=== PATIENT | male | born 1950 | race Caucasian/White ===

== ENCOUNTER 2017-11-15 02:51 | Inpatient (IN) | payer MEDICARE, OTHER, SELFPAY ==
[2017-11-15] VITALS (22 sets, daily range): BP systolic 107–145; BP diastolic 69–91; PULSE 65–103; RESP 12–20; TEMP 36.1–37.9; O2SAT 94–99; BMI 25.7; BMI 25.2
--- NOTE | 2017-11-15 03:20 | CT_ITS ---
CT abdomen pelvis wo con CLINICAL INDICATION: Right-sided abdominal pain, right lower quadrant pain ITS.REASON: pain, right flank pain ORDERING PHYSICIAN: Kevin Rahman MD PATIENT AGE: 67 years COMPARISON: None TECHNIQUE: Axial images obtained with sagittal and coronal reformats. PROCEDURE: Oral Contrast: None IV Contrast: None . FINDINGS: Lung bases show hyperinflation and attenuation of the peripheral vessels consistent COPD. Coronary artery calcification. Liver, spleen, left adrenal gland is unremarkable. No obvious pancreatic mass. A faint calcific density is present in the pancreatic head nonspecific. There is a right adrenal nodule measuring 2.7 cm measuring less than 0 Hounsfield units consistent with an adenoma. No renal calculi or hydronephrosis. No ureteral calculi. The appendix is enlarged measuring up to 2 cm in diameter with thickening of the wall and stranding of the periappendiceal fat. Gas is present in the lumen of the appendix. The appendix is retrocecal. There is an appendicolith at the base of the appendix. These findings are consistent with appendicitis. There is internal gas within the appendix is worrisome for gangrenous appendicitis. No free air is evident. No obvious abscess. The prostate is enlarged at 5.5 cm. Urinary bladder wall is thickened and may reflect hypertrophic change from bladder outlet obstruction. No acute bony anomalies. IMPRESSION: 1. Appendicitis with possible gangrenous appendix. 2. The appendix is retrocecal. 3. Right adrenal adenoma
[2017-11-15 03:50] LABS: Basophils % 0.1 % (0.1-2.0); Eosinophils # 0.1 K/mm3 (0.0-0.4); Eosinophils % 0.3 % (0.1-12.0); Hematocrit 47.3 % (42.0-52.0); Hemoglobin 16.2 g/dL (14.1-18.0); Lymphocytes # 1.1 K/mm3 (0.7-4.5); Lymphocytes % 6.2 K/mm3 (10-50); Mean Corpuscular HGB Conc 34.3 g/dL (31.8-35.4); Mean Corpuscular Hemoglobin 32.2 pg (27.0-31.2); Mean Corpuscular Volume 93.9 fl (80-94); Mean Platelet Volume 9.1 fl (7.4-10.4); Monocytes # 1.3 K/mm3 (0.1-1.0); Monocytes % 7.5 % (1.7-9.3); Neutrophils # 14.7 K/mm3 (1.8-7.8); Neutrophils % 85.9 % (37.0-80.0); Platelet Count 140 K/mm3 (142-424); Red Blood Count 5.03 M/mm3 (4.60-6.20); Red Cell Distribution Width 12.3 % (11.5-17.5); White Blood Count 17.1 K/mm3 (4.8-10.8)
[2017-11-15 03:58] LABS: MANUAL DIFFERENTIAL MANUAL DIFFERENTIAL (MANUAL DIFF)
[2017-11-15 04:05] LABS: Alanine Aminotransferase 30 U/L (12-78); Albumin Level 3.8 gm/dL (3.4-5.0); Albumin/Globulin Ratio 1.1 (1.1-1.8); Alkaline Phosphatase 87 U/L (46-116); Anion Gap 12.9 mEq/L (5-15); Aspartate Amino Transferase 16 U/L (15-37); Blood Urea Nitrogen 14 mg/dL (7-18); Calcium 9.5 mg/dL (8.5-10.1); Carbon Dioxide 27 mmol/L (21.0-32.0); Chloride 102 mmol/L (98-107); Creatinine Clearance Estimated 89 mL/min (0-300); Creatinine,Serum 1.02 mg/dL (0.70-1.30); Estimated Glomerular Filt Rate 73 ml/min (>60); GFR (African American) 88 ML/MIN (>60); Globulin 3.5 gm/dl (1.3-3.2); Glucose 111 mg/dL (74-106); Potassium 3.9 mmoL/L (3.5-5.1); Sodium 138 mmol/L (136-145); Total Protein,Serum 7.3 gm/dL (6.4-8.2)
[2017-11-15 04:25] LABS: Anisocytosis 1+; Lymphocytes % 8 % (10-50); Monocytes % 4 % (2-9); Neutrophils % 87 % (42-76); Platelet Estimate Normal; Total Cells Counted 100
--- NOTE | 2017-11-15 04:40 | HMH.EDNVD ---
ED Disposition Clinical Impression: Acute appendicitis Qualifiers: Acute appendicitis type: unspecified acute appendicitis type Qualified Code(s): K35.80 - Unspecified acute appendicitis Disposition: Admitted As Inpatient Condition on Discharge: Good Instructions: DI for Acute Abdomen - Critical Care Critical Care Time: No Attestation: On 11/15/17, the high probability of a clinically significant, sudden or life threatening deterioration of the following system(s) required my full and direct attention, intervention and personal management. The time I documented below is in addition to time spent performing reported procedures but includes the following listed in this critical care notation. Medical Decision Making - Medical Records Medical records reviewed: Yes: I reviewed the patient's medical records. Vital Signs: 11/15/17 03:07 Temperature 99.3 F Temperature Source Oral Pulse Rate [Left Radial] 65 Respiratory Rate 14 Blood Pressure [Right Arm] 142/81 Blood Pressure Mean [Right Arm] 101 Blood Pressure Source [Right Arm] Automatic Cuff Blood Pressure Position [Right Arm] Supine 02 Sat by Pulse Oximetry 99 Oxygen Delivery Method Room Air - Lab Data Lab results reviewed: Yes: I reviewed the patient's lab results. Lab Results 11/15/17 03:30: WBC 17.1 H, RBC 5.03, Hgb 16.2, Hct 47.3, MCV 93.9, MCH 32.2 H, MCHC 34.3, RDW 12.3, Plt Count 140 L, MPV 9.1, Neut % (Auto) 85.9 H, Lymph % (Auto) 6.2 L, [place] % (Auto) 7.5, Eos % (Auto) 0.3, Baso % (Auto) 0.1, Neut # (Auto) 14.7 H, Lymph # (Auto) 1.1, [place] # (Auto) 1.3 H, Eos # (Auto) 0.1, Baso # (Auto) 0.0, Total Counted 100, Neutrophils % (Manual) 87 H, Band Neutrophils % 1.0, Lymphocytes % (Manual) 8 L, Monocytes % (Manual) 4, Platelet Estimate Normal, Anisocytosis 1+ 11/15/17 03:30: Sodium 138, Potassium 3.9, Chloride 102, Carbon Dioxide 27, Anion Gap 12.9, BUN 14, Creatinine 1.02, Estimated Creat Clear 89, Estimated GFR 73, Est GFR ( Amer) 88, Glucose 111 H, Calcium 9.5, Total Bilirubin 1.0, AST 16, ALT 30, Alkaline Phosphatase 87, Total Protein 7.3, Albumin 3.8, Globulin 3.5 H, Albumin/Globulin Ratio 1.1 Result diagrams: 11/15/17 03:30 11/15/17 03:30 Orders (Tests/Meds): ORDERS Category Date Time Status CT abdomen pelvis wo con Stat Cat Scan 11/15/17 03:20 Taken - CT Data CT Scan: Abdomen, Pelvis Time Received: 04:[address] Reviewed: Yes: I have viewed the radiologist's interpretation Preliminary Findings: Abnormal (acute appendicitis) - Physician Consults Physician Consulted: shree Reason -: Admission - Guy Inquiry Pt receiving controlled substance: No Nausea/Vomiting/Diarrhea HPI - General Chief complaint: Abdominal Pain Stated complaint: pain in right side,vomited Time Seen by Provider: 11/15/17 04:42 Mode of Arrival: Ambulatory Source of Information: Patient, Spouse, Medical Record Limitations: No Limitations Description of Symptoms (Recalled from ER Triage Doc. by RN): right sided abdominal pain - History of Present Illness HPI Narrative: progressive rt sided abd pain over the last 24 hrs with nausea - MD complaint: nausea, abdominal pain Onset (ago): day(s) Associated Abdominal Pain: Yes Location of pain: RLQ, flank Severity: moderate Quality: aching Consistency: constant Relieving factors: none Exacerbating factors: none Associated symptoms: loss of appetite, nausea/vomiting - Related Data Allergies Allergy/AdvReac Type Severity Reaction Status Date / Time No Known Allergies Allergy Verified 11/15/17 03:18 [facility] History Medical History: Denies:: Cancer, Diabetes Mellitus Type 1, Diabetes Mellitus Type 2, MRSA Amputation: No Fractures: No - *Social History Educational Level: Completed College Smoking Status: Former smoker Alcohol Intake: current Alcohol Intake Frequency:: 0-2 drinks per day - Psychiatric History Expresses thoughts of harming self/others: None Suicide Plan Descript
--- NOTE | 2017-11-15 04:44 | ED_ITS ---
ED Disposition Clinical Impression: Acute appendicitis Qualifiers: Acute appendicitis type: unspecified acute appendicitis type Qualified Code(s) : K35.80 - Unspecified acute appendicitis Disposition: Admitted As Inpatient Condition on Discharge: Good Instructions: DI for Acute Abdomen - Critical Care Critical Care Time: No Attestation: On 11/15/17, the high probability of a clinically significant, sudden or life threatening deterioration of the following system(s) required my full and direct attention, intervention and personal management. The time I documented below is in addition to time spent performing reported procedures but includes the following listed in this critical care notation. Medical Decision Making - Medical Records Medical records reviewed: Yes: I reviewed the patient's medical records. Vital Signs: 11/15/17 03:07 Temperature 99.3 F Temperature Source Oral Pulse Rate [Left Radial] 65 Respiratory Rate 14 Blood Pressure [Right Arm] 142/81 Blood Pressure Mean [Right Arm] 101 Blood Pressure Source [Right Arm] Automatic Cuff Blood Pressure Position [Right Arm] Supine 02 Sat by Pulse Oximetry 99 Oxygen Delivery Method Room Air - Lab Data Lab results reviewed: Yes: I reviewed the patient's lab results. Lab Results 11/15/17 03:30: WBC 17.1 H, RBC 5.03, Hgb 16.2, Hct 47.3, MCV 93.9, MCH 32.2 H, MCHC 34.3, RDW 12.3, Plt Count 140 L, MPV 9.1, Neut % (Auto) 85.9 H, Lymph % ( Auto) 6.2 L, [place] % (Auto) 7.5, Eos % (Auto) 0.3, Baso % (Auto) 0.1, Neut # ( Auto) 14.7 H, Lymph # (Auto) 1.1, [place] # (Auto) 1.3 H, Eos # (Auto) 0.1, Baso # (Auto) 0.0, Total Counted 100, Neutrophils % (Manual) 87 H, Band Neutrophils % 1.0, Lymphocytes % (Manual) 8 L, Monocytes % (Manual) 4, Platelet Estimate Normal, Anisocytosis 1+ 11/15/17 03:30: Sodium 138, Potassium 3.9, Chloride 102, Carbon Dioxide 27, Anion Gap 12.9, BUN 14, Creatinine 1.02, Estimated Creat Clear 89, Estimated GFR 73, Est GFR ( Amer) 88, Glucose 111 H, Calcium 9.5, Total Bilirubin 1.0, AST 16, ALT 30, Alkaline Phosphatase 87, Total Protein 7.3, Albumin 3.8, Globulin 3.5 H, Albumin/Globulin Ratio 1.1 Result diagrams: 11/15/17 03:30 11/15/17 03:30 Orders (Tests/Meds): ORDERS Category Date Time Status CT abdomen pelvis wo con Stat Cat Scan 11/15/17 03:20 Taken - CT Data CT Scan: Abdomen, Pelvis Time Received: 04:[address] Reviewed: Yes: I have viewed the radiologist's interpretation Preliminary Findings: Abnormal (acute appendicitis) - Physician Consults Physician Consulted: shree Reason -: Admission - Guy Inquiry Pt receiving controlled substance: No Nausea/Vomiting/Diarrhea HPI - General Chief complaint: Abdominal Pain Stated complaint: pain in right side,vomited Time Seen by Provider: 11/15/17 04:42 Mode of Arrival: Ambulatory Source of Information: Patient, Spouse, Medical Record Limitations: No Limitations Description of Symptoms (Recalled from ER Triage Doc. by RN): right sided abdominal pain - History of Present Illness HPI Narrative: progressive rt sided abd pain over the last 24 hrs with nausea - MD complaint: nausea, abdominal pain Onset (ago): day(s) Associated Abdominal Pain: Yes Location of pain: RLQ, flank Severity: moderate Quality: aching Consistency: constant Relieving factors: none Exacerbating factors: none Associated symptoms: los
--- NOTE | 2017-11-15 04:49 | PC.NURSE ---
pt did not know his home meds and none had carried forward from pharmacy, has gone home to retrieve with admission
--- NOTE | 2017-11-15 05:15 | XR_ITS ---
XR chest 2V HISTORY: Pain ITS.REASON: abd pain ORDERING PHYSICIAN: Kevin Rahman MD PATIENT AGE: 67 years COMPARISON: 10/16/2013 FINDINGS: The cardiomediastinal silhouette and pulmonary vascularity are within normal limits. There is chronic coarsening of the bronchovascular markings with hyperinflation consistent with obstructive bronchitis. No lobar consolidation or collapse. Vestigial right first rib as before. IMPRESSION: COPD, no change with no acute finding
--- NOTE | 2017-11-15 06:52 | HMH.GSHP ---
HPI HPI: Patient is a very pleasant 67-year-old white male from [facility]. He states that early yesterday morning he had felt somewhat ill. He felt like he may have the flu. He tried to rest but then developed right flank pain. This continued to progress and he ultimately presented to the emergency department early this morning. He is found to have a leukocytosis. He underwent CT scan which revealed findings of retrocecal appendicitis. Surgery was contacted and arrangements were made for admission and planned appendectomy. [facility] History Medical History: Reports:: Hyperlipidemia Denies:: Cancer, Diabetes Mellitus Type 1, Diabetes Mellitus Type 2, MRSA Amputation: No Fractures: No - *Social History Educational Level: Completed College Smoking Status: Former smoker Tobacco Type: cigarettes # Packs/Day (cigarettes): 2 #Yrs smoked (if former smoker): 30 Smoking End Date: 2012 Alcohol Intake: current Alcohol Intake Frequency:: a few times a week Occupational Status: retired Housing: house - Psychiatric History Expresses thoughts of harming self/others: None Suicide Plan Description: No Plan *Family Hx:: Cancer, Coronary Artery Disease, Diabetes, Heart Attack, Hyperlipidemia, Hypertension, Kidney Disease, Stroke Review of Systems - Constitutional Reports anorexia, Reports fatigue - Eyes Denies change in vision - ENT Denies dizziness - *Cardiovascular Denies chest pain - *Respiratory Denies shortness of breath - *Gastrointestinal Reports abdominal pain - *Genitourinary Denies blood in urine - *Neurologic Denies seizure-like activity Meds Home Medications Medication Instructions Recorded Confirmed Type Aspirin [Aspirin 81mg EC Tab] 81 mg PO DAILY 11/15/17 11/15/17 History Atorvastatin Calcium [Atorvastatin 80 mg PO DAILY 11/15/17 11/15/17 History 80mg Tab] Lisinopril [Lisinopril 10mg Tab] 10 mg PO DAILY 11/15/17 11/15/17 History Metoprolol Tartrate [Lopressor 12.5 mg PO BID 11/15/17 11/15/17 History 25mg tablet] Mirabegron [Myrbetriq] 25 mg PO DAILY 11/15/17 11/15/17 History Multivitamin [One Daily] 1 each PO DAILY 11/15/17 11/15/17 History Omeprazole [Omeprazole 20mg 20 mg PO DAILY 11/15/17 11/15/17 History Capsule] Allergies Allergy/AdvReac Type Severity Reaction Status Date / Time No Known Allergies Allergy Verified 11/15/17 03:18 Exam Vital signs and Labs for Last 24 Hours: Temp Pulse Resp BP Pulse Ox 98.9 F 66 18 128/74 97 11/15/17 05:50 11/15/17 05:50 11/15/17 05:50 11/15/17 05:50 11/15/17 05:50 - *Routine HEENT Exam Head: Present: normocephalic, atraumatic - *Routine Respiratory Exam Present: CTA bilaterally - *Routine Cardiovascular Exam Present: RRR, Normal S1, Normal S2 - *Routine Abdominal Exam Present: soft, tenderness Comments: He has no evidence of any diffuse tenderness or peritonitis. He does have some tenderness in the right lateral abdomen and flank area. Assessment and Plan - Assessment and plan all Dx Assessment and Plan for all problems:: Plan for laparoscopic with possibly open appendectomy. This is to be arranged for this morning.
--- NOTE | 2017-11-15 07:12 | P.CONPHA_ITS ---
[facility] Pharmacy VTE Monitoring - Patient Demographics Admission date: 11/15/17 Report Date: 11/15/17 Time: 07:12 Allergies/Adverse Reactions: Patient Allergies No Known Allergies Allergy (Verified 11/15/17 03:18) Height: 1.85 m Weight: 86.835 kg Patient Problems: Current Active Problems Acute appendicitis (Acute) - VTE Risk Labs: VTE Related Lab Results Hgb 16.2 g/dL (14.1-18.0) 11/15/17 03:30 Hct 47.3 % (42.0-52.0) 11/15/17 03:30 Plt Count 140 K/mm3 (142-424) L 11/15/17 03:30 BUN 14 mg/dL (7-18) 11/15/17 03:30 Creatinine 1.02 mg/dL (0.70-1.30) 11/15/17 03:30 Estimated Creat Clear 89 mL/min (0-300) 11/15/17 03:30 Was VTE Risk Assessment Performed: Yes VTE Risk Level: Very Low Risk - Prophylaxis VTE Prophylaxis Ordered?: Yes Types of VTE Prophylaxis: TEDS Knee High Location of Applied Device: Bilateral Lower Extremeties - VTE Diagnosis Confirmed Treatment or plan recommended: Continue Current Treatment
--- NOTE | 2017-11-15 07:39 | P.PN_ITS ---
[facility] Anesthesia Checklist - Patient Identification Patient Identification: Arm Band - Structural Data Admitted From: Home Planned Operative Procedure/s: lap appy Consent for Planned Operative Procedure(s) Verified: Yes Verified Documents: Surgical Consent, History and Physical - NPO Status Verified Time NPO: 00:00 - Additional verifications Anesthesia Reactions: No - Airway Assessment C-Spine Mobility Assessed: Yes (MP2) TMJ Mobility Assessed: Yes Dentition: Good Dentition - Neurological Assessment Level of Consciousness: Awake, Alert - Anesthesia Plan Anesthesia Risk discussed: Yes Anesthesia Plan: Verified ASA Class: II Anesthesia Type: General [facility] Anesthesia HX I have reviewed the patient's past medical history: Yes Medical History: Reports:: Gastroesophageal Reflux Disease(GERD), Hiatal Hernia , Hyperlipidemia, Hypertension Denies:: Cancer, Diabetes Mellitus Type 1, Diabetes Mellitus Type 2, MRSA Amputation: No Fractures: No Comment: vasectomy, heart cath *Family Hx:: Cancer, Coronary Artery Disease, Diabetes, Heart Attack, Hyperlipidemia, Hypertension, Kidney Disease, Stroke
--- NOTE | 2017-11-15 08:09 | HMH.ANESCL ---
[facility] Anesthesia Checklist - Patient Identification Patient Identification: Arm Band - Structural Data Planned Operative Procedure/s: lap appy Consent for Planned Operative Procedure(s) Verified: Yes Verified Documents: Surgical Consent - Airway Assessment C-Spine Mobility Assessed: Yes TMJ Mobility Assessed: Yes Dentition: Poor Dentition - Anesthesia Plan Anesthesia Risk discussed: Yes Anesthesia Plan: Verified ASA Class: II Anesthesia Type: General [facility] Anesthesia HX I have reviewed the patient's past medical history: Yes Medical History: Reports:: Coronary Artery Disease, Gastroesophageal Reflux Disease(GERD), Hiatal Hernia, Hyperlipidemia, Hypertension, Palpitations Denies:: Cancer, Diabetes Mellitus Type 1, Diabetes Mellitus Type 2, MRSA Amputation: No Fractures: No Comment: vasectomy many years ago. S/p [place] 3 years ago, no cp since *Family Hx:: Cancer, Coronary Artery Disease, Diabetes, Heart Attack, Hyperlipidemia, Hypertension, Kidney Disease, Stroke
--- NOTE | 2017-11-15 08:12 | P.PN_ITS ---
[facility] Anesthesia Checklist - Patient Identification Patient Identification: Arm Band - Structural Data Planned Operative Procedure/s: lap appy Consent for Planned Operative Procedure(s) Verified: Yes Verified Documents: Surgical Consent - Airway Assessment C-Spine Mobility Assessed: Yes TMJ Mobility Assessed: Yes Dentition: Poor Dentition - Anesthesia Plan Anesthesia Risk discussed: Yes Anesthesia Plan: Verified ASA Class: II Anesthesia Type: General [facility] Anesthesia HX I have reviewed the patient's past medical history: Yes Medical History: Reports:: Coronary Artery Disease, Gastroesophageal Reflux Disease(GERD), Hiatal Hernia, Hyperlipidemia, Hypertension, Palpitations Denies:: Cancer, Diabetes Mellitus Type 1, Diabetes Mellitus Type 2, MRSA Amputation: No Fractures: No Comment: vasectomy many years ago. S/p [place] 3 years ago, no cp since *Family Hx:: Cancer, Coronary Artery Disease, Diabetes, Heart Attack, Hyperlipidemia, Hypertension, Kidney Disease, Stroke
--- NOTE | 2017-11-15 11:17 | CARE MANAGER ---
[facility] about Mr[facility] Kerns admission, patient will likely have surgery today. They will follow-up in the am with Case Mangement.
--- NOTE | 2017-11-15 13:31 | HMH.ANESI ---
[facility] Anesthesia Record Part I Intake, IV Amount: 2,800 Estimated blood loss (mL): 100 Urine output (mL): 250 Blood Pressure: 107/71 SaO2: 95 Pulse Rate: 103 Respiratory Rate: 12 Temperature: 97.8 F Patient is:: Awake, Stable Stable to PACU at:: 13:30
--- NOTE | 2017-11-15 13:32 | HMH.ANESII ---
[facility] Anesthesia Record Part II Discharge Time: 14:00 Destination: floor PACU nurse assessment reviewed?: Yes Patient Condition:: Good Anesthesia Complications:: None
--- NOTE | 2017-11-15 13:44 | HMH.OPNOTE ---
Date of procedure: 11/15/17 Pre-op Diagnosis:: Acute appendicitis Post-op diagnosis:: same Procedure performed:: 1. Diagnostic laparoscopy 2. Open appendectomy for acute necrotizing abscessed appendicitis Surgeon:: Kevin Rahman MD Anesthesia: MERCEDES Estimated blood loss (mL): 50 Clinical Note:: Patient is a 67-year-old white male. He states that early yesterday morning he had felt somewhat ill. He thought he may have the flu . He had some right flank pain. 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 He was found to have a leukocytosis. He had a CT scan performed which revealed findings of acute appendicitis. Patient was admitted and plan was for appendectomy. Operative findings:: Patient had a severely inflamed retrocecal necrotizing appendicitis with probable contained periappendiceal and intra-appendiceal abscess Operative note:: Consent was obtained and patient was taken to the operating room. He was given preoperative intravenous antibiotics. In the operating room he was placed in a supine position. Thompson catheter was placed for bladder decompression. Abdomen was prepped and draped in the standard surgical fashion. Infraumbilical skin incision was made and while performing abdominal wall left Veress needle was inserted. CO2 pneumoperitoneum was achieved. 11 mm optical trocar was inserted at the umbilicus. Intraperitoneal contents were visualized. 5 mm trocar was inserted in the suprapubic location. Additional 5 mm trocar was inserted in the right upper abdomen. Initially it was difficult to identify the appendix. The lateral peritoneal attachments of the right colon were divided with Mega ultrasonic harmonic clotilde mobilizing the cecum. There was a large inflammatory response almost resembling a phlegmon in the posterior lateral right paracolic gutter. There were some omental adhesions to the anterior peritoneum of the abdominal wall which were taken down using Mega ultrasonic harmonic clotilde. Very prolonged dissection was carried out and it appeared as though the appendix was identified and there was some necrosis near its proximal portion. The appendix traversed in a retrocecal location densely adherent to the right colon up to the hepatic flexure. Several hours of dissection was performed without successful mobilization of the appendix and it was difficult to discern between the appendix and right colon. Decision was made to convert to an open procedure. A transverse right lower quadrant incision was made. Dissection was carried down through subcutaneous tissues and Caleb's fascia to the muscle fascia. External oblique muscle, internal oblique, and transversalis muscle was opened along the length of their fibers and a muscle-splitting type technique. Peritoneum was entered. The cecum was able to be delivered through the wound. With some difficulty the appendix was ultimately freed from its remaining retroperitoneal attachments with the tip adherent into the right upper quadrant near the hepatic flexure. The appendix was markedly indurated and thickened and somewhat suppurative. It seemed to be packed full of appendicoliths. The appendiceal mesentery was clamped divided and ligated with Vicryl ties. Dissection was carried down to the base of the appendix. Clamp was placed at the appendiceal base which was then reapproximated immediately distal to this. The appendiceal stump was doubly ligated with 0 Vicryl ties. The appendix was then sharply amputated and sent off as a specimen. Appendiceal stump was cauterized with electrocautery. The appendiceal stump was inverted with a 3-0 Nurolon seromuscular Z stitch. Cecum was then returned to the peritoneal cavity. Peritoneal cavity was thoroughly irrigated. A 10 MARIVEL drain was placed in the right paracolic gutter through a separate incision in the right lower quadrant. The peritoneal cavit
--- NOTE | 2017-11-15 13:56 | P.OP_ITS ---
Date of procedure: 11/15/17 Pre-op Diagnosis:: Acute appendicitis Post-op diagnosis:: same Procedure performed:: 1. Diagnostic laparoscopy 2. Open appendectomy for acute necrotizing abscessed appendicitis Surgeon:: Kevin Rahman MD Anesthesia: MERCEDES Estimated blood loss (mL): 50 Clinical Note:: Patient is a 67-year-old white male. He states that early yesterday morning he had felt somewhat ill. He thought he may have the flu . He had some right flank pain. 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 He was found to have a leukocytosis. He had a CT scan performed which revealed findings of acute appendicitis. Patient was admitted and plan was for appendectomy. Operative findings:: Patient had a severely inflamed retrocecal necrotizing appendicitis with probable contained periappendiceal and intra-appendiceal abscess Operative note:: Consent was obtained and patient was taken to the operating room. He was given preoperative intravenous antibiotics. In the operating room he was placed in a supine position. Thompson catheter was placed for bladder decompression. Abdomen was prepped and draped in the standard surgical fashion. Infraumbilical skin incision was made and while performing abdominal wall left Veress needle was inserted. CO2 pneumoperitoneum was achieved. 11 mm optical trocar was inserted at the umbilicus. Intraperitoneal contents were visualized. 5 mm trocar was inserted in the suprapubic location. Additional 5 mm trocar was inserted in the right upper abdomen. Initially it was difficult to identify the appendix. The lateral peritoneal attachments of the right colon were divided with Mega ultrasonic harmonic clotilde mobilizing the cecum. There was a large inflammatory response almost resembling a phlegmon in the posterior lateral right paracolic gutter. There were some omental adhesions to the anterior peritoneum of the abdominal wall which were taken down using Mega ultrasonic harmonic clotilde. Very prolonged dissection was carried out and it appeared as though the appendix was identified and there was some necrosis near its proximal portion. The appendix traversed in a retrocecal location densely adherent to the right colon up to the hepatic flexure. Several hours of dissection was performed without successful mobilization of the appendix and it was difficult to discern between the appendix and right colon. Decision was made to convert to an open procedure. A transverse right lower quadrant incision was made. Dissection was carried down through subcutaneous tissues and Caleb's fascia to the muscle fascia. External oblique muscle, internal oblique, and transversalis muscle was opened along the length of their fibers and a muscle-splitting type technique. Peritoneum was entered. The cecum was able to be delivered through the wound. With some difficulty the appendix was ultimately freed from its remaining retroperitoneal attachments with the tip adherent into the right upper quadrant near the hepatic flexure. The appendix was markedly indurated and thickened and somewhat suppurative. It seemed to be packed full of appendicoliths. The appendiceal mesentery was clamped divided and ligated with Vicryl ties. Dissection was carried down to the base of the appendix. Clamp was placed at the appendiceal base which was then reapproximated immediately distal to this. The appendiceal stump was doubly ligated with 0 Vicryl ties. The appendix was then sharply amputated and sent off as a specimen. Appendiceal stump was cauterized with electrocautery. The appendiceal stump was inverted with a 3-0 Nurolon seromuscular Z stit
--- NOTE | 2017-11-15 14:13 | PC.NURSE ---
Pt returning from laparoscopic turned open appendectomy via bed. Pt is lethargic but answers questions appropriately. Dressing to rlq of abd is saturated w/sanguineous fluid as are the 2 laparoscopic sites. No hematoma's present. MARIVEL drain in place draining sanguineous fluid, dressing is cdi. Thompson to bedside draining clear spenser urine. Pt states his pain is a zero. VS are as follows: bp 139/78, P-71, R-14, T-98.3, O2-99%. Will reinforce saturated dressings as needed w/4x4's and tegaderm. Will continue to monitor.
[2017-11-15 15:58] LABS: Microscopic,Cath URINE MICROSCOPIC (MICROSCOPIC)
--- NOTE | 2017-11-15 16:19 | SUR.OPER ---
Procedure scheduled as laparoscopic appendectomy. Started at 0942, at 1130 MD made decision to convert to open appendectomy. At this time Solange Harden RN notified pt's that procedure had converted.
[2017-11-15 16:28] LABS: Appearance,Urine/Cath CLEAR (Clear); Bilirubin,Cath Negative (Negative); Blood, Urine/Cath 2+ (Negative); Color,Urine/Cath YELLOW (Yellow); Glucose,Urine/Cath (UA) Negative (Negative); Ketones,Urine/Cath Negative (Negative); Leukocyte Esterase,Cath Negative (Negative); Nitrate,Cath Negative (Negative); Protein,Urine/Cath TRACE (Negative); Specific Gravity, Urine/Cath 1.025 (1.005-1.030); Urobilinogen,Cath 0.2 EU/dl (0.2)
[2017-11-15 18:34] LABS: Bacteria,Urine/Cath 1+ /lpf; Mucus,Urine/Cath 2+ /lpf; Squamous Epithelial Ur./Cath Occasional #/hpf (0-5)
--- NOTE | 2017-11-15 18:53 | PC.NURSE ---
report to be given to Lisa Ramirez RN
[2017-11-16] VITALS (7 sets, daily range): BP systolic 128–164; BP diastolic 75–106; PULSE 61–76; RESP 16–20; TEMP 36.3–36.9; O2SAT 94–98
--- NOTE | 2017-11-16 04:59 | PC.NURSE ---
pt asked to remove scud pump because he was sweaty
--- NOTE | 2017-11-16 05:43 | PC.NURSE ---
PT HAS C/O PAIN IN ABDOMINAL INCISIONS AREAS T/O THE NIGHT, MEDICATED PER MAR. INCISIONS TO RT. LEFT AND MIDLINE ABDOMEN NOTED, DSG SOAKED WITH BLOODY DRAINAGE, NO LEAKING AROUND TEGADERM NOTED, RU DSG REINFORCED WITH TEGADERM AND TELFA, NO LEAKING AROUND REINFORCEMENT. TENDERNESS NOTED TO ABDOMINAL INCISIONS. MARIVEL DRAIN EMPTIED THIS SHIFT, 25 ML OF SEROSANGUINEOUS NOTED. PT REQUESTED SCUDS TO BE REMOVED FOR A COUPLE HOURS BECAUSE HE WAS SWEATY, STATED HE WOULD PUT THEM BACK ON AFTER BREAKFAST. PT EDUCATED TO TURN, COUGH, AND DEEP BREATHE, ADDITIONAL PILLOW GIVEN TO SPLINT INCISIONS. 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 BS HYPOACTIVE, PT DENIES PASSING FLATUS. F/C PATENT AND DRAINING CLEAR YELLOW URINE AT BEDSIDE. AXOX3. VSS. NO ACUTE DISTRESS NOTED. WILL CONTINUE TO MONITOR.
--- NOTE | 2017-11-16 06:02 | PC.NURSE ---
scuds are still off
--- NOTE | 2017-11-16 07:26 | PC.NURSE ---
REPORT GIVEN TO Mundo DUBOIS RN
--- NOTE | 2017-11-16 07:39 | PC.NURSE ---
REPORT GIVEN TO Mundo MITCHELL W/C
--- NOTE | 2017-11-16 08:25 | HMH.GSPN ---
Subjective Patient reports: no new complaints, feels better Narrative: Main complaint is discomfort from drain when it is stripped. Exam Vital signs and Labs for Last 24 Hours: Temp Pulse Resp BP Pulse Ox 98.1 F 67 18 132/75 94 L 11/16/17 04:00 11/16/17 08:00 11/16/17 08:00 11/16/17 04:00 11/16/17 08:00 Laboratory Results - last 24 hr 11/15/17 09:30: Urine Color Yellow, Urine Appearance Clear, Urine pH 6.0, Ur Specific [place] 1.025, Urine Protein Trace, Urine Glucose (UA) Negative, Urine Ketones Negative, Urine Blood 2+, Urine Nitrate Negative, Urine Bilirubin Negative, Urine Urobilinogen 0.2, Ur Leukocyte Esterase Negative, Urine RBC 5-10, Urine WBC None, Ur Squamous Epith Cells Occasional, Urine Bacteria 1+ I & O for Last 24 hours: Intake & Output 11/13/17 11/14/17 11/15/17 11/16/17 11:59 11:59 11:59 11:59 Intake Total 4883 / 4883 Output Total 2875 / 2875 Balance 2007 Weight 191 lb 7 oz - *Routine Respiratory Exam Present: CTA bilaterally - *Routine Abdominal Exam Present: soft, wound, drain Progress Note: A&P (1) Acute appendicitis Status: Acute Assessment and plan: D/C adame. Restart some home medications. Monitor MARIVEL. Continue to limit to Clears for now. Current Visit: Yes
--- NOTE | 2017-11-16 08:28 | P.PN_ITS ---
Subjective Patient reports: no new complaints, feels better Narrative: Main complaint is discomfort from drain when it is stripped. Exam Vital signs and Labs for Last 24 Hours: Temp Pulse Resp BP Pulse Ox 98.1 F 67 18 132/75 94 L 11/16/17 04:00 11/16/17 08:00 11/16/17 08:00 11/16/17 04:00 11/16/17 08:00 Laboratory Results - last 24 hr 11/15/17 09:30: Urine Color Yellow, Urine Appearance Clear, Urine pH 6.0, Ur Specific [place] 1.025, Urine Protein Trace, Urine Glucose (UA) Negative, Urine Ketones Negative, Urine Blood 2+, Urine Nitrate Negative, Urine Bilirubin Negative, Urine Urobilinogen 0.2, Ur Leukocyte Esterase Negative, Urine RBC 5-10 , Urine WBC None, Ur Squamous Epith Cells Occasional, Urine Bacteria 1+ I & O for Last 24 hours: Intake & Output 11/13/17 11/14/17 11/15/17 11/16/17 11:59 11:59 11:59 11:59 Intake Total 4883 / 4883 Output Total 2875 / 2875 Balance 2007 Weight 191 lb 7 oz - *Routine Respiratory Exam Present: CTA bilaterally - *Routine Abdominal Exam Present: soft, wound, drain Progress Note: A&P (1) Acute appendicitis Status: Acute Assessment and plan: D/C adame. Restart some home medications. Monitor MARIVEL. Continue to limit to Clears for now. Current Visit: Yes
[2017-11-16 08:33] LABS: Eosinophils # 0.1 K/mm3 (0.0-0.4); Eosinophils % 0.4 % (0.1-12.0); Hematocrit 44.1 % (42.0-52.0); Hemoglobin 14.7 g/dL (14.1-18.0); Lymphocytes # 0.7 K/mm3 (0.7-4.5); Lymphocytes % 5.3 K/mm3 (10-50); Mean Corpuscular HGB Conc 33.4 g/dL (31.8-35.4); Mean Corpuscular Volume 95.7 fl (80-94); Mean Platelet Volume 9.9 fl (7.4-10.4); Monocytes # 0.6 K/mm3 (0.1-1.0); Monocytes % 4.5 % (1.7-9.3); Neutrophils # 11.7 K/mm3 (1.8-7.8); Neutrophils % 89.7 % (37.0-80.0); Platelet Count 116 K/mm3 (142-424); Red Blood Count 4.61 M/mm3 (4.60-6.20); Red Cell Distribution Width 12.4 % (11.5-17.5)
[2017-11-16 08:39] LABS: MANUAL DIFFERENTIAL MANUAL DIFFERENTIAL (MANUAL DIFF)
[2017-11-16 10:39] LABS: Lymphocytes % 2 % (10-50); Monocytes % 5 % (2-9); Neutrophils % 90 % (42-76); Total Cells Counted 100
[2017-11-16 10:40] LABS: Platelet Estimate Slight Decrease
--- NOTE | 2017-11-16 16:09 | PC.NURSE ---
Thompson catheter removed per md order in the am. Pt tolerated well. He has since urinated several times. Abdomen is tender to incision areas. No new drainage noted to dressings. MARIVEL drain patent and draining small amount of sanguineous fluid, approx 10 ml's this shift. Treated per dec with prn pain meds. Pt reports satisfactory relief w/administration. Will continue to monitor.
--- NOTE | 2017-11-16 19:09 | PC.NURSE ---
report given to siri gibbons rn
[2017-11-17 04:00] VITALS: BP 133/79; PULSE 60; RESP 16; TEMP 36.8; O2SAT 96
--- NOTE | 2017-11-17 04:24 | PC.NURSE ---
Pt has c/o pain in abdomen r/t incisions, medicated per MAR with PRN pain medication. Pt states that his pain is getting better and he states that when palpating incisions sites only the one in his RLQ hurts. Pt states when nursing staff strip the MARIVEL drain it does not hurt as bad as before. 30 mL of serosanguineous fluid emptied from MARIVEL this shift. 4 incisions site noted to abdomen. DSG around MARIVEL tubing reinforced with telfa and tegaderm, no new drainage noted to incisions dressings. Pt states he is passing flatus but has not had a BM 11/14/17, states he has this trouble at home as well, BS active in all 4 qauds, no distention noted. No c/o or s/s of difficulty with urination since removal of F/C, pt ambulating to BR alone well. Lung sounds clear. A&Ox3. VSS. No acute distress noted. Will continue to monitor.
--- NOTE | 2017-11-17 07:08 | PC.NURSE ---
Pt refuses scuds, states they are to hot, pt ambulates regularly in room. Low VTE risk.
--- NOTE | 2017-11-17 07:26 | PC.NURSE ---
REPORT GIVEN TO Abdon BURGOS W/C
--- NOTE | 2017-11-17 07:44 | PC.NURSE ---
report given to ALLY arrington rn
--- NOTE | 2017-11-17 07:58 | P.PN_ITS ---
Subjective Patient reports: feels better, pain is less (Feels less pain. Tolerating clears and passing gas.), tolerating liquids well, flatus Exam Vital signs and Labs for Last 24 Hours: Temp Pulse Resp BP Pulse Ox 98.2 F 60 16 133/79 96 11/17/17 04:00 11/17/17 04:00 11/17/17 04:00 11/17/17 04:00 11/17/17 04:00 Laboratory Results - last 24 hr 11/16/17 07:56: WBC 13.0 H, RBC 4.61, Hgb 14.7, Hct 44.1, MCV 95.7 H, MCH 32.0 H , MCHC 33.4, RDW 12.4, Plt Count 116 L, MPV 9.9, Neut % (Auto) 89.7 H, Lymph % ( Auto) 5.3 L, [place] % (Auto) 4.5, Eos % (Auto) 0.4, Baso % (Auto) 0.0 L, Neut # ( Auto) 11.7 H, Lymph # (Auto) 0.7, [place] # (Auto) 0.6, Eos # (Auto) 0.1, Baso # ( Auto) 0.0, Total Counted 100, Neutrophils % (Manual) 90 H, Band Neutrophils % 3.0, Lymphocytes % (Manual) 2 L, Monocytes % (Manual) 5, Platelet Estimate Slight decrease I & O for Last 24 hours: Intake & Output 11/14/17 11/15/17 11/16/17 11/17/17 11:59 11:59 11:59 11:59 Intake Total 5503 / 5503 1706 / 1706 Output Total 3275 / 3275 2490 / 2490 Balance 2228 / 2228 -784 / -784 Weight 191 lb 7 oz - *Routine Respiratory Exam Present: CTA bilaterally - *Routine Cardiovascular Exam Present: RRR - *Routine Abdominal Exam Present: soft, surgical scars, drain Comments: MARIVEL drain serous. Progress Note: A&P (1) Acute appendicitis Status: Acute Assessment and plan: Improving. Continue IV antibiotics for now. Advance to full liquids. Possible removal of MARIVEL this afternoon. Monitor WBC. Current Visit: Yes
[2017-11-17 08:00] VITALS: BP 121/58; BP 130/80; PULSE 63; RESP 18; TEMP 36.6; O2SAT 96
[2017-11-17 08:46] LABS: Eosinophils % 0.1 % (0.1-12.0); Hematocrit 41.5 % (42.0-52.0); Hemoglobin 13.7 g/dL (14.1-18.0); Lymphocytes # 0.9 K/mm3 (0.7-4.5); Lymphocytes % 7.6 K/mm3 (10-50); Mean Corpuscular Hemoglobin 31.9 pg (27.0-31.2); Mean Corpuscular Volume 96.8 fl (80-94); Mean Platelet Volume 9.9 fl (7.4-10.4); Monocytes # 0.4 K/mm3 (0.1-1.0); Monocytes % 3.4 % (1.7-9.3); Neutrophils % 88.9 % (37.0-80.0); Platelet Count 107 K/mm3 (142-424); Red Blood Count 4.29 M/mm3 (4.60-6.20); Red Cell Distribution Width 12.2 % (11.5-17.5); White Blood Count 11.3 K/mm3 (4.8-10.8)
[2017-11-17 09:13] LABS: Anion Gap 11.7 mEq/L (5-15); Blood Urea Nitrogen 16 mg/dL (7-18); Carbon Dioxide 29 mmol/L (21.0-32.0); Chloride 104 mmol/L (98-107); Creatinine Clearance Estimated 89 mL/min (0-300); Creatinine,Serum 0.99 mg/dL (0.70-1.30); Estimated Glomerular Filt Rate 76 ml/min (>60); GFR (African American) 92 ML/MIN (>60); Glucose 123 mg/dL (74-106); Potassium 3.7 mmoL/L (3.5-5.1); Sodium 141 mmol/L (136-145)
[2017-11-17 09:15] LABS: MANUAL DIFFERENTIAL MANUAL DIFFERENTIAL (MANUAL DIFF)
[2017-11-17 12:47] LABS: Lymphocytes % 5 % (10-50); Monocytes % 5 % (2-9); Neutrophils % 90 % (42-76); Platelet Estimate Marked Decrease; RBC Morphology Normal; Total Cells Counted 100
--- NOTE | 2017-11-17 13:40 | PC.NURSE ---
PT IS RESTING IN BED, RECEIVING PAIN MEDICATION NEEDED, DRESSINGS NOTED TO THE ABDOMEN. TUBING HAS BEEN STRIPPED ONE TIME THIS SHIFT WHICH PT STATES IS VERY UNCOMFORTABLE, LUNG SOUNDS CLEAR, BOWEL SOUNDS NORMAL, PT HAS AMBULATED IN THE [place] THIS SHIFT. WILL CONTINUE TO MONITOR
[2017-11-17 14:59] VITALS: BMI 25.3
[2017-11-17 16:00] VITALS: BP 154/84; PULSE 71; RESP 18; TEMP 36.7; O2SAT 98
--- NOTE | 2017-11-17 16:10 | HMH.GSPN ---
Subjective Patient reports: no new complaints, feels better (Tolerating full liquids without difficulty.) Exam Vital signs and Labs for Last 24 Hours: Temp Pulse Resp BP Pulse Ox 97.9 F 63 18 130/80 96 11/17/17 08:00 11/17/17 08:00 11/17/17 08:00 11/17/17 08:00 11/17/17 08:00 Laboratory Results - last 24 hr 11/17/17 08:09: WBC 11.3 H, RBC 4.29 L, Hgb 13.7 L, Hct 41.5 L, MCV 96.8 H, MCH 31.9 H, MCHC 33.0, RDW 12.2, Plt Count 107 L, MPV 9.9, Neut % (Auto) 88.9 H, Lymph % (Auto) 7.6 L, [place] % (Auto) 3.4, Eos % (Auto) 0.1, Baso % (Auto) 0.0 L, Neut # (Auto) 10.0 H, Lymph # (Auto) 0.9, [place] # (Auto) 0.4, Eos # (Auto) 0.0, Baso # (Auto) 0.0, Total Counted 100, Neutrophils % (Manual) 90 H, Lymphocytes % (Manual) 5 L, Monocytes % (Manual) 5, Platelet Estimate Marked decrease, RBC Morphology Normal 11/17/17 08:09: Sodium 141, Potassium 3.7, Chloride 104, Carbon Dioxide 29, Anion Gap 11.7, BUN 16, Creatinine 0.99, Estimated Creat Clear 89, Estimated GFR 76, Est GFR ( Amer) 92, Glucose 123 H I & O for Last 24 hours: Intake & Output 11/15/17 11/16/17 11/17/17 11/18/17 11:59 11:59 11:59 11:59 Intake Total 5503 / 5503 1706 / 1706 Output Total 3275 / 3275 2490 / 2490 Balance 2228 / 2228 -784 / -784 Weight 191 lb 7 oz 191 lb 7.014 oz - *Routine Abdominal Exam Present: soft Progress Note: A&P (1) Acute appendicitis Status: Acute Assessment and plan: Removed MARIVEL drain. Current Visit: Yes
[2017-11-17 19:50] VITALS: BP 121/74; PULSE 66; RESP 18; TEMP 36.7; O2SAT 96
[2017-11-17 20:00] VITALS: O2SAT 96
[2017-11-18 04:00] VITALS: BP 132/80; PULSE 60; RESP 18; TEMP 36.9; O2SAT 96
--- NOTE | 2017-11-18 04:08 | PC.NURSE ---
PATIENT HAS C/O ABDOMINAL PAIN THIS SHIFT, STATING HE THINKS HIS ABDOMEN IS FULL OF GAS. PATIENT WAS UP WALKING IN HALLS LAST EVENING AND STATED IT DID HELP THE GAS PAIN. DRESSINGS REMAIN CLEAN DRY AND INTACT WITH NO DRAINAGE NOTED. FÉLIX STILL INTACT WITH NO REDNESS OR DRAINAGE NOTED. PATIENT INSISTS ON HAVING PAIN MED TIME WRITTEN ON BOARD. PATIENT HAD TO WAIT 10 MIN ON PAIN MED DUE TO THIS NURSE BEING WITH ANOTHER PATIENT AND PATIENT STATED HIS DISSATISFACTION STATING HIS PAIN MED WORE OFF AND THAT HIS PAIN WAS A 10+ BECAUSE THIS NURSE WAS LATE. WHEN ENTERING ROOM FOR REASSESSMENT PATIENT IS RESTING WITH EYES CLOSED. VSS. NO ACUTE CHANGES NOTED. CALL LIGHT IN REACH. WILL CONTINUE TO MONITOR.
[2017-11-18 07:40] VITALS: BP 137/86; PULSE 62; RESP 18; TEMP 36.9; O2SAT 98
--- NOTE | 2017-11-18 08:39 | HMH.GSPN ---
Subjective Patient reports: other (He states that he began to have severe muscle spasms when his drain was removed yesterday.) Exam Vital signs and Labs for Last 24 Hours: Temp Pulse Resp BP Pulse Ox 98.4 F 62 18 137/86 98 11/18/17 07:40 11/18/17 07:40 11/18/17 07:40 11/18/17 07:40 11/18/17 07:40 Laboratory Results - last 24 hr 11/17/17 08:09: WBC 11.3 H, RBC 4.29 L, Hgb 13.7 L, Hct 41.5 L, MCV 96.8 H, MCH 31.9 H, MCHC 33.0, RDW 12.2, Plt Count 107 L, MPV 9.9, Neut % (Auto) 88.9 H, Lymph % (Auto) 7.6 L, [place] % (Auto) 3.4, Eos % (Auto) 0.1, Baso % (Auto) 0.0 L, Neut # (Auto) 10.0 H, Lymph # (Auto) 0.9, [place] # (Auto) 0.4, Eos # (Auto) 0.0, Baso # (Auto) 0.0, Total Counted 100, Neutrophils % (Manual) 90 H, Lymphocytes % (Manual) 5 L, Monocytes % (Manual) 5, Platelet Estimate Marked decrease, RBC Morphology Normal 11/17/17 08:09: Sodium 141, Potassium 3.7, Chloride 104, Carbon Dioxide 29, Anion Gap 11.7, BUN 16, Creatinine 0.99, Estimated Creat Clear 89, Estimated GFR 76, Est GFR ( Amer) 92, Glucose 123 H I & O for Last 24 hours: Intake & Output 11/15/17 11/16/17 11/17/17 11/18/17 11:59 11:59 11:59 11:59 Intake Total 5503 / 5503 1706 / 1706 2583 / 2583 Output Total 3275 / 3275 2490 / 2490 3080 / 3080 Balance 2228 / 2228 -784 / -784 -497 / -497 Weight 191 lb 7 oz 191 lb 7.014 oz - Constitutional no acute distress - *Routine Respiratory Exam Absent: respiratory distress - *Routine Cardiovascular Exam Present: RRR - *Routine Abdominal Exam Present: soft Comments: incisions c/d/i Progress Note: A&P (1) Acute appendicitis Status: Acute Assessment and plan: Complicated appendicitis with patchy necrosis. Well, doing well status post appendectomy. Patient does have complaint of spasm + drain which was removed yesterday. Increase ambulation Toradol and Flexeril as needed Ice packs as needed Continue antibiotics Repeat CBC in a.m. Current Visit: Yes
--- NOTE | 2017-11-18 14:02 | P.PN_ITS ---
Internal Medicine - PN: Subj *Date: 11/18/17 *Time: 14:01 Exam Vital signs and Labs for Last 24 Hours: Temp Pulse Resp BP Pulse Ox 98.4 F 62 18 137/86 98 11/18/17 07:40 11/18/17 07:40 11/18/17 07:40 11/18/17 07:40 11/18/17 07:40 I & O for Last 24 hours: Intake & Output 11/15/17 11/16/17 11/17/17 11/18/17 23:59 23:59 23:59 23:59 Intake Total 3886 / 3886 2623 / 2623 3283 / 3283 Output Total 2350 / 2350 1885 / 1885 2860 / 2860 1750 / 1750 Balance 1536 / 1536 738 / 738 423 / 423 -1750 / -1750 Weight 86.835 kg 86.835 kg Assessment and Plan (1) Acute appendicitis Current visit: Yes Status: Acute Qualifiers: Acute appendicitis type: unspecified acute appendicitis type Qualified Code (s): K35.80 - Unspecified acute appendicitis Category: Medical Code(s): K35.80 - Unspecified acute appendicitis The patient's infection will respond to the chosen ABx?: Yes Is the patient receiving the right drug, dose, and route?: Yes Could a more targeted ABx be ordered?: No
--- NOTE | 2017-11-18 15:10 | PC.NURSE ---
PT IS RESTING IN BED, HAS AMBULATED IN THE [place] SEVERAL TIMES THIS SHIFT AND HAS BEEN UP TO THE CHAIR. RECEIVING PAIN MEDICATION FOR DISCOMFORT. LUNG SOUND CLEAR, BOWEL SOUNDS HYPOACTIVE, DRESSINGS TO THE ABDOMEN HAVE BEEN CHANGED. WILL CONTINUE TO MONITOR.
[2017-11-18 15:41] VITALS: BP 148/82; PULSE 69; RESP 20; TEMP 36.9; O2SAT 97
[2017-11-18 19:44] VITALS: BP 152/77; PULSE 71; RESP 18; TEMP 36.9; O2SAT 97
[2017-11-18 20:00] VITALS: O2SAT 97
[2017-11-19 04:03] VITALS: BP 158/76; PULSE 65; RESP 18; TEMP 36.9; O2SAT 95
[2017-11-19 06:23] LABS: Basophils % 0.1 % (0.1-2.0); Eosinophils # 0.2 K/mm3 (0.0-0.4); Eosinophils % 2.3 % (0.1-12.0); Hematocrit 39.6 % (42.0-52.0); Hemoglobin 13.3 g/dL (14.1-18.0); Lymphocytes # 1.1 K/mm3 (0.7-4.5); Lymphocytes % 15.3 K/mm3 (10-50); Mean Corpuscular HGB Conc 33.5 g/dL (31.8-35.4); Mean Corpuscular Hemoglobin 31.9 pg (27.0-31.2); Mean Corpuscular Volume 95.3 fl (80-94); Mean Platelet Volume 9.2 fl (7.4-10.4); Monocytes # 0.6 K/mm3 (0.1-1.0); Monocytes % 8.2 % (1.7-9.3); Neutrophils # 5.1 K/mm3 (1.8-7.8); Platelet Count 110 K/mm3 (142-424); Red Blood Count 4.16 M/mm3 (4.60-6.20); White Blood Count 6.9 K/mm3 (4.8-10.8)
[2017-11-19 08:00] VITALS: BP 128/74; PULSE 60; RESP 18; TEMP 36.6; O2SAT 97
--- NOTE | 2017-11-19 09:11 | HMH.GSPN ---
Subjective Patient reports: feels better, pain is less Exam Vital signs and Labs for Last 24 Hours: Temp Pulse Resp BP Pulse Ox 97.9 F 60 18 128/74 97 11/19/17 08:00 11/19/17 08:00 11/19/17 08:00 11/19/17 08:00 11/19/17 08:00 Laboratory Results - last 24 hr 11/19/17 06:15: WBC 6.9 D, RBC 4.16 L, Hgb 13.3 L, Hct 39.6 L, MCV 95.3 H, MCH 31.9 H, MCHC 33.5, RDW 12.0, Plt Count 110 L, MPV 9.2, Neut % (Auto) 74.0, Lymph % (Auto) 15.3, [place] % (Auto) 8.2, Eos % (Auto) 2.3, Baso % (Auto) 0.1, Neut # (Auto) 5.1, Lymph # (Auto) 1.1, [place] # (Auto) 0.6, Eos # (Auto) 0.2, Baso # (Auto) 0.0 I & O for Last 24 hours: Intake & Output 11/16/17 11/17/17 11/18/17 11/19/17 11:59 11:59 11:59 11:59 Intake Total 5503 / 5503 1706 / 1706 2583 / 2583 760 / 760 Output Total 3275 / 3275 2490 / 2490 3080 / 3080 Balance 2228 / 2228 -784 / -784 -497 / -497 760 / 760 Weight 191 lb 7.014 oz - Constitutional no acute distress - *Routine Respiratory Exam Absent: respiratory distress - *Routine Cardiovascular Exam Present: RRR - *Routine Abdominal Exam Present: soft (incisions c/d/i and without erythema) Progress Note: A&P (1) Acute appendicitis Status: Acute Assessment and plan: Improving Discharge home Continue antibiotics at home to complete course secondary to necrosis and suppuration Continue Flexeril secondary to muscle spasms Ibuprofen as needed Current Visit: Yes
--- NOTE | 2017-11-19 09:14 | HMH.DCSUM ---
General - General Admission date: 11/15/17 Discharge date: 11/19/17 HPI HPI: Patient is a very pleasant 67-year-old white male from [facility]. He states that early yesterday morning he had felt somewhat ill. He felt like he may have the flu. He tried to rest but then developed right flank pain. This continued to progress and he ultimately presented to the emergency department early this morning. He is found to have a leukocytosis. He underwent CT scan which revealed findings of retrocecal appendicitis. Surgery was contacted and arrangements were made for admission and planned appendectomy. Objective Vital signs: Temp Pulse Resp BP Pulse Ox 97.9 F 60 18 128/74 97 11/19/17 08:00 11/19/17 08:00 11/19/17 08:00 11/19/17 08:00 11/19/17 08:00 no acute distress - *Routine Respiratory Exam Absent: respiratory distress - *Routine Cardiovascular Exam Present: RRR - *Routine Abdominal Exam Present: soft - Routine Psychiatric Exam Present: normal affect Hospital Course Hospital Course: The patient was admitted to the surgical service after presenting with appendicitis. He underwent [id number]-open appendectomy (Dr. Rahman) with intraoperative findings of necrosis and suppuration. Please see operative report for detail. He convalesced well and remained afebrile with stable normal vital signs. He was maintained on Unasyn secondary to intraoperative findings. His white blood cell count continued to normalize and he was deemed appropriate for discharge on postoperative day 4. Results Labs on day of discharge: Labs from last 24 hours 11/19/17 06:15 WBC 6.9 D RBC 4.16 L Hgb 13.3 L Hct 39.6 L MCV 95.3 H MCH 31.9 H MCHC 33.5 RDW 12.0 Plt Count 110 L MPV 9.2 Neut % (Auto) 74.0 Lymph % (Auto) 15.3 [place] % (Auto) 8.2 Eos % (Auto) 2.3 Baso % (Auto) 0.1 Neut # (Auto) 5.1 Lymph # (Auto) 1.1 [place] # (Auto) 0.6 Eos # (Auto) 0.2 Baso # (Auto) 0.0 DS: Diagnosis - Discharge Diagnosis (1) Acute appendicitis Status: Acute Problem details: With necrosis and suppuration Meds Home Medications Medication Instructions Recorded Confirmed Type Aspirin [Aspirin 81mg EC Tab] 81 mg PO DAILY 11/15/17 11/15/17 History Atorvastatin Calcium [Atorvastatin 80 mg PO HS 11/15/17 11/15/17 History 80mg Tab] Lisinopril [Lisinopril 20mg Tab] 10 mg PO DAILY 11/15/17 11/15/17 History Metoprolol Tartrate [Lopressor 12.5 mg PO BID 11/15/17 11/15/17 History 25mg tablet] Mirabegron [Myrbetriq] 25 mg PO DAILY 11/15/17 11/15/17 History Multivitamin [One Daily] 1 each PO DAILY 11/15/17 11/15/17 History Omeprazole [Omeprazole 20mg 20 mg PO DAILY 11/15/17 11/15/17 History Capsule] Allergies Allergy/AdvReac Type Severity Reaction Status Date / Time No Known Allergies Allergy Verified 11/15/17 03:18 Discharge Plan - Patient Discharge Instructions ACTIVITY: No heavy lifting DIET: advance to your usual diet - Follow up Plan Follow up with: Kevin Rahman MD [Staff Physician] - 11/24/17 Disposition: Home, Self-Assisted Medications: Home Medications Medication Instructions Recorded Confirmed Type Aspirin [Aspirin 81mg EC Tab] 81 mg PO DAILY 11/15/17 11/15/17 History Atorvastatin Calcium [Atorvastatin 80 mg PO HS 11/15/17 11/15/17 History 80mg Tab] Lisinopril [Lisinopril 20mg Tab] 10 mg PO DAILY 11/15/17 11/15/17 History Metoprolol Tartrate [Lopressor 12.5 mg PO BID 11/15/17 11/15/17 History 25mg tablet] Mirabegron [Myrbetriq] 25 mg PO DAILY 11/15/17 11/15/17 History Multivitamin [One Daily] 1 each PO DAILY 11/15/17 11/15/17 History Omeprazole [Omeprazole 20mg 20 mg PO DAILY 11/15/17 11/15/17 History Capsule] Prescriptions/Medication Reconciliation: New Cyclobenzaprine HCl [Flexeril 10mg tablet] 5 mg PO QIDP PRN #20 tablet PRN Reason: spasm Amoxicillin/Potassium Clav [A
--- NOTE | 2017-11-19 09:17 | P.DS_ITS ---
General - General Admission date: 11/15/17 Discharge date: 11/19/17 HPI HPI: Patient is a very pleasant 67-year-old white male from [facility]. He states that early yesterday morning he had felt somewhat ill. He felt like he may have the flu. He tried to rest but then developed right flank pain. This continued to progress and he ultimately presented to the emergency department early this morning. He is found to have a leukocytosis. He underwent CT scan which revealed findings of retrocecal appendicitis. Surgery was contacted and arrangements were made for admission and planned appendectomy. Objective Vital signs: Temp Pulse Resp BP Pulse Ox 97.9 F 60 18 128/74 97 11/19/17 08:00 11/19/17 08:00 11/19/17 08:00 11/19/17 08:00 11/19/17 08:00 no acute distress - *Routine Respiratory Exam Absent: respiratory distress - *Routine Cardiovascular Exam Present: RRR - *Routine Abdominal Exam Present: soft - Routine Psychiatric Exam Present: normal affect Hospital Course Hospital Course: The patient was admitted to the surgical service after presenting with appendicitis. He underwent exkmmhelilak-ypdfopogq-oq-open appendectomy (Dr. Rahman) with intraoperative findings of necrosis and suppuration. Please see operative report for detail. He convalesced well and remained afebrile with stable normal vital signs. He was maintained on Unasyn secondary to intraoperative findings. His white blood cell count continued to normalize and he was deemed appropriate for discharge on postoperative day 4. Results Labs on day of discharge: Labs from last 24 hours 11/19/17 06:15 WBC 6.9 D RBC 4.16 L Hgb 13.3 L Hct 39.6 L MCV 95.3 H MCH 31.9 H MCHC 33.5 RDW 12.0 Plt Count 110 L MPV 9.2 Neut % (Auto) 74.0 Lymph % (Auto) 15.3 [place] % (Auto) 8.2 Eos % (Auto) 2.3 Baso % (Auto) 0.1 Neut # (Auto) 5.1 Lymph # (Auto) 1.1 [place] # (Auto) 0.6 Eos # (Auto) 0.2 Baso # (Auto) 0.0 DS: Diagnosis - Discharge Diagnosis (1) Acute appendicitis Status: Acute Problem details: With necrosis and suppuration Meds Home Medications Medication Instructions Recorded Confirmed Type Aspirin [Aspirin 81mg EC Tab] 81 mg PO DAILY 11/15/17 11/15/17 History Atorvastatin Calcium [Atorvastatin 80 mg PO HS 11/15/17 11/15/17 History 80mg Tab] Lisinopril [Lisinopril 20mg Tab] 10 mg PO DAILY 11/15/17 11/15/17 History Metoprolol Tartrate [Lopressor 12.5 mg PO BID 11/15/17 11/15/17 History 25mg tablet] Mirabegron [Myrbetriq] 25 mg PO DAILY 11/15/17 11/15/17 History Multivitamin [One Daily] 1 each PO DAILY 11/15/17 11/15/17 History Omeprazole [Omeprazole 20mg 20 mg PO DAILY 11/15/17 11/15/17 History Capsule] Allergies Allergy/AdvReac Type Severity Reaction Status Date / Time No Known Allergies Allergy Verified 11/15/17 03:18 Discharge Plan - Patient Discharge Instructions ACTIVITY: No heavy lifting DIET: advance to your usual diet - Follow up Plan Follow up with: Kevin Rahman MD [Staff Physician] - 11/24/17 Disposition: Home, Self-Group Home Medications: Home Medicati
--- NOTE | 2017-11-19 11:09 | PC.NURSE ---
PT WAS DISCHARGED HOME AND WAS INTRUCTED TO CALL DR. SEXTON OFFICE MONDAY FOR A APPOINTMENT ON MONDAY. [facility] ALL FÉLIX ON THE LAP SITES WERE REMOVED AND STERI STRIPPED. EVERY OTHER STAPLE IN THE OPEN SITE WAS REMOVED AND STERI STIPPED ALSO. PT WAS EDUCATED ON SIGNS AND SYMPTOMS OF INFECTION. PT AMBULATED OUT OF THE BUILDING WITH [facility] STAFF.
== END 2017-11-19 10:15 | disposition home or self-care (01) | DRG 340 ==
LOC: ER 04:45 → 2ND 05:55
PROVIDERS: Surgery; Admitting Provider Surgery; Emergency Provider Emergency Medicine; Visit Provider Surgery
PROC: 0DTJ0ZZ Resection of Appendix, Open Approach (ICD-10-PCS; CPT 44950; principal; 2017-11-15 09:00)
DX: K35.3 Acute appendicitis with localized peritonitis
CPT/HCPCS: 44960; 36415; 71046; 74176; 80048; 80053; 81001; 85007; 85025; 88304; 93005; 96365; 96374; 96375; 99284; J0131; J2270; J2405

== ENCOUNTER → 2019-06-11 09:03 | Outpatient (POV) | payer MEDICARE, OTHER, SELFPAY | PROVIDERS: Visit Provider Dermatology | DX: Z00.00 Encounter for general adult medical examination without abnormal findings (principal) ==

== ENCOUNTER 2020-10-24 09:14 | Emergency (ER) | payer MEDICARE, OTHER, SELFPAY ==
[2020-10-24 10:00] VITALS: BP 127/82; PULSE 66; RESP 14; TEMP 36.3; O2SAT 100; BMI 27.0
--- NOTE | 2020-10-24 10:16 | HMH.EDUTC ---
[facility] [place] Clinical Impression: Exposure to COVID-19 virus Disposition: Home, Self-Care Condition on Discharge: Good Instructions: Preventing the Spread of Coronavirus Discharge Instructions Additional Instructions: Drink plenty of fluids. Take tylenol for pain or fever. Return if you begin to have difficulty breathing. Follow up with your regular doctor. GO TO THE ER FOR ANY WORSENING SYMPTOMS Referrals: Zachary Vasquez MD [Primary Care Provider] - Time of Disposition: 10:25 Medical Decision Making - Medical Records Medical records reviewed: No: I reviewed the patient's medical records. - Guy Inquiry Pt receiving controlled substance: No Vital Signs: 10/24/20 10:00 10/24/20 10:29 Temperature 97.3 F L 97.3 F L Temperature Source Oral Pulse Rate 66 Pulse Rate [Left Brachial] 66 Respiratory Rate 14 14 Blood Pressure 127/82 Blood Pressure [Left Arm] 127/82 Blood Pressure Mean [Left Arm] 97 Blood Pressure Source [Left Arm] Automatic Cuff Blood Pressure Position [Left Arm] Sitting 02 Sat by Pulse Oximetry 100 Oxygen Delivery Method Room Air Orders (Tests/Meds): ORDERS Category Date Time Status Covid-19 Nasal PCR ([facility]) Routine Lab 10/24/20 09:40 [place] [facility] [place] - General Stated complaint: covid exposure Time Seen by Provider: 10/24/20 10:17 - History of Present Illness Provider Complaint: He states that he was exposed to covid approx 7 days ago. He denies any symptoms so far. - Related Data Home Medications Medication Instructions Recorded Confirmed Aspirin [Aspirin 81mg EC Tab] 81 mg PO DAILY 11/15/17 09/02/20 Atorvastatin Calcium [Lipitor 80mg 80 mg PO HS 11/15/17 09/02/20 Tab] Metoprolol Tartrate [Lopressor 12.5 mg PO BID 11/15/17 09/02/20 25mg tablet] Multivitamin [One Daily] 1 each PO DAILY 11/15/17 09/02/20 finasteride 5 mg tablet 5 mg PO DAILY 07/16/19 09/02/20 lisinopril 10 mg tablet 10 mg PO DAILY #90 tab 07/16/19 09/02/20 omeprazole 40 mg capsule,delayed 40 mg PO DAILY 07/16/19 09/02/20 release mirabegron 25 mg tablet,extended 50 mg PO DAILY tab 09/02/20 09/02/20 release 24 hr Previous Rx's Medication Instructions Recorded ciclopirox 8 % topical solution 1 applic TOPICAL DAILY 90 Days 10/01/19 #6.6 ml Allergies Allergy/AdvReac Type Severity Reaction Status Date / Time No Known Allergies Allergy Verified 09/02/20 10:56 [facility] History - Hepatitis A Screen Attestation statement:: This patient has been screened for Hepatitis A risk factors. I have reviewed the patient's past medical history: Yes Medical History: Reports:: Coronary Artery Disease, Gastroesophageal Reflux Disease(GERD), Hiatal Hernia, Hyperlipidemia, Hypertension, Myocardial Infarction, Palpitations Denies:: Cancer, Diabetes Mellitus Type 1, Diabetes Mellitus Type 2, MRSA Other Surgeries: Yes: Appendectomy, Cardiac Catheterization, Colonoscopy, EGD, Hernia Repair, Other Amputation: No Fractures: No Comment: vasectomy many years ago. S/p NM 3 years ago, no cp since. Hemorrhoidectomy - Social History Smoking Status: Light tobacco smoker Tobacco Type: cigars # Packs/Day (cigarettes): 2 #Yrs smoked (if former smoker): 30 Alcohol Intake: current Alcohol Intake Frequency:: a few times a week Substance Use Type: denies use Occupational Status: retired Housing: house Family Hx:: Cancer, Coronary Artery Disease, Diabetes, Heart Attack, Hyperlipidemia, Hypertension, Kidney Disease, Stroke ROS Obtained: Yes All systems reviewed & no additional complaints - Constitutional Constitutional: Reports system reviewed and no additional complaints, except as docu - Eyes Eyes: Reports system reviewed and no additional complaints, except as docu - ENT Ears, Nose, Mouth, and Throat: Reports system reviewed and no additional complaints, except as docu - Cardiovascular Cardiovascular: Reports system reviewed and no additional compl
[2020-10-24 10:29] VITALS: BP 127/82; PULSE 66; RESP 14; TEMP 36.3; O2SAT 100
== END 2020-10-24 10:30 | disposition home or self-care (01) ==
PROVIDERS: Emergency Provider Nurse Practitioner Family; PCP Family Medicine
DX: Z20.822 Contact with and (suspected) exposure to COVID-19 (principal); F17.290 Nicotine dependence, other tobacco product, uncomplicated; I25.2 Old myocardial infarction; K21.9 Gastro-esophageal reflux disease without esophagitis; I25.10 Atherosclerotic heart disease of native coronary artery without angina pectoris; I10 Essential (primary) hypertension; E78.5 Hyperlipidemia, unspecified; Z79.899 Other long term (current) drug therapy
CPT/HCPCS: G0463; 99202; U0003

== ENCOUNTER 2022-11-10 15:26 | Emergency (ER) | payer MEDICARE, OTHER, SELFPAY ==
[2022-11-10] VITALS (8 sets, daily range): BP systolic 138–199; BP diastolic 85–102; PULSE 60–74; RESP 14–18; TEMP 36.6–36.7; O2SAT 95–100; BMI 26.4
--- NOTE | 2022-11-10 15:38 | ECG_ITS ---
APPROVED REPORT Exam: Resting ECG HR:66 bpm ECG Measurements Heart Rate 66 AXES NH 144 P 66 QRSd 89 QRS 57 QT 397 T 69 QTc 411 Conclusion SINUS RHYTHM MODERATE ST DEPRESSION [0.05+ mV ST DEPRESSION] ABNORMAL ECG UNCONFIRMED REPORT Electronically signed by : Derek Sethi MD 11/10/2022 19:10:53
--- NOTE | 2022-11-10 15:45 | HMH.EDGENADL ---
Discharge Plan Disposition Patient Disposition: Home, Self-Care Condition: Good Prescriptions Prescriptions: New hydrocodone-acetaminophen 5-325 mg tablet 1 tab PO Q6H PRN (Reason: pain) Qty: 10 0RF No Action omeprazole 40 mg capsule,delayed release(DR/EC) 40 mg PO DAILY finasteride 5 mg tablet 5 mg PO DAILY ciclopirox 8 % solution 1 applic TOPICAL DAILY 90 Days Qty: 6.6 3RF Rx Instructions: apply over previous coat; remove with alcohol every 7 days and file down nail lisinopril 20 mg tablet 20 mg PO DAILY multivitamin 1 EACH tablet 1 each PO DAILY atorvastatin 80 MG tablet 80 mg PO HS aspirin 81 MG tablet,delayed release (DR/EC) 81 mg PO DAILY metoprolol tartrate 25 MG tablet 12.5 mg PO BID Referrals Follow up/Referrals: Zachary Vasquez MD [Primary Care Provider] - See instructions Activity Restrictions/Add. Instructions Additional Instructions/Restrictions: [place] as needed for pain. Return emergency department if worsening pain or if new symptoms such as chest pain, shortness of breath, vomiting. Follow-up with your primary care providers at the [facility] soon as possible. Call tomorrow morning to make an appointment. Additional instructions for CONTROLLED SUBSTANCES: You have been prescribed a medication that is a controlled substance. Controlled substances include pain medications known as opiates and sedative nerve medications known as benzodiazepines. Tramadol, fioricet, and gabapentin are also controlled substances. Some common opiates include: Codeine (such as Tylenol #3) Hydrocodone (Vicodin, Lortab, Lorcet, [place]) Oxycodone (Percocet, Percodan, Oxycodone, Oxy IR) Some common benzodiazepines include: Diazepam (Valium) Lorazepam (Ativan) Alprazolam (Xanax) Clonazepam (Klonopin) Oxazepam (Serax) All of these controlled substances are highly addictive and frequently abused. Misuse can and frequently does lead to addiction as well as overdose and . Medication should be stored in a locked cabinet or other secure storage unit. Do not store the medication in a motor vehicle. Short term supplies, 3 days or less, are prescribed because of the highly addictive nature of the medication. Any of the controlled substance medication NOT taken should be disposed of properly and NOT SAVED. The recommended method of disposing of unused medications is: Place the medicines in a sealable plastic bag. If the medicine is a solid, crush it or add water to dissolve it. Add something undesirable (cat litter, coffee grounds, etc.) Dispose of sealed bag in household trash Do not flush or pour unused medicines down a sink or drain. Controlled substances should not be shared, given away or sold. Because of the addictive nature and frequent abuse, these medications are sometimes stolen. These medications should be kept in a safe place where they cannot be stolen. Do not keep them in your car or purse. Lost or stolen prescriptions for controlled substances WILL NOT BE REFILLED in this emergency department, regardless of whether a police report was filed. Clinical Impressions Clinical Impression: Acute thoracic back pain Instructions Patient Instructions: DI for Thoracic Back Pain Discharge ED Provider: Robert Joyner General Adult HPI General Chief complaint: PAIN Stated complaint: back pain, NA and arm pain Time Seen by Provider: 11/10/22 16:00 History of Present Illness HPI narrative: Patient states that he woke up this morning at about 530 or 6 AM, his usual time to arise, with pain between his shoulder blades going down his right arm, up his neck, and headache. He has had nausea. He says that he has daily pain between his shoulder blades in the same location for 20 years, usually goes away within about an hour. This has not gone away all day. It also does not usually radiate down his right arm. He also says that th
--- NOTE | 2022-11-10 15:47 | XR_ITS ---
PROCEDURE INFORMATION: Exam: XR Chest Exam date and time: 11/10/2022 5:24 PM Age: 72 years old Clinical indication: Other: Thoracic back pain TECHNIQUE: Imaging protocol: Radiologic exam of the chest. Views: 1 view. COMPARISON: CT ANGIO CHEST 11/10/2022 4:57 PM FINDINGS: Lungs: No evidence of pneumonia or interstitial edema. Pleural spaces: Unremarkable. No pleural effusion. No pneumothorax. Heart/Mediastinum: Unremarkable. No cardiomegaly. Bones/joints: Unremarkable. IMPRESSION: No evidence of pneumonia or interstitial edema.
--- NOTE | 2022-11-10 16:02 | PC.NURSE ---
DR BRITTON AT BEDSIDE
[2022-11-10 16:04] LABS: Basophils # 0.1 K/mm3 (0-0.2); Basophils % 0.8 % (0.1-2.0); Eosinophils # 0.2 K/mm3 (0.0-0.4); Eosinophils % 1.7 % (0.1-12.0); Hematocrit 49.1 % (42.0-52.0); Hemoglobin 16.8 g/dL (14.1-18.0); Lymphocytes # 1.5 K/mm3 (0.7-4.5); Lymphocytes % 14.3 % (10-50); Mean Corpuscular HGB Conc 34.2 g/dL (31.8-35.4); Mean Corpuscular Hemoglobin 33.3 pg (27.0-31.2); Mean Corpuscular Volume 97.6 fl (80-94); Mean Platelet Volume 9.4 fl (7.4-10.4); Monocytes # 0.7 K/mm3 (0.1-1.0); Monocytes % 6.3 % (1.7-9.3); Neutrophils % 76.9 % (37.0-80.0); Platelet Count 136 K/mm3 (142-424); Red Blood Count 5.03 M/mm3 (4.60-6.20); Red Cell Distribution Width 12.9 % (11.5-17.5); White Blood Count 10.4 K/mm3 (4.8-10.8)
[2022-11-10 16:07] LABS: Chloride 107 mmol/L (98-107)
[2022-11-10 16:08] LABS: Potassium 4.2 mmoL/L (3.5-5.1); Sodium 142 mmol/L (136-145)
[2022-11-10 16:10] LABS: Alanine Aminotransferase 30 U/L (12-78); Aspartate Amino Transferase 37 U/L (17-59); Blood Urea Nitrogen 16 mg/dl (9-20); Creatinine Clearance Estimated 87 mL/min (50-200); Estimated Glomerular Filt Rate 95 ml/min (>60); GFR (African American) 115 ML/MIN (>60)
[2022-11-10 16:11] LABS: Albumin Level 4.4 g/dl (3.5-5.0); Albumin/Globulin Ratio 1.5 (1.1-1.8); Alkaline Phosphatase 56 U/L (38-126); Anion Gap 8.2 mEq/L (5-15); Bilirubin,Total 0.7 mg/dl (0.2-1.3); Calcium 8.9 mg/dl (8.4-10.2); Carbon Dioxide 31 mmol/L (22.0-30.0); Globulin 2.9 g/dL (1.3-3.2); Glucose 110 mg/dl (74-100); Total Protein,Serum 7.3 g/dl (6.3-8.2)
--- NOTE | 2022-11-10 16:11 | CT_ITS ---
PROCEDURE INFORMATION: Exam: CT Cervical Spine Without Contrast Exam date and time: 11/10/2022 4:40 PM Age: 72 years old Clinical indication: Neck pain; Additional info: Neck pain, pain down R arm TECHNIQUE: Imaging protocol: Computed tomography of the cervical spine without contrast. Total images: 302 Radiation optimization: All CT scans at this facility use at least one of these dose optimization techniques: automated exposure control; mA and/or kV adjustment per patient size (includes targeted exams where dose is matched to clinical indication); or iterative reconstruction. COMPARISON: CT HEAD/BRAIN WO CON 11/10/2022 4:37 PM FINDINGS: Bones/joints: The cervical spine demonstrates mild degenerative changes at multiple levels. The facet joints demonstrate mild degenerative hypertrophy and sclerosis. Disc space narrowing and bilateral neural foraminal narrowing noted at C3-C4, C6-C7 and C7-T1. Prevertebral and retropharyngeal spaces: Prevertebral soft tissues are within normal limits. Lungs: Lung apices are normal. Vasculature: Mild atherosclerotic disease is evident. Soft tissues: Unremarkable. IMPRESSION: 1. The cervical spine demonstrates mild degenerative changes at multiple levels. 2. Prevertebral soft tissues are within normal limits.
--- NOTE | 2022-11-10 16:11 | CT_ITS ---
PROCEDURE INFORMATION: Exam: CT Head Without Contrast Exam date and time: 11/10/2022 4:37 PM Age: 72 years old Clinical indication: Pain; Headache TECHNIQUE: Imaging protocol: Computed tomography of the head without contrast. Total images: 289 Radiation optimization: All CT scans at this facility use at least one of these dose optimization techniques: automated exposure control; mA and/or kV adjustment per patient size (includes targeted exams where dose is matched to clinical indication); or iterative reconstruction. COMPARISON: No relevant prior studies available. FINDINGS: Brain: Age-related atrophy and chronic white matter ischemic changes, with no evidence of an acute intracranial abnormality. No hemorrhage, mass effect or midline shift. Cerebral ventricles: No ventriculomegaly. Paranasal sinuses: Visualized sinuses are unremarkable. No fluid levels. Mastoid air cells: Visualized mastoid air cells are well aerated. Bones/joints: No acute fracture. Soft tissues: No acute changes Vasculature: Mild atherosclerotic disease is evident. IMPRESSION: 1. Age-related atrophy and chronic white matter ischemic changes, with no evidence of an acute intracranial abnormality. 2. No hemorrhage, mass effect or midline shift.
--- NOTE | 2022-11-10 16:11 | CT_ITS ---
PROCEDURE INFORMATION: Exam: CT Thoracic Spine Without Contrast Exam date and time: 11/10/2022 4:42 PM Age: 72 years old Clinical indication: Pain in thoracic spine; Additional info: Thoracic back pain TECHNIQUE: Imaging protocol: Computed tomography of the thoracic spine without contrast. Radiation optimization: All CT scans at this facility use at least one of these dose optimization techniques: automated exposure control; mA and/or kV adjustment per patient size (includes targeted exams where dose is matched to clinical indication); or iterative reconstruction. COMPARISON: CT CERVICAL SPINE WO CON 11/10/2022 4:40 PM FINDINGS: Bones/joints: There is preservation of vertebral alignment and vertebral body heights. Facet joints are aligned. No acute fracture. There is no significant osseous encroachment of the spinal canal or neural foraminal narrowing at any level. Soft tissues: Unremarkable. Lungs: Paraseptal emphysema noted with upper lobe gradient. IMPRESSION: No acute fracture. No traumatic subluxation.
--- NOTE | 2022-11-10 16:11 | CT_ITS ---
PROCEDURE INFORMATION: Exam: CTA Chest With Contrast Exam date and time: 11/10/2022 4:57 PM Age: 72 years old Clinical indication: Other: Thoracic back pain; Additional info: Thoracic back pain, R/O dissection TECHNIQUE: Imaging protocol: Computed tomographic angiography of the chest with contrast. 3D rendering (Not supervised by radiologist): MIP and/or 3D reconstructed images were created by the technologist. Radiation optimization: All CT scans at this facility use at least one of these dose optimization techniques: automated exposure control; mA and/or kV adjustment per patient size (includes targeted exams where dose is matched to clinical indication); or iterative reconstruction. Contrast material: ISOVUE 370; Contrast volume: 100 ml; Contrast route: INTRAVENOUS (IV); COMPARISON: CR CXR2V XR chest 2V 11/15/2017 5:11 AM FINDINGS: Pulmonary arteries: No evidence of filling defects to suggest pulmonary emboli. The RV: LV ratio is less than 1. Aorta: Aorta is nonaneurysmal. Lungs: Paraseptal emphysema with upper lobe gradient.No evidence of airspace opacity or interlobular septal thickening. Pleural spaces: No pneumothorax. No pleural effusion. Heart: Unremarkable. No cardiomegaly. No pericardial effusion. Coronary arteries: There is mild atherosclerotic calcification of the coronary arteries. Lymph nodes: Unremarkable. No enlarged lymph nodes. Adrenal glands: There is a 2 cm right adrenal nodule. Bones/joints: Healed 5 left rib fracture. No acute osseous abnormality. Soft tissues: Unremarkable. IMPRESSION: 1. No pulmonary embolus 2. Upper lobe predominant paraseptal emphysema. No evidence of pneumonia. 3. Indeterminate 2 cm right adrenal nodule, statistically an adenoma. COMMENTS: In the absence of a history or active diagnosis of lung cancer, it is recommended that this patient with emphysema be evaluated for enrollment in a low dose CT lung cancer screening program.
[2022-11-10 16:24] LABS: Troponin I < 0.01 ng/ml (0.00-0.034)
--- NOTE | 2022-11-10 16:38 | PC.NURSE ---
[address]
--- NOTE | 2022-11-10 16:53 | PC.NURSE ---
PT RETURNED FROM CT
--- NOTE | 2022-11-10 17:11 | PC.NURSE ---
ROUNDED ON PT AT THIS TIME, PT RESTING WITH EYES CLOSED. NO NEEDS AT THIS TIME
--- NOTE | 2022-11-10 17:54 | PC.NURSE ---
PT MEDICATED PER EMAR, NO NEEDS AT THIS TIME. CALL LIGHT WITHIN REACH
--- NOTE | 2022-11-10 18:18 | PC.NURSE ---
PT ASSISTED TO BR. REPORTS PAIN RELIEF.
[2022-11-10 19:36] LABS: Troponin I 0.02 ng/ml (0.00-0.034)
== END 2022-11-10 20:35 | disposition home or self-care (01) ==
PROVIDERS: Emergency Provider Emergency Medicine; PCP Family Medicine
DX: M54.6 Pain in thoracic spine (principal); I10 Essential (primary) hypertension; E78.5 Hyperlipidemia, unspecified; F17.290 Nicotine dependence, other tobacco product, uncomplicated
CPT/HCPCS: 36415; 70450; 71045; 71275; 72125; 72128; 80053; 84484; 85025; 93005; 96374; 96375; 99285; J2405; Q9967

== ENCOUNTER 2022-11-26 22:09 | Emergency (ER) | payer MEDICARE, OTHER, SELFPAY ==
--- NOTE | 2022-11-26 22:14 | ECG_ITS ---
APPROVED REPORT Exam: Resting ECG HR:71 bpm ECG Measurements Heart Rate 71 AXES IA 146 P 49 QRSd 93 QRS 48 QT 388 T 59 QTc 410 Conclusion SINUS RHYTHM NORMAL ECG UNCONFIRMED REPORT Electronically signed by : Derek Sethi MD 11/28/2022 21:13:43
[2022-11-26 22:19] VITALS: BP 0/0; PULSE 0; RESP 0; TEMP -17.7; TEMP 0
== END 2022-11-26 22:21 | disposition left against medical advice (07) ==
LOC: ER 22:20
PROVIDERS: Emergency Provider Emergency Medicine; PCP Family Medicine
DX: I10 Essential (primary) hypertension (principal)
CPT/HCPCS: 93005; 99211

== ENCOUNTER → 2023-05-09 16:37 | Outpatient (CLI) | payer MEDICARE, OTHER, SELFPAY | PROVIDERS: Visit Provider Nurse Practitioner Family | DX: B35.1 Tinea unguium (principal); S91.102A Unspecified open wound of left great toe without damage to nail, initial encounter | CPT/HCPCS: 87102; 87206; 87220 ==

== ENCOUNTER 2025-05-21 13:28 | Outpatient (CLI) | payer MEDICARE, OTHER, SELFPAY ==
--- OUTSIDE RECORDS SUMMARY | 2024-05-29 06:20 | XMS_ITS | Encounter Summary ---
Author Name [facility] [place] [facility] [place] Address [address] [place] [address] Care Team Providers Care Java Developer Analyst Name Role Phone GILBERTO PERALES Primary Care [...] Policy Lion MEDICARE (WNR) MEDICARE (M) PART A Jun 23, 2016 PART A [id number] [phone] ERWIN HALL PATIENT MEDICARE (WNR) MEDICARE (M) PART B Jun 23, 2016 PART B [id number] [phone] ER[place] H[place] PATIENT MEDICARE (WNR) MEDICARE (M) PART A Jun 23, 2016 PART A [id number] [phone] ERWIN HALL PATIENT MEDICARE (WNR) MEDICARE (M) PART B Jun 23, 2016 PART B [id number] ERWIN HALL PATIENT MEDICARE PART D (WNR) MEDICARE (M) PART D Jun 23, 2016 PART D [id number] [id number] [id number] ERWIN HALL PATIENT MEDICARE PART D (WNR) MEDICARE (M) PART D Jun 23, 2016 PART D [id number] ERWIN HALL PATIENT [employer] [place] [employer] PLAN G PLAN G Jun 23, 2016 PLAN G [id number] ERWIN HALL PATIENT [employer] [place] [employer] PLAN G PLANG Jun 23, 2016 PLANG [id number] ERWIN HALL PATIENT Selected Encounter This section includes the information on record at [place] for the Encounter. Date/Time Encounter Type Encounter Description Reason Provider Source May 29, 2024 10:20 AM OFFICE O/P EST MOD 30 MIN OPTOMETRY ICD-10-CM H25.813 Combined forms of age-related cataract, bilateral YU,BREY NE L IHE Encounter Template Text not used by [place] Assessments - Encounter Diagnoses This section includes the primary and secondary diagnoses documented for the Encounter. Date/Time Primary/Secondary Diagnosis Diagnosis Name Provider Source May 29, 2024 03:23 PM PRIMARY Combined forms of age-related cataract, bilateral YU,ADRIANY NE L [facility] May 29, 2024 03:23 PM SECONDARY Dry eye syndrome of bilateral lacrimal glands LAMAR,ROBB NE L [facility] May 29, 2024 03:23 PM SECONDARY Presbyopia ROBB YU NE L [facility] May 29, 2024 03:23 PM SECONDARY Vitreous degeneration, bilateral LAMAR,ADRIANY NE L [facility] Plan of Treatment: Future Appointments (+ 6 months) and Future Tests (+/- 45 days) The Plan of Treatment section includes future care activities for the patient from all [place] treatmentfacilities. This section includes future appointments and future orders which are active, pending or scheduled. Future Appointments This section includes appointments that were scheduled to occur 6 months from the date of the Encounter, up to a maximum of 20 appointments. The data comes from all [place] treatment facilities. Appointment Date/Time Appointment Type Appointme nt Facility Name Sep 03, 2024 11:00 AM [facility]ONE [facility] Sep 06, 2024 09:00 AM [facility]ONE [facility] Nov 23, 2024 10:00 AM [facility] [facility] Social History: Smoking Status (Most current) and Tobacco Use (All prior to encounter date) This section includes the most current, and the historical, smoking and tobacco- related health factors from the [place] facility where the Encounter took place. Current Smoking Status This section includes the most current smoking, or tobacco-related health factor, from the [place] facility where the Encounter took place. Date/Time Current Smoking Status Comment Francesco ity May 18, 2022 08:30 AM VA-TOBACCO USER EVERY DAY [facility] Tobacco Use History This section includes a history of the smoking, or tobacco-related health factors, that were collected on or before the date of the Encounter. The data comes from the [place] facility where the Encounter took place. Date/Time Smoking Status/Tobacco Use Comment F acility May 18, 2022 08:30 AM VA-TOBACCO USE 30 YEARS OR MORE [facility] May 18, 2022 08:30 AM VA-TOBACCO USE ADVICE [facility] May 18, 2022 08:30 AM VA-TOBACCO USE WRINKLE CHASER NO [facility] May 18, 2022 08:30 AM VA-TOBACCO USE MED NO [facility] May 18, 2022 08:30 AM VA-TOBACCO USER EVERY DAY [facility] Jul 02, 2020 10:00 AM VA-TOBACCO DOESNT USE WI 30 MIN WAKEUP [facility] Jul 02, 2020 10:00 AM VA-TOBACCO USE 30 YEARS OR MORE [facility] Jul 02, 2020 10:00 AM VA-TOBACCO USE ADVICE [facility] Jul 02, 2020 10:00 AM VA-TOBACCO USE WRINKLE CHASER NO [facility] Jul 02, 2020 10:00 AM VA-TOBACCO USE MED NO [facility] Jul 02, 2020 10:00 AM VA-TOBACCO USER SOME DAYS [facility] Nov 23, 2018 11:13 AM VA-TOBACCO DOESNT USE WI 30 MIN WAKEUP [facility] Nov 23, 2018 11:13 AM VA-TOBACCO USE 30 YEARS OR MORE [facility] Nov 23, 2018 11:13 AM VA-TOBACCO USE ADVICE [facility] Nov 23, 2018 11:13 AM VA-TOBACCO USE WRINKLE CHASER NO [facility] Nov 23, 2018 11:13 AM VA-TOBACCO USE MED NO [facility] Nov 23, 2018 11:13 AM VA-TOBACCO USER SOME DAYS [facility] Aug 29, 2017 09:43 AM V9 LIFETIME NON-USER OF TOBACCO [facility] Oct 20, 2016 09:13 AM V9 LIFETIME NON-USER OF TOBACCO [facility] Oct 28, 2015 09:04 AM V9 LIFETIME NON-USER OF TOBACCO [facility] Sep 24, 2014 10:16 AM V9 QUIT TOBACCO >1 2 MO & <7 YRS AGO [facility] Sep 24, 2014 10:16 AM V9 TOBACCO OFFERED [facility] Sep 13, 2013 10:18 AM TOBACCO OFFERRED P T MEDS (PROVIDER) [facility] Sep 13, 2013 10:18 AM V9 CURRENT TOBACCO USER [facility] Sep 13, 2013 10:18 AM V9 TOBACCO OFFERED [facility] Jul 12, 2012 05:32 PM V9 CURRENT TOBACCO USER [facility] Jul 12, 2012 05:32 PM V9 QUIT TOBACCO >1 2 MO & <7 YRS AGO [facility] Jul 12, 2012 05:32 PM V9 TOBACCO OFFERED [facility] Jul 04, 2011 09:53 AM TOBACCO OFFERRED P T MEDS (PROVIDER) [facility] Jul 04, 2011 09:53 AM V9 CURRENT TOBACCO USER [facility] Jul 04, 2011 09:53 AM V9 TOBACCO OFFERED [facility] May 24, 2010 08:09 AM TOBACCO OFFERRED P T MEDS (PROVIDER) [facility] May 24, 2010 08:09 AM V9 CURRENT TOBACCO USER [facility] May 24, 2010 08:09 AM V9 TOBACCO OFFERED [facility] May 22, 2009 01:20 PM TOBACCO OFFERRED P T MEDS (PROVIDER) [facility] May 22, 2009 01:20 PM V9 CURRENT TOBACCO USER [facility] May 22, 2009 01:20 PM V9 TOBACCO OFFERED [facility] Encounter Notes: All associated encounter [...] Signed: 05/29/2024 15:50 /anitha/ ELKE YU Staff Alteration Workroom Supervisor, Primary Care Service Cosigned: 05/29/2024 15:57 GEORGE PAK [facility] May 29, 2024 10:40 AM [...] to help with smoking cessation at the [place] Additional Risk Factors for Macular Degeneration: (+) Patient is over age 60 (-) Obesity (Centers for Disease Control and Prevention definition: BMI of 30 or more) (+) Pt has heritage (-) Female sex Additional Glaucoma Risk Hx: (-) over age 40 (+) Pt is over age 60 (-) Pt has [place] heritage Medical history: Active problems - Computerized [...] in phoropter) 20/30-2 20/50 Habitual Rx: OD: +0.25-0.87b196 OS: -1.25 DS Add:+2.50 EOMs: Full and [...] DFE. 4. Released updated spec rx. The [place]/caregiver voiced understanding of topics covered/discussed in today's visit. Next visit: 12 months with Attending 4 for CEKevin /anitha/ ELKE YU Staff Alteration Workroom Supervisor, Primary Care Service Signed: 05/29/2024 15:23 05/20/2025 ADDENDUM STATUS: COMPLETED Called pt to sched OPT appt, no answer. Left VM for pt to contact scheduling to sched appt. Mailed letter /anitha/ LEISA KAYE Chair Installer Signed: 05/20/2025 11:22 [facility]
--- OUTSIDE RECORDS SUMMARY | 2024-08-30 08:03 | XMS_ITS ---
Author Name [facility] [facility] Address [address] [place] [address] Care Team Providers Care Supplier Quality Specialist Name Role Phone GILBERTO PERALES Primary Care [...] PART A Jun 23, 2016 PART A [id number] ERWIN HALL PATIENT MEDICARE (WNR) MEDICARE (M) PART B Jun 23, 2016 PART B [id number] ERWIN HALL PATIENT MEDICARE (WNR) MEDICARE (M) PART A Jun 23, 2016 PART A [id number] [phone] ERWIN HALL PATIENT MEDICARE (WNR) MEDICARE (M) PART B Jun 23, 2016 PART B [id number] [phone] ERWIN HALL PATIENT MEDICARE PART D (WNR) MEDICARE (M) PART D Jun 23, 2016 PART D [id number] ERWIN HALL PATIENT MEDICARE PART D (WNR) MEDICARE (M) PART D Jun 23, 2016 PART D [id number] ERWIN HALL PATIENT [employer] [place] [employer] PLAN G PLAN G Jun 23, 2016 PLAN G [id number] ERWIN HALL PATIENT [employer] PL[employer] G PLANG Jun 23, 2016 PLANG [id number] ERWIN HALL PATIENT Selected Encounter This section includes the information on record at [place] for the Encounter. Date/Time Encounter Type Encounter Description Reason Pro vider Source Aug 30, 2024 12:03 PM Outpatient Encounter ADMIN PAT ACTIVTIES (MASNONCT) I[facility] Encounter Template Text not used by [place] Plan of Treatment: Future Appointments (+ 6 months) and Future Tests (+/- 45 days) The Plan of Treatment section includes future care activities for the patient from all [place] treatmentfacilities. This section includes future appointments and future orders which are active, pending or scheduled. Future Appointments This section includes appointments that were scheduled to occur 6 months from the date of the Encounter, up to a maximum of 20 appointments. The data comes from all [place] treatment facilities. Appointment Date/Time Appointment Type Appointme nt Facility Name Sep 03, 2024 11:00 AM AMBULATORY - NONE [facility] Sep 06, 2024 09:00 AM AMBULATORY - NONE [facility] Nov 23, 2024 10:00 AM AMBULATORY - NONE [facility] Dec 16, 2024 11:20 AM AMBULATORY - [facility] Lab Results: +/- 30 days of the encounter This section includes the Chemistry and Hematology Lab Results on record with [place] for the patient. Radiology Reports and Pathology Reports are provided separately, in subsequent sections. Lab Results This section contains the Chemistry/Hematology Results that were resulted 30 days before or 30 daysafter the date of the Encounter. Date/Time Source Result Type Result - Unit Interpretation Reference Range Specimen Type Comment Sep 10, 2024 12:45 PM [facility] B12 VITAMIN PLASMA Specimen Type: PLASMA Comment: Vitamin B12 test may not yield results when protein level of sample is too elevated. Ordering Provider: GILBERTO PERALES Report Released Date/Time: Sep 07, 2024 08:05 PM Reporting Lab: [address] [address] Performing Lab: [address] [address] B12 VITAMIN 415 pg/mL 213-816 Sep 10, 2024 12:45 PM PSYCHIATRIC FOLATE PLASMA Specimen Type: PLASMA Comment: Vitamin B12 test may not yield results when protein level of sample is too elevated. Ordering Provider: GILBERTO PERALES Report Released Date/Time: Sep 07, 2024 08:05 PM Reporting Lab: [address] [address] Performing Lab: [address] [address] FOLATE 18.7 ng/mL 7.0-31.4 Sep 03, 2024 01:05 PM PSYCHIATRIC URINALYSIS URINE Specimen Type: URINE Comment: Microscopic not indicated Ordering Provider: GILBETRO PERALES Report Released Date/Time: Sep 03, 2024 12:10 PM Reporting Lab: [address] [address] Performing Lab: [address] [address] URINE COLOR Yellow Colorless-Yellow APPEARANCE Clear Clear UROBILINOGEN Normal mg/dL Normal URINE BLOOD Negative Negative URINE BILIRUBIN Negative Negative URINE KETONES Negative mg/dL Negative URINE PROTEIN Negative mg/dL Negative-Tr david URINE PH 6.5 4.5-8.0 URINE NITRITE Negative Negative URINE LEUKOCYTE EST Negative Negative SPECIFIC GRAVITY 1.018 1.005-1.030 URINE GLUCOSE Negative mg/dL Negative Sep 03, 2024 12:45 PM PSYCHIATRIC TSH PLASMA Specimen Type: PLASM A Comment: [...] Sep 03, 2024 12:10 PM Reporting Lab: [address] [address] Performing Lab: [address] [address] TSH 0.9531 m[IU]/mL 0.3500-4.9400 Sep 03, 2024 12:45 PM PSYCHIATRIC GLYCOHEMOGLOBIN BLOOD Specimen Type: BLOOD Comment: [place] guidelines for A1c interpretation: Glycemic control targets are based on Shared Decision Making between clinicians and patients. Criteria used to establish an A1c target recommendation can be found at https://www.[place].gov/qualityandpatientsafety/ and include the use of result accuracy [...] 8.73 and 9.27. Ref: https://ngsp.org/CAPdata.asp. The in-house [employer] D-100 analyzer has a historical CV <= 2%. Contact the laboratory for further performance characteristics of this assay. Ordering Provider: GILBERTO PERALES Report Released Date/Time: Sep 03, 2024 12:10 PM Reporting Lab: [place] [phone] Performing Lab: [place] [phone] GLYCOHEMOGLOBIN 6.5 H 4.4-6.4 Sep 03, 2024 12:45 PM PSYCHIATRIC 25-OH VITAMIN D SERUM Specime n Type: [...] Sep 03, 2024 12:10 PM Reporting Lab: [address] [address] Performing Lab: [place] [phone] 25-OH VITAMIN D 38.1 ng/mL 20.0-50.0 Sep 03, 2024 12:45 PM PSYCHIATRIC CBC/PLT BLOOD Specimen Type: BLOOD No comment entered. Ordering Provider: GILBERTO PERALES Report Released Date/Time: Sep 03, 2024 12:10 PM Reporting Lab: [address] [address] Performing Lab: [place] [phone] WBC 7.0 10*3/uL 5.0-10.0 RBC 5.00 10*6/uL 4.6-6.2 HGB 16.7 g/dL 14.0-18.0 HCT 50.3 42.0-52.0 MCV 100.6 fL H 80.0-94.0 MCH 33.4 pg H 27.0-31.0 MCHC 33.2 g/dL 32.0-36.0 PLT 115 10*3/uL L 150-450 MPV 12.9 fL 9.0-13.1 RDW 12.1 11.0-16.0 NRBC 0.0 0.0-0.0 Sep 03, 2024 12:45 PM PSYCHIATRIC LIPID PROFILE PLASMA Specimen Type: PLASM A [...] Sep 03, 2024 12:10 PM Reporting Lab: [address] [address] Performing Lab: [address] [address] CHOLESTEROL 131 mg/dL 0-199 TRIGLYCERIDE 91 mg/dL 0-149 HDL CHOLESTEROL 46 mg/dL 40-69 DIRECT LDL CHOL. 75 mg/dL 0-100 Sep 03, 2024 12:45 PM [facility] PANEL 5 PLASMA Specimen Type: PLASM [...] Sep 03, 2024 12:10 PM Reporting Lab: [address] [address] Performing Lab: [address] [address] CREATININE 1.02 mg/dL 0.72-1.25 UREA NITROGEN 14 [...] and tobacco- related health factors from the [place] facility where the Encounter took place. Current Smoking Status This section includes the most current smoking, or tobacco-related health factor, from the [place] facility where the Encounter took place. Date/Time Current Smoking Status Comment Francesco ity February 22, 2021 01:15 PM [place]-TOBACCO QUIT 5 TO < 15 YRS [facility] Tobacco Use History This section includes a history of the smoking, or tobacco-related health factors, that were collected on or before the date of the Encounter. The data comes from the [place] facility where the Encounter took place. Date/Time Smoking Status/Tobacco Use Comment F luda February 22, 2021 01:15 PM [place]-TOBACCO QUIT 5 TO < 15 YRS [facility] Radiology Reports: +/- 30 days of the [...] the Encounter. The data comes from all [place] treatment facilities. Date/Time Radiology Report Provider Source Sep 06, 2024 08:35 AM U/S SCROTUM: ERWIN HALL [id number] -[id number] M Exm Date: SEP 06, 2024@08:35 Req Phys: ANGELLAGILBERTO Pat Loc: JIN PACT ALPHA 1-3 (Req'g Loc) Img Loc: ULTRASOUND Service: [place] [address] (Case [id number] COMPLETE)U/S SCROTUM (US Detailed) CPT:82064 Reason for Study: SEE CLINICAL HISTORY Clinical History: REASON FOR EXAM:Suspected Hydrocele PERTINENT PATIENT HISTORY: pt is concerned about left testicle being larger than the right that might be a cancer . PROVIDER ExtPager# Report Status: Verified Date Reported: SEP 06, 2024 Date Verified: SEP 06, 2024 Svp Monetization E-Sig: Report: U/S SCROTUM HISTORY: Suspected hydrocele [...] Staff: NIRALI OCONNOR, Staff Physician Verified by animator for NIRALI OCONNOR /NIRALI JORGENSEN [facility] Encounter Notes: All associated encounter notes This section contains the clinical notes associated to the Encounter. Date/Time Encounter Note(s) Provider Source Aug 30, 2024 12:03 PM TELEPHONE ENCOUNTE R NOTE: LOCAL TITLE: Pc Pact Pre-clinic Telephone Reminder STANDARD TITLE: TELEPHONE ENCOUNTER NOTE DATE OF NOTE: AUG 30, 2024@12:03 ENTRY DATE: AUG 30, 2024@12:03:28 AUTHOR: ROSALIA LILLY EXP COSIGNER: URGENCY: STATUS: COMPLETED Called [place] as a reminder of upcoming appointment: JIN PACT ALPHA 1-3 Sep 03, 2024@11:00 [facility] Also to confirm [address] on the 3rd floor to better assist of location for appointment. Couldn't reach to confirm above appt. Left Hip[employer] friendly message. /anitha/ Rosalia CHAVEZ Signed: 08/30/2024 12:06 ROSALIA LILLYNarayan [facility]
--- OUTSIDE RECORDS SUMMARY | 2024-09-03 07:00 | XMS_ITS | Encounter Summary ---
Author Name [facility] [place] [facility] [place] Address [address] [place] [address] Care Team Providers Care Quality Engineer Medical Device Name Role Phone GILBERTO PERALES Primary Care [...] PART A Jun 23, 2016 PART A [id number] ERWIN HALL PATIENT MEDICARE (WNR) MEDICARE (M) PART B Jun 23, 2016 PART B [id number] ERWIN HALL PATIENT MEDICARE (WNR) MEDICARE (M) PART A Jun 23, 2016 PART A [id number] [phone] ERWIN HALL PATIENT MEDICARE (WNR) MEDICARE (M) PART B Jun 23, 2016 PART B [id number] ERWIN HALL PATIENT MEDICARE PART D (WNR) MEDICARE (M) PART D Jun 23, 2016 PART D [id number] ERWIN HALL PATIENT MEDICARE PART D (WNR) MEDICARE (M) PART D Jun 23, 2016 PART D [id number] ERWIN HALL PATIENT [employer]IG[employer] PLAN G PLAN G Jun 23, 2016 PLAN G [id number] [phone] ERWIN HALL PATIENT M[employer] OF [employer] PLAN G PLANG Jun 23, 2016 PLANG [id number] ERWIN HALL PATIENT Selected Encounter This section includes the information on record at [place] for the Encounter. Date/Time Encounter Type Encounter Description Reason Provider Source Sep 03, 2024 11:00 AM OFFICE O/P EST HI 40 MIN PRIMARY CARE/MEDICINE ICD-10-CM N40.0 Benign prostatic hyperplasia without lower urinry tract symp GIACOMOFRANCYYANCYRADHA Kevin Encounter Template Text not used by [place] Assessments - Encounter Diagnoses This section includes the primary and secondary diagnoses documented for the Encounter. Date/Time Primary/Secondary Diagnosis Diagnosis Name Provider Source Sep 03, 2024 12:38 PM PRIMARY Benign prostatic hyperplasia without lower urinry tract symp [facility] Sep 03, 2024 12:38 PM SECONDARY Athscl heart disease of [place] coronary artery w/o ang pctrs [facility] Sep 03, 2024 12:38 PM SECONDARY Cervicalgia [facility] Sep 03, 2024 12:38 PM SECONDARY Disorder of the skin and subcutaneous tissue, unspecified [facility] Sep 03, 2024 12:38 PM SECONDARY Encounter for immunization ROBERTO,BRAYAN Brown [facility] Sep 03, 2024 12:38 PM SECONDARY Essential (primary) hypertension [facility] Sep 03, 2024 12:38 PM SECONDARY Gastro-esophageal reflux disease without esophagitis [facility] Sep 03, 2024 12:38 PM SECONDARY Hyperlipidemia, unspecified [facility] Sep 03, 2024 12:38 PM SECONDARY Radiculopathy, cervical region [facility] Plan of Treatment: Future Appointments (+ 6 months) and Future Tests (+/- 45 days) The Plan of Treatment section includes future care activities for the patient from all [place] treatmentfacilities. This section includes future appointments and future orders which are active, pending or scheduled. Future Appointments This section includes appointments that were scheduled to occur 6 months from the date of the Encounter, up to a maximum of 20 appointments. The data comes from all [place] treatment facilities. Appointment Date/Time Appointment Type Appointme nt Facility Name Sep 06, 2024 09:00 AM AMB[facility]ATORY - NONE [place] [facility] Nov 23, 2024 10:00 AM AM[facility]ATORY - NONE [place] [facility] Dec 16, 2024 11:20 AM AMBULATORY - SURGERY [place] [facility] Lab Results: +/- 30 days of the encounter This section includes the Chemistry and Hematology Lab Results on record with [place] for the patient. Radiology Reports and Pathology Reports are provided separately, in subsequent sections. Lab Results This section contains the Chemistry/Hematology Results that were resulted 30 days before or 30 daysafter the date of the Encounter. Date/Time Source Result Type Result - Unit Interpretation Reference Range Specimen Type Comment Sep 10, 2024 12:45 PM [facility] [place] B12 VITAMIN PLASMA Specimen Type: PLASMA Comment: Vitamin B12 test may not yield results when protein level of sample is too elevated. Ordering Provider: GILBERTO PERALES Report Released Date/Time: Sep 07, 2024 08:05 PM Reporting Lab: [address] [address] Performing Lab: [address] [address] B12 VITAMIN 415 pg/mL 213-816 Sep 10, 2024 12:45 PM [facility] FOLATE PLASMA Specimen Type: PLASMA Comment: Vitamin B12 test may not yield results when protein level of sample is too elevated. Ordering Provider: GILBERTO PERALES Report Released Date/Time: Sep 07, 2024 08:05 PM Reporting Lab: [address] [address] Performing Lab: [address] [address] FOLATE 18.7 ng/mL 7.0-31.4 Sep 03, 2024 01:05 PM [facility] URINALYSIS URINE Specimen Type: URINE Comment: Microscopic not indicated Ordering Provider: GILBERTO PERALES Report Released Date/Time: Sep 03, 2024 12:10 PM Reporting Lab: [facility] [address] [facility] [facility] [address] Performing Lab: [place] [id number] [facility] [address] URINE COLOR Yellow Colorless-Yellow APPEARANCE Clear Clear UROBILINOGEN Normal mg/dL Normal URINE BLOOD Negative Negative URINE BILIRUBIN Negative Negative URINE KETONES Negative mg/dL Negative URINE PROTEIN Negative mg/dL Negative-Tr david URINE PH 6.5 4.5-8.0 URINE NITRITE Negative Negative URINE LEUKOCYTE EST Negative Negative SPECIFIC GRAVITY 1.018 1.005-1.030 URINE GLUCOSE Negative mg/dL Negative Sep 03, 2024 12:45 PM [facility] TSH PLASMA Specimen Type: PLASM A Comment: [...] Sep 03, 2024 12:10 PM Reporting Lab: [address] [address] Performing Lab: [address] [address] TSH 0.9531 m[IU]/mL 0.3500-4.9400 Sep 03, 2024 12:45 PM [facility] GLYCOHEMOGLOBIN BLOOD Specimen Type: BLOOD Comment: [place] guidelines for A1c interpretation: Glycemic control targets are based on Shared Decision Making between clinicians and patients. Criteria used to establish an A1c target recommendation can be found at https://www.vt.gov/qualityandpatientsafety/ and include the use of result accuracy [...] 8.73 and 9.27. Ref: https://ngsp.org/CAPdata.asp. The in-house [employer] D-100 analyzer has a historical CV <= 2%. Contact the laboratory for further performance characteristics of this assay. Ordering Provider: GILBERTO PERALES Report Released Date/Time: Sep 03, 2024 12:10 PM Reporting Lab: [address] [address] Performing Lab: [address] [address] GLYCOHEMOGLOBIN 6.5 H 4.4-6.4 Sep 03, 2024 12:45 PM [facility] 25-OH VITAMIN D SERUM Specime n Type: [...] Sep 03, 2024 12:10 PM Reporting Lab: [place] [id number] Performing Lab: [place] [id number] 25-OH VITAMIN D 38.1 ng/mL 20.0-50.0 Sep 03, 2024 12:45 PM [facility] CBC/PLT BLOOD Specimen Type: BLOOD No comment entered. Ordering Provider: GILBERTO PERALES Report Released Date/Time: Sep 03, 2024 12:10 PM Reporting Lab: [address] [address] Performing Lab: [address] [address] WBC 7.0 10*3/uL 5.0-10.0 RBC 5.00 10*6/uL 4.6-6.2 HGB 16.7 g/dL 14.0-18.0 HCT 50.3 42.0-52.0 MCV 100.6 fL H 80.0-94.0 MCH 33.4 pg H 27.0-31.0 MCHC 33.2 g/dL 32.0-36.0 PLT 115 10*3/uL L 150-450 MPV 12.9 fL 9.0-13.1 RDW 12.1 11.0-16.0 NRBC 0.0 0.0-0.0 Sep 03, 2024 12:45 PM [facility] LIPID PROFILE PLASMA Specimen Type: PLASM A [...] Sep 03, 2024 12:10 PM Reporting Lab: [address] [address] Performing Lab: [address] [address] CHOLESTEROL 131 mg/dL 0-199 TRIGLYCERIDE 91 mg/dL 0-149 HDL CHOLESTEROL 46 mg/dL 40-69 DIRECT LDL CHOL. 75 mg/dL 0-100 Sep 03, 2024 12:45 PM [facility] PLASMA Specimen Type: PLASM A [...] Sep 03, 2024 12:10 PM Reporting Lab: [address] [address] Performing Lab: [address] [address] CREATININE 1.02 mg/dL 0.72-1.25 UREA NITROGEN 14 [...] PHOS 60 U/L 40-150 eGFR (CKD-EPI) 78 Vital Signs: All taken on the encounter date This section contains inpatient and outpatient Vital Signs collected on the date of the Encounter. Date/Time Temperature Pulse Blood Pressure Respiratory Rate SP02 Pain Height Weight Body Mass Index Source Sep 03, 2024 12:04 PM 130/70 [facility] Sep 03, 2024 10:31 AM 61 162/89 [facility] Sep 03, 2024 10:31 AM 55 175/93 [facility] Sep 03, 2024 10:18 AM 97.8 58 154/88 100 8 73 209.8 28 [facility] Immunizations: All administered on the encounter date This section contains immunizations associated to the Encounter. Immunization Series Date Issued Administered By Site Reaction Lot Number CVX Code Drug Jeeper Operator Comment(s) Source INFLUENZA, HIGH-DOSE, TRIVALENT, PF Sep 03, 2024 JOJO KAPLAN E LEFT [place]TO ID [id number] [employer] PASTEUR ADMINISTERE [place], [facility] COVID-19 (MODERNA), MRNA, LNP-S, PF, 50 MCG/0.5 ML (AGES 12+ YEARS) Sep 03, 2024 JOJO KAPLANA E LEFT [place] ID [id number] [employer]. [facility] Social History: Smoking Status (Most current) and Tobacco Use (All prior to encounter date) This section includes the most current, and the historical, smoking and tobacco- related health factors from the [place] facility where the Encounter took place. Current Smoking Status This section includes the most current smoking, or tobacco-related health factor, from the [place] facility where the Encounter took place. Date/Time Current Smoking Status Comment Francesco [place] Sep 03, 2024 11:00 AM VA-TOBACCO DOESNT USE [place] 30 MIN WAKEUP [facility] Tobacco Use History This section includes a history of the smoking, or tobacco-related health factors, that were collected on or before the date of the Encounter. The data comes from the [place] facility where the Encounter took place. Date/Time Smoking Status/Tobacco Use Comment F acility Sep 03, 2024 11:00 AM VA-TOBACCO USE 30 YEARS OR MORE [facility] Sep 03, 2024 11:00 AM VA-TOBACCO USE ADVICE [facility] Sep 03, 2024 11:00 AM VA-TOBACCO USE SUPERVISOR BLUEPRINTING AND PHOTOCOPY NO [facility] Sep 03, 2024 11:00 AM VA-TOBACCO USE MED NO [facility] Sep 03, 2024 11:00 AM VA-TOBACCO USER SOME DAYS [facility] May 18, 2022 08:30 AM VA-TOBACCO DOESNT USE [place] 30 MIN WAKEUP [facility] May 18, 2022 08:30 AM VA-TOBACCO USE 30 YEARS OR MORE [facility] May 18, 2022 08:30 AM VA-TOBACCO USE ADVICE [facility] May 18, 2022 08:30 AM VA-TOBACCO USE SUPERVISOR BLUEPRINTING AND PHOTOCOPY NO [facility] May 18, 2022 08:30 AM VA-TOBACCO USE MED NO [facility] May 18, 2022 08:30 AM VA-TOBACCO USER EVERY DAY [facility] Jul 02, 2020 10:00 AM VA-TOBACCO DOESNT USE [place] 30 MIN WAKEUP [facility] Jul 02, 2020 10:00 AM VA-TOBACCO USE 30 YEARS OR MORE [facility] Jul 02, 2020 10:00 AM VA-TOBACCO USE ADVICE [facility] Jul 02, 2020 10:00 AM VA-TOBACCO USE SUPERVISOR BLUEPRINTING AND PHOTOCOPY NO [facility] Jul 02, 2020 10:00 AM VA-TOBACCO USE MED NO [facility] Jul 02, 2020 10:00 AM VA-TOBACCO USER SOME DAYS [facility] Nov 23, 2018 11:13 AM VA-TOBACCO DOESNT USE [place] 30 MIN WAKEUP [facility] Nov 23, 2018 11:13 AM VA-TOBACCO USE 30 YEARS OR MORE [facility] Nov 23, 2018 11:13 AM VA-TOBACCO USE ADVICE [facility] Nov 23, 2018 11:13 AM VA-TOBACCO USE SUPERVISOR BLUEPRINTING AND PHOTOCOPY NO [facility] Nov 23, 2018 11:13 AM VA-TOBACCO USE MED NO [facility] Nov 23, 2018 11:13 AM VA-TOBACCO USER SOME DAYS [facility] Aug 29, 2017 09:43 AM V9 LIFETIME NON-USER OF TOBACCO [facility] Oct 20, 2016 09:13 AM V9 LIFETIME NON-USER OF TOBACCO [facility] Oct 28, 2015 09:04 AM V9 LIFETIME NON-USER OF TOBACCO [facility] Sep 24, 2014 10:16 AM V9 QUIT TOBACCO >1 2 MO & <7 YRS AGO [facility] Sep 24, 2014 10:16 AM V9 TOBACCO OFFERED [facility] Sep 13, 2013 10:18 AM TOBACCO OFFERRED P T MEDS (PROVIDER) [facility] Sep 13, 2013 10:18 AM V9 CURRENT TOBACCO USER [facility] Sep 13, 2013 10:18 AM V9 TOBACCO OFFERED [facility] Jul 12, 2012 05:32 PM V9 CURRENT TOBACCO USER [facility] Jul 12, 2012 05:32 PM V9 QUIT TOBACCO >1 2 MO & <7 YRS AGO [facility] Jul 12, 2012 05:32 PM V9 TOBACCO OFFERED [facility] Jul 04, 2011 09:53 AM TOBACCO OFFERRED P T MEDS (PROVIDER) [facility] Jul 04, 2011 09:53 AM V9 CURRENT TOBACCO USER [facility] Jul 04, 2011 09:53 AM V9 TOBACCO OFFERED [facility] May 24, 2010 08:09 AM TOBACCO OFFERRED P T MEDS (PROVIDER) [facility] May 24, 2010 08:09 AM V9 CURRENT TOBACCO USER [facility] May 24, 2010 08:09 AM V9 TOBACCO OFFERED [facility] May 22, 2009 01:20 PM TOBACCO OFFERRED P T MEDS (PROVIDER) [facility] May 22, 2009 01:20 PM V9 CURRENT TOBACCO USER [facility] May 22, 2009 01:20 PM V9 TOBACCO OFFERED [facility] Radiology Reports: +/- 30 days of the [...] the Encounter. The data comes from all [place] treatment facilities. Date/Time Radiology Report Provider Source Sep 06, 2024 08:35 AM U/S SCROTUM: ERWIN HALL MURTAZA [id number] -[id number] M Exm Date: SEP 06, 2024@08:35 Req Phys: GILBERTO PERALES Pat Loc: JIN PACT ALPHA 1-3 (Req'g Loc) Img Loc: ULTRASOUND Service: [place] [address] (Case [id number] COMPLETE)U/S SCROTUM (US Detailed) CPT:03914 Reason for Study: SEE CLINICAL HISTORY Clinical History: REASON FOR EXAM:Suspected Hydrocele PERTINENT PATIENT HISTORY: pt is concerned about left testicle being larger than the right that might be a cancer . PROVIDER ExtPager# Report Status: Verified Date Reported: SEP 06, 2024 Date Verified: SEP 06, 2024 Superintendent Mechanical E-Sig: Report: U/S SCROTUM HISTORY: Suspected hydrocele [...] Staff: NIRALI OCONNOR, Staff Physician Verified by design drafter chief for NIRALI OCONNOR /NIRALI JORGENSEN-[facility] Encounter Notes: All associated encounter notes This section contains the clinical notes associated to the Encounter. Date/Time Encounter Note(s) Provider Source Nov 30, 2024 05:38 AM ADDENDUM: LOCAL TITLE: Addendum STANDARD TITLE: ADDENDUM DATE OF NOTE: NOV 30, 2024@05:38:14 ENTRY DATE: NOV 30, 2024@05:38:15 AUTHOR: GILBERTO PERALES EXP COSIGNER: URGENCY: STATUS: COMPLETED Please let patient know that his C-spine MRI WO 11/23/2024 showed: Mild disc bulge C3-C4, C6-C7, C7-T1, with bilateral foraminal stenosis worse at C3-C4. moderate spinal stenosis at C3-C4. q Re- consult to neurosurgery is placed - as discussed on 09/03/2024 PCP visit. Thank you. 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 HPI/PROBLEM LIST: Patient is a 74 year old MALE here today to establish treatment of active/chronic medical problems, and F/U test results. Patient denies any recent Hospitalizations, ER visits or surgeries in last 90 days. NON-VA Provider- PCP- Dr Vasquez? DIMAS Rich NON-[place] Pharmacy- [facility] [place] - Hypertension- Home BP stays high sometimes. [facility] 130/70 manually. Is taking : Non-VA LISINOPRIL TAB 20MG 20MG MOUTH DAILY Non-VA METOPROLOL TARTRATE 100MG TAB 50MG MOUTH TWICE A DAY - Hyperlpidemia- Is taking:Non-VA ATORVASTATIN CALCIUM 80MG TAB 80MG MOUTH DAILY. Denies side effects. - Neck pain- Had abnormal C-spine MRI WO 01/06/2023 - when had [facility] PT 01/2023 and D/C to continue using traction equipment that helped initially but none lately , as having moderate to sever neck pain going to his bilateral shoulders and down his T-spine between his shoulder blades , worse on walking , betted with siting or lyingflat. - Skin lesion- upper midsternal area skin lesion- getting worse, with rougher surface and larger size since last year- started as a dime ,now it is a quater over last year, no itching , burning or color change. Stated he has been having it to smooth it off. consider Telederm consult - BPH- nocturea every one hour taking the : FINASTERIDE 5MG TAB TAKE ONE TABLET BY MOUTH DAILY FOR PROSTATE. Denies side effects.Denies UTI symptoms. Agreed to a trial of Tamsulosin 0.4 mg at bedtime. - ED- about the same- taking the : TADALAFIL 20MG TAB TAKE ONE TABLET BY MOUTH DIRECTED FOR ERECTILE DYSFUNCTION -DO NOT TAKE WITH ANY MEDICATION CONTAINING NITRATES It some times works , other times it does not work. - ? hydrocele- left testicle feels larger than the right an dthe patient is concerned about possible cancer- Denies any other symptoms. - Gastroesophageal reflux disease- Denies dysphagia, weight loss or melena. Controlled taking: Non-VA OMEPRAZOLE 20MG EC CAP 40MG MOUTH ONCE A DAY. Denies side effects. - Coronary atherosclerosis- Denies chest pain, palpitation, syncope, or leg edema. Is taking : Non-VA ASPIRIN 81MG EC TAB 81MG MOUTH DAILY Non-VA ATORVASTATIN CALCIUM 80MG TAB 80MG MOUTH DAILY Still smokes 2 cigars/week. and has [place] every night. - RSV vaccine- asking to have RSV vaccine today- deferred giving that he received Flue and COVID-19 vaccines today. HEALTH CARE MAINTENANCE: .SCREENING- - LDCT Screening for Lung Cancer: neg;02/27/2024, repeat in 12 months. - AAA Screening : neg;09/26/2014 - Screening for colon cancer: 05/2022 - repeat 3 years (04/2025) - PSA:0.469 04/17/23 ng/mL - Screening for HIV: NONREACTIVE 07/16/12 - Screening for HCV: NEGATIVE 05/29/18 . IM - Immunizations ADMINISTERED OVID-19 (MODERNA), MRNA, LNP-S,* 3 06/23/2021 [facility] COVID-19 (MODERNA), MRNA, LNP-S,* 2 12/01/2020 [facility] COVID-19 (MODERNA), MRNA, LNP-S,* 1 10/30/2020 [facility] COVID-19 (MODERNA), MRNA, LNP-S,* 09/03/2024 [facility] COVID-19 (PFIZER), MRNA, LNP-S, * 1 11/21/2022 [facility]* COVID-19 (PFIZER), MRNA, LNP-S, * 4 05/18/2022 [facility]* HEP A, ADULT 05/23/2019 [facility]* HEP A, ADULT 11/23/2018 [facility]* HEP B, ADULT 1 07/20/2021 [facility]* INFLUENZA, HIGH-DOSE, TRIVALENT,* 09/03/2024 [facility]* [id number] (HISTORICAL) 11/08/2016 [facility]* PNEUMOCOCCAL CONJUGATE PCV20, PO* 05/18/2022 [facility]* PNEUMOCOCCAL POLYSACCHARIDE PPV23 05/28/2018 [facility]* TETANUS TOXOID, UNSPECIFIED FORM* 05/22/2009 [facility]* ZOSTER LIVE 08/29/2017 [facility]* ZOSTER RECOMBINANT 2 10/09/2020 [facility]* ZOSTER RECOMBINANT 1 07/02/2020 [facility]* REFUSED ======= HEP B, UNSPECIFIED FORMULATION 09/03/2024 [facility]* TDAP 09/03/2024 [facility]* ST - Skin Tests No data available: Collection DT Specimen Test Name Result Units Ref Range 08/29/2017 11:31 SERUM SHEPPARD/TOT (TO [id number] NEG SIM - HEP B IMM HISTORY ADMINISTERED HEP B, ADULT 1 07/20/2021 [facility]* REFUSED ======= HEP B, UNSPECIFIED FORMULATION 09/03/2024 [facility]* Active problems - Computerized Problem List is the source for the followin. History of colonoscopy 05/2022 - repeat 3 years (04/2025) 2. Adrenal adenoma 3. Overactive bladder 4. Peripheral vascular disease 5. Hyperlipidemia 6. Benign prostatic hyperplasia 7. Benign essential hypertension 8. Gastroesophageal reflux disease 9. Coronary atherosclerosis List of active problems are reviewed with patient and updated. SURGICAL HISTORY: 08/22/2019 LAPAROSCOPIC VENTRAL INCISIONAL (COMPLETED) HERNIA REPAIR WITH [facility] FAMILY HISTORY Father: , CAD, 78 Mother: , lymphoma at age 92 uncle: atrial flutter Siblings: 3 brothers and 1 sister - living; brother, CVD. nallely: 2 healthy son and a daughter. SOCIAL HISTORY: [address] [employer] # Entered Discharge 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 MARITAL STATUS - Living situation: Lives alone in [place]. in 2019 - lost of 48 years. Social: Son in [facility], daughter in [place]. 3 grandaughters, 1 step grandson, 2 step great grandsons. Golfs, gardens, mows. Active in [place]. Tobacco: Quit 2013 - 75 pk/yr. smoked ppd since age 16 wuit in 2013 still Smokes 2 cigars/week. st ETOH: 1 bourbon/night ROS: A 10 point ROS was completed with patient and is negative with exception of what was noted above in History of Present Illness and Past Medical History sections. DS - Disabilities Eligibility: NSC VERIFIED MEDICATIONS: Active and Recently Outpatient Medications (including Supplies): Active Outpatient Medications Status 1) TADALAFIL 20MG TAB TAKE ONE TABLET BY MOUTH ACTIVE DIRECTED FOR ERECTILE DYSFUNCTION -DO NOT TAKE WITH ANY MEDICATION CONTAINING NITRATES (LIMIT: 6 DOSES/30 DAYS OR 18 DOSES/90 DAYS, NON-REPLACEABLE MEDICATION) TAKE ONE HOUR BEFORE SEX ON EMPTY STOMACH Inactive Outpatient Medications Status 1) FINASTERIDE 5MG TAB TAKE ONE TABLET BY MOUTH DAILY FOR PROSTATE Active Non-VA Medications Status 1) Non-VA ASPIRIN [...] MINUTES BEFORE A MEAL 10 Total Medications ALLERGIES: Patient has answered NKA PHYSICAL EXAM: VITAL SIGNS Measurement DT TEMP PULSE RESP BP HT WT F(C) IN(CM) LB(KG)[BMI] ---- ----- ---- -- ------ 09/03/2024 10:31 61 162/89 Measurement DT CVP POx CG CMH20(MMHG) (L/MIN)(%) IN(CM) ------ 09/03/2024 10:18 100 Measurement DT Pain ---- 09/03/2024 10:18 8 MOBILITY: ambulating steadily WITHOUT assistive device. General: Well-developed , well-nourished MALE in no acute distress. HEENT: Atraumatic, Normocephalic, no icterus. Nose is patent. Moist mucous membranes. No oral lesions. Neck- Supple, could not appreciate JVD, carotid bruit,thyromegaly, or lymphadenopathy. Heart: RRR, Normal S1 and S2, no S4, no M/G/R. Lungs: Clear to auscultation, no rales, no wheezes, no rhonchi Abdomen: Nontender, nondistended, normal bowel sounds Extremities: No edema. normal pulses Musculoskeletal: Tender cervical vertebral tapping. Limited all range of motion of the C-spine in all directions due neck pain with associated cervical radiculopathy. No joint swelling, erythema or warmth. Neurologic: Alert and oriented times 3, no new focal neurological deficits. Skin: mid sternal chest wall skin lesion mildly raised with grayish discoloration and lobulated in shape with rough irregualr surface about 1 inch in greatest dimension. PSYCH: Appropriate mood and behavior. Interacting appropriately. IMAGES: No recent studies. LABS: PHOSPHORUS:3.2 mg/dL (11/21/2022 11:21) 04/17/2023 14:01 BLOOD !! GLYCOHEMOGLOBIN 5.6 % 4.4 - 6.4 05/18/2022 09:43 BLOOD !! GLYCOHEMOGLOBIN 5.7 % 4.4 - 6.4 07/20/2021 14:06 BLOOD !! GLYCOHEMOGLOBIN 5.6 % 4.4 - 6.4 07/02/2020 10:38 BLOOD !! GLYCOHEMOGLOBIN 5.8 % 4.4 - 6.4 Vitamin D: Collection DT Spec VITAMIN 04/17/2023 14:01 SERUM 41.3 11/21/2022 11:21 SERUM 33.5 TSH: 1.0605 mIU/mL (04/17/2023 14:01) Magnesium:1.9 mg/dL (11/21/2022 11:21) PSA:0.469 ng/mL (04/17/2023 14:01) 04/17/2023 14:01 BLOOD WBC 5.9 K/cmm 5.0 - 10.0 04/17/2023 14:01 BLOOD RBC 4.98 M/cmm 4.6 - 6.2 04/17/2023 14:01 BLOOD HGB 16.2 g/dL 14.0 - 18.0 04/17/2023 14:01 BLOOD HCT 48.1 % 42.0 - 52.0 04/17/2023 14:01 BLOOD MCV 96.6 H fL 80.0 - 94.0 04/17/2023 14:01 BLOOD MCH 32.5 H pg 27.0 - 31.0 04/17/2023 14:01 BLOOD MCHC 33.7 g/dL 32.0 - 36.0 04/17/2023 14:01 BLOOD PLT 111 L K/cmm 150 - 450 04/17/2023 14:01 BLOOD MPV 12.1 fL 9.0 - 13.1 04/17/2023 14:01 BLOOD RDW 12.0 % 11.0 - 16.0 04/17/2023 14:01 BLOOD NRBC 0.0 % 0.0 - 0.0 04/17/2023 14:16 URINE CREATININE 286.9 mg/dL 04/17/2023 14:01 PLASMA!! UREA NITROGEN 15 mg/dL - 04/17/2023 14:01 PLASMA!! GLUCOSE 115 H mg/dL 74 - 100 04/17/2023 14:01 PLASMA!! SODIUM 140 mmol/L 136 - 145 04/17/2023 14:01 PLASMA!! POTASSIUM 3.7 mmol/L 3.5 - 5.1 04/17/2023 14:01 PLASMA!! CHLORIDE 107 mmol/L 98 - 107 04/17/2023 14:01 PLASMA!! CO2 23 mmol/L - 04/17/2023 14:01 PLASMA!! CALCIUM 9.7 mg/dL 8.4 - 10.2 04/17/2023 14:01 PLASMA!! ANION GAP 10.0 mEq/L 3 - 19 07/20/2021 14:06 PLASMA eGFR (TO 01-21-22) >60 SEE EVAL ASSESSMENT AND PLAN: - Hypertension- controlled. Continue : Non-VA LISINOPRIL TAB 20MG 20MG MOUTH DAILY Non-VA METOPROLOL TARTRATE 100MG TAB 50MG MOUTH TWICE A DAY Low salt diet and weight loss encouraged. Home bp log daily to bring it in next visit. - Hyperlpidemia- Continue: Is taking:Non-VA ATORVASTATIN CALCIUM 80MG TAB 80MG MOUTH DAILY.low fat and low cholesterol diet encouraged. Order FLP and LFTs. - Neck pain- Had abnormal C-spine MRI WO 01/06/2023 - Failed [facility] PT 01/2023 with biateral cervical radiculopathy , worse with walking- Repeat MRI WO C- spince and consider neurosurgery consult. - Skin lesion- upper midsternal area skin lesion- Telederm consult completed. - BPH- LUTS - nocturea every one hour - Continue: FINASTERIDE 5MG TAB TAKE ONE TABLET BY MOUTH DAILY . Add Tamsulosin 0.4 mg at bedtime. Order UA. - ED- about the same- may continue: TADALAFIL 20MG TAB TAKE ONE TABLET BY MOUTH DIRECTED FOR ERECTILE DYSFUNCTION -DO NOT TAKE WITH ANY MEDICATION CONTAINING NITRATES - ? hydrocele- left testicle feels larger than the right an dthe patient is concerned about possible cancer-Scrotal U/S is ordered. - Gastroesophageal reflux disease- controlled. Continue: Non-VA OMEPRAZOLE 20MG EC CAP 40MG MOUTH ONCE A DAY. - Coronary atherosclerosis- satble. No complaints today. Continue: Non-VA ASPIRIN 81MG EC TAB 81MG MOUTH DAILY Non-VA ATORVASTATIN CALCIUM 80MG TAB 80MG MOUTH DAILY Encouraged to set a plan to stop smoking and take [place] to occasional. Medication Reconciliation: Reviewed and reconciled medication list with patient and/or caregiver: ___ No discrepancies were found, _x__ Discrepancies were corrected or sent to the ordering provider to correct The updated medication list was given to the patient/caregiver by: ___Patient declines med list, _x__Handing physical copy at the end of visit, ___Mail, ___[facility]HealtheVet ___Patient does not take any meds ___ New pt presented with his/her list of meds. Pt instructed to watch for adverse reaction to therapy and if allergy suspected then discontinue and present immediately to ER. Potential side effects/adverse events associated with prescription medication including potential drug interactions were discussed and all questions answered. Patient expressed understanding of information presented in this note. -LABWORK: Today's labs: (x )FASTING ( )NON-FASTING: See orders ( ) NO LABS WITH THIS VISIT ( ) RETURN FOR LABS: -CONSULTS ENTERED FROM TODAYS VISIT: None -CLERICAL ORDERS: RNA APPOINTMENT:NA SCHEDULE THE FOLLOWING: RECALL:08/13/2025 ( ) Fasting labs on RTC ( ) Non-fasting labs on RTC: To be determined ( x) No labs on RTC Follow up:11 months and PRN The /caregiver voiced understanding of topics covered/discussed in today's visit. All questions were answered, and the patient/caregiver voiced understanding and agreement. I spent 50 min today reviewing last visit notes, recent lab results, recent XRs reports, VISTA imaging for any recent hospitilizations or ER visits, [facility] consults, Consults reports , evaluating and managing the patient's acute and chronic conditions, and documenting clinical information in health record. _x_ Preparing to see patient (tests, reviewing last progress note) _x_ Perform medically necessary Exam _x_ Order tests, procedures, medications _x_ Documenting clinical info in health record _x_ Independently interpreting results and communicating results to patient/caregiver _X__ Refer and/or communicate with other providers regarding patient _X__ Obtain/review separately obtained history __ Placed consult SYSTEM GENERATED CLINICAL REMINDERS: Assess Statin Use - Lipids (CVD/DM): The patient is still taking the NON-VA statin medication as documented. /es/ GILBERTO PERALES MD Signed: 09/03/2024 12:40 09/07/2024 ADDENDUM STATUS: COMPLETED Please, let pt know that his A1c was slightly elevated at 6.5% (normal 4.4-6.4) rec one daily dose of metformin 500 mg if agreeable. His red cells are enlarged most likely du eto his daily [place]- needs to have his B12 and folate be checked- ordered. His scrotal U/S 09/06/2024 was benign, no masses. He does have Large chronic appearing left hydrocele. Thank you. /diane PERALES MD Signed: 09/07/2024 20:04 Receipt Acknowledged By: 09/09/2024 09:59 /ETJAL Mariee,RN PC STEAM GENERATING POWERPLANT MECHANIC 09/09/2024 ADDENDUM STATUS: COMPLETED SEE PC CARE MANAGEMENT NOTE 09/09/24 /TEJAL Mariee,RN PC STEAM GENERATING POWERPLANT MECHANIC Signed: 09/09/2024 10:00 09/13/2024 ADDENDUM STATUS: COMPLETED PLEASE LET PT KNOW THAT HIS fOLATE AND B12 SUBMITTED ON 09/10/2024 WERE IN THE NORMAL RANGE. REC MULTIVITAMINS DAILY. THANK YOU. /diane PERALES MD Signed: 09/13/2024 15:21 Receipt Acknowledged By: 09/13/2024 16:29 /TEJAL Mariee,RN PC STEAM GENERATING POWERPLANT MECHANIC 09/13/2024 ADDENDUM STATUS: COMPLETED SEE PC CARE MANAGEMENT NOTE 09/13/24 /TEJAL Mariee,RN PC STEAM GENERATING POWERPLANT MECHANIC Signed: 09/13/2024 16:29 GILBERTO PERALES [facility] Sep 13, 2024 03:18 PM ADDENDUM: LOCAL TITLE: Addendum STANDARD TITLE: ADDENDUM DATE OF NOTE: SEP 13, 2024@15:18:41 ENTRY DATE: SEP 13, 2024@15:18:42 AUTHOR: GILBERTO PERALES EXP COSIGNER: URGENCY: STATUS: COMPLETED PLEASE LET PT KNOW THAT HIS fOLATE AND B12 SUBMITTED ON 09/10/2024 WERE IN THE NORMAL RANGE. REC MULTIVITAMINS DAILY. THANK YOU. /diane PERALES MD Signed: 09/13/2024 15:21 Receipt Acknowledged By: 09/13/2024 16:29 /TEJAL Mariee,RN PC STEAM GENERATING POWERPLANT MECHANIC --- Original Document --- 09/03/24 PC PROGRESS NOTE: ID: 74 year old MALE Chief Complaint: Ongoing management of active/chronic medical problems PC-Nurse's note is reviewed. HPI/PROBLEM LIST: Patient is a 74 year old MALE here today to establish treatment of active/chronic medical problems, and F/U test results. Patient denies any recent Hospitalizations, ER visits or surgeries in last 90 days. NON-VA Provider- PCP- Dr Vasquez? [place], [place] NON-VA Pharmacy- [facility] in [place] - Hypertension- Home BP stays high sometimes. [facility]. Is taking : Non-VA LISINOPRIL TAB 20MG 20MG MOUTH DAILY Non-VA METOPROLOL TARTRATE 100MG TAB 50MG MOUTH TWICE A DAY - Hyperlpidemia- Is taking:Non-VA ATORVASTATIN CALCIUM 80MG TAB 80MG MOUTH DAILY. Denies side effects. - Neck pain- Had abnormal C-spine MRI WO 01/06/2023 - when had [facility] PT 01/2023 and D/C to continue using traction equipment that helped initially but none lately , as having moderate to sever neck pain going to his bilateral shoulders and down his T-spine between his shoulder blades , worse on walking , betted with siting or lyingflat. - Skin lesion- upper midsternal area skin lesion- getting worse, with rougher surface and larger size since last year- started as a dime ,now it is a quater over last year, no itching , burning or color change. Stated he has been having it to smooth it off. consider Telederm consult - BPH- nocturea every one hour taking the : FINASTERIDE 5MG TAB TAKE ONE TABLET BY MOUTH DAILY FOR PROSTATE. Denies side effects.Denies UTI symptoms. Agreed to a trial of Tamsulosin 0.4 mg at bedtime. - ED- about the same- taking the : TADALAFIL 20MG TAB TAKE ONE TABLET BY MOUTH DIRECTED FOR ERECTILE DYSFUNCTION -DO NOT TAKE WITH ANY MEDICATION CONTAINING NITRATES It some times works , other times it does not work. - ? hydrocele- left testicle feels larger than the right an dthe patient is concerned about possible cancer- Denies any other symptoms. - Gastroesophageal reflux disease- Denies dysphagia, weight loss or melena. Controlled taking: Non-VA OMEPRAZOLE 20MG EC CAP 40MG MOUTH ONCE A DAY. Denies side effects. - Coronary atherosclerosis- Denies chest pain, palpitation, syncope, or leg edema. Is taking : Non-VA ASPIRIN 81MG EC TAB 81MG MOUTH DAILY Non-VA ATORVASTATIN CALCIUM 80MG TAB 80MG MOUTH DAILY Still smokes 2 cigars/week. and has [place] every night. - RSV vaccine- asking to have RSV vaccine today- deferred giving that he received Flue and COVID-19 vaccines today. HEALTH CARE MAINTENANCE: .SCREENING- - LDCT Screening for Lung Cancer: neg;02/27/2024, repeat in 12 months. - AAA Screening : neg;09/26/2014 - Screening for colon cancer: 05/2022 - repeat 3 years (04/2025) - PSA:0.469 04/17/23 ng/mL - Screening for HIV: NONREACTIVE 07/16/12 - Screening for HCV: NEGATIVE 05/29/18 . IM - Immunizations ADMINISTERED OVID-19 ([facility]), MRNA, LNP-S,* 3 06/23/2021 [facility] COVID-19 (MODERNA), MRNA, LNP-S,* 2 12/01/2020 [facility] COVID-19 (MODERNA), MRNA, LNP-S,* 1 10/30/2020 [facility] COVID-19 (MODERNA), MRNA, LNP-S,* 09/03/2024 [facility]* COVID-19 (PFIZER), MRNA, LNP-S, * 1 11/21/2022 [facility]* COVID-19 (PFIZER), MRNA, LNP-S, * 4 05/18/2022 [facility]* HEP A, ADULT 05/23/2019 [facility]* HEP A, ADULT 11/23/2018 [facility]* HEP B, ADULT 1 07/20/2021 [facility]* INFLUENZA, HIGH-DOSE, TRIVALENT,* 09/03/2024 [facility]* [id number] (HISTORICAL) 11/08/2016 [facility]* PNEUMOCOCCAL CONJUGATE PCV20, PO* 05/18/2022 [facility]* PNEUMOCOCCAL POLYSACCHARIDE PPV23 05/28/2018 [facility]* TETANUS TOXOID, UNSPECIFIED FORM* 05/22/2009 [facility]* ZOSTER LIVE 08/29/2017 [facility]* ZOSTER RECOMBINANT 2 10/09/2020 [facility]* ZOSTER RECOMBINANT 1 07/02/2020 [facility]* REFUSED ======= HEP B, UNSPECIFIED FORMULATION 09/03/2024 [facility]* TDAP 09/03/2024 [facility]* ST - Skin Tests No data available: Collection DT Specimen Test Name Result Units Ref Range 08/29/2017 11:31 SERUM SHEPPARD/TOT (TO [id number] NEG SIM - HEP B IMM HISTORY ADMINISTERED HEP B, ADULT 1 07/20/2021 [facility]* REFUSED ======= HEP B, UNSPECIFIED FORMULATION 09/03/2024 [facility]* Active problems - Computerized Problem List is the source for the followin. History of colonoscopy 05/2022 - repeat 3 years (04/2025) 2. Adrenal adenoma 3. Overactive bladder 4. Peripheral vascular disease 5. Hyperlipidemia 6. Benign prostatic hyperplasia 7. Benign essential hypertension 8. Gastroesophageal reflux disease 9. Coronary atherosclerosis List of active problems are reviewed with patient and updated. SURGICAL HISTORY: 08/22/2019 LAPAROSCOPIC VENTRAL INCISIONAL (COMPLETED) HERNIA REPAIR WITH [facility] FAMILY HISTORY Father: , CAD, 78 Mother: , lymphoma at age 92 uncle: atrial flutter Siblings: 3 brothers and 1 sister - living; brother, CVD. nallely: 2 healthy son and a daughter. SOCIAL HISTORY: [address] [employer] # Entered Discharge 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 MARITAL STATUS - Living situation: Lives alone in [place]. in 2019 - lost of 48 years. Social: Son in [facility], daughter in [place]. 3 grandaughters, 1 step grandson, 2 step great grandsons. Golfs, [employer], mows. Active in [place]. Tobacco: Quit 2013 - 75 pk/yr. smoked ppd since age 16 wuit in 2013 still Smokes 2 cigars/week. st ETOH: 1 bourbon/night ROS: A 10 point ROS was completed with patient and is negative with exception of what was noted above in History of Present Illness and Past Medical History sections. DS - Disabilities Eligibility: NSC VERIFIED MEDICATIONS: Active and Recently Outpatient Medications (including Supplies): Active Outpatient Medications Status 1) TADALAFIL 20MG TAB TAKE ONE TABLET BY MOUTH ACTIVE DIRECTED FOR ERECTILE DYSFUNCTION -DO NOT TAKE WITH ANY MEDICATION CONTAINING NITRATES (LIMIT: 6 DOSES/30 DAYS OR 18 DOSES/90 DAYS, NON-REPLACEABLE MEDICATION) TAKE ONE HOUR BEFORE SEX ON EMPTY STOMACH Inactive Outpatient Medications Status 1) FINASTERIDE 5MG TAB TAKE ONE TABLET BY MOUTH DAILY FOR PROSTATE Active Non-VA Medications Status 1) Non-VA ASPIRIN [...] MINUTES BEFORE A MEAL 10 Total Medications ALLERGIES: Patient has answered NKA PHYSICAL EXAM: VITAL SIGNS Measurement DT TEMP PULSE RESP BP HT WT F(C) IN(CM) LB(KG)[BMI] ---- ----- ---- -- ------ 09/03/2024 10:31 61 162/89 Measurement DT CVP POx CG CMH20(MMHG) (L/MIN)(%) IN(CM) ------ 09/03/2024 10:18 100 Measurement DT Pain ---- 09/03/2024 10:18 8 MOBILITY: ambulating steadily WITHOUT assistive device. General: Well-developed , well-nourished MALE in no acute distress. HEENT: Atraumatic, Normocephalic, no icterus. Nose is patent. Moist mucous membranes. No oral lesions. Neck- Supple, could not appreciate JVD, carotid bruit,thyromegaly, or lymphadenopathy. Heart: RRR, Normal S1 and S2, no S4, no M/G/R. Lungs: Clear to auscultation, no rales, no wheezes, no rhonchi Abdomen: Nontender, nondistended, normal bowel sounds Extremities: No edema. normal pulses Musculoskeletal: Tender cervical vertebral tapping. Limited all range of motion of the C-spine in all directions due neck pain with associated cervical radiculopathy. No joint swelling, erythema or warmth. Neurologic: Alert and oriented times 3, no new focal neurological deficits. Skin: mid sternal chest wall skin lesion mildly raised with grayish discoloration and lobulated in shape with rough irregualr surface about 1 inch in greatest dimension. PSYCH: Appropriate mood and behavior. Interacting appropriately. IMAGES: No recent studies. LABS: PHOSPHORUS:3.2 mg/dL (11/21/2022 11:21) 04/17/2023 14:01 BLOOD !! GLYCOHEMOGLOBIN 5.6 % 4.4 - 6.4 05/18/2022 09:43 BLOOD !! GLYCOHEMOGLOBIN 5.7 % 4.4 - 6.4 07/20/2021 14:06 BLOOD !! GLYCOHEMOGLOBIN 5.6 % 4.4 - 6.4 07/02/2020 10:38 BLOOD !! GLYCOHEMOGLOBIN 5.8 % 4.4 - 6.4 Vitamin D: Collection DT Spec VITAMIN 04/17/2023 14:01 SERUM 41.3 11/21/2022 11:21 SERUM 33.5 TSH: 1.0605 mIU/mL (04/17/2023 14:01) Magnesium:1.9 mg/dL (11/21/2022 11:21) PSA:0.469 ng/mL (04/17/2023 14:01) 04/17/2023 14:01 BLOOD WBC 5.9 K/cmm 5.0 - 10.0 04/17/2023 14:01 BLOOD RBC 4.98 M/cmm 4.6 - 6.2 04/17/2023 14:01 BLOOD HGB 16.2 g/dL 14.0 - 18.0 04/17/2023 14:01 BLOOD HCT 48.1 % 42.0 - 52.0 04/17/2023 14:01 BLOOD MCV 96.6 H fL 80.0 - 94.0 04/17/2023 14:01 BLOOD MCH 32.5 H pg 27.0 - 31.0 04/17/2023 14:01 BLOOD MCHC 33.7 g/dL 32.0 - 36.0 04/17/2023 14:01 BLOOD PLT 111 L K/cmm 150 - 450 04/17/2023 14:01 BLOOD MPV 12.1 fL 9.0 - 13.1 04/17/2023 14:01 BLOOD RDW 12.0 % 11.0 - 16.0 04/17/2023 14:01 BLOOD NRBC 0.0 % 0.0 - 0.0 04/17/2023 14:16 URINE CREATININE 286.9 mg/dL 04/17/2023 14:01 PLASMA!! UREA NITROGEN 15 mg/dL - 04/17/2023 14:01 PLASMA!! GLUCOSE 115 H mg/dL 74 - 100 04/17/2023 14:01 PLASMA!! SODIUM 140 mmol/L 136 - 145 04/17/2023 14:01 PLASMA!! POTASSIUM 3.7 mmol/L 3.5 - 5.1 04/17/2023 14:01 PLASMA!! CHLORIDE 107 mmol/L 98 - 107 04/17/2023 14:01 PLASMA!! CO2 23 mmol/L - 04/17/2023 14:01 PLASMA!! CALCIUM 9.7 mg/dL 8.4 - 10.2 04/17/2023 14:01 PLASMA!! ANION GAP 10.0 mEq/L 3 - 19 07/20/2021 14:06 PLASMA eGFR (TO 4-1-22) >60 SEE EVAL ASSESSMENT AND PLAN: - Hypertension- controlled. Continue : Non-VA LISINOPRIL TAB 20MG 20MG MOUTH DAILY Non-VA METOPROLOL TARTRATE 100MG TAB 50MG MOUTH TWICE A DAY Low salt diet and weight loss encouraged. Home bp log daily to bring it in next visit. - Hyperlpidemia- Continue: Is taking:Non-VA ATORVASTATIN CALCIUM 80MG TAB 80MG MOUTH DAILY.low fat and low cholesterol diet encouraged. Order FLP and LFTs. - Neck pain- Had abnormal C-spine MRI WO 01/06/2023 - Failed [facility] PT 01/2023 with biateral cervical radiculopathy , worse with walking- Repeat MRI WO C- spince and consider neurosurgery consult. - Skin lesion- upper midsternal area skin lesion- Telederm consult completed. - BPH- LUTS - nocturea every one hour - Continue: FINASTERIDE 5MG TAB TAKE ONE TABLET BY MOUTH DAILY . Add Tamsulosin 0.4 mg at bedtime. Order UA. - ED- about the same- may continue: TADALAFIL 20MG TAB TAKE ONE TABLET BY MOUTH DIRECTED FOR ERECTILE DYSFUNCTION -DO NOT TAKE WITH ANY MEDICATION CONTAINING NITRATES - ? hydrocele- left testicle feels larger than the right an dthe patient is concerned about possible cancer-Scrotal U/S is ordered. - Gastroesophageal reflux disease- controlled. Continue: Non-VA OMEPRAZOLE 20MG EC CAP 40MG MOUTH ONCE A DAY. - Coronary atherosclerosis- satble. No complaints today. Continue: Non-VA ASPIRIN 81MG EC TAB 81MG MOUTH DAILY Non-VA ATORVASTATIN CALCIUM 80MG TAB 80MG MOUTH DAILY Encouraged to set a plan to stop smoking and take [place] to occasional. Medication Reconciliation: Reviewed and reconciled medication list with patient and/or caregiver: ___ No discrepancies were found, _x__ Discrepancies were corrected or sent to the ordering provider to correct The updated medication list was given to the patient/caregiver by: ___Patient declines med list, _x__Handing physical copy at the end of visit, ___Mail, ___MyHealtheVet ___Patient does not take any meds ___ New pt presented with his/her list of meds. Pt instructed to watch for adverse reaction to therapy and if allergy suspected then discontinue and present immediately to ER. Potential side effects/adverse events associated with prescription medication including potential drug interactions were discussed and all questions answered. Patient expressed understanding of information presented in this note. -LABWORK: Today's labs: (x )FASTING ( )NON-FASTING: See orders ( ) NO LABS WITH THIS VISIT ( ) RETURN FOR LABS: -CONSULTS ENTERED FROM TODAYS VISIT: None -CLERICAL ORDERS: RNA APPOINTMENT:NA SCHEDULE THE FOLLOWING: RECALL:08/13/2025 ( ) Fasting labs on RTC ( ) Non-fasting labs on RTC: To be determined ( x) No labs on RTC Follow up:11 months and PRN The /caregiver voiced understanding of topics covered/discussed in today's visit. All questions were answered, and the patient/caregiver voiced understanding and agreement. I spent 50 min today reviewing last visit notes, recent lab results, recent XRs reports, VISTA imaging for any recent hospitilizations or ER visits, [facility] consults, Consults reports , evaluating and managing the patient's acute and chronic conditions, and documenting clinical information in health record. _x_ Preparing to see patient (tests, reviewing last progress note) _x_ Perform medically necessary Exam _x_ Order tests, procedures, medications _x_ Documenting clinical info in health record _x_ Independently interpreting results and communicating results to patient/caregiver _X__ Refer and/or communicate with other providers regarding patient _X__ Obtain/review separately obtained history __ Placed consult SYSTEM GENERATED CLINICAL REMINDERS: Assess Statin Use - Lipids (CVD/DM): The patient is still taking the NON-VA statin medication as documented. /anitha/ GILBERTO PERALES MD Signed: 09/03/2024 12:40 09/07/2024 ADDENDUM STATUS: COMPLETED Please, let pt know that his A1c was slightly elevated at 6.5% (normal 4.4-6.4) rec one daily dose of metformin 500 mg if agreeable. His red cells are enlarged most likely du eto his daily [place]- needs to have his B12 and folate be checked- ordered. His scrotal U/S 09/06/2024 was benign, no masses. He does have Large chronic appearing left hydrocele. Thank you. /anitha/ GILBERTO PERALES MD Signed: 09/07/2024 20:04 Receipt Acknowledged By: 09/09/2024 09:59 /TEJAL Mariee,RN PC STEAM GENERATING POWERPLANT MECHANIC 09/09/2024 ADDENDUM STATUS: COMPLETED SEE PC CARE MANAGEMENT NOTE 09/09/24 /TEJAL Mariee,RN PC STEAM GENERATING POWERPLANT MECHANIC Signed: 09/09/2024 10:00 [facility] PERALES [facility] Sep 07, 2024 07:40 PM ADDENDUM: LOCAL TITLE: Addendum STANDARD TITLE: ADDENDUM DATE OF NOTE: SEP 07, 2024@19:40:27 ENTRY DATE: SEP 07, 2024@19:40:28 AUTHOR: GILBERTO PERALES EXP COSIGNER: URGENCY: STATUS: COMPLETED Please, let pt know that his A1c was slightly elevated at 6.5% (normal 4.4-6.4) rec one daily dose of metformin 500 mg if agreeable. His red cells are enlarged most likely du eto his daily [place]- needs to have his B12 and folate be checked- ordered. His scrotal U/S 09/06/2024 was benign, no masses. He does have Large chronic appearing left hydrocele. Thank you. /diane PERALES MD Signed: 09/07/2024 20:04 Receipt Acknowledged By: 09/09/2024 09:59 /TEJAL Mariee,RN PC STEAM GENERATING POWERPLANT MECHANIC --- Original Document --- 09/03/24 PC PROGRESS NOTE: ID: 74 year old MALE Chief Complaint: Ongoing management of active/chronic medical problems PC-Nurse's note is reviewed. HPI/PROBLEM LIST: Patient is a 74 year old MALE here today to establish treatment of active/chronic medical problems, and F/U test results. Patient denies any recent Hospitalizations, ER visits or surgeries in last 90 days. NON-VA Provider- PCP- Dr Vasquez? [place] [facility] NON-VA Pharmacy- [facility] in [place] - Hypertension- Home BP stays high sometimes. BP [facility] today is 130/70 manually. Is taking : Non-VA LISINOPRIL TAB 20MG 20MG MOUTH DAILY Non-VA METOPROLOL TARTRATE 100MG TAB 50MG MOUTH TWICE A DAY - Hyperlpidemia- Is taking:Non-VA ATORVASTATIN CALCIUM 80MG TAB 80MG MOUTH DAILY. Denies side effects. - Neck pain- Had abnormal C-spine MRI WO 01/06/2023 - when had [facility] PT 01/2023 and D/C to continue using traction equipment that helped initially but none lately , as having moderate to sever neck pain going to his bilateral shoulders and down his T-spine between his shoulder blades , worse on walking , betted with siting or lyingflat. - Skin lesion- upper midsternal area skin lesion- getting worse, with rougher surface and larger size since last year- started as a dime ,now it is a quater over last year, no itching , burning or color change. Stated he has been having it to smooth it off. consider Telederm consult - BPH- nocturea every one hour taking the : FINASTERIDE 5MG TAB TAKE ONE TABLET BY MOUTH DAILY FOR PROSTATE. Denies side effects.Denies UTI symptoms. Agreed to a trial of Tamsulosin 0.4 mg at bedtime. - ED- about the same- taking the : TADALAFIL 20MG TAB TAKE ONE TABLET BY MOUTH DIRECTED FOR ERECTILE DYSFUNCTION -DO NOT TAKE WITH ANY MEDICATION CONTAINING NITRATES It some times works , other times it does not work. - ? hydrocele- left testicle feels larger than the right an dthe patient is concerned about possible cancer- Denies any other symptoms. - Gastroesophageal reflux disease- Denies dysphagia, weight loss or melena. Controlled taking: Non-VA OMEPRAZOLE 20MG EC CAP 40MG MOUTH ONCE A DAY. Denies side effects. - Coronary atherosclerosis- Denies chest pain, palpitation, syncope, or leg edema. Is taking : Non-VA ASPIRIN 81MG EC TAB 81MG MOUTH DAILY Non-VA ATORVASTATIN CALCIUM 80MG TAB 80MG MOUTH DAILY Still smokes 2 cigars/week. and has [place] every night. - RSV vaccine- asking to have RSV vaccine today- deferred giving that he received Flue and COVID-19 vaccines today. HEALTH CARE MAINTENANCE: .SCREENING- - LDCT Screening for Lung Cancer: neg;02/27/2024, repeat in 12 months. - AAA Screening : neg;09/26/2014 - Screening for colon cancer: 05/2022 - repeat 3 years (04/2025) - PSA:0.469 04/17/23 ng/mL - Screening for HIV: NONREACTIVE 07/16/12 - Screening for HCV: NEGATIVE 05/29/18 . IM - Immunizations ADMINISTERED OVID-19 (MODERNA), MRNA, LNP-S,* 3 06/23/2021 [facility] COVID-19 (MODERNA), MRNA, LNP-S,* 2 12/01/2020 [facility] COVID-19 (MODERNA), MRNA, LNP-S,* 1 10/30/2020 [facility] COVID-19 (MODERNA), MRNA, LNP-S,* 09/03/2024 [facility] COVID-19 (PFIZER), MRNA, LNP-S, * 1 11/21/2022 [facility]* COVID-19 (PFIZER), MRNA, LNP-S, * 4 05/18/2022 [facility]* HEP A, ADULT 05/23/2019 [facility]* HEP A, ADULT 11/23/2018 [facility]* HEP B, ADULT 1 07/20/2021 [facility]* INFLUENZA, HIGH-DOSE, TRIVALENT,* 09/03/2024 [facility]* [id number] (HISTORICAL) 11/08/2016 [facility]* PNEUMOCOCCAL CONJUGATE PCV20, PO* 05/18/2022 [facility]* PNEUMOCOCCAL POLYSACCHARIDE PPV23 05/28/2018 [facility]* TETANUS TOXOID, UNSPECIFIED FORM* 05/22/2009 [facility]* ZOSTER LIVE 08/29/2017 [facility]* ZOSTER RECOMBINANT 2 10/09/2020 [facility]* ZOSTER RECOMBINANT 1 07/02/2020 [facility]* REFUSED ======= HEP B, UNSPECIFIED FORMULATION 09/03/2024 [facility]* TDAP 09/03/2024 [facility]* ST - Skin Tests No data available: Collection DT Specimen Test Name Result Units Ref Range 08/29/2017 11:31 SERUM SHEPPARD/TOT (TO [id number] NEG SIM - HEP B IMM HISTORY ADMINISTERED HEP B, ADULT 1 07/20/2021 [facility]* REFUSED ======= HEP B, UNSPECIFIED FORMULATION 09/03/2024 [facility]* Active problems - Computerized Problem List is the source for the followin. History of colonoscopy 05/2022 - repeat 3 years (04/2025) 2. Adrenal adenoma 3. Overactive bladder 4. Peripheral vascular disease 5. Hyperlipidemia 6. Benign prostatic hyperplasia 7. Benign essential hypertension 8. Gastroesophageal reflux disease 9. Coronary atherosclerosis List of active problems are reviewed with patient and updated. SURGICAL HISTORY: 08/22/2019 LAPAROSCOPIC VENTRAL INCISIONAL (COMPLETED) HERNIA REPAIR WITH [facility] FAMILY HISTORY Father: , CAD, 78 Mother: , lymphoma at age 92 uncle: atrial flutter Siblings: 3 brothers and 1 sister - living; brother, CVD. nallely: 2 healthy son and a daughter. 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 MARITAL STATUS - Living situation: Lives alone in [place]. in 2019 - lost of 48 years. Social: Son in [facility], daughter in [place]. 3 grandaughters, 1 step grandson, 2 step great grandsons. [employer], [employer], [employer]. Active in [employer]. Tobacco: Quit 2012 - 75 pk/yr. smoked ppd since age 16 wuit in 2013 still Smokes 2 cigars/week. st ETOH: 1 bourbon/night ROS: A 10 point ROS was completed with patient and is negative with exception of what was noted above in History of Present Illness and Past Medical History sections. DS - Disabilities Eligibility: NSC VERIFIED MEDICATIONS: Active and Recently Outpatient Medications (including Supplies): Active Outpatient Medications Status 1) TADALAFIL 20MG TAB TAKE ONE TABLET BY MOUTH ACTIVE DIRECTED FOR ERECTILE DYSFUNCTION -DO NOT TAKE WITH ANY MEDICATION CONTAINING NITRATES (LIMIT: 6 DOSES/30 DAYS OR 18 DOSES/90 DAYS, NON-REPLACEABLE MEDICATION) TAKE ONE HOUR BEFORE SEX ON EMPTY STOMACH Inactive Outpatient Medications Status 1) FINASTERIDE 5MG TAB TAKE ONE TABLET BY MOUTH DAILY FOR PROSTATE Active Non-VA Medications Status 1) Non-VA ASPIRIN [...] MINUTES BEFORE A MEAL 10 Total Medications ALLERGIES: Patient has answered NKA PHYSICAL EXAM: VITAL SIGNS Measurement DT TEMP PULSE RESP BP HT WT F(C) IN(CM) LB(KG)[BMI] ---- ----- ---- -- ------ 09/03/2024 10:31 61 162/89 Measurement DT CVP POx CG CMH20(MMHG) (L/MIN)(%) IN(CM) ------ 09/03/2024 10:18 100 Measurement DT Pain ---- 09/03/2024 10:18 8 MOBILITY: ambulating steadily WITHOUT assistive device. General: Well-developed , well-nourished MALE in no acute distress. HEENT: Atraumatic, Normocephalic, no icterus. Nose is patent. Moist mucous membranes. No oral lesions. Neck- Supple, could not appreciate JVD, carotid bruit,thyromegaly, or lymphadenopathy. Heart: RRR, Normal S1 and S2, no S4, no M/G/R. Lungs: Clear to auscultation, no rales, no wheezes, no rhonchi Abdomen: Nontender, nondistended, normal bowel sounds Extremities: No edema. normal pulses Musculoskeletal: Tender cervical vertebral tapping. Limited all range of motion of the C-spine in all directions due neck pain with associated cervical radiculopathy. No joint swelling, erythema or warmth. Neurologic: Alert and oriented times 3, no new focal neurological deficits. Skin: mid sternal chest wall skin lesion mildly raised with grayish discoloration and lobulated in shape with rough irregualr surface about 1 inch in greatest dimension. PSYCH: Appropriate mood and behavior. Interacting appropriately. IMAGES: No recent studies. LABS: PHOSPHORUS:3.2 mg/dL (11/21/2022 11:21) 04/17/2023 14:01 BLOOD !! GLYCOHEMOGLOBIN 5.6 % 4.4 - 6.4 05/18/2022 09:43 BLOOD !! GLYCOHEMOGLOBIN 5.7 % 4.4 - 6.4 07/20/2021 14:06 BLOOD !! GLYCOHEMOGLOBIN 5.6 % 4.4 - 6.4 07/02/2020 10:38 BLOOD !! GLYCOHEMOGLOBIN 5.8 % 4.4 - 6.4 Vitamin D: Collection DT Spec VITAMIN 04/17/2023 14:01 SERUM 41.3 11/21/2022 11:21 SERUM 33.5 TSH: 1.0605 mIU/mL (04/17/2023 14:01) Magnesium:1.9 mg/dL (11/21/2022 11:21) PSA:0.469 ng/mL (04/17/2023 14:01) 04/17/2023 14:01 BLOOD WBC 5.9 K/cmm 5.0 - 10.0 04/17/2023 14:01 BLOOD RBC 4.98 M/cmm 4.6 - 6.2 04/17/2023 14:01 BLOOD HGB 16.2 g/dL 14.0 - 18.0 04/17/2023 14:01 BLOOD HCT 48.1 % 42.0 - 52.0 04/17/2023 14:01 BLOOD MCV 96.6 H fL 80.0 - 94.0 04/17/2023 14:01 BLOOD MCH 32.5 H pg 27.0 - 31.0 04/17/2023 14:01 BLOOD MCHC 33.7 g/dL 32.0 - 36.0 04/17/2023 14:01 BLOOD PLT 111 L K/cmm 150 - 450 04/17/2023 14:01 BLOOD MPV 12.1 fL 9.0 - 13.1 04/17/2023 14:01 BLOOD RDW 12.0 % 11.0 - 16.0 04/17/2023 14:01 BLOOD NRBC 0.0 % 0.0 - 0.0 04/17/2023 14:16 URINE CREATININE 286.9 mg/dL 04/17/2023 14:01 PLASMA!! UREA NITROGEN 15 mg/dL 9 - 25 04/17/2023 14:01 PLASMA!! GLUCOSE 115 H mg/dL 74 - 100 04/17/2023 14:01 PLASMA!! SODIUM 140 mmol/L 136 - 145 04/17/2023 14:01 PLASMA!! POTASSIUM 3.7 mmol/L 3.5 - 5.1 04/17/2023 14:01 PLASMA!! CHLORIDE 107 mmol/L 98 - 107 04/17/2023 14:01 PLASMA!! CO2 23 mmol/L 22 - 29 04/17/2023 14:01 PLASMA!! CALCIUM 9.7 mg/dL 8.4 - 10.2 04/17/2023 14:01 PLASMA!! ANION GAP 10.0 mEq/L 3 - 19 07/20/2021 14:06 PLASMA eGFR (TO 22) >60 SEE EVAL ASSESSMENT AND PLAN: - Hypertension- controlled. Continue : Non-VA LISINOPRIL TAB 20MG 20MG MOUTH DAILY Non-VA METOPROLOL TARTRATE 100MG TAB 50MG MOUTH TWICE A DAY Low salt diet and weight loss encouraged. Home bp log daily to bring it in next visit. - Hyperlpidemia- Continue: Is taking:Non-VA ATORVASTATIN CALCIUM 80MG TAB 80MG MOUTH DAILY.low fat and low cholesterol diet encouraged. Order FLP and LFTs. - Neck pain- Had abnormal C-spine MRI WO 01/06/2023 - Failed CITC PT 01/2023 with biateral cervical radiculopathy , worse with walking- Repeat MRI WO C- spince and consider neurosurgery consult. - Skin lesion- upper midsternal area skin lesion- Telederm consult completed. - BPH- LUTS - nocturea every one hour - Continue: FINASTERIDE 5MG TAB TAKE ONE TABLET BY MOUTH DAILY . Add Tamsulosin 0.4 mg at bedtime. Order UA. - ED- about the same- may continue: TADALAFIL 20MG TAB TAKE ONE TABLET BY MOUTH DIRECTED FOR ERECTILE DYSFUNCTION -DO NOT TAKE WITH ANY MEDICATION CONTAINING NITRATES - ? hydrocele- left testicle feels larger than the right an dthe patient is concerned about possible cancer-Scrotal U/S is ordered. - Gastroesophageal reflux disease- controlled. Continue: Non-VA OMEPRAZOLE 20MG EC CAP 40MG MOUTH ONCE A DAY. - Coronary atherosclerosis- satble. No complaints today. Continue: Non-VA ASPIRIN 81MG EC TAB 81MG MOUTH DAILY Non-VA ATORVASTATIN CALCIUM 80MG TAB 80MG MOUTH DAILY Encouraged to set a plan to stop smoking and take [place] to occasional. Medication Reconciliation: Reviewed and reconciled medication list with patient and/or caregiver: ___ No discrepancies were found, _x__ Discrepancies were corrected or sent to the ordering provider to correct The updated medication list was given to the patient/caregiver by: ___Patient declines med list, _x__Handing physical copy at the end of visit, ___Mail, ___[employer] ___Patient does not take any meds ___ New pt presented with his/her list of meds. Pt instructed to watch for adverse reaction to therapy and if allergy suspected then discontinue and present immediately to ER. Potential side effects/adverse events associated with prescription medication including potential drug interactions were discussed and all questions answered. Patient expressed understanding of information presented in this note. -LABWORK: Today's labs: (x )FASTING ( )NON-FASTING: See orders ( ) NO LABS WITH THIS VISIT ( ) RETURN FOR LABS: -CONSULTS ENTERED FROM TODAYS VISIT: None -CLERICAL ORDERS: RNA APPOINTMENT:NA SCHEDULE THE FOLLOWING: RECALL:08/13/2025 ( ) Fasting labs on RTC ( ) Non-fasting labs on RTC: To be determined ( x) No labs on RTC Follow up:11 months and PRN The /caregiver voiced understanding of topics covered/discussed in today's visit. All questions were answered, and the patient/caregiver voiced understanding and agreement. I spent 50 min today reviewing last visit notes, recent lab results, recent XRs reports, VISTA imaging for any recent hospitilizations or ER visits, CITC consults, Consults reports , evaluating and managing the patient's acute and chronic conditions, and documenting clinical information in health record. _x_ Preparing to see patient (tests, reviewing last progress note) _x_ Perform medically necessary Exam _x_ Order tests, procedures, medications _x_ Documenting clinical info in health record _x_ Independently interpreting results and communicating results to patient/caregiver _X__ Refer and/or communicate with other providers regarding patient _X__ Obtain/review separately obtained history __ Placed consult SYSTEM GENERATED CLINICAL REMINDERS: Assess Statin Use - Lipids (CVD/DM): The patient is still taking the NON-VA statin medication as documented. /anitha/ GILBERTO PERALES MD Signed: 09/03/2024 12:40 09/09/2024 ADDENDUM STATUS: COMPLETED SEE PC CARE MANAGEMENT NOTE 09/09/24 /anitha/ TEJAL CANELA,RN PC STEAM GENERATING POWERPLANT MECHANIC Signed: 09/09/2024 10:00 GILBERTO PERALES [facility] Sep 03, 2024 11:26 AM PRIMARY CARE NOTE: LOCAL TITLE: PC PROGRESS NOTE STANDARD TITLE: PRIMARY CARE NOTE DATE OF NOTE: SEP 03, 2024@11:26 ENTRY DATE: SEP 03, 2024@11:27:07 AUTHOR: GILBERTO PERALES EXP COSIGNER: URGENCY: STATUS: COMPLETED PC PROGRESS NOTE Has ADDENDA ID: 74 year old MALE Chief Complaint: Ongoing management of active/chronic medical problems PC-Nurse's note is reviewed. HPI/PROBLEM LIST: Patient is a 74 year old MALE here today to establish treatment of active/chronic medical problems, and F/U test results. Patient denies any recent Hospitalizations, ER visits or surgeries in last 90 days. NON-VA Provider- PCP- Dr Vasquez? [facility] in [place] - Hypertension- Home BP stays high sometimes. [facility]70 manually. Is taking : Non-VA LISINOPRIL TAB 20MG 20MG MOUTH DAILY Non-VA METOPROLOL TARTRATE 100MG TAB 50MG MOUTH TWICE A DAY - Hyperlpidemia- Is taking:Non-VA ATORVASTATIN CALCIUM 80MG TAB 80MG MOUTH DAILY. Denies side effects. - Neck pain- Had abnormal C-spine MRI WO 01/06/2023 - when had CITC PT 01/2023 and D/C to continue using traction equipment that helped initially but none lately , as having moderate to sever neck pain going to his bilateral shoulders and down his T-spine between his shoulder blades , worse on walking , betted with siting or lyingflat. - Skin lesion- upper midsternal area skin lesion- getting worse, with rougher surface and larger size since last year- started as a dime ,now it is a quater over last year, no itching , burning or color change. Stated he has been having it to smooth it off. consider Telederm consult - BPH- nocturea every one hour taking the : FINASTERIDE 5MG TAB TAKE ONE TABLET BY MOUTH DAILY FOR PROSTATE. Denies side effects.Denies UTI symptoms. Agreed to a trial of Tamsulosin 0.4 mg at bedtime. - ED- about the same- taking the : TADALAFIL 20MG TAB TAKE ONE TABLET BY MOUTH DIRECTED FOR ERECTILE DYSFUNCTION -DO NOT TAKE WITH ANY MEDICATION CONTAINING NITRATES It some times works , other times it does not work. - ? hydrocele- left testicle feels larger than the right an dthe patient is concerned about possible cancer- Denies any other symptoms. - Gastroesophageal reflux disease- Denies dysphagia, weight loss or melena. Controlled taking: Non-VA OMEPRAZOLE 20MG EC CAP 40MG MOUTH ONCE A DAY. Denies side effects. - Coronary atherosclerosis- Denies chest pain, palpitation, syncope, or leg edema. Is taking : Non-VA ASPIRIN 81MG EC TAB 81MG MOUTH DAILY Non-VA ATORVASTATIN CALCIUM 80MG TAB 80MG MOUTH DAILY Still smokes 2 cigars/week. and has [place] every night. - RSV vaccine- asking to have RSV vaccine today- deferred giving that he received Flue and COVID-19 vaccines today. HEALTH CARE MAINTENANCE: .SCREENING- - LDCT Screening for Lung Cancer: neg;02/27/2024, repeat in 12 months. - AAA Screening : neg;09/26/2014 - Screening for colon cancer: 05/2022 - repeat 3 years (04/2025) - PSA:0.469 04/17/23 ng/mL - Screening for HIV: NONREACTIVE 07/16/12 - Screening for HCV: NEGATIVE 05/29/18 . IM - Immunizations ADMINISTERED OVID-19 (MODERNA), MRNA, LNP-S,* 3 06/23/2021 [facility] COVID-19 (MODERNA), MRNA, LNP-S,* 2 12/01/2020 [facility] COVID-19 (MODERNA), MRNA, LNP-S,* 1 10/30/2020 [facility] COVID-19 (MODERNA), MRNA, LNP-S,* 09/03/2024 [facility] COVID-19 (Transit App), MRNA, LNP-S, * 1 11/21/2022 [facility] COVID-19 (Transit App), MRNA, LNP-S, * 4 05/18/2022 [facility]* HEP A, ADULT 05/23/2019 [facility]* HEP A, ADULT 11/23/2018 [place]* HEP B, ADULT 1 07/20/2021 [facility]* INFLUENZA, HIGH-DOSE, TRIVALENT,* 09/03/2024 [facility]* [id number] (HISTORICAL) 11/08/2016 [facility]* PNEUMOCOCCAL CONJUGATE PCV20, PO* 05/18/2022 [facility]* PNEUMOCOCCAL POLYSACCHARIDE PPV23 05/28/2018 [place]* TETANUS TOXOID, UNSPECIFIED FORM* 05/22/2009 [facility]* ZOSTER LIVE 08/29/2017 [facility]* ZOSTER RECOMBINANT 2 10/09/2020 [facility]* ZOSTER RECOMBINANT 1 07/02/2020 [facility]* REFUSED ======= HEP B, UNSPECIFIED FORMULATION 09/03/2024 [facility]* TDAP 09/03/2024 [facility]* ST - Skin Tests No data available: Collection DT Specimen Test Name Result Units Ref Range 08/29/2017 11:31 SERUM SHEPPARD/TOT (TO [id number] NEG SIM - HEP B IMM HISTORY ADMINISTERED HEP B, ADULT 1 07/20/2021 [facility]* REFUSED ======= HEP B, UNSPECIFIED FORMULATION 09/03/2024 [facility]* Active problems - Computerized Problem List is the source for the followin. History of colonoscopy 05/2022 - repeat 3 years (04/2025) 2. Adrenal adenoma 3. Overactive bladder 4. Peripheral vascular disease 5. Hyperlipidemia 6. Benign prostatic hyperplasia 7. Benign essential hypertension 8. Gastroesophageal reflux disease 9. Coronary atherosclerosis List of active problems are reviewed with patient and updated. SURGICAL HISTORY: 08/22/2019 LAPAROSCOPIC VENTRAL INCISIONAL (COMPLETED) HERNIA REPAIR WITH [facility] FAMILY HISTORY Father: , CAD, 78 Mother: , lymphoma at age 92 uncle: atrial flutter Siblings: 3 brothers and 1 sister - living; brother, CVD. nallely: 2 healthy son and a daughter. 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 MARITAL STATUS - Living situation: Lives alone in [place]. in 2019 - lost of 48 years. Social: Son in [facility], daughter in [place]. 3 grandaughters, 1 step grandson, 2 step great grandsons. [employer], [employer], [employer]. Active in [employer]. Tobacco: Quit 2013 - 75 pk/yr. smoked ppd since age 16 wuit in 2013 still Smokes 2 cigars/week. st ETOH: 1 bourbon/night ROS: A 10 point ROS was completed with patient and is negative with exception of what was noted above in History of Present Illness and Past Medical History sections. DS - Disabilities Eligibility: NSC VERIFIED MEDICATIONS: Active and Recently Outpatient Medications (including Supplies): Active Outpatient Medications Status 1) TADALAFIL 20MG TAB TAKE ONE TABLET BY MOUTH ACTIVE DIRECTED FOR ERECTILE DYSFUNCTION -DO NOT TAKE WITH ANY MEDICATION CONTAINING NITRATES (LIMIT: 6 DOSES/30 DAYS OR 18 DOSES/90 DAYS, NON-REPLACEABLE MEDICATION) TAKE ONE HOUR BEFORE SEX ON EMPTY STOMACH Inactive Outpatient Medications Status 1) FINASTERIDE 5MG TAB TAKE ONE TABLET BY MOUTH DAILY FOR PROSTATE Active Non-VA Medications Status 1) Non-VA ASPIRIN [...] MINUTES BEFORE A MEAL 10 Total Medications ALLERGIES: Patient has answered NKA PHYSICAL EXAM: VITAL SIGNS Measurement DT TEMP PULSE RESP BP HT WT F(C) IN(CM) LB(KG)[BMI] ---- ----- ---- -- ------ 09/03/2024 10:31 61 162/89 Measurement DT CVP POx CG CMH20(MMHG) (L/MIN)(%) IN(CM) ------ 09/03/2024 10:18 100 Measurement DT Pain ---- 09/03/2024 10:18 8 MOBILITY: ambulating steadily WITHOUT assistive device. General: Well-developed , well-nourished MALE in no acute distress. HEENT: Atraumatic, Normocephalic, no icterus. Nose is patent. Moist mucous membranes. No oral lesions. Neck- Supple, could not appreciate JVD, carotid bruit,thyromegaly, or lymphadenopathy. Heart: RRR, Normal S1 and S2, no S4, no M/G/R. Lungs: Clear to auscultation, no rales, no wheezes, no rhonchi Abdomen: Nontender, nondistended, normal bowel sounds Extremities: No edema. normal pulses Musculoskeletal: Tender cervical vertebral tapping. Limited all range of motion of the C-spine in all directions due neck pain with associated cervical radiculopathy. No joint swelling, erythema or warmth. Neurologic: Alert and oriented times 3, no new focal neurological deficits. Skin: mid sternal chest wall skin lesion mildly raised with grayish discoloration and lobulated in shape with rough irregualr surface about 1 inch in greatest dimension. PSYCH: Appropriate mood and behavior. Interacting appropriately. IMAGES: No recent studies. LABS: PHOSPHORUS:3.2 mg/dL (11/21/2022 11:21) 04/17/2023 14:01 BLOOD !! GLYCOHEMOGLOBIN 5.6 % 4.4 - 6.4 05/18/2022 09:43 BLOOD !! GLYCOHEMOGLOBIN 5.7 % 4.4 - 6.4 07/20/2021 14:06 BLOOD !! GLYCOHEMOGLOBIN 5.6 % 4.4 - 6.4 07/02/2020 10:38 BLOOD !! GLYCOHEMOGLOBIN 5.8 % 4.4 - 6.4 Vitamin D: Collection DT Spec VITAMIN 04/17/2023 14:01 SERUM 41.3 11/21/2022 11:21 SERUM 33.5 TSH: 1.0605 mIU/mL (04/17/2023 14:01) Magnesium:1.9 mg/dL (11/21/2022 11:21) PSA:0.469 ng/mL (04/17/2023 14:01) 04/17/2023 14:01 BLOOD WBC 5.9 K/cmm 5.0 - 10.0 04/17/2023 14:01 BLOOD RBC 4.98 M/cmm 4.6 - 6.2 04/17/2023 14:01 BLOOD HGB 16.2 g/dL 14.0 - 18.0 04/17/2023 14:01 BLOOD HCT 48.1 % 42.0 - 52.0 04/17/2023 14:01 BLOOD MCV 96.6 H fL 80.0 - 94.0 04/17/2023 14:01 BLOOD MCH 32.5 H pg 27.0 - 31.0 04/17/2023 14:01 BLOOD MCHC 33.7 g/dL 32.0 - 36.0 04/17/2023 14:01 BLOOD PLT 111 L K/cmm 150 - 450 04/17/2023 14:01 BLOOD MPV 12.1 fL 9.0 - 13.1 04/17/2023 14:01 BLOOD RDW 12.0 % 11.0 - 16.0 04/17/2023 14:01 BLOOD NRBC 0.0 % 0.0 - 0.0 04/17/2023 14:16 URINE CREATININE 286.9 mg/dL 04/17/2023 14:01 PLASMA!! UREA NITROGEN 15 mg/dL 9 - 04/17/2023 14:01 PLASMA!! GLUCOSE 115 H mg/dL 74 - 100 04/17/2023 14:01 PLASMA!! SODIUM 140 mmol/L 136 - 145 04/17/2023 14:01 PLASMA!! POTASSIUM 3.7 mmol/L 3.5 - 5.1 04/17/2023 14:01 PLASMA!! CHLORIDE 107 mmol/L 98 - 107 04/17/2023 14:01 PLASMA!! CO2 23 mmol/L 22 - 04/17/2023 14:01 PLASMA!! CALCIUM 9.7 mg/dL 8.4 - 10.2 04/17/2023 14:01 PLASMA!! ANION GAP 10.0 mEq/L 3 - 19 07/20/2021 14:06 PLASMA eGFR (TO 01-21-22) >60 SEE EVAL ASSESSMENT AND PLAN: - Hypertension- controlled. Continue : Non-VA LISINOPRIL TAB 20MG 20MG MOUTH DAILY Non-VA METOPROLOL TARTRATE 100MG TAB 50MG MOUTH TWICE A DAY Low salt diet and weight loss encouraged. Home bp log daily to bring it in next visit. - Hyperlpidemia- Continue: Is taking:Non-VA ATORVASTATIN CALCIUM 80MG TAB 80MG MOUTH DAILY.low fat and low cholesterol diet encouraged. Order FLP and LFTs. - Neck pain- Had abnormal C-spine MRI WO 01/06/2023 - Failed CITC PT 01/2023 with biateral cervical radiculopathy , worse with walking- Repeat MRI WO C- spince and consider neurosurgery consult. - Skin lesion- upper midsternal area skin lesion- Telederm consult completed. - BPH- LUTS - nocturea every one hour - Continue: FINASTERIDE 5MG TAB TAKE ONE TABLET BY MOUTH DAILY . Add Tamsulosin 0.4 mg at bedtime. Order UA. - ED- about the same- may continue: TADALAFIL 20MG TAB TAKE ONE TABLET BY MOUTH DIRECTED FOR ERECTILE DYSFUNCTION -DO NOT TAKE WITH ANY MEDICATION CONTAINING NITRATES - ? hydrocele- left testicle feels larger than the right an dthe patient is concerned about possible cancer-Scrotal U/S is ordered. - Gastroesophageal reflux disease- controlled. Continue: Non-VA OMEPRAZOLE 20MG EC CAP 40MG MOUTH ONCE A DAY. - Coronary atherosclerosis- satble. No complaints today. Continue: Non-VA ASPIRIN 81MG EC TAB 81MG MOUTH DAILY Non-VA ATORVASTATIN CALCIUM 80MG TAB 80MG MOUTH DAILY Encouraged to set a plan to stop smoking and take [place] to occasional. Medication Reconciliation: Reviewed and reconciled medication list with patient and/or caregiver: ___ No discrepancies were found, _x__ Discrepancies were corrected or sent to the ordering provider to correct The updated medication list was given to the patient/caregiver by: ___Patient declines med list, _x__Handing physical copy at the end of visit, ___Mail, ___[employer] ___Patient does not take any meds ___ New pt presented with his/her list of meds. Pt instructed to watch for adverse reaction to therapy and if allergy suspected then discontinue and present immediately to ER. Potential side effects/adverse events associated with prescription medication including potential drug interactions were discussed and all questions answered. Patient expressed understanding of information presented in this note. -LABWORK: Today's labs: (x )FASTING ( )NON-FASTING: See orders ( ) NO LABS WITH THIS VISIT ( ) RETURN FOR LABS: -CONSULTS ENTERED FROM TODAYS VISIT: None -CLERICAL ORDERS: RNA APPOINTMENT:NA SCHEDULE THE FOLLOWING: RECALL:08/13/2025 ( ) Fasting labs on RTC ( ) Non-fasting labs on RTC: To be determined ( x) No labs on RTC Follow up:11 months and PRN The /caregiver voiced understanding of topics covered/discussed in today's visit. All questions were answered, and the patient/caregiver voiced understanding and agreement. I spent 50 min today reviewing last visit notes, recent lab results, recent XRs reports, VISTA imaging for any recent hospitilizations or ER visits, CITC consults, Consults reports , evaluating and managing the patient's acute and chronic conditions, and documenting clinical information in health record. _x_ Preparing to see patient (tests, reviewing last progress note) _x_ Perform medically necessary Exam _x_ Order tests, procedures, medications _x_ Documenting clinical info in health record _x_ Independently interpreting results and communicating results to patient/caregiver _X__ Refer and/or communicate with other providers regarding patient _X__ Obtain/review separately obtained history __ Placed consult SYSTEM GENERATED CLINICAL REMINDERS: Assess Statin Use - Lipids (CVD/DM): The patient is still taking the NON-VA statin medication as documented. /anitha/ GILBERTO PERALES MD Signed: 09/03/2024 12:40 09/07/2024 ADDENDUM STATUS: COMPLETED Please, let pt know that his A1c was slightly elevated at 6.5% (normal 4.4-6.4) rec one daily dose of metformin 500 mg if agreeable. His red cells are enlarged most likely du eto his daily [place]- needs to have his B12 and folate be checked- ordered. His scrotal U/S 09/06/2024 was benign, no masses. He does have Large chronic appearing left hydrocele. Thank you. /diane PERALES MD Signed: 09/07/2024 20:04 Receipt Acknowledged By: 09/09/2024 09:59 /TEJAL Mariee,RN PC STEAM GENERATING POWERPLANT MECHANIC 09/09/2024 ADDENDUM STATUS: COMPLETED SEE PC CARE MANAGEMENT NOTE 09/09/24 /TEJAL Mariee,RN PC STEAM GENERATING POWERPLANT MECHANIC Signed: 09/09/2024 10:00 09/13/2024 ADDENDUM STATUS: COMPLETED PLEASE LET PT KNOW THAT HIS fOLATE AND B12 SUBMITTED ON 09/10/2024 WERE IN THE NORMAL RANGE. REC MULTIVITAMINS DAILY. THANK YOU. /diane PERALES MD Signed: 09/13/2024 15:21 Receipt Acknowledged By: 09/13/2024 16:29 /TEJAL Mariee,RN PC STEAM GENERATING POWERPLANT MECHANIC 09/13/2024 ADDENDUM STATUS: COMPLETED SEE PC CARE MANAGEMENT NOTE 09/13/24 /TEJAL Mariee,RN PC STEAM GENERATING POWERPLANT MECHANIC Signed: 09/13/2024 16:29 11/30/2024 ADDENDUM STATUS: COMPLETED Please let patient know that his C-spine MRI WO 11/23/2024 showed: Mild disc bulge C3-C4, C6-C7, C7-T1, with bilateral foraminal stenosis worse at C3-C4. moderate spinal stenosis at C3-C4. q Re- consult to neurosurgery is placed - as discussed on 09/03/2024 PCP visit. Thank you. /diane PERALES MD Signed: 11/30/2024 06:01 Receipt Acknowledged By: 12/02/2024 12:00 /TEJAL Mariee,RN PC STEAM GENERATING POWERPLANT MECHANIC 12/02/2024 ADDENDUM STATUS: COMPLETED SEE PC CARE MANAGEMENT NOTE 12/02/24 /TEJAL Mariee,RN PC STEAM GENERATING POWERPLANT MECHANIC Signed: 12/02/2024 12:02 GILBERTO PERALES [facility] Sep 03, 2024 10:20 AM PRIMARY CARE NURSING NOTE: LOCAL TITLE: Pc Health Tech/jukebox routeman Note STANDARD TITLE: PRIMARY CARE NURSING NOTE DATE OF NOTE: SEP 03, 2024@10:20 ENTRY DATE: SEP 03, 2024@10:20:07 AUTHOR: VALERIA KAPLAN: URGENCY: STATUS: COMPLETED The patient was given a list of his current medications, instructed to review and discuss any changes or problems with their provider. Patient advised to carry a list of current medications and any allergies with them in the event of emergency situations. Yes - /Caregiver verbalized understanding of topics discussed and education provided Provider notified of elevated B/P >/= 140/90. Not Applicable Alcohol Use Screen (AUDIT-C): Alcohol Screen: SCREEN FOR ALCOHOL (AUDIT-C) An alcohol screening test (AUDIT-C) was negative (score=4). 1. How often did you have a drink containing alcohol in the past year? Consider a drink to be a 12 ounce can or bottle of regular beer, 8 ounces of malt liquor, a 5 ounce glass of table wine, or a 1.5 ounce shot of liquor (like scotch, gin, or vodka). Four or more times a week 2. How many drinks containing alcohol did you have on a typical day when you were drinking in the past year? One or two drinks 3. How often did you have six or more drinks on one occasion in the past year? Never Tobacco Use Screening: The patient uses tobacco but not every day. The patient does not use tobacco within 30 minutes of waking up. The patient has been smoking or using tobacco for thirty years or more. Patient was advised to quit smoking and/or using tobacco. Discussion with patient included: - Quitting smoking or tobacco use is one of the most important things you can do to protect and improve your health and [place] has the resources to support you. - Set a quit date when you are ready to quit. - Get support from your family and friends. - Review any past quit attempts- What helped? What didn't? - On the day you plan to quit, get rid of all cigarettes and tobacco products from your home, car or work. - Using a combination of behavioral counseling or other support strategies and FDA-approved cessation medications is the most effective way to ensure success in quitting. Patient was offered Behavioral Counseling and other support strategies to assist with quitting. Discussion with patient included: - Behavioral counseling or other support strategies greatly increases your chances of successfully quitting smoking or tobacco use by helping you develop a quit plan and providing support and other strategies to make behavioral changes to help you quit. - [place] has a number of behavioral counseling options to help you with quitting, including: * Provide information about the facility smoking or tobacco use treatment options or clinics * [place]'s national quitline, 0-729-JOCD-VET, with counseling available Monday-Monday The patient was not interested in receiving additional information about how to use the treatment options discussed. Patient was offered FDA-approved cessation medications. Discussion with patient included: - Medications for Nicotine replacement therapy such as the patch, gum or lozenge, and other medications such as varenicline or bupropion, can play an important role in the initial weeks and months after you quit smoking or tobacco use. - Medications help with cravings and withdrawal symptoms and they greatly increase your chances of successfully quitting. The patient was not interested in a prescription for tobacco cessation medications. Depression Screening: Perform PHQ-2 A PHQ-2 screen was performed. The score was 0 which is a negative screen for depression. Over the past two weeks, how often have you been bothered by the following problems? 1. Little interest or pleasure in doing things Not at all 2. Feeling down, depressed, or hopeless Not at all Suicide Screen: C-SSRS Screening [place] Suicide Severity Rating Scale (C-SSRS) screener 1. Over the past month, have you wished you were or wished you could go to sleep and not wake up? No 2. Over the past month, have you had any actual thoughts of killing yourself? No 3. Over the past month, have you been thinking about how you might do this? Response not required due to responses to other questions. 4. Over the past month, have you had these thoughts and had some intention of acting on them? Response not required due to responses to other questions. 5. Over the past month, have you started to work out or worked out the details of how to kill yourself? Response not required due to responses to other questions. 6. If yes, at any time in the past month did you intend to carry out this plan? Response not required due to responses to other questions. 7. In your lifetime, have you ever done anything, started to do anything, or prepared to do anything to end your life (for example, collected pills, obtained a gun, gave away valuables, went to the roof but didn't jump)? No 8. If YES, was this within the past 3 months? Response not required due to responses to other questions. Learning Readiness Assessment: Preferred language for discussing health care [place] NEW ASSESSMENT LEARNING BARRIERS Hearing Barrier Comment: Hearing aids Visual Barrier Comment: Glasses READING LIMITATIONS No reading limitations PREFERRED METHODS FOR LEARNING Written/Printed Material Verbal Demonstration (Audio/Visual) INTERESTED IN LEARNING (MOTIVATED) PERSON BEING EDUCATED TODAY Education was provided on the following topics RESPONSE Hepatitis B Immunization: The patient declines to receive the recommended dose of Hepatitis B vaccine. Immunization: HEP B, UNSPECIFIED FORMULATION Refusal Reason: PATIENT DECISION Patient refuses all immunization(s) in the HepB group Date Documented: 09/03/24 10:23 Tdap Immunization: The patient declines to receive the recommended dose of Tdap vaccine. Immunization: TDAP Refusal Reason: PATIENT DECISION Patient refuses all immunization(s) in the TDAP group Date Documented: 09/03/24 10:24 COVID-19 Immunization: Moderna Monovalent (Spikevax) Administered: COVID-19 (MODERNA), MRNA, LNP-S, PF, 50 MCG/0.5 ML (AGES 12+ YEARS) Date Administered: Sep 03, 2024 10:26 Jeeper Operator: MODERNAudienceView. Lot: [id number] Exp Date: March 14, 2025 NDC: 399601262258 Admin Route/Site: INTRAMUSCULAR/LEFT DELTOID Dosage: 0.5mL Vaccine Information Statement(s): COVID-19 MRNA VACCINE (12+ YRS) VACCINE VIS Aug 08, 2024 ([employer] [place]) Order By: Policy Administered By: Valeria Kaplan Vaccine administered without complications. Influenza Immunization: Influenza, High-Dose, Trivalent, Preservative Free (Fluzone-Syringe) Administered: INFLUENZA, HIGH-DOSE, TRIVALENT, PF Date Administered: Sep 03, 2024 10:28 Jeeper Operator: SANOFI PASTEUR Lot: [id number] Exp Date: Apr 21, 2025 NDC: [id number] Admin Route/Site: INTRAMUSCULAR/LEFT DELTOID Dosage: 0.5mL Vaccine Information Statement(s): INFLUENZA(FLU) VACC(INACTIVATED OR RECOMBINANT)VIS May 28, 2021 ([employer] [place]) Order By: Policy Administered By: Valeria Kaplan The Influenza Vaccine Information Statement (VIS) was reviewed with the patient/caregiver which lists the benefits and risks of the vaccine and the risks of not receiving the Influenza vaccine. The patient/caregiver denied any prior severe reaction to this vaccine or its components or a severe allergic reaction, such as anaphylaxis, to any vaccine or any injectable therapy. The patient/caregiver gave verbal consent to receive the vaccine. /anitha/ VALERIA KAPLAN LICENSED PRACTICAL NURSE Signed: 09/03/2024 10:28 VALERIA KAPLAN [facility]
--- OUTSIDE RECORDS SUMMARY | 2024-09-03 08:15 | XMS_ITS | Encounter Summary ---
Author Name [facility] Organization [facility] Address [address] [place] [address] Care Team Providers Care Bakery Manager Name Role Phone GILBERTO PERALES Primary Care [...] PART A Jun 23, 2016 PART A [id number] [phone] [place] PATIENT MEDICARE (WNR) MEDICARE (M) PART B Jun 23, 2016 PART B [id number] [phone] [place] PATIENT MEDICARE (WNR) MEDICARE (M) PART A Jun 23, 2016 PART A [id number] [phone] [place] PATIENT MEDICARE (WNR) MEDICARE (M) PART B Jun 23, 2016 PART B [id number] [phone] [place] PATIENT MEDICARE PART D (WNR) MEDICARE (M) PART D Jun 23, 2016 PART D [id number] [place] PATIENT MEDICARE PART D (WNR) MEDICARE (M) PART D Jun 23, 2016 PART D [id number] ER[place] H[place] PATIENT [employer] [place] [employer] PLAN G PLAN G Jun 23, 2016 PLAN G [id number] ERWIN HALL PATIENT [employer] [place] [employer] PLAN G PLANG Jun 23, 2016 PLANG [id number] ER[place] H[place] PATIENT Selected Encounter This section includes the information on record at ID for the Encounter. Date/Time Encounter Type Encounter Description Reason Provider Source Sep 03, 2024 12:15 PM [facility]LEHEALTH FACILITY FEE DERMATOLOGY ICD-10-CM Z13.89 Encounter for screening for other disorder ALEJO GANDARAJAGRUTI Jesus [facility] Encounter Template Text not used by ID Assessments - Encounter Diagnoses This section includes the primary and secondary diagnoses documented for the Encounter. Date/Time Primary/Secondary Diagnosis Diagnosis Name Provider Source Sep 03, 2024 12:23 PM PRIMARY Encounter for screening for other disorder MARIYA GANDARA [facility] Plan of Treatment: Future Appointments (+ 6 months) and Future Tests (+/- 45 days) The Plan of Treatment section includes future care activities for the patient from all ID treatmentfacilities. This section includes future appointments and future orders which are active, pending or scheduled. Future Appointments This section includes appointments that were scheduled to occur 6 months from the date of the Encounter, up to a maximum of 20 appointments. The data comes from all ID treatment facilities. Appointment Date/Time Appointment Type Appointme nt Facility Name Sep 06, 2024 09:00 AM AMBULATORY - NONE [place] [facility] Nov 23, 2024 10:00 AM AM[facility]ORY - NONE [place] [facility] Dec 16, 2024 11:20 AM AMBULATORY - SURGERY [place] [facility] Lab Results: +/- 30 days of the encounter This section includes the Chemistry and Hematology Lab Results on record with ID for the patient. Radiology Reports and Pathology Reports are provided separately, in subsequent sections. Lab Results This section contains the Chemistry/Hematology Results that were resulted 30 days before or 30 daysafter the date of the Encounter. Date/Time Source Result Type Result - Unit Interpretation Reference Range Specimen Type Comment Sep 10, 2024 12:45 PM [facility] WN B12 VITAMIN PLASMA Specimen Type: PLASMA Comment: Vitamin B12 test may not yield results when protein level of sample is too elevated. Ordering Provider: GILBERTO PERALES Report Released Date/Time: Sep 07, 2024 08:05 PM Reporting Lab: [address] [address] Performing Lab: [address] [address] B12 VITAMIN 415 pg/mL 213-816 Sep 10, 2024 12:45 PM [facility] FOLATE PLASMA Specimen Type: PLASMA Comment: Vitamin B12 test may not yield results when protein level of sample is too elevated. Ordering Provider: GILBERTO PERALES Report Released Date/Time: Sep 07, 2024 08:05 PM Reporting Lab: [address] [address] Performing Lab: [address] [address] FOLATE 18.7 ng/mL 7.0-31.4 Sep 03, 2024 01:05 PM [facility] URINALYSIS URINE Specimen Type: URINE Comment: Microscopic not indicated Ordering Provider: GILBERTO PERALES Report Released Date/Time: Sep 03, 2024 12:10 PM Reporting Lab: [address] [address] Performing Lab: [address] [address] URINE COLOR Yellow Colorless-Yellow APPEARANCE Clear Clear UROBILINOGEN Normal mg/dL Normal URINE BLOOD Negative Negative URINE BILIRUBIN Negative Negative URINE KETONES Negative mg/dL Negative URINE PROTEIN Negative mg/dL Negative-Tr david URINE PH 6.5 4.5-8.0 URINE NITRITE Negative Negative URINE LEUKOCYTE EST Negative Negative SPECIFIC GRAVITY 1.018 1.005-1.030 URINE GLUCOSE Negative mg/dL Negative Sep 03, 2024 12:45 PM [facility] TSH PLASMA Specimen Type: PLASM [...] Sep 03, 2024 12:10 PM Reporting Lab: [address] [address] Performing Lab: [address] [address] TSH 0.9531 m[IU]/mL 0.3500-4.9400 Sep 03, 2024 12:45 PM [facility] GLYCOHEMOGLOBIN BLOOD Specimen Type: BLOOD Comment: [facility] guidelines for A1c interpretation: Glycemic control targets are based on Shared Decision Making between clinicians and patients. Criteria used to establish an A1c target recommendation can be found at https://www.ar.gov/qualityandpatientsafety/ and include the use of result accuracy [...] 8.73 and 9.27. Ref: https://ngsp.org/CAPdata.asp. The in-house [employer]Session-Mission Air D-100 analyzer has a historical CV <= 2%. Contact the laboratory for further performance characteristics of this assay. Ordering Provider: GILBERTO PERALES Report Released Date/Time: Sep 03, 2024 12:10 PM Reporting Lab: [address] [address] Performing Lab: [address] [address] GLYCOHEMOGLOBIN 6.5 H 4.4-6.4 Sep 03, 2024 12:45 PM [facility] 25-OH VITAMIN D SERUM Specime [...] Sep 03, 2024 12:10 PM Reporting Lab: [address] [address] Performing Lab: [address] [address] 25-OH VITAMIN D 38.1 ng/mL 20.0-50.0 Sep 03, 2024 12:45 PM [facility] CBC/PLT BLOOD Specimen Type: BLOOD No comment entered. Ordering Provider: GILBERTO PERALES Report Released Date/Time: Sep 03, 2024 12:10 PM Reporting Lab: [address] [address] Performing Lab: [address] [address] WBC 7.0 10*3/uL 5.0-10.0 RBC 5.00 10*6/uL 4.6-6.2 HGB 16.7 g/dL 14.0-18.0 HCT 50.3 42.0-52.0 MCV 100.6 fL H 80.0-94.0 MCH 33.4 pg H 27.0-31.0 MCHC 33.2 g/dL 32.0-36.0 PLT 115 10*3/uL L 150-450 MPV 12.9 fL 9.0-13.1 RDW 12.1 11.0-16.0 NRBC 0.0 0.0-0.0 Sep 03, 2024 12:45 PM [facility] LIPID PROFILE PLASMA Specimen Type: [...] <15 G5 Kidney failure Ordering Provider: GILBERTO PERAELS Report Released Date/Time: Sep 03, 2024 12:10 PM Reporting Lab: [address] [address] Performing Lab: [address] [address] CHOLESTEROL 131 mg/dL 0-199 TRIGLYCERIDE 91 mg/dL 0-149 HDL CHOLESTEROL 46 mg/dL 40-69 DIRECT LDL CHOL. 75 mg/dL 0-100 Sep 03, 2024 12:45 PM [facility] PL[facility] Specimen Type: PLASM [...] Sep 03, 2024 12:10 PM Reporting Lab: [address] [address] Performing Lab: [address] [address] CREATININE 1.02 mg/dL 0.72-1.25 UREA NITROGEN 14 [...] 03, 2024 12:04 PM 130/70 [place] [facility] Sep 03, 2024 10:31 AM 61 162/89 [place] [facility] Sep 03, 2024 10:31 AM 55 175/93 [place] [facility] Sep 03, 2024 10:18 AM 97.8 58 154/88 100 8 73 209.8 28 [place] [facility] Social History: Smoking Status (Most current) and Tobacco Use (All prior to encounter date) This section includes the most current, and the historical, smoking and tobacco- related health factors from the ID facility where the Encounter took place. Current Smoking Status This section includes the most current smoking, or tobacco-related health factor, from the ID facility where the Encounter took place. Date/Time Current Smoking Status Comment Francesco ity Sep 03, 2024 11:00 AM VA-TOBACCO DOESNT USE [place] 30 MIN WAKEUP [facility] Tobacco Use History This section includes a history of the smoking, or tobacco-related health factors, that were collected on or before the date of the Encounter. The data comes from the ID facility where the Encounter took place. Date/Time Smoking Status/Tobacco Use Comment F acility Sep 03, 2024 11:00 AM VA-TOBACCO USE 30 YEARS OR MORE [facility] Sep 03, 2024 11:00 AM VA-TOBACCO USE ADVICE [facility] Sep 03, 2024 11:00 AM VA-TOBACCO USE STATISTICAL CLERK ADVERTISING NO [facility] Sep 03, 2024 11:00 AM VA-TOBACCO USE MED NO [facility] Sep 03, 2024 11:00 AM VA-TOBACCO USER SOME DAYS [facility] May 18, 2022 08:30 AM VA-TOBACCO DOESNT USE [place] 30 MIN WAKEUP [facility] May 18, 2022 08:30 AM VA-TOBACCO USE 30 YEARS OR MORE [facility] May 18, 2022 08:30 AM VA-TOBACCO USE ADVICE [facility] May 18, 2022 08:30 AM VA-TOBACCO USE STATISTICAL CLERK ADVERTISING NO [facility] May 18, 2022 08:30 AM VA-TOBACCO USE MED NO [facility] May 18, 2022 08:30 AM VA-TOBACCO USER EVERY DAY [facility] Jul 02, 2020 10:00 AM VA-TOBACCO DOESNT USE [place] 30 MIN WAKEUP [facility] Jul 02, 2020 10:00 AM VA-TOBACCO USE 30 YEARS OR MORE [facility] Jul 02, 2020 10:00 AM VA-TOBACCO USE ADVICE [facility] Jul 02, 2020 10:00 AM VA-TOBACCO USE STATISTICAL CLERK ADVERTISING NO [facility] Jul 02, 2020 10:00 AM VA-TOBACCO USE MED NO [facility] Jul 02, 2020 10:00 AM VA-TOBACCO USER SOME DAYS [facility] Nov 23, 2018 11:13 AM VA-TOBACCO DOESNT USE [place] 30 MIN WAKEUP [facility] Nov 23, 2018 11:13 AM VA-TOBACCO USE 30 YEARS OR MORE [facility] Nov 23, 2018 11:13 AM VA-TOBACCO USE ADVICE [facility] Nov 23, 2018 11:13 AM VA-TOBACCO USE STATISTICAL CLERK ADVERTISING NO [facility] Nov 23, 2018 11:13 AM VA-TOBACCO USE MED NO [facility] Nov 23, 2018 11:13 AM VA-TOBACCO USER SOME DAYS [facility] Aug 29, 2017 09:43 AM V9 LIFETIME NON-USER OF TOBACCO [facility] Oct 20, 2016 09:13 AM V9 LIFETIME NON-USER OF TOBACCO [facility] Oct 28, 2015 09:04 AM V9 LIFETIME NON-USER OF TOBACCO [facility] Sep 24, 2014 10:16 AM V9 QUIT TOBACCO >1 2 MO & <7 YRS AGO [facility] Sep 24, 2014 10:16 AM V9 TOBACCO OFFERED [facility] Sep 13, 2013 10:18 AM TOBACCO OFFERRED P T MEDS (PROVIDER) [facility] Sep 13, 2013 10:18 AM V9 CURRENT TOBACCO USER [facility] Sep 13, 2013 10:18 AM V9 TOBACCO OFFERED [facility] Jul 12, 2012 05:32 PM V9 CURRENT TOBACCO USER [facility] Jul 12, 2012 05:32 PM V9 QUIT TOBACCO >1 2 MO & <7 YRS AGO [facility] Jul 12, 2012 05:32 PM V9 TOBACCO OFFERED [facility] Jul 04, 2011 09:53 AM TOBACCO OFFERRED P T MEDS (PROVIDER) [facility] Jul 04, 2011 09:53 AM V9 CURRENT TOBACCO USER [facility] Jul 04, 2011 09:53 AM V9 TOBACCO OFFERED [facility] May 24, 2010 08:09 AM TOBACCO OFFERRED P T MEDS (PROVIDER) [facility] May 24, 2010 08:09 AM V9 CURRENT TOBACCO USER [facility] May 24, 2010 08:09 AM V9 TOBACCO OFFERED [facility] May 22, 2009 01:20 PM TOBACCO OFFERRED P T MEDS (PROVIDER) [facility] May 22, 2009 01:20 PM V9 CURRENT TOBACCO USER [facility] May 22, 2009 01:20 PM V9 TOBACCO OFFERED [facility] Radiology Reports: +/- 30 days [...] the Encounter. The data comes from all ID treatment facilities. Date/Time Radiology Report Provider Source Sep 06, 2024 08:35 AM U/S SCROTUM: RAFAELERWIN MURTAZA [id number] -[id number] M Exm Date: SEP 06, 2024@08:35 Req Phys: GILBERTO PERALES Pat Loc: JIN PACT ALPHA 1-3 (Req'g Loc) Img Loc: ULTRASOUND Service: [place] [address] (Case [id number] COMPLETE)U/S SCROTUM (US Detailed) CPT:36599 Reason for Study: SEE CLINICAL HISTORY Clinical History: REASON FOR EXAM:Suspected Hydrocele PERTINENT PATIENT HISTORY: pt is concerned about left testicle being larger than the right that might be a cancer . PROVIDER ExtPager# Report Status: Verified Date Reported: SEP 06, 2024 Date Verified: SEP 06, 2024 Vocational Services Specialist E-Sig: Report: U/S SCROTUM HISTORY: Suspected hydrocele [...] Staff: NIRALI OCONNOR, Staff Physician Verified by political science research assistant for NIRALI OCONNOR /NIRALI JORGENSEN-D [facility] Encounter Notes: All associated encounter notes This section contains the clinical notes associated to the Encounter. Date/Time Encounter Note(s) Provider Source Sep 03, 2024 12:15 PM TELEHEALTH NOTE: LOCAL TITLE: TELEDERMATOLOGY WOOD GRAINER NOTE STANDARD TITLE: TELEHEALTH NOTE DATE OF NOTE: SEP 03, 2024@12:15 ENTRY DATE: SEP 03, 2024@12:15:44 AUTHOR: MARIYA GANDARA COSIGNER: URGENCY: STATUS: COMPLETED Teledermatology Consult Request The patient was educated regarding the Teledermatology process at this encounter. Comment: n/a Patient DOES consent to have images taken, viewed, and interpreted using the Teledermatology process. This consult addresses: A new condition Images were acquired: In clinic HISTORY: Prior skin history: None reported Have you had a skin cancer before? None Reported Patient reports no family history of melanoma. Taking new med/supplements: None reported Immunosuppression history: None reported Other significant history: None reported Chief Complaint: skin lesion has increased in size from a dime to a quarter over the last year. PROBLEM A LOCATION(S): Other:upper chest DURATION: 2 years SYMPTOMS: No Symptoms CHANGES: Size TREATMENT: No BIOPSY: No Keyboarding Teacher's comments: the area is crusty and flat states no symptoms /es/ MARIYA GANDARA telehealth clinical techician Signed: 09/03/2024 12:19 MARIYA GANDARA [facility]
--- OUTSIDE RECORDS SUMMARY | 2024-09-05 07:57 | XMS_ITS | Encounter Summary ---
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 Role Phone GILBERTO PERALES Primary Care [...] Policy Lion's Name Patient's Relationship to Policy [place] MEDICARE (WNR) MEDICARE (M) PART A Jun 23, 2016 PART A [id number] ERWIN HALL PATIENT MEDICARE (WNR) MEDICARE (M) PART B Jun 23, 2016 PART B [id number] ERWIN HALL PATIENT MEDICARE (WNR) MEDICARE (M) PART A Jun 23, 2016 PART A [id number] ERWIN HALL PATIENT MEDICARE (WNR) MEDICARE (M) PART B Jun 23, 2016 PART B [id number] [phone] ERWIN HALL PATIENT MEDICARE PART D (WNR) MEDICARE (M) PART D Jun 23, 2016 PART D [id number] ERWIN AHLL PATIENT MEDICARE PART D (WNR) MEDICARE (M) PART D Jun 23, 2016 PART D [id number] ERWIN HALL PATIENT [employer] PLAN G PLAN G Jun 23, 2016 PLAN G [id number] ERWIN HALL PATIENT [employer] PLAN G PLANG Jun 23, 2016 PLANG [id number] [phone] ERWIN HALL PATIENT Selected Encounter This section includes the information on record at [place] for the Encounter. Date/Time Encounter Type Encounter Description Reason Pro vider Source Sep 05, 2024 11:57 AM Outpatient Encounter ADMIN PAT ACTIVTIES (MASNONCT) IHE Encounter Template Text not used by [place] Plan of Treatment: Future Appointments (+ 6 months) and Future Tests (+/- 45 days) The Plan of Treatment section includes future care activities for the patient from all [place] treatmentfacilities. This section includes future appointments and future orders which are active, pending or scheduled. Future Appointments This section includes appointments that were scheduled to occur 6 months from the date of the Encounter, up to a maximum of 20 appointments. The data comes from all [place] treatment facilities. Appointment Date/Time Appointment Type Appointme nt Facility Name Sep 06, 2024 09:00 AM AMBULATORY - NONE [facility] Nov 23, 2024 10:00 AM AMBULATORY - NONE [facility] Dec 16, 2024 11:20 AM AMBULATORY - SURGERY [facility] Lab Results: +/- 30 days of the encounter This section includes the Chemistry and Hematology Lab Results on record with [place] for the patient. Radiology Reports and Pathology [...] Sep 07, 2024 08:05 PM Reporting Lab: [address] [phone] Performing Lab: [address] [address] B12 VITAMIN 415 pg/mL 213-816 Sep 10, 2024 12:45 PM [facility] FOLATE PLASMA Specimen Type: PLASMA Comment: Vitamin B12 test may not yield results when protein level of sample is too elevated. Ordering Provider: GILBERTO PERALES Report Released Date/Time: Sep 07, 2024 08:05 PM Reporting Lab: [address] [address] Performing Lab: [address] [address] FOLATE 18.7 ng/mL 7.0-31.4 Sep 03, 2024 01:05 PM [facility] URINALYSIS URINE Specimen Type: URINE Comment: Microscopic not indicated Ordering Provider: GILBERTO PERALES Report Released Date/Time: Sep 03, 2024 12:10 PM Reporting Lab: [address] [address] Performing Lab: [address] [address] URINE COLOR Yellow Colorless-Yellow APPEARANCE Clear Clear UROBILINOGEN Normal mg/dL Normal URINE BLOOD Negative Negative URINE BILIRUBIN Negative Negative URINE KETONES Negative mg/dL Negative URINE PROTEIN Negative mg/dL Negative-Tr david URINE PH 6.5 4.5-8.0 URINE NITRITE Negative Negative URINE LEUKOCYTE EST Negative Negative SPECIFIC GRAVITY 1.018 1.005-1.030 URINE GLUCOSE Negative mg/dL Negative Sep 03, 2024 12:45 PM [facility] TSH PLASMA Specimen Type: PLASM A [...] Sep 03, 2024 12:10 PM Reporting Lab: [address] [address] Performing Lab: [address] [address] TSH 0.9531 m[IU]/mL 0.3500-4.9400 Sep 03, 2024 12:45 PM [facility] GLYCOHEMOGLOBIN BLOOD Specimen Type: BLOOD Comment: [facility] guidelines for A1c interpretation: Glycemic control targets are based on Shared Decision Making between clinicians and patients. Criteria used to establish an A1c target recommendation can be found at https://www.ct.gov/qualityandpatientsafety/ and include the use of result accuracy [...] 8.73 and 9.27. Ref: https://ngsp.org/CAPdata.asp. The in-house [employer] D-100 analyzer has a historical CV <= 2%. Contact the laboratory for further performance characteristics of this assay. Ordering Provider: GILBERTO PERALES Report Released Date/Time: Sep 03, 2024 12:10 PM Reporting Lab: [place] [phone] Performing Lab: [place] [phone] GLYCOHEMOGLOBIN 6.5 H 4.4-6.4 Sep 03, 2024 12:45 PM [facility] 25-OH VITAMIN D SERUM Specime n [...] Sep 03, 2024 12:10 PM Reporting Lab: [place] [phone] Performing Lab: [place] [id number] 25-OH VITAMIN D 38.1 ng/mL 20.0-50.0 Sep 03, 2024 12:45 PM [facility] CBC/PLT BLOOD Specimen Type: BLOOD No comment entered. Ordering Provider: GILBERTO PERALES Report Released Date/Time: Sep 03, 2024 12:10 PM Reporting Lab: [address] [address] Performing Lab: [place] [phone] WBC 7.0 10*3/uL 5.0-10.0 RBC 5.00 10*6/uL 4.6-6.2 HGB 16.7 g/dL 14.0-18.0 HCT 50.3 42.0-52.0 MCV 100.6 fL H 80.0-94.0 MCH 33.4 pg H 27.0-31.0 MCHC 33.2 g/dL 32.0-36.0 PLT 115 10*3/uL L 150-450 MPV 12.9 fL 9.0-13.1 RDW 12.1 11.0-16.0 NRBC 0.0 0.0-0.0 Sep 03, 2024 12:45 PM [facility] LIPID PROFILE PLASMA Specimen Type: PLASM [...] <15 G5 Kidney failure Ordering Provider: GILBERTO PREALES Report Released Date/Time: Sep 03, 2024 12:10 PM Reporting Lab: [facility] [address] [facility] [address] Performing Lab: [address] [address] CHOLESTEROL 131 mg/dL 0-199 TRIGLYCERIDE 91 mg/dL 0-149 HDL CHOLESTEROL 46 mg/dL 40-69 DIRECT LDL CHOL. 75 mg/dL 0-100 Sep 03, 2024 12:45 PM [facility] PANEL 5 PLASMA Specimen Type: PLASM [...] Sep 03, 2024 12:10 PM Reporting Lab: [address] [address] Performing Lab: [address] [address] CREATININE 1.02 mg/dL 0.72-1.25 UREA NITROGEN 14 [...] and tobacco- related health factors from the [place] facility where the Encounter took place. Current Smoking Status This section includes the most current smoking, or tobacco-related health factor, from the [place] facility where the Encounter took place. Date/Time Current Smoking Status Comment Facil ity February 22, 2021 01:15 PM VA-TOBACCO FORMER USER [facility] Tobacco Use History This section includes a history of the smoking, or tobacco-related health factors, that were collected on or before the date of the Encounter. The data comes from the [place] facility where the Encounter took place. Date/Time Smoking Status/Tobacco Use Comment F accris February 22, 2021 01:15 PM [place]-TOBACCO QUIT 5 TO < 15 YRS [facility] Radiology Reports: +/- 30 days of the [...] the Encounter. The data comes from all [place] treatment facilities. Date/Time Radiology Report Provider Source Sep 06, 2024 08:35 AM U/S SCROTUM: ERWIN HALL [id number] -1950 M Exm Date: SEP 06, 2024@08:35 Req Phys: GILBERTO PERALES Pat Loc: JIN PACT ALPHA 1-3 (Req'g Loc) Img Loc: ULTRASOUND Service: Unknown [place] [id number] (Case [id number] COMPLETE)U/S SCROTUM (US Detailed) CPT:34404 Reason for Study: SEE CLINICAL HISTORY Clinical History: REASON FOR EXAM:Suspected Hydrocele PERTINENT PATIENT HISTORY: pt is concerned about left testicle being larger than the right that might be a cancer . PROVIDER ExtPager# Report Status: Verified Date Reported: SEP 06, 2024 Date Verified: SEP 06, 2024 Route Sales Manager E-Sig: Report: U/S SCROTUM HISTORY: Suspected hydrocele [...] Staff: NIRALI OCONNOR, Staff Physician Verified by ski production supervisor for NIRALI OCONNOR [facility] Encounter Notes: All associated encounter notes This section contains the clinical notes associated to the Encounter. Date/Time Encounter Note(s) Provider Source Sep 13, 2024 10:36 AM ADDENDUM: LOCAL TITLE: Addendum STANDARD TITLE: ADDENDUM DATE OF NOTE: SEP 13, 2024@10:36:52 ENTRY DATE: SEP 13, 2024@10:36:53 AUTHOR: JESSICA DAMON EXP COSIGNER: URGENCY: STATUS: COMPLETED Please see above. /anitha/ INGRID Lyons LPN Signed: 09/13/2024 10:37 Receipt Acknowledged By: 09/21/2024 23:05 /anitha/ GILEBRTO PERALES MD --- Original Document --- 09/05/24 CLERICAL/ADMIN NOTE: Chart review completed. Results notification letter needed for Teledermatology Consult dated 09/05/2024. Respectfully, Gwendolyn Curiel /anitha/ GWENDOLYN CURIEL telehealth clinical techician Signed: 09/05/2024 11:57 JESSICA DAMON [facility] Sep 05, 2024 11:57 AM ADMINISTRATIVE NOT E: LOCAL TITLE: CLERICAL/ADMIN NOTE STANDARD TITLE: ADMINISTRATIVE NOTE DATE OF NOTE: SEP 05, 2024@11:57 ENTRY DATE: SEP 05, 2024@11:57:28 AUTHOR: GWENDOLYN CURIEL EXP COSIGNER: URGENCY: STATUS: COMPLETED CLERICAL/ADMIN NOTE Has ADDENDA Chart review completed. Results notification letter needed for Teledermatology Consult dated 09/05/2024. Respectfully, Gwendolyn Curiel /anitha/ GWENDOLYN CURIEL telehealth clinical techician Signed: 09/05/2024 11:57 09/13/2024 ADDENDUM STATUS: COMPLETED Please see above. /anitha/ INGRID Lyons LPN Signed: 09/13/2024 10:37 Receipt Acknowledged By: * AWAITING SIGNATURE * GILBERTO PERALES YOLANDA L [place]
--- OUTSIDE RECORDS SUMMARY | 2024-11-26 05:34 | XMS_ITS | Encounter Summary ---
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 Name Role Phone GILBERTO PERALES Primary Care [...] PART A Jun 23, 2016 PART A [id number] [place] PATIENT MEDICARE (WNR) MEDICARE (M) PART B Jun 23, 2016 PART B [id number] ER[place] H[place] PATIENT MEDICARE (WNR) MEDICARE (M) PART A Jun 23, 2016 PART A [id number] [phone] ERWIN HALL PATIENT MEDICARE (WNR) MEDICARE (M) PART B Jun 23, 2016 PART B [id number] ERWIN HALL PATIENT MEDICARE PART D (WNR) MEDICARE (M) PART D Jun 23, 2016 PART D [id number] ERWIN HALL PATIENT MEDICARE PART D (WNR) MEDICARE (M) PART D Jun 23, 2016 PART D [id number] ERWIN HALL PATIENT [employer] [place] [employer] PLAN G PLAN G Jun 23, 2016 PLAN G [id number] ERWIN HALL PATIENT [employer] [place] [employer] PLAN G PLANG Jun 23, 2016 PLANG [id number] [phone] ERWIN HALL PATIENT Selected Encounter This section includes the information on record at [place] for the Encounter. Date/Time Encounter Type Encounter Description Reason Pro vider Source Nov 26, 2024 09:34 AM Outpatient Encounter ADMIN PAT ACTIVTIES (MASNONCT) IHE Encounter Template Text not used by [place] Plan of Treatment: Future Appointments (+ 6 months) and Future Tests (+/- 45 days) The Plan of Treatment section includes future care activities for the patient from all [place] treatmentfacilities. This section includes future appointments and future orders which are active, pending or scheduled. Future Appointments This section includes appointments that were scheduled to occur 6 months from the date of the Encounter, up to a maximum of 20 appointments. The data comes from all [place] treatment facilities. Appointment Date/Time Appointment Type Appointme nt Facility Name Dec 16, 2024 11:20 AM AMBULATORY - SURGERY [facility] March 06, 2025 01:30 PM AMBULATORY - NONE [facility] May 21, 2025 11:30 AM AMBULATORY - NONE [facility] Lab Results: +/- 30 days of the encounter This section includes the Chemistry and Hematology Lab Results on record with [place] for the patient. Radiology Reports and Pathology Reports are provided separately, in subsequent sections. Lab Results This section contains the Chemistry/Hematology Results that were resulted 30 days before or 30 daysafter the date of the Encounter. Date/Time Source Result Type Result - Unit Interpretation Reference Range Specimen Type Comment Dec 23, 2024 12:20 PM [facility] WN DRUG SCREEN EXPANDED IN-HOUSE URINE Specimen Type: URINE Comment: Screening method results are unconfirmed and are for medical use only. Unconfirmed screening results must not be used for non-medical purposes. Opiates test most sensitive for morphine, codeine and heroin and less sensitive for hydrocodone and hydromorphone where higher concentrations are needed for cut-off detection. Drugs of abuse screening is a preliminary analytical test result. A more specific alternate chemical method (GC/MS) must be used to obtain a confirmed analytical result. This assay provides a preliminary unconfirmed analytical test result that may be suitable for clinical management of patients in certain situations. Drug-test results should be interpreted in the context of clinical information. Patient metabolic characteristics can affect test outcome. Ordering Provider: GILBERTO PERALES Report Released Date/Time: Dec 17, 2024 04:05 PM Reporting Lab: [address] [id number] Performing Lab: [address] [id number] TETRAHYDROCANNABINOL SCREEN POS Cuto ff < 50 AMPHETAMINE SCR NEG Cutoff < 1000 BARBITURATES SCR NEG Cutoff < 200 BENZODIAZEPINES SCR NEG Cutoff < 200 COCAINE METABOLITE SCR NEG Cutoff < 300 OPIATES SCR NEG Cutoff < 300 METHADONE SCR NEG Cutoff < 300 OXYCODONE SCR NEG Cutoff < 200 BUPRENORPHINE SCR IN-HOUSE NEG Cutof f < 5 FENTANYL SCREEN IN-HOUSE NEG Cutoff < 1 Dec 23, 2024 12:13 PM [facility] PANEL 1 PLASMA Specimen Type: PLASM A Comment: Estimated [...] Ordering Provider: GILBERTO PERALES Report Released Date/Time: Dec 17, 2024 04:05 PM Reporting Lab: [address] [id number] Performing Lab: [address] [address] CREATININE 0.81 mg/dL 0.72-1.25 UREA NITROGEN 13 mg/dL 9-25 GLUCOSE 88 mg/dL 74-100 SODIUM 142 mmol/L 136-145 POTASSIUM 4.4 mmol/L 3.5-5.1 CHLORIDE 106 mmol/L 98-107 CO2 25 mmol/L 22-29 CALCIUM 9.8 mg/dL 8.4-10.2 ANION GAP 11 meq/L 3-19 eGFR (CKD-EPI) >90 Social History: Smoking Status (Most current) and Tobacco Use (All prior to encounter date) This section includes the most current, and the historical, smoking and tobacco- related health factors from the [place] facility where the Encounter took place. Current Smoking Status This section includes the most current smoking, or tobacco-related health factor, from the [place] facility where the Encounter took place. Date/Time Current Smoking Status Comment Facil ity February 22, 2021 01:15 PM VA-TOBACCO FORMER USER [facility] Tobacco Use History This section includes a history of the smoking, or tobacco-related health factors, that were collected on or before the date of the Encounter. The data comes from the [place] facility where the Encounter took place. Date/Time Smoking Status/Tobacco Use Comment F acility February 22, 2021 01:15 PM VA-TOBACCO QUIT 5 TO < 15 YRS [facility] Radiology Reports: +/- 30 days [...] the Encounter. The data comes from all [place] treatment facilities. Date/Time Radiology Report Provider Source Nov 23, 2024 09:22 AM MRI C SPINE W/O CO NTRAST: ERWIN HALL [id number] -[id number] M Exm Date: NOV 23, 2024@09:22 Req Phys: GILBERTO PERALES Pat Loc: JIN PACT ALPHA 1-3 (Req'g Loc) Img Loc: [facility] Service: [place] [address] (Case [id number] COMPLETE)MRI C SPINE W/O CONTRAST (MRI Detailed) CPT:11828 Reason for Study: SEE CLINICAL HISTORY Clinical History: STATUS OF PLAIN FILMS:Done, exam date/impression above. MRI Screening (Required): IMPLANTED DEVICE DOCUMENTATION IMPLANTED DEVICE DOCUMENTATION NOT FOUND Does the [place] have any Cardiac Implants? None Does the [place] have any implanted stimulators? None Does the have cochlear implants? No Does the [place] have Cerebral aneurysm clip(s)? No Does the [place] have any shrapnel? No If yes, where in your body? Please list other implants not listed above: MRI table has a weight limit of 551 lbs. 's Weight: *209.8 lb [95.16 kg] (09/03/2024 10:18) Is this patient claustrophobic?: No REASON FOR EXAM: SPINAL STENOSIS PERTINENT PATIENT HISTORY: Persistant neck pain radiating to hi sT-spine and associated with bilateral cervical radiculopathy failed PT and traction therapy. Can not walk , the more he walks the worse his neck pain is . Risk factors for GADOLINIUM NEPHROGENIC SYSTEMIC SCLEROSIS: Report Status: Verified Date Reported: NOV 23, 2024 Date Verified: NOV 23, 2024 Parts Picker E-Sig: Report: MRI CERVICAL SPINE WITHOUT CONTRAST, 11/23/2024 9:41 AM EST INDICATION: SEE CLINICAL HISTORY COMPARISON: January 06, 2023 TECHNIQUE: Multiplanar, multi-sequence surface-coil MR imaging of the cervical spine was performed without contrast. LEVELS IMAGED: Foramen magnum to upper thoracic region Impression: Alignment: Normal. Vertebrae: No marrow signal abnormalities to suggest neoplasm. Spinal cord: Normal signal and contour. Cervicocranial junction: No significant focal abnormality. C1-C2: No significant focal abnormality. C2-C3: Facet degeneration and uncovertebral spur. Mild left foraminal stenosis. C3-C4: Mild disc bulge, facet degeneration, and ligamentum flavum thickening. Severe bilateral foraminal stenosis. Moderate spinal canal stenosis. C4-C5: No significant focal abnormality. C5-C6: No significant focal abnormality. C6-C7: Mild disc bulge, facet degeneration, and uncovertebral spur. Severe right and mild left foraminal stenosis. C7-T1: Mild disc bulge, facet degeneration, and uncovertebral spur. Moderate bilateral foraminal stenosis. Upper Thoracic Spine: No significant focal abnormality. Primary Diagnostic Code: NO ALERT REQUIRED Primary Interpreting Staff: ROCÍO BAHENA, Staff Physician Verified by flight test mechanic for ROCÍO BAHENA /ROCÍO DIOR [facility] Encounter Notes: All associated encounter notes This section contains the clinical notes associated to the Encounter. Date/Time Encounter Note(s) Provider Source Nov 26, 2024 09:34 AM ADMINISTRATIVE NOT E: LOCAL TITLE: HEALTH BENEFITS ADMINISTRATIVE NOTE STANDARD TITLE: ADMINISTRATIVE NOTE DATE OF NOTE: NOV 26, 2024@09:34 ENTRY DATE: NOV 26, 2024@09:34:28 AUTHOR: TINA MACIEL EXP COSIGNER: URGENCY: STATUS: COMPLETED Eligible for enrollment: Yes has been enrolled and assigned to priority group 8C HBA enrolled 07/12/2022 CREATED A [facility] ID FOR VERIFIED HIS MAILING ADDRESS AND UPLOADED HIS [employer] DRIVERS LICENSE TO [employer] AND [employer]. /anitha/ TINA MACIEL AMSA Signed: 11/26/2024 09:35 TINA MACIEL [facility]
--- OUTSIDE RECORDS SUMMARY | 2025-04-21 08:26 | XMS_ITS | Encounter Summary ---
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 Name Role Phone GILBERTO PERALES Primary [...] PART B Jun 23, 2016 PART B [id number] [phone] [place] PATIENT MEDICARE (WNR) MEDICARE (M) PART A Jun 23, 2016 PART A [id number] [place] PATIENT MEDICARE (WNR) MEDICARE (M) PART A Jun 23, 2016 PART A [id number] [phone] [place] PATIENT MEDICARE (WNR) MEDICARE (M) PART B Jun 23, 2016 PART B [id number] ER[place] H[place] PATIENT MEDICARE PART D (WNR) MEDICARE (M) PART D Jun 23, 2016 PART D [id number] [place] H[place] PATIENT MEDICARE PART D (WNR) MEDICARE (M) PART D Jun 23, 2016 PART D [id number] ERWIN HALL PATIENT [employer] [place] PLAN G PLAN G Jun 23, 2016 PLAN G [id number] ERWIN HALL PATIENT [employer] [place] [employer] PL[place] G PLANG Jun 23, 2016 PLANG [id number] ERWIN H[place] PATIENT Selected Encounter This section includes the information on record at [place] for the Encounter. Date/Time Encounter Type Encounter Description Reason Pro vider Source Apr 21, 2025 12:26 PM Outpatient Encounter ADMIN PAT ACTIVTIES (MASNONCT) IHE Encounter Template Text not used by [place] Plan of Treatment: Future Appointments (+ 6 months) and Future Tests (+/- 45 days) The Plan of Treatment section includes future care activities for the patient from all [place] treatmentfacilities. This section includes future appointments and future orders which are active, pending or scheduled. Future Appointments This section includes appointments that were scheduled to occur 6 months from the date of the Encounter, up to a maximum of 20 appointments. The data comes from all [place] treatment [facility]. Appointment Date/Time Appointment Type Appointme nt Facility Name May 21, 2025 11:30 AM AMBULATORY - NONE [facility] Active, Pending, and Scheduled Orders This section includes a listing of several types of active, pending, and scheduled orders, including clinic medications orders, diagnostic test orders, procedure orders and consult orders; where the start date of the order is 45 days before the date of the Encounter or 45 days after the date of theEncounter. The data comes from all [facility]. Test Date/Time Test Type Test Details Facility Name May 21, 2025 12:00 AM Laboratory - Chemistry Order DRUG SCREEN EXPANDED IN-HOUSE URINE SP ONCE [facility] May 21, 2025 12:00 AM Laboratory - Chemistry Order MICROALBUMIN/CREAT RATIO URINE SP [facility] May 21, 2025 11:41 AM Procedure Order CP COLON ASYMPTOMATIC CP COLON ASYMPTOMATIC Proc Transformer Maker's Choice [facility] May 21, 2025 11:44 AM Laboratory - Chemistry Order GLYCOHEMOGLOBIN [id number] BLOOD SP ONCE [facility] May 21, 2025 11:44 AM Laboratory - Chemistry Order LIPID PROFILE [id number] SP ONCE [facility] May 21, 2025 11:44 AM Laboratory - Chemistry Order CBC/PLT [id number] BLOOD SP ONCE [facility] May 21, 2025 11:44 AM Laboratory - Chemistry Order TSH [id number] SP ONCE [facility] May 21, 2025 11:44 AM Laboratory - Chemistry Order 25-OH VITAMIN D [id number] SP ONCE [facility] May 21, 2025 11:44 AM Laboratory - Chemistry Order FOLATE [id number] SP [facility] May 21, 2025 11:44 AM Laboratory - Chemistry Order B12 VITAMIN [id number] SP ONCE [facility] Social History: Smoking Status (Most current) and Tobacco Use (All prior to encounter date) This section includes the most current, and the historical, smoking and tobacco- related health factors from the [place] facility where the Encounter took place. Current Smoking Status This section includes the most current smoking, or tobacco-related health factor, from the [place] facility where the Encounter took place. Date/Time Current Smoking Status Comment Facil ity Sep 03, 2024 11:00 AM VA-TOBACCO USER SOME DAYS [facility] Tobacco Use History This section includes a history of the smoking, or tobacco-related health factors, that were collected on or before the date of the Encounter. The data comes from the [place] facility where the Encounter took place. Date/Time Smoking Status/Tobacco Use Comment F acility Sep 03, 2024 11:00 AM VA-TOBACCO USE 30 YEARS OR MORE [facility] Sep 03, 2024 11:00 AM VA-TOBACCO USE ADVICE [facility] Sep 03, 2024 11:00 AM VA-TOBACCO USE VP PURCHASING NO [facility] Sep 03, 2024 11:00 AM VA-TOBACCO USE MED NO [facility] Sep 03, 2024 11:00 AM VA-TOBACCO USER SOME DAYS [facility] May 18, 2022 08:30 AM VA-TOBACCO DOESNT USE WI 30 MIN WAKEUP [facility] May 18, 2022 08:30 AM VA-TOBACCO USE 30 YEARS OR MORE [facility] May 18, 2022 08:30 AM VA-TOBACCO USE ADVICE [facility] May 18, 2022 08:30 AM VA-TOBACCO USE VP PURCHASING NO [facility] May 18, 2022 08:30 AM VA-TOBACCO USE MED NO [facility] May 18, 2022 08:30 AM VA-TOBACCO USER EVERY DAY [facility] Jul 02, 2020 10:00 AM VA-TOBACCO DOESNT USE WI 30 MIN WAKEUP [facility] Jul 02, 2020 10:00 AM VA-TOBACCO USE 30 YEARS OR MORE [facility] Jul 02, 2020 10:00 AM VA-TOBACCO USE ADVICE [facility] Jul 02, 2020 10:00 AM VA-TOBACCO USE VP PURCHASING NO [facility] Jul 02, 2020 10:00 AM VA-TOBACCO USE MED NO [facility] Jul 02, 2020 10:00 AM VA-TOBACCO USER SOME DAYS [facility] Nov 23, 2018 11:13 AM VA-TOBACCO DOESNT USE WI 30 MIN WAKEUP [facility] Nov 23, 2018 11:13 AM VA-TOBACCO USE 30 YEARS OR MORE [facility] Nov 23, 2018 11:13 AM VA-TOBACCO USE ADVICE [facility] Nov 23, 2018 11:13 AM VA-TOBACCO USE VP PURCHASING NO [facility] Nov 23, 2018 11:13 AM VA-TOBACCO USE MED NO [facility] Nov 23, 2018 11:13 AM VA-TOBACCO USER SOME DAYS [facility] Aug 29, 2017 09:43 AM V9 LIFETIME NON-USER OF TOBACCO [facility] Oct 20, 2016 09:13 AM V9 LIFETIME NON-USER OF TOBACCO [facility] Oct 28, 2015 09:04 AM V9 LIFETIME NON-USER OF TOBACCO [facility] Sep 24, 2014 10:16 AM V9 QUIT TOBACCO >1 2 MO & <7 YRS AGO [facility] Sep 24, 2014 10:16 AM V9 TOBACCO OFFERED [facility] Sep 13, 2013 10:18 AM TOBACCO OFFERRED P T MEDS (PROVIDER) [facility] Sep 13, 2013 10:18 AM V9 CURRENT TOBACCO USER [facility] Sep 13, 2013 10:18 AM V9 TOBACCO OFFERED [facility] Jul 12, 2012 05:32 PM V9 CURRENT TOBACCO USER [facility] Jul 12, 2012 05:32 PM V9 QUIT TOBACCO >1 2 MO & <7 YRS AGO [facility] Jul 12, 2012 05:32 PM V9 TOBACCO OFFERED [facility] Jul 04, 2011 09:53 AM TOBACCO OFFERRED P T MEDS (PROVIDER) [facility] Jul 04, 2011 09:53 AM V9 CURRENT TOBACCO USER [facility] Jul 04, 2011 09:53 AM V9 TOBACCO OFFERED [facility] May 24, 2010 08:09 AM TOBACCO OFFERRED P T MEDS (PROVIDER) [facility] May 24, 2010 08:09 AM V9 CURRENT TOBACCO USER [facility] May 24, 2010 08:09 AM V9 TOBACCO OFFERED [facility] May 22, 2009 01:20 PM TOBACCO OFFERRED P T MEDS (PROVIDER) [facility] May 22, 2009 01:20 PM V9 CURRENT TOBACCO USER [facility] May 22, 2009 01:20 PM V9 TOBACCO OFFERED [facility] Encounter Notes: All associated encounter notes This section contains the clinical notes associated to the Encounter. Date/Time Encounter Note(s) Provider Source Apr 21, 2025 12:26 PM PHARMACY TELEPHONE ENCOUNTER NOTE: LOCAL TITLE: PHARMACY TELEPHONE CARE NOTE STANDARD TITLE: PHARMACY TELEPHONE ENCOUNTER NOTE DATE OF NOTE: APR 21, 2025@12:26 ENTRY DATE: APR 21, 2025@12:26:14 AUTHOR: SANJANA TORRES EXP COSIGNER: URGENCY: STATUS: COMPLETED PHARMACY TELEPHONE CARE NOTE Has ADDENDA 1. Name of caller: pt 2. Phone #: 3. Specialty Clinic/Primary Care Team: Progress Note Date Title Author (and Author's Title) SEP 03, 2024@11:26 PC PROGRESS NOTE GILBERTO PERALES (PRIMARY CARE PHYSI 4. Medication: METOPROLOL TARTRATE 100MG TAB ACTIVE OUT [facility] 01/11/2023 50MG MOUTH TWICE A DAY... [+] --pt states the provider knows this med is to be filled at the local [facility]-- 5. Last fill date: Provider: 6. The caller requests prescription: 7. View Alert to: /anitha/ SANJANA TORRES CPHT Pharmacy Optometric Assistant Signed: 04/21/2025 12:27 Receipt Acknowledged By: 04/21/2025 21:01 /anitha/ GILBERTO PERALES MD 04/21/2025 12:35 /anitha/ JULIENNE KAYE RN for MERRICK BAJWAERD 04/21/2025 ADDENDUM STATUS: COMPLETED PLEASE SEND TO [facility] @[phone] /anitha/ JULIENNE KAYE RN Signed: 04/21/2025 12:43 SANJANA TORRES-D [facility]
--- OUTSIDE RECORDS SUMMARY | 2025-04-22 06:45 | XMS_ITS | Encounter Summary ---
Author Name [facility] [place] Organization [facility] [place] Address [address] [place] [address] Care Team Providers Care Abstracter Name Role Phone GILBERTO PERALES Primary Care [...] PART A Jun 23, 2016 PART A [id number] [place] PATIENT MEDICARE (WNR) MEDICARE (M) PART B Jun 23, 2016 PART B [id number] [place] PATIENT MEDICARE (WNR) MEDICARE (M) PART A Jun 23, 2016 PART A [id number] [phone] [place] PATIENT MEDICARE (WNR) MEDICARE (M) PART B Jun 23, 2016 PART B [id number] [phone] ER[place] PATIENT MEDICARE PART D (WNR) MEDICARE (M) PART D Jun 23, 2016 PART D [id number] [place] PATIENT MEDICARE PART D (WNR) MEDICARE (M) PART D Jun 23, 2016 PART D [id number] ERWIN H[place] PATIENT [employer] [place] [employer] PLAN G PLAN G Jun 23, 2016 PLAN G [id number] [phone] ERWIN HALL PATIENT [employer] [place] [employer] PLAN G PLANG Jun 23, 2016 PLANG [id number] [phone] ERWIN H[place] PATIENT Selected Encounter This section includes the information on record at [place] for the Encounter. Date/Time Encounter Type Encounter Description Reason Pro vider Source Apr 22, 2025 10:45 AM Outpatient Encounter ADMIN PAT ACTIVTIES (MASNONCT) IHE Encounter Template Text not used by [place] Plan of Treatment: Future Appointments (+ 6 months) and Future Tests (+/- 45 days) The Plan of Treatment section includes future care activities for the patient from all [place] treatmentfacilities. This section includes future appointments and future orders which are active, pending or scheduled. Future Appointments This section includes appointments that were scheduled to occur 6 months from the date of the Encounter, up to a maximum of 20 appointments. The data comes from all [place] treatment [facility]. Appointment Date/Time Appointment Type Appointme nt Facility Name May 21, 2025 11:30 AM AMBULATORY - NONE [facility] Active, Pending, and Scheduled Orders This section includes a listing of several types of active, pending, and scheduled orders, including clinic medications orders, diagnostic test orders, procedure orders and consult orders; where the start date of the order is 45 days before the date of the Encounter or 45 days after the date of theEncounter. The data comes from all [facility]. Test Date/Time Test Type Test Details Facility Name May 21, 2025 12:00 AM Laboratory - Chemistry Order DRUG SCREEN EXPANDED IN-HOUSE URINE SP ONCE [facility] May 21, 2025 12:00 AM Laboratory - Chemistry Order MICROALBUMIN/CREAT RATIO URINE SP [facility] May 21, 2025 11:41 AM Procedure Order CP COLON ASYMPTOMATIC CP COLON ASYMPTOMATIC Proc Printed Circuit Board Panels Deburrer's Choice [facility] May 21, 2025 11:44 AM Laboratory - Chemistry Order GLYCOHEMOGLOBIN [id number] BLOOD SP ONCE [facility] May 21, 2025 11:44 AM Laboratory - Chemistry Order LIPID PROFILE [id number] SP ONCE [facility] May 21, 2025 11:44 AM Laboratory - Chemistry Order CBC/PLT [id number] BLOOD SP ONCE [facility] May 21, 2025 11:44 AM Laboratory - Chemistry Order TSH [id number] SP ONCE [facility] May 21, 2025 11:44 AM Laboratory - Chemistry Order 25-OH VITAMIN D [id number] SP ONCE [facility] May 21, 2025 11:44 AM Laboratory - Chemistry Order B12 VITAMIN [id number] SP ONCE [facility] May 21, 2025 11:44 AM Laboratory - Chemistry Order FOLATE [id number] SP [facility] Social History: Smoking Status (Most current) and Tobacco Use (All prior to encounter date) This section includes the most current, and the historical, smoking and tobacco- related health factors from the [place] facility where the Encounter took place. Current Smoking Status This section includes the most current smoking, or tobacco-related health factor, from the [place] facility where the Encounter took place. Date/Time Current Smoking Status Comment Facil ity February 22, 2021 01:15 PM VA-TOBACCO FORMER USER [facility] Tobacco Use History This section includes a history of the smoking, or tobacco-related health factors, that were collected on or before the date of the Encounter. The data comes from the [place] facility where the Encounter took place. Date/Time Smoking Status/Tobacco Use Comment F acility February 22, 2021 01:15 PM VA-TOBACCO QUIT 5 TO < 15 YRS [facility] Encounter Notes: All associated encounter notes This section contains the clinical notes associated to the Encounter. Date/Time Encounter Note(s) Provider Source Apr 22, 2025 12:43 PM ADDENDUM: LOCAL TITLE: Addendum STANDARD TITLE: ADDENDUM DATE OF NOTE: APR 22, 2025@12:43:11 ENTRY DATE: APR 22, 2025@12:43:12 AUTHOR: JULIENNE KAYE EXP COSIGNER: URGENCY: STATUS: COMPLETED Called [facility] back they are just waiting on a refill on this prescription Metoprolol Tartrate 50 mg twice a day. /anitha/ JULIENNE KAYE RN Signed: 04/22/2025 12:45 Receipt Acknowledged By: 04/22/2025 14:42 /es/ ALESSANDRA DODSON APRN for GILBERTO PERALES --- Original Document --- 04/22/25 CCC: SCHEDULING ADMINISTRATION: Caller Verification Call Back Number: [phone] Emergency Contact: SHANEL DOLORES Emergency Contact Caller/Recipient Relation to Patient: Other If Other Describe Relation to Patient: [facility] Caller Name: Ebony Administrative Administrative Note Reason: Other Administrative Note Comments: Ebony with [facility] needs to speak with someone regarding 's prescription. Please call back. IMPORTANT: This note was created by [facility] Clinical Contact Center staff. Please do not alert the staff member by adding them as a signer for future communications. Alerts are not monitored by this user. /es/ MAHSA CHILDS MSA Signed: 04/22/2025 10:45 Receipt Acknowledged By: 04/22/2025 12:43 /es/ JULIENNE MALLOY RN-CDD [facility] Apr 22, 2025 10:45 AM ADMINISTRATIVE NOT E: LOCAL TITLE: CCC: SCHEDULING ADMINISTRATION STANDARD TITLE: ADMINISTRATIVE NOTE DATE OF NOTE: APR 22, 2025@10:45:30 ENTRY DATE: APR 22, 2025@10:45:31 AUTHOR: MAHSA CHILDS EXP COSIGNER: URGENCY: STATUS: COMPLETED CCC: SCHEDULING ADMINISTRATION Has ADDENDA Caller Verification Call Back Number: [phone] Emergency Contact: SHANEL DOLORES Emergency Contact Caller/Recipient Relation to Patient: Other If Other Describe Relation to Patient: [facility] Caller Name: Ebony Administrative Administrative Note Reason: Other Administrative Note Comments: Ebony with [facility] needs to speak with someone regarding 's prescription. Please call back. IMPORTANT: This note was created by [facility] Clinical Contact Center staff. Please do not alert the staff member by adding them as a signer for future communications. Alerts are not monitored by this user. /anitha/ MAHSA CHILDS MSA Signed: 04/22/2025 10:45 Receipt Acknowledged By: 04/22/2025 12:43 /anitha/ JULIENNE KAYE RN 04/22/2025 ADDENDUM STATUS: COMPLETED Called [facility] back they are just waiting on a refill on this prescription Metoprolol Tartrate 50 mg twice a day. /anitha/ JULIENNE KAYE RN Signed: 04/22/2025 12:45 Receipt Acknowledged By: 04/22/2025 14:42 /anitha/ ALESSANDRA DODSON APRN for GILBETRO PERALES 04/22/2025 ADDENDUM STATUS: COMPLETED Metoprolol rx called to pharm. Year supply provided. /anitha/ ALESSANDRA DODSON APRN Signed: 04/22/2025 14:56 MAHSA CHILDS-NAEL [facility]
--- OUTSIDE RECORDS SUMMARY | 2025-04-25 09:51 | XMS_ITS | Encounter Summary ---
Author Name [facility] [place] Organization [facility] [place] Address [address] [place] [address] Care Team Providers Care Safe Deposit Box Rental Clerk Name Role Phone GILBERTO PERALES Primary [...] PART A Jun 23, 2016 PART A [id number] [phone] ERWIN HALL PATIENT MEDICARE (WNR) MEDICARE (M) PART B Jun 23, 2016 PART B [id number] ERWIN HALL PATIENT MEDICARE (WNR) MEDICARE (M) PART A Jun 23, 2016 PART A [id number] ERWIN HALL PATIENT MEDICARE (WNR) MEDICARE (M) PART B Jun 23, 2016 PART B [id number] [phone] ERWIN HALL PATIENT MEDICARE PART D (WNR) MEDICARE (M) PART D Jun 23, 2016 PART D [id number] ERWIN HALL PATIENT MEDICARE PART D (WNR) MEDICARE (M) PART D Jun 23, 2016 PART D [id number] ERWIN HALL PATIENT [employer] [place] [employer] PLAN G PLAN G Jun 23, 2016 PLAN G [id number] ERWIN HALL PATIENT [employer] [place] [employer] PLAN G PLANG Jun 23, 2016 PLANG [id number] ERWIN HALL PATIENT Selected Encounter This section includes the information on record at [place] for the Encounter. Date/Time Encounter Type Encounter Description Reason Pro vider Source Apr 25, 2025 01:51 PM Outpatient Encounter ADMIN PAT ACTIVTIES (MASNONCT) IHE Encounter Template Text not used by [place] Plan of Treatment: Future Appointments (+ 6 months) and Future Tests (+/- 45 days) The Plan of Treatment section includes future care activities for the patient from all [place] treatmentfacilities. This section includes future appointments and future orders which are active, pending or scheduled. Future Appointments This section includes appointments that were scheduled to occur 6 months from the date of the Encounter, up to a maximum of 20 appointments. The data comes from all [place] treatment [facility]. Appointment Date/Time Appointment Type Appointme nt Facility Name May 21, 2025 11:30 AM AMBULATORY - NONE [facility] Active, Pending, and Scheduled Orders This section includes a listing of several types of active, pending, and scheduled orders, including clinic medications orders, diagnostic test orders, procedure orders and consult orders; where the start date of the order is 45 days before the date of the Encounter or 45 days after the date of theEncounter. The data comes from all [facility]. Test Date/Time Test Type Test Details Facility Name May 21, 2025 12:00 AM Laboratory - Chemistry Order DRUG SCREEN EXPANDED IN-HOUSE URINE SP ONCE [facility] May 21, 2025 12:00 AM Laboratory - Chemistry Order MICROALBUMIN/CREAT RATIO URINE SP [facility] May 21, 2025 11:41 AM Procedure Order CP COLON ASYMPTOMATIC CP COLON ASYMPTOMATIC Proc County Program Technician's Choice [facility] May 21, 2025 11:44 AM Laboratory - Chemistry Order LIPID PROFILE [id number]-MARVGE SP ONCE [facility] May 21, 2025 11:44 AM Laboratory - Chemistry Order GLYCOHEMOGLOBIN [id number] BLOOD SP ONCE [facility] May 21, 2025 11:44 AM Laboratory - Chemistry Order CBC/PLT [id number] BLOOD SP ONCE [facility] May 21, 2025 11:44 AM Laboratory - Chemistry Order TSH [id number] SP ONCE [facility] May 21, 2025 11:44 AM Laboratory - Chemistry Order 25-OH VITAMIN D [id number] SP ONCE [facility] May 21, 2025 11:44 AM Laboratory - Chemistry Order FOLATE [id number]-OTOCEC SP [facility] May 21, 2025 11:44 AM Laboratory - Chemistry Order B12 VITAMIN [id number] SP ONCE [facility] Social History: Smoking Status (Most current) and Tobacco Use (All prior to encounter date) This section includes the most current, and the historical, smoking and tobacco- related health factors from the [place] facility where the Encounter took place. Current Smoking Status This section includes the most current smoking, or tobacco-related health factor, from the [place] facility where the Encounter took place. Date/Time Current Smoking Status Comment Facil ity Sep 03, 2024 11:00 AM VA-TOBACCO USER SOME DAYS [facility] Tobacco Use History This section includes a history of the smoking, or tobacco-related health factors, that were collected on or before the date of the Encounter. The data comes from the [place] facility where the Encounter took place. 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 [facility] Sep 03, 2024 11:00 AM VA-TOBACCO USE MED NO [facility] Sep 03, 2024 11:00 AM VA-TOBACCO USER SOME DAYS [facility] May 18, 2022 08:30 AM VA-TOBACCO DOESNT USE WI 30 MIN WAKEUP [facility] May 18, 2022 08:30 AM VA-TOBACCO USE 30 YEARS OR MORE [facility] May 18, 2022 08:30 AM VA-TOBACCO USE ADVICE [facility] May 18, 2022 08:30 AM 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 [facility] May 18, 2022 08:30 AM VA-TOBACCO USE MED NO [facility] May 18, 2022 08:30 AM VA-TOBACCO USER EVERY DAY [facility] Jul 02, 2020 10:00 AM VA-TOBACCO DOESNT USE WI 30 MIN WAKEUP [facility] Jul 02, 2020 10:00 AM VA-TOBACCO USE 30 YEARS OR MORE [facility] Jul 02, 2020 10:00 AM VA-TOBACCO USE ADVICE [facility] Jul 02, 2020 10:00 AM 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 [facility] Jul 02, 2020 10:00 AM VA-TOBACCO USE MED NO [facility] Jul 02, 2020 10:00 AM VA-TOBACCO USER SOME DAYS [facility] Nov 23, 2018 11:13 AM VA-TOBACCO DOESNT USE WI 30 MIN WAKEUP [facility] Nov 23, 2018 11:13 AM VA-TOBACCO USE 30 YEARS OR MORE [facility] Nov 23, 2018 11:13 AM VA-TOBACCO USE ADVICE [facility] Nov 23, 2018 11:13 AM 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 [facility] Nov 23, 2018 11:13 AM VA-TOBACCO USE MED NO [facility] Nov 23, 2018 11:13 AM VA-TOBACCO USER SOME DAYS [facility] Aug 29, 2017 09:43 AM V9 LIFETIME NON-USER OF TOBACCO [facility] Oct 20, 2016 09:13 AM V9 LIFETIME NON-USER OF TOBACCO [facility] Oct 28, 2015 09:04 AM V9 LIFETIME NON-USER OF TOBACCO [facility] Sep 24, 2014 10:16 AM V9 QUIT TOBACCO >1 2 MO & <7 YRS AGO [facility] Sep 24, 2014 10:16 AM V9 TOBACCO OFFERED [facility] Sep 13, 2013 10:18 AM TOBACCO OFFERRED P T MEDS (PROVIDER) [facility] Sep 13, 2013 10:18 AM V9 CURRENT TOBACCO USER [facility] Sep 13, 2013 10:18 AM V9 TOBACCO OFFERED [facility] Jul 12, 2012 05:32 PM V9 CURRENT TOBACCO USER [facility] Jul 12, 2012 05:32 PM V9 QUIT TOBACCO >1 2 MO & <7 YRS AGO [facility] Jul 12, 2012 05:32 PM V9 TOBACCO OFFERED [facility] Jul 04, 2011 09:53 AM TOBACCO OFFERRED P T MEDS (PROVIDER) [facility] Jul 04, 2011 09:53 AM V9 CURRENT TOBACCO USER [facility] Jul 04, 2011 09:53 AM V9 TOBACCO OFFERED [facility] May 24, 2010 08:09 AM TOBACCO OFFERRED P T MEDS (PROVIDER) [facility] May 24, 2010 08:09 AM V9 CURRENT TOBACCO USER [facility] May 24, 2010 08:09 AM V9 TOBACCO OFFERED [facility] May 22, 2009 01:20 PM TOBACCO OFFERRED P T MEDS (PROVIDER) [facility] May 22, 2009 01:20 PM V9 CURRENT TOBACCO USER [facility] May 22, 2009 01:20 PM V9 TOBACCO OFFERED [facility] Encounter Notes: All associated encounter notes This section contains the clinical notes associated to the Encounter. Date/Time Encounter Note(s) Provider Source Apr 25, 2025 01:51 PM PHARMACY TELEPHONE ENCOUNTER NOTE: LOCAL TITLE: PHARMACY TELEPHONE CARE NOTE STANDARD TITLE: PHARMACY TELEPHONE ENCOUNTER NOTE DATE OF NOTE: APR 25, 2025@13:51 ENTRY DATE: APR 25, 2025@13:51:36 AUTHOR: SHADE RODRIGUEZ COSIGNER: URGENCY: STATUS: COMPLETED 1. Name of caller: PT 2. Phone #: 3. Specialty Clinic/Primary Care Team: Progress Note Date Title Author (and Author's Title) SEP 03, 2024@11:26 PC PROGRESS NOTE GILBERTO PERALES (PRIMARY CARE PHYSI 4. Medication: LISINOPRIL TAB 20MG 20MG DAILY-PLEASE CALL INTO ANA LORENZ @[phone] 5. Last fill date: Provider: 6. The caller requests prescription: 7. View Alert to: /anitha/ SHADE ACEVEDO 9 [facility] Signed: 04/25/2025 13:52 Receipt Acknowledged By: 04/29/2025 20:40 /es/ GILBERTO RODRIGUEZ,SHADE [facility]
--- OUTSIDE RECORDS SUMMARY | 2025-04-28 07:13 | XMS_ITS | Encounter Summary ---
Author Name [facility] [place] [facility] [place] Organization [facility] [place] Address [address] [place] [address] Care Team Providers Care Bed Operator Name Role Phone GILBERTO PERALES Primary [...] PART A Jun 23, 2016 PART A [id number] ERWIN HALL PATIENT MEDICARE (WNR) MEDICARE (M) PART B Jun 23, 2016 PART B [id number] ERWIN HALL PATIENT MEDICARE (WNR) MEDICARE (M) PART A Jun 23, 2016 PART A [id number] ERWIN HALL PATIENT MEDICARE (WNR) MEDICARE (M) PART B Jun 23, 2016 PART B [id number] ERWIN HALL PATIENT MEDICARE PART D (WNR) MEDICARE (M) PART D Jun 23, 2016 PART D [id number] ERWIN HALL PATIENT MEDICARE PART D (WNR) MEDICARE (M) PART D Jun 23, 2016 PART D [id number] ERWIN HALL PATIENT [employer] OF [place] MEDIGAP PLAN G PLAN G Jun 23, 2016 PLAN G [id number] ERWIN HALL PATIENT [employer] [place] MED[employer] PLAN G PLANG Jun 23, 2016 PLANG [id number] ERWIN HALL PATIENT Selected Encounter This section includes the information on record at [place] for the Encounter. Date/Time Encounter Type Encounter Description Reason Pro vider Source Apr 28, 2025 11:13 AM Outpatient Encounter ADMIN PAT ACTIVTIES (MASNONCT) IHE Encounter Template Text not used by [place] Plan of Treatment: Future Appointments (+ 6 [...] The data comes from all [place] treatment [facility]. Appointment Date/Time Appointment Type Appointme nt Facility Name May 21, 2025 11:30 AM AMBULATORY - NONE [facility] Active, Pending, and Scheduled Orders This section includes a listing of several types of active, pending, and scheduled orders, including clinic medications orders, diagnostic test orders, procedure orders and consult orders; where the start date of the order is 45 days before the date of the Encounter or 45 days after the date of theEncounter. The data comes from all [facility]. Test Date/Time Test Type Test Details Facility Name May 21, 2025 12:00 AM Laboratory - Chemistry Order DRUG SCREEN EXPANDED IN-HOUSE URINE SP ONCE [facility] May 21, 2025 12:00 AM Laboratory - Chemistry Order MICROALBUMIN/CREAT RATIO URINE SP [facility] May 21, 2025 11:41 AM Procedure Order CP COLON ASYMPTOMATIC CP COLON ASYMPTOMATIC Proc Contact Lens Edge Buffer's Choice [facility] May 21, 2025 11:44 AM Laboratory - Chemistry Order GLYCOHEMOGLOBIN [id number] BLOOD SP ONCE [facility] May 21, 2025 11:44 AM Laboratory - Chemistry Order LIPID PROFILE [id number] SP ONCE [facility] May 21, 2025 11:44 AM Laboratory - Chemistry Order CBC/PLT [id number] BLOOD SP ONCE [facility] May 21, 2025 11:44 AM Laboratory - Chemistry Order TSH [id number] SP ONCE [facility] May 21, 2025 11:44 AM Laboratory - Chemistry Order 25-OH VITAMIN D [id number] SP ONCE [facility] May 21, 2025 11:44 AM Laboratory - Chemistry Order B12 VITAMIN [id number] SP ONCE [facility] May 21, 2025 11:44 AM Laboratory - Chemistry Order FOLATE [id number] SP [facility] Social History: Smoking Status (Most [...] 22, 2021 01:15 PM VA-TOBACCO FORMER USER [facility] Tobacco Use History This section includes a history of the smoking, or tobacco-related health factors, that were collected on or before the date of the Encounter. The data comes from the [place] facility where the Encounter took place. Date/Time Smoking Status/Tobacco Use Comment F acility February 22, 2021 01:15 PM VA-TOBACCO QUIT 5 TO < 15 YRS [facility] Encounter Notes: All associated encounter notes This section contains the clinical notes associated to the Encounter. Date/Time Encounter Note(s) Provider Source May 05, 2025 01:14 PM ADDENDUM: LOCAL TITLE: Addendum STANDARD TITLE: ADDENDUM DATE OF NOTE: MAY 05, 2025@13:14:17 ENTRY DATE: MAY 05, 2025@13:14:18 AUTHOR: JULIENNE KAYE EXP COSIGNER: URGENCY: STATUS: COMPLETED PACT MSA please call and schedule next available with PCP to evaluate weakness in lower extremities. /anitha/ JULIENNE KAYE RN Signed: 05/05/2025 13:15 Receipt Acknowledged By: 05/05/2025 14:19 /es/ Rosalia TriHaydee Joe AMSA --- Original Document --- 04/28/25 CCC: SCHEDULING ADMINISTRATION: Caller Verification Emergency Contact: SHANEL BERNAL Emergency Contact Caller/Recipient Relation to Patient: Self Caller Name: REWIN HALL Administrative Administrative Note Reason: Other Administrative Note Comments: Pt calling to speak with you regarding a couple questions he has IMPORTANT: This note was created by [facility] Clinical Contact Center staff. Please do not alert the staff member by adding them as a signer for future communications. Alerts are not monitored by this user. /es/ PEYTON LENNON Advanced medical care manager Signed: 04/28/2025 11:13 Receipt Acknowledged By: 04/28/2025 12:24 /anitha/ JULIENNE KAYE RN 04/28/2025 ADDENDUM STATUS: COMPLETED Spoke with . 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 Had no strength in [...] PERALES 05/05/2025 ADDENDUM STATUS: COMPLETED Please schedule [place] for evaluation by PCP. Strict ED precautions for any difficulty ambulating or continued falls. /anitha/ CHERYL ALARCON MD Primary Care Physician, Team Karely Signed: 05/05/2025 12:50 Receipt Acknowledged By: 05/05/2025 13:14 /es/ JULIENNE KAYE RN for MERRICK ARCEOD 05/05/2025 ADDENDUM STATUS: UNSIGNED You may not VIEW this UNSIGNED Addendum. JULIENNE KAYE-CDD [facility] May 05, 2025 12:49 PM ADDENDUM: LOCAL TITLE: Addendum STANDARD TITLE: ADDENDUM DATE OF NOTE: MAY 05, 2025@12:49:29 ENTRY DATE: MAY 05, 2025@12:49:29 AUTHOR: CHERYL ALARCON COSIGNER: URGENCY: STATUS: COMPLETED Please schedule for evaluation by PCP. Strict ED precautions for any difficulty ambulating or continued falls. /anitha/ CHERYL ALARCON MD Primary Care Physician, Team Karely Signed: 05/05/2025 12:50 Receipt Acknowledged By: 05/05/2025 13:14 /es/ JULIENNE KAYE RN for MERRICK GOODMAN --- Original Document --- 04/28/25 CCC: SCHEDULING ADMINISTRATION: Caller Verification Emergency Contact: SHANEL BERNAL Emergency Contact Caller/Recipient Relation to Patient: Self Caller Name: ERWIN HALL Administrative Administrative Note Reason: Other Administrative Note Comments: Pt calling to speak with you regarding a couple questions he has IMPORTANT: This note was created by [facility] Clinical Contact Center staff. Please do not alert the staff member by adding them as a signer for future communications. Alerts are not monitored by this user. /es/ PEYTON LENNON Advanced medical care manager Signed: 04/28/2025 11:13 Receipt Acknowledged By: 04/28/2025 12:24 /es/ JULIENNE KAYE RN 04/28/2025 ADDENDUM STATUS: COMPLETED Spoke with . 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 Had no strength in [...] Karely for GILBERTO PERALES 05/05/2025 ADDENDUM STATUS: UNSIGNED You may not VIEW this UNSIGNED Addendum. CHERYL ALARCON-CDD [facility] Apr 28, 2025 12:15 PM ADDENDUM: LOCAL TITLE: Addendum STANDARD TITLE: ADDENDUM DATE OF NOTE: APR 28, 2025@12:15:03 ENTRY DATE: APR 28, 2025@12:15:04 AUTHOR: JULIENNE KAYE EXP COSIGNER: URGENCY: STATUS: COMPLETED Spoke with . 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 Had no strength in [...] Care Physician, Team Karely for GILBERTO PERALES --- Original Document --- 04/28/25 CCC: SCHEDULING ADMINISTRATION: Caller Verification Emergency Contact: SHANEL RUSSELLN Emergency Contact Caller/Recipient Relation to Patient: Self Caller Name: ERWIN HALL Administrative Administrative Note Reason: Other Administrative Note Comments: Pt calling to speak with you regarding a couple questions he has IMPORTANT: This note was created by [facility] Clinical Contact Center staff. Please do not alert the staff member by adding them as a signer for future communications. Alerts are not monitored by this user. /es/ PEYTON LENNON Advanced medical care manager Signed: 04/28/2025 11:13 Receipt Acknowledged By: 04/28/2025 12:24 /anitha/ JULIENNE MALLOY RN-CDD [facility] Apr 28, 2025 11:13 AM ADMINISTRATIVE NOT E: LOCAL TITLE: CCC: SCHEDULING ADMINISTRATION STANDARD TITLE: ADMINISTRATIVE NOTE DATE OF NOTE: APR 28, 2025@11:13:49 ENTRY DATE: APR 28, 2025@11:13:49 AUTHOR: PEYTON PARADA EXP COSIGNER: URGENCY: STATUS: COMPLETED CCC: SCHEDULING ADMINISTRATION Has ADDENDA Caller Verification Emergency Contact: SHANEL BERNAL Emergency Contact Caller/Recipient Relation to Patient: Self Caller Name: ERWIN HALL Administrative Administrative Note Reason: Other Administrative Note Comments: Pt calling to speak with you regarding a couple questions he has IMPORTANT: This note was created by [facility] Clinical Contact Center staff. Please do not alert the staff member by adding them as a signer for future communications. Alerts are not monitored by this user. /es/ PEYTON LENNON Advanced medical care manager Signed: 04/28/2025 11:13 Receipt Acknowledged By: 04/28/2025 12:24 /es/ JULIENNE KAYE RN 04/28/2025 ADDENDUM STATUS: COMPLETED Spoke with . 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 Had no strength in [...] 13:14 /anitha/ JULIENNE KAYE RN for MERRICK GOODMAN 05/05/2025 [...] EDT FUTURE PPDD/T LETTER MAILED -PC Provider, also stated that he is not currently taking his tramadol again because he wants to see if it affects anything by not taking it. /anitha/ Rosalia CHAVEZ Signed: 05/05/2025 14:22 PEYTON PARADA-NAEL [facility]
--- OUTSIDE RECORDS SUMMARY | 2025-04-29 08:43 | XMS_ITS | Encounter Summary ---
Author Name [facility] [place] Organization [facility] [place] Address [address] [place] [address] Care Team Providers Care Medical Data Entry Clerk Name Role Phone GILBERTO PERALES Primary [...] PART B Jun 23, 2016 PART B [id number] [phone] ERWIN HALL PATIENT MEDICARE (WNR) MEDICARE (M) PART A Jun 23, 2016 PART A [id number] ERWIN HALL PATIENT MEDICARE (WNR) MEDICARE (M) PART A Jun 23, 2016 PART A [id number] [id number] [phone] ERWIN HALL PATIENT MEDICARE (WNR) MEDICARE (M) PART B Jun 23, 2016 PART B [id number] [phone] ERWIN HALL PATIENT MEDICARE PART D (WNR) MEDICARE (M) PART D Jun 23, 2016 PART D [id number] [phone] ERWIN HALL PATIENT MEDICARE PART D (WNR) MEDICARE (M) PART D Jun 23, 2016 PART D [id number] ERWIN HALL PATIENT [employer] [place] [employer] PLAN G PLAN G Jun 23, 2016 PLAN G [id number] [id number] ERWIN HALL PATIENT [employer] [place] [employer] PLAN G PLANG Jun 23, 2016 PLANG [id number] [phone] ERWIN HALL PATIENT Selected Encounter This section includes the information on record at [place] for the Encounter. Date/Time Encounter Type Encounter Description Reason Pro vider Source Apr 29, 2025 12:43 PM Outpatient Encounter ADMIN PAT ACTIVTIES (MASNONCT) IHE Encounter Template Text not used by [place] Plan of Treatment: Future Appointments (+ 6 months) and Future Tests (+/- 45 days) The Plan of Treatment section includes future care activities for the patient from all [place] treatmentfacilities. This section includes future appointments and future orders which are active, pending or scheduled. Future Appointments This section includes appointments that were scheduled to occur 6 months from the date of the Encounter, up to a maximum of 20 appointments. The data comes from all [place] treatment [facility]. Appointment Date/Time Appointment Type Appointme nt Facility Name May 21, 2025 11:30 AM AMBULATORY - NONE [facility] Active, Pending, and Scheduled Orders This section includes a listing of several types of active, pending, and scheduled orders, including clinic medications orders, diagnostic test orders, procedure orders and consult orders; where the start date of the order is 45 days before the date of the Encounter or 45 days after the date of theEncounter. The data comes from all [facility]. Test Date/Time Test Type Test Details Facility Name May 21, 2025 12:00 AM Laboratory - Chemistry Order DRUG SCREEN EXPANDED IN-HOUSE URINE SP ONCE [facility] May 21, 2025 12:00 AM Laboratory - Chemistry Order MICROALBUMIN/CREAT RATIO URINE SP [facility] May 21, 2025 11:41 AM Procedure Order CP COLON ASYMPTOMATIC CP COLON ASYMPTOMATIC Proc Deputy District Customs Director's Choice [facility] May 21, 2025 11:44 AM Laboratory - Chemistry Order GLYCOHEMOGLOBIN [id number] BLOOD SP ONCE [facility] May 21, 2025 11:44 AM Laboratory - Chemistry Order LIPID PROFILE [id number] SP ONCE [facility] May 21, 2025 11:44 AM Laboratory - Chemistry Order CBC/PLT [id number] BLOOD SP ONCE [facility] May 21, 2025 11:44 AM Laboratory - Chemistry Order TSH [id number]-ELKANS SP ONCE [facility] May 21, 2025 11:44 AM Laboratory - Chemistry Order 25-OH VITAMIN D [id number] SP ONCE [facility] May 21, 2025 11:44 AM Laboratory - Chemistry Order FOLATE [id number] SP [facility] May 21, 2025 11:44 AM Laboratory - Chemistry Order B12 VITAMIN [id number] SP ONCE [facility] Social History: Smoking Status (Most current) and Tobacco Use (All prior to encounter date) This section includes the most current, and the historical, smoking and tobacco- related health factors from the [place] facility where the Encounter took place. Current Smoking Status This section includes the most current smoking, or tobacco-related health factor, from the [place] facility where the Encounter took place. Date/Time Current Smoking Status Comment Facil ity Sep 03, 2024 11:00 AM VA-TOBACCO USER SOME DAYS [facility] Tobacco Use History This section includes a history of the smoking, or tobacco-related health factors, that were collected on or before the date of the Encounter. The data comes from the [place] facility where the Encounter took place. Date/Time Smoking Status/Tobacco Use Comment F acility Sep 03, 2024 11:00 AM VA-TOBACCO USE 30 YEARS OR MORE [facility] Sep 03, 2024 11:00 AM VA-TOBACCO USE ADVICE [facility] Sep 03, 2024 11:00 AM VA-TOBACCO USE SCANNING COORDINATOR NO [facility] Sep 03, 2024 11:00 AM VA-TOBACCO USE MED NO [facility] Sep 03, 2024 11:00 AM VA-TOBACCO USER SOME DAYS [facility] May 18, 2022 08:30 AM VA-TOBACCO DOESNT USE WI 30 MIN WAKEUP [facility] May 18, 2022 08:30 AM VA-TOBACCO USE 30 YEARS OR MORE [facility] May 18, 2022 08:30 AM VA-TOBACCO USE ADVICE [facility] May 18, 2022 08:30 AM VA-TOBACCO USE SCANNING COORDINATOR NO [facility] May 18, 2022 08:30 AM VA-TOBACCO USE MED NO [facility] May 18, 2022 08:30 AM VA-TOBACCO USER EVERY DAY [facility] Jul 02, 2020 10:00 AM VA-TOBACCO DOESNT USE WI 30 MIN WAKEUP [facility] Jul 02, 2020 10:00 AM VA-TOBACCO USE 30 YEARS OR MORE [facility] Jul 02, 2020 10:00 AM VA-TOBACCO USE ADVICE [facility] Jul 02, 2020 10:00 AM VA-TOBACCO USE SCANNING COORDINATOR NO [facility] Jul 02, 2020 10:00 AM VA-TOBACCO USE MED NO [facility] Jul 02, 2020 10:00 AM VA-TOBACCO USER SOME DAYS [facility] Nov 23, 2018 11:13 AM VA-TOBACCO DOESNT USE WI 30 MIN WAKEUP [facility] Nov 23, 2018 11:13 AM VA-TOBACCO USE 30 YEARS OR MORE [facility] Nov 23, 2018 11:13 AM VA-TOBACCO USE ADVICE [facility] Nov 23, 2018 11:13 AM VA-TOBACCO USE SCANNING COORDINATOR NO [facility] Nov 23, 2018 11:13 AM VA-TOBACCO USE MED NO [facility] Nov 23, 2018 11:13 AM VA-TOBACCO USER SOME DAYS [facility] Aug 29, 2017 09:43 AM V9 LIFETIME NON-USER OF TOBACCO [facility] Oct 20, 2016 09:13 AM V9 LIFETIME NON-USER OF TOBACCO [facility] Oct 28, 2015 09:04 AM V9 LIFETIME NON-USER OF TOBACCO [facility] Sep 24, 2014 10:16 AM V9 QUIT TOBACCO >1 2 MO & <7 YRS AGO [facility] Sep 24, 2014 10:16 AM V9 TOBACCO OFFERED [facility] Sep 13, 2013 10:18 AM TOBACCO OFFERRED P T MEDS (PROVIDER) [facility] Sep 13, 2013 10:18 AM V9 CURRENT TOBACCO USER [facility] Sep 13, 2013 10:18 AM V9 TOBACCO OFFERED [facility] Jul 12, 2012 05:32 PM V9 CURRENT TOBACCO USER [facility] Jul 12, 2012 05:32 PM V9 QUIT TOBACCO >1 2 MO & <7 YRS AGO [facility] Jul 12, 2012 05:32 PM V9 TOBACCO OFFERED [facility] Jul 04, 2011 09:53 AM TOBACCO OFFERRED P T MEDS (PROVIDER) [facility] Jul 04, 2011 09:53 AM V9 CURRENT TOBACCO USER [facility] Jul 04, 2011 09:53 AM V9 TOBACCO OFFERED [facility] May 24, 2010 08:09 AM TOBACCO OFFERRED P T MEDS (PROVIDER) [facility] May 24, 2010 08:09 AM V9 CURRENT TOBACCO USER [facility] May 24, 2010 08:09 AM V9 TOBACCO OFFERED [facility] May 22, 2009 01:20 PM TOBACCO OFFERRED P T MEDS (PROVIDER) [facility] May 22, 2009 01:20 PM V9 CURRENT TOBACCO USER [facility] May 22, 2009 01:20 PM V9 TOBACCO OFFERED [facility] Encounter Notes: All associated encounter notes This section contains the clinical notes associated to the Encounter. Date/Time Encounter Note(s) Provider Source Apr 29, 2025 05:22 PM ADDENDUM: LOCAL TITLE: Addendum STANDARD TITLE: ADDENDUM DATE OF NOTE: APR 29, 2025@17:22:28 ENTRY DATE: APR 29, 2025@17:22:29 AUTHOR: GILBERTO PERALES EXP COSIGNER: URGENCY: STATUS: COMPLETED Lisinopril 20 mg po daily x 90 days with 3 refills for HTN will be faxed to [facility] per pt's request Thank you. /anitha/ GILBERTO PERALES MD Signed: 04/29/2025 17:23 Receipt Acknowledged By: 04/30/2025 10:37 /anitha/ Layne CHAVEZ --- Original Document --- 04/29/25 PHARMACY TELEPHONE CARE NOTE: 1. Name of caller: KELECHI [facility] 2. Phone #: 3. Specialty Clinic/Primary Care Team: Progress Note Date Title Author (and Author's Title) SEP 03, 2024@11:26 PC PROGRESS NOTE GILBERTO PERALES (PRIMARY CARE PHYSI 4. Medication: LISINOPRIL TAB 20MG 20MG DAILY--PATIENT NEEDS SCRIPT CALLED INTO [facility] @ [phone] 5. Last fill date: ... Provider: 6. The caller requests prescription: Mailed 7. View Alert to: /anitha/ ALEXSANDER RENNER MGMT ANALYST Pharmacy Recreational Facilities Motel Manager Signed: 04/29/2025 12:45 Receipt Acknowledged By: 04/29/2025 17:20 /anitha/ GILBERTO PERALES MD 04/29/2025 ADDENDUM STATUS: COMPLETED vet states he is completely out of medication and needs these called into pharmacy today. /anitha/ TIERRA LARA [facility] Clinical Call Center Signed: 04/29/2025 13:00 Receipt Acknowledged By: 04/29/2025 17:22 /diane PERALES MD 04/30/2025 08:07 /anitha/ Layne CHAVEZ 04/30/2025 ADDENDUM STATUS: UNSIGNED You may not VIEW this UNSIGNED Addendum. GILBERTO PERALESCDNarayan [facility] Apr 29, 2025 12:59 PM ADDENDUM: LOCAL TITLE: Addendum STANDARD TITLE: ADDENDUM DATE OF NOTE: APR 29, 2025@12:59:18 ENTRY DATE: APR 29, 2025@12:59:18 AUTHOR: TIERRA LARA EXP COSIGNER: URGENCY: STATUS: COMPLETED vet states he is completely out of medication and needs these called into pharmacy today. /anitha/ TIERRA LARA [facility] Clinical Call Center Signed: 04/29/2025 13:00 Receipt Acknowledged By: 04/29/2025 17:22 /diane PERALES MD 04/30/2025 08:07 /anitha/ Layne Diaz AMSA --- Original Document --- 04/29/25 PHARMACY TELEPHONE CARE NOTE: 1. Name of caller: HAILEEALAN [facility] 2. Phone #: 3. Specialty Clinic/Primary Care Team: Progress Note Date Title Author (and Author's Title) SEP 03, 2024@11:26 PC PROGRESS NOTE GILBERTO PERALES (PRIMARY CARE PHYSI 4. Medication: LISINOPRIL TAB 20MG 20MG DAILY--PATIENT NEEDS SCRIPT CALLED INTO [facility] @ [phone] 5. Last fill date: ... Provider: 6. The caller requests prescription: Mailed 7. View Alert to: /anitha/ ALEXSANDER RENNER CPHT Pharmacy Recreational Facilities Motel Manager Signed: 04/29/2025 12:45 Receipt Acknowledged By: 04/29/2025 17:20 /diane PERALES MD 04/29/2025 ADDENDUM STATUS: COMPLETED Lisinopril 20 mg po daily x 90 days with 3 refills for HTN [facility] pt's request Thank you. /anitha/ GILBERTO PERALES MD Signed: 04/29/2025 17:23 Receipt Acknowledged By: * AWAITING SIGNATURE * LAYNE DIAZ SANTANA R [place]-Narayan [facility] Apr 29, 2025 12:43 PM PHARMACY TELEPHONE ENCOUNTER NOTE: LOCAL TITLE: PHARMACY TELEPHONE CARE NOTE STANDARD TITLE: PHARMACY TELEPHONE ENCOUNTER NOTE DATE OF NOTE: APR 29, 2025@12:43 ENTRY DATE: APR 29, 2025@12:43:47 AUTHOR: ZURDO,ALEXSANDER M EXP COSIGNER: URGENCY: STATUS: COMPLETED PHARMACY TELEPHONE CARE NOTE Has ADDENDA 1. [facility] 2. Phone #: 3. Specialty Clinic/Primary Care Team: Progress Note Date Title Author (and Author's Title) SEP 03, 2024@11:26 PC PROGRESS NOTE GILBERTO PERALES (PRIMARY CARE PHYSI 4. Medication: LISINOPRIL TAB 20MG 20MG DAILY--PATIENT NEEDS SCRIPT CALLED INTO [facility] IN [place] @ [phone] 5. Last fill date: ... Provider: 6. The caller requests prescription: Mailed 7. View Alert to: /anitha/ ALEXSANDER RENNER CPHT Pharmacy Recreational Facilities Motel Manager Signed: 04/29/2025 12:45 Receipt Acknowledged By: 04/29/2025 17:20 /diane PERALES MD 04/29/2025 ADDENDUM STATUS: COMPLETED vet states he is completely out of medication and needs these called into pharmacy today. /anitha/ TIERRA LARA [facility] Clinical Call Center Signed: 04/29/2025 13:00 Receipt Acknowledged By: 04/29/2025 17:22 /diane PERALES MD 04/30/2025 08:07 /anitha/ Layne CHAVEZ 04/29/2025 ADDENDUM STATUS: COMPLETED Lisinopril 20 mg po daily x 90 days with 3 refills for HTN [facility] Thank you. /diane PERALES MD Signed: 04/29/2025 17:23 Receipt Acknowledged By: 04/30/2025 10:37 /anitha/ Layne CHAVEZ 04/30/2025 ADDENDUM STATUS: COMPLETED Pact RN has faxed the above prescription to [facility] at: [phone]. This technical report writer called the pharmacy and verified that the fax was received and the medication is being prepared for the to strip picker. /anitha/ Layne CHAVEZ Signed: 04/30/2025 10:39 ALEXSANDER RENNER-Narayan [facility]
--- OUTSIDE RECORDS SUMMARY | 2025-05-20 07:22 | XMS_ITS | Encounter Summary ---
Author Name [facility] Organization [facility] Address [address] [place] [address] Care Team Providers Care Window Glazier Helper Name Role Phone GILBERTO PERALES Primary [...] PART A Jun 23, 2016 PART A [id number] ERWIN HALL PATIENT MEDICARE (WNR) MEDICARE (M) PART B Jun 23, 2016 PART B [id number] ERWIN HALL PATIENT MEDICARE (WNR) MEDICARE (M) PART A Jun 23, 2016 PART A [id number] ERWIN HALL PATIENT MEDICARE (WNR) MEDICARE (M) PART B Jun 23, 2016 PART B [id number] [phone] ERWIN HALL PATIENT MEDICARE PART D (WNR) MEDICARE (M) PART D Jun 23, 2016 PART D [id number] ERWIN HALL PATIENT MEDICARE PART D (WNR) MEDICARE (M) PART D Jun 23, 2016 PART D [id number] ERWIN HALL PATIENT [employer] PLAN G PLAN G Jun 23, 2016 PLAN G [id number] ERWIN HALL PATIENT [employer] PL[employer] G PLANG Jun 23, 2016 PLANG [id number] ERWIN HALL PATIENT Selected Encounter This section includes the information on record at [facility] for the Encounter. Date/Time Encounter Type Encounter Description Reason Pro vider Source May 20, 2025 11:22 AM Outpatient Encounter ADMIN PAT ACTIVTIES (MASNONCT) I[facility] Encounter Template Text not used by [place] Plan of Treatment: Future Appointments (+ 6 months) and Future Tests (+/- 45 days) The Plan of Treatment section includes future care activities for the patient from all [place] treatmentfacilities. This section includes future appointments and future orders which are active, pending or scheduled. Future Appointments This section includes appointments that were scheduled to occur 6 months from the date of the Encounter, up to a maximum of 20 appointments. The data comes from all [place] treatment [facility]. Appointment Date/Time Appointment Type Appointme nt Facility Name May 21, 2025 11:30 AM AMBULATORY - NONE [facility] Active, Pending, and Scheduled Orders This section includes a listing of several types of active, pending, and scheduled orders, including clinic medications orders, diagnostic test orders, procedure orders and consult orders; where the start date of the order is 45 days before the date of the Encounter or 45 days after the date of theEncounter. The data comes from all [facility]. Test Date/Time Test Type Test Details Facility Name May 21, 2025 12:00 AM Laboratory - Chemistry Order DRUG SCREEN EXPANDED IN-HOUSE URINE SP ONCE [facility] May 21, 2025 12:00 AM Laboratory - Chemistry Order MICROALBUMIN/CREAT RATIO URINE SP [facility] May 21, 2025 11:41 AM Procedure Order CP COLON ASYMPTOMATIC CP COLON ASYMPTOMATIC Proc Transmitter Tester's Choice [facility] May 21, 2025 11:44 AM Laboratory - Chemistry Order GLYCOHEMOGLOBIN [id number] BLOOD SP ONCE [facility] May 21, 2025 11:44 AM Laboratory - Chemistry Order CBC/PLT [id number] BLOOD SP ONCE [facility] May 21, 2025 11:44 AM Laboratory - Chemistry Order LIPID PROFILE [id number] SP ONCE [facility] May 21, 2025 11:44 AM Laboratory - Chemistry Order TSH [id number] SP ONCE [facility] May 21, 2025 11:44 AM Laboratory - Chemistry Order 25-OH VITAMIN D [id number] SP ONCE [facility] May 21, 2025 11:44 AM Laboratory - Chemistry Order FOLATE [id number] SP [facility] May 21, 2025 11:44 AM Laboratory - Chemistry Order B12 VITAMIN [id number] SP ONCE [facility] Social History: Smoking Status (Most current) and Tobacco Use (All prior to encounter date) This section includes the most current, and the historical, smoking and tobacco- related health factors from the [place] facility where the Encounter took place. Current Smoking Status This section includes the most current smoking, or tobacco-related health factor, from the [place] facility where the Encounter took place. Date/Time Current Smoking Status Comment Facil ity February 22, 2021 01:15 PM VA-TOBACCO FORMER USER [facility] Tobacco Use History This section includes a history of the smoking, or tobacco-related health factors, that were collected on or before the date of the Encounter. The data comes from the [place] facility where the Encounter took place. Date/Time Smoking Status/Tobacco Use Comment F acility February 22, 2021 01:15 PM VA-TOBACCO QUIT 5 TO < 15 YRS [facility] Encounter Notes: All associated encounter notes This section contains the clinical notes associated to the Encounter. Date/Time Encounter Note(s) Provider Source May 20, 2025 11:22 AM LETTERS: LOCAL TITLE: SPECIALTY CONTACT LETTER STANDARD TITLE: LETTERS DATE OF NOTE: MAY 20, 2025@11:22 ENTRY DATE: MAY 20, 2025@11:22:46 AUTHOR: LEISA KAYE EXP COSIGNER: URGENCY: STATUS: COMPLETED [facility] [address] [place] [address] Mr. ERWIN HALL [address] [facility] [place], [place] [address] MAY 20, 2025 Dear ERWIN HALL, We have been unable to contact you by telephone to schedule an appointment in our Optometry clinic. Your health and well-being are important to us. Please call us at or . Select Option #2 and then #3. We look forward to hearing from you soon. Sincerely yours, Optometry [facility] LEISA KAYE-[facility]
--- OUTSIDE RECORDS SUMMARY | 2025-05-20 20:00 | XMS_ITS | Encounter Summary ---
Author Name [facility] [facility] [place] [facility] [place] [facility] [place] Address [address] [place] [address] Care Team Providers Care Nocturnist Physician Name Role Phone GILBERTO PERALES Primary Care [...] PART A Jun 23, 2016 PART A [id number] ERWIN HALL PATIENT MEDICARE (WNR) MEDICARE (M) PART B Jun 23, 2016 PART B [id number] [phone] ERWIN HALL PATIENT MEDICARE (WNR) MEDICARE (M) PART A Jun 23, 2016 PART A [id number] [phone] ERWIN HALL PATIENT MEDICARE (WNR) MEDICARE (M) PART B Jun 23, 2016 PART B [id number] [phone] ERWIN HALL PATIENT MEDICARE PART D (WNR) MEDICARE (M) PART D Jun 23, 2016 PART D [id number] ERWIN HALL PATIENT MEDICARE PART D (WNR) MEDICARE (M) PART D Jun 23, 2016 PART D [id number] ERWIN HALL PATIENT [employer] [place] [employer] PLAN G PLAN G Jun 23, 2016 PLAN G [id number] ERWIN HALL PATIENT [employer] [place] [employer] PLAN G PLANG Jun 23, 2016 PLANG [id number] [phone] ERWIN HALL PATIENT Selected Encounter This section includes the information on record at [place] for the Encounter. Date/Time Encounter Type Encounter Description Reason Pro vider Source May 21, 2025 12:00 AM Outpatient Encounter EVENT (HISTORICAL) IHE Encounter Template Text not used by [place] Plan of Treatment: Future Appointments (+ 6 months) and Future Tests (+/- 45 days) The Plan of Treatment section includes future care activities for the patient from all [place] treatmentfacilities. This section includes future appointments and future orders which are active, pending or scheduled. Active, Pending, and Scheduled Orders This section includes a listing of several types of active, pending, and scheduled orders, including clinic medications orders, diagnostic test orders, procedure orders and consult orders; where the start date of the order is 45 days before the date of the Encounter or 45 days after the date of theEncounter. The data comes from all [place] treatment facilities. Test Date/Time Test Type Test Details Facility Name May 21, 2025 12:00 AM Laboratory - Chemistry Order DRUG SCREEN EXPANDED IN-HOUSE URINE SP ONCE [facility] May 21, 2025 12:00 AM Laboratory - Chemistry Order MICROALBUMIN/CREAT RATIO URINE SP [facility] May 21, 2025 11:41 AM Procedure Order CP COLON ASYMPTOMATIC CP COLON ASYMPTOMATIC Proc Wire Bound Box Machine Operator's Choice [facility] May 21, 2025 11:44 AM Laboratory - Chemistry Order GLYCOHEMOGLOBIN [id number] BLOOD SP ONCE [facility] May 21, 2025 11:44 AM Laboratory - Chemistry Order CBC/PLT [id number] BLOOD SP ONCE [facility] May 21, 2025 11:44 AM Laboratory - Chemistry Order LIPID PROFILE [id number] SP ONCE [facility] May 21, 2025 11:44 AM Laboratory - Chemistry Order TSH [id number] SP ONCE [facility] May 21, 2025 11:44 AM Laboratory - Chemistry Order 25-OH VITAMIN D [id number] SP ONCE [facility] May 21, 2025 11:44 AM Laboratory - Chemistry Order FOLATE [id number] SP [facility] May 21, 2025 11:44 AM Laboratory - Chemistry Order B12 VITAMIN [id number] SP ONCE [facility] Vital Signs: All taken on the encounter date This section contains inpatient and outpatient Vital Signs collected on the date of the Encounter. Date/Time Temperature Pulse Blood Pressure Respiratory Rate SP02 Pain Height Weight Body Mass Index Source May 21, 2025 11:37 AM 132/69 mm[Hg[facility] May 21, 2025 10:54 AM 97.6 F 66 /min 151/84 mm[Hg] 16 /min 99 % 7 72 in 199 lb 27 [facility] Social History: Smoking Status (Most current) and Tobacco Use (All prior to encounter date) This section includes the most current, and the historical, smoking and tobacco- related health factors from the [place] facility where the Encounter took place. Current Smoking Status This section includes the most current smoking, or tobacco-related health factor, from the [place] facility where the Encounter took place. Date/Time Current Smoking Status Comment Francesco itjune May 21, 2025 11:30 AM VA-TOBACCO NEVER U SED CIGARETTES [facility] Tobacco Use History This section includes a history of the smoking, or tobacco-related health factors, that were collected on or before the date of the Encounter. The data comes from the [place] facility where the Encounter took place. Date/Time Smoking Status/Tobacco Use Comment F acility May 21, 2025 11:30 AM VA-TOBACCO SCREEN FOLLOW-UP [facility] May 21, 2025 11:30 AM VA-TOBACCO USE ADVICE [facility] May 21, 2025 11:30 AM VA-TOBACCO USE LOG CHIPPER NO [facility] May 21, 2025 11:30 AM VA-TOBACCO USE MED NO [facility] May 21, 2025 11:30 AM VA-TOBACCO USE MIGDALIA E DAYS CIGARS/PIPES [facility] May 21, 2025 11:30 AM VA-TOBACCO USE MIGDALIA E DAYS OTHER TYPE [facility] Sep 03, 2024 11:00 AM VA-TOBACCO DOESNT USE WI 30 MIN WAKEUP [facility] Sep 03, 2024 11:00 AM VA-TOBACCO USE 30 YEARS OR MORE [facility] Sep 03, 2024 11:00 AM VA-TOBACCO USE ADVICE [facility] Sep 03, 2024 11:00 AM VA-TOBACCO USE LOG CHIPPER NO [facility] Sep 03, 2024 11:00 AM VA-TOBACCO USE MED NO [facility] Sep 03, 2024 11:00 AM VA-TOBACCO USER SOME DAYS [facility] May 18, 2022 08:30 AM VA-TOBACCO DOESNT USE WI 30 MIN WAKEUP [facility] May 18, 2022 08:30 AM VA-TOBACCO USE 30 YEARS OR MORE [facility] May 18, 2022 08:30 AM VA-TOBACCO USE ADVICE [facility] May 18, 2022 08:30 AM VA-TOBACCO USE LOG CHIPPER NO [facility] May 18, 2022 08:30 AM VA-TOBACCO USE MED NO [facility] May 18, 2022 08:30 AM VA-TOBACCO USER EVERY DAY [facility] Jul 02, 2020 10:00 AM VA-TOBACCO DOESNT USE WI 30 MIN WAKEUP [facility] Jul 02, 2020 10:00 AM VA-TOBACCO USE 30 YEARS OR MORE [facility] Jul 02, 2020 10:00 AM VA-TOBACCO USE ADVICE [facility] Jul 02, 2020 10:00 AM VA-TOBACCO USE LOG CHIPPER NO [facility] Jul 02, 2020 10:00 AM VA-TOBACCO USE MED NO [facility] Jul 02, 2020 10:00 AM VA-TOBACCO USER SOME DAYS [facility] Nov 23, 2018 11:13 AM VA-TOBACCO DOESNT USE WI 30 MIN WAKEUP [facility] Nov 23, 2018 11:13 AM VA-TOBACCO USE 30 YEARS OR MORE [facility] Nov 23, 2018 11:13 AM VA-TOBACCO USE ADVICE [facility] Nov 23, 2018 11:13 AM VA-TOBACCO USE LOG CHIPPER NO [facility] Nov 23, 2018 11:13 AM VA-TOBACCO USE MED NO [facility] Nov 23, 2018 11:13 AM VA-TOBACCO USER SOME DAYS [facility] Aug 29, 2017 09:43 AM V9 LIFETIME NON-USER OF TOBACCO [facility] Oct 20, 2016 09:13 AM V9 LIFETIME NON-USER OF TOBACCO [facility] Oct 28, 2015 09:04 AM V9 LIFETIME NON-USER OF TOBACCO [facility] Sep 24, 2014 10:16 AM V9 QUIT TOBACCO >1 2 MO & <7 YRS AGO [facility] Sep 24, 2014 10:16 AM V9 TOBACCO OFFERED [facility] Sep 13, 2013 10:18 AM TOBACCO OFFERRED P T MEDS (PROVIDER) [facility] Sep 13, 2013 10:18 AM V9 CURRENT TOBACCO USER [facility] Sep 13, 2013 10:18 AM V9 TOBACCO OFFERED [facility] Jul 12, 2012 05:32 PM V9 CURRENT TOBACCO USER [facility] Jul 12, 2012 05:32 PM V9 QUIT TOBACCO >1 2 MO & <7 YRS AGO [facility] Jul 12, 2012 05:32 PM V9 TOBACCO OFFERED [facility] Jul 04, 2011 09:53 AM TOBACCO OFFERRED P T MEDS (PROVIDER) [facility] Jul 04, 2011 09:53 AM V9 CURRENT TOBACCO USER [facility] Jul 04, 2011 09:53 AM V9 TOBACCO OFFERED [facility] May 24, 2010 08:09 AM TOBACCO OFFERRED P T MEDS (PROVIDER) [facility] May 24, 2010 08:09 AM V9 CURRENT TOBACCO USER [facility] May 24, 2010 08:09 AM V9 TOBACCO OFFERED [facility] May 22, 2009 01:20 PM TOBACCO OFFERRED P T MEDS (PROVIDER) [facility] May 22, 2009 01:20 PM V9 CURRENT TOBACCO USER [facility] May 22, 2009 01:20 PM V9 TOBACCO OFFERED [facility]
--- NOTE | 2025-05-21 | CA_ITS ---
APPROVED REPORT EXAM: Comprehensive 2D, Doppler, and color-flow Echocardiogram [employer]inner [employer]: ДМИТРИЙ Jean, RVS Ht: 6 ft 0 in Wt: 200lbs BSA: 2.13 BP: 180/80 mmHg Indications: Murmur, HTN, Fatigue, CAD-DE 20 years ago 2D Dimensions Left Atrium 3.28 cm M: 3.0 - 4.0 LA Volume 41.50 mL LA Volume Index 19.48 mL/m2 (M/F) 16-34 M-Mode Dimensions RVDd 1.49 cm (0.9-2.6) LA Diam 4.12 cm (1.9-4.0) LVDd 5.82 cm (3.5-5.7) LVDs 3.99 cm (3.5-5.7) IVSd 1.12 cm (0.6-1.1) PWd 0.92 cm (0.6-1.1) EF (Teich) 62.20% EPSs 0.57 cm FS 34.20% EDV (Teich) 184.10 mL TAPSE 2.26 (<1.7) ESV (Teich) 69.60 mL LV Diastology E Decel Time 227 (160-240 msec) E/A Ratio 0.85 MED A' 9.40 cm/s LAT A' 11.30 cm/s Aortic Valve SERVANDO Index 0.87 cm2/m2 AoV Peak Tres. 231.0 (50-130 cm/s) AI PHT 654.00 ms AO Peak GR. 22.30 mmHg AO Mean GR. 11.80 (<5 mmHg) AO VTI 48.0 (18-25 cm) SERVANDO (VTI) 1.89 (2.5-4.5 cm2) Mitral Valve MV A Velocity 84.0 (40-130 cm/s) E/A Ratio 0.85 Left Ventricle The left ventricle is normal size. Left ventricular systolic function is normal. The left ventricular ejection fraction is within the normal range. There is increased left ventricular wall thickness. There is normal LV segmental wall motion. Transmitral Doppler flow pattern suggests impaired LV relaxation. LVEF is 55% Right Ventricle The right ventricle is normal size. The right ventricular systolic function is normal. Atria The left atrium size is normal. The right atrium size is normal. There is no color Doppler evidence of interatrial shunt. Aortic Valve The aortic valve is mildly thickened. Mild aortic stenosis is present. SERVANDO by continuity equation is 1.9 cm2. Peak velocity 2.2 m/s. Mean AV gradient is 14 mmHg. Max AV gradient is 27 mmHg. Moderate aortic regurgitation. Mitral Valve The mitral valve is normal in structure. No evidence of mitral valve stenosis. Mild mitral regurgitation is present. Tricuspid Valve The tricuspid valve leaflets are thin and pliable. Trace tricuspid regurgitation. There is insufficient TR jet to estimate RVSP. Pulmonic Valve The pulmonary valve is grossly normal in structure. Trace pulmonic valve regurgitation is present. Great Vessels The aortic root is normal in size. IVC is normal in size and collapses >50% with inspiration. Pericardium Trivial, anterior pericardial effusion. No echo indications of tamponade. Other Information Study Quality: Fair Conclusion Normal biventricular systolic function. Mild (SERVANDO by continuity equation is 1.9 cm2. Peak velocity 2.2 m/s. Mean AV gradient is 14 mmHg. Max AV gradient is 27 mmHg). Moderate AI. Mild MR. Trivial, anterior pericardial effusion. No echo indications of tamponade. Electronically signed by : Yaneth Avery MD 05/22/2025 11:50:42
--- NOTE | 2025-05-21 | CA_ITS ---
FINAL REPORT TECHNIQUE: Cha scale, color and spectral doppler images of the bilateral carotid arteries were obtained. CLINICAL HISTORY: CAD, HTN FINDINGS: Peak systolic velocity in the right internal carotid artery is 156 cm/sec. The internal carotid to common carotid artery ratio is 87. There is no significant carotid artery stenosis and no significant plaque formation. The right vertebral artery is normal in direction. Peak systolic velocity in the left internal carotid artery is 127 cm/sec. The internal carotid to common carotid artery ratio is 78. There is no significant carotid artery stenosis and no significant plaque formation. The left vertebral artery is normal in direction. IMPRESSION: Less than 50% carotid artery stenosis bilaterally. Reviewed, Interpreted and Dictated by Arely Montiel MD Transcribed by Doreen Teague Authenticated and [facility]
--- OUTSIDE RECORDS SUMMARY | 2025-05-21 07:30 | XMS_ITS ---
Author Name [facility] Address [address] [place] [address] Care Team Providers Care Technical Instructor Name Role Phone GILBERTO PERALES Primary Care [...] PART A Jun 23, 2016 PART A [id number] [place] PATIENT MEDICARE (WNR) MEDICARE (M) PART B Jun 23, 2016 PART B [id number] [place] PATIENT MEDICARE (WNR) MEDICARE (M) PART A Jun 23, 2016 PART A [id number] [phone] [place] PATIENT MEDICARE (WNR) MEDICARE (M) PART B Jun 23, 2016 PART B [id number] [phone] [place] PATIENT MEDICARE PART D (WNR) MEDICARE (M) PART D Jun 23, 2016 PART D [id number] [place] PATIENT MEDICARE PART D (WNR) MEDICARE (M) PART D Jun 23, 2016 PART D [id number] [place] PATIENT [employer] PLAN G PLAN G Jun 23, 2016 PLAN G [id number] [place] PATIENT [employer] PL[employer] G PLANG Jun 23, 2016 PLANG [id number] [place] PATIENT Selected Encounter This section includes the information on record at OR for the Encounter. Date/Time Encounter Type Encounter Description Reason Pro vider Source May 21, 2025 11:30 AM Outpatient Encounter EVENT (HISTORICAL) IHE Encounter Template Text not used by OR Plan of Treatment: Future Appointments (+ 6 months) and Future Tests (+/- 45 days) The Plan of Treatment section includes future care activities for the patient from all OR treatmentfacilities. This section includes future appointments and [...] of theEncounter. The data comes from all OR treatment facilities. Test Date/Time Test Type Test Details Facility Name May 21, 2025 12:00 AM Laboratory - Chemistry Order DRUG SCREEN EXPANDED IN-HOUSE URINE SP ONCE [facility] May 21, 2025 12:00 AM Laboratory - Chemistry Order MICROALBUMIN/CREAT RATIO URINE SP [facility] May 21, 2025 11:41 AM Procedure Order CP COLON ASYMPTOMATIC CP COLON ASYMPTOMATIC Proc Substation Supervisor's Choice [facility] May 21, 2025 11:44 AM Laboratory - Chemistry Order GLYCOHEMOGLOBIN [id number] BLOOD SP ONCE [facility] May 21, 2025 11:44 AM Laboratory - Chemistry Order LIPID PROFILE [id number] SP ONCE [facility] May 21, 2025 11:44 AM Laboratory - Chemistry Order CBC/PLT [id number] BLOOD SP ONCE [facility] May 21, 2025 11:44 AM Laboratory - Chemistry Order TSH [id number] SP ONCE [facility] May 21, 2025 11:44 AM Laboratory - Chemistry Order 25-OH VITAMIN D [id number] SP ONCE [facility] May 21, 2025 11:44 AM Laboratory - Chemistry Order B12 VITAMIN [id number] SP ONCE [facility] May 21, 2025 11:44 AM Laboratory - Chemistry Order FOLATE [id number] SP [facility] Vital Signs: All taken on the encounter date This section contains inpatient and outpatient Vital Signs collected on the date of the Encounter. Date/Time Temperature Pulse Blood Pressure Respiratory Rate SP02 Pain Height Weight Body Mass Index Source May 21, 2025 11:37 AM 132/69 mm[Hg] [facility] May 21, 2025 10:54 AM 97.6 F 66 /min 151/84 mm[Hg] 16 /min 99 % 7 72 in 199 lb 27 [facility] Social History: Smoking Status (Most current) and Tobacco Use (All prior to encounter date) This section includes the most current, and the historical, smoking and tobacco- related health factors from the OR facility where the Encounter took place. Current Smoking Status This section includes the most current smoking, or tobacco-related health factor, from the OR facility where the Encounter took place. Date/Time Current Smoking Status Comment Francesco itjune May 21, 2025 11:30 AM VA-TOBACCO NEVER U SED CIGARETTES [facility] Tobacco Use History This section includes a history of the smoking, or tobacco-related health factors, that were collected on or before the date of the Encounter. The data comes from the OR facility where the Encounter took place. Date/Time Smoking Status/Tobacco Use Comment F acility May 21, 2025 11:30 AM VA-TOBACCO SCREEN FOLLOW-UP [facility] May 21, 2025 11:30 AM VA-TOBACCO USE ADVICE [facility] May 21, 2025 11:30 AM VA-TOBACCO USE FINANCE ADVISOR NO [facility] May 21, 2025 11:30 AM VA-TOBACCO USE MED NO [facility] May 21, 2025 11:30 AM VA-TOBACCO USE MIGDALIA E DAYS CIGARS/PIPES [facility] May 21, 2025 11:30 AM VA-TOBACCO USE MIGDALIA E DAYS OTHER TYPE [facility] Sep 03, 2024 11:00 AM VA-TOBACCO DOESNT USE WI 30 MIN WAKEUP [facility] Sep 03, 2024 11:00 AM VA-TOBACCO USE 30 YEARS OR MORE [facility] Sep 03, 2024 11:00 AM VA-TOBACCO USE ADVICE [facility] Sep 03, 2024 11:00 AM VA-TOBACCO USE FINANCE ADVISOR NO [facility] Sep 03, 2024 11:00 AM VA-TOBACCO USE MED NO [facility] Sep 03, 2024 11:00 AM VA-TOBACCO USER SOME DAYS [facility] May 18, 2022 08:30 AM VA-TOBACCO DOESNT USE WI 30 MIN WAKEUP [facility] May 18, 2022 08:30 AM VA-TOBACCO USE 30 YEARS OR MORE [facility] May 18, 2022 08:30 AM VA-TOBACCO USE ADVICE [facility] May 18, 2022 08:30 AM VA-TOBACCO USE FINANCE ADVISOR NO [facility] May 18, 2022 08:30 AM VA-TOBACCO USE MED NO [facility] May 18, 2022 08:30 AM VA-TOBACCO USER EVERY DAY [facility] Jul 02, 2020 10:00 AM VA-TOBACCO DOESNT USE WI 30 MIN WAKEUP [facility] Jul 02, 2020 10:00 AM VA-TOBACCO USE 30 YEARS OR MORE [facility] Jul 02, 2020 10:00 AM VA-TOBACCO USE ADVICE [facility] Jul 02, 2020 10:00 AM VA-TOBACCO USE FINANCE ADVISOR NO [facility] Jul 02, 2020 10:00 AM VA-TOBACCO USE MED NO [facility] Jul 02, 2020 10:00 AM VA-TOBACCO USER SOME DAYS [facility] Nov 23, 2018 11:13 AM VA-TOBACCO DOESNT USE WI 30 MIN WAKEUP [facility] Nov 23, 2018 11:13 AM VA-TOBACCO USE 30 YEARS OR MORE [facility] Nov 23, 2018 11:13 AM VA-TOBACCO USE ADVICE [facility] Nov 23, 2018 11:13 AM VA-TOBACCO USE FINANCE ADVISOR NO [facility] Nov 23, 2018 11:13 AM VA-TOBACCO USE MED NO [facility] Nov 23, 2018 11:13 AM VA-TOBACCO USER SOME DAYS [facility] Aug 29, 2017 09:43 AM V9 LIFETIME NON-USER OF TOBACCO [facility] Oct 20, 2016 09:13 AM V9 LIFETIME NON-USER OF TOBACCO [facility] Oct 28, 2015 09:04 AM V9 LIFETIME NON-USER OF TOBACCO [facility] Sep 24, 2014 10:16 AM V9 QUIT TOBACCO >1 2 MO & <7 YRS AGO [facility] Sep 24, 2014 10:16 AM V9 TOBACCO OFFERED [facility] Sep 13, 2013 10:18 AM TOBACCO OFFERRED P T MEDS (PROVIDER) [facility] Sep 13, 2013 10:18 AM V9 CURRENT TOBACCO USER [facility] Sep 13, 2013 10:18 AM V9 TOBACCO OFFERED [facility] Jul 12, 2012 05:32 PM V9 CURRENT TOBACCO USER [facility] Jul 12, 2012 05:32 PM V9 QUIT TOBACCO >1 2 MO & <7 YRS AGO [facility] Jul 12, 2012 05:32 PM V9 TOBACCO OFFERED [facility] Jul 04, 2011 09:53 AM TOBACCO OFFERRED P T MEDS (PROVIDER) [facility] Jul 04, 2011 09:53 AM V9 CURRENT TOBACCO USER [facility] Jul 04, 2011 09:53 AM V9 TOBACCO OFFERED [facility] May 24, 2010 08:09 AM TOBACCO OFFERRED P T MEDS (PROVIDER) [facility] May 24, 2010 08:09 AM V9 CURRENT TOBACCO USER [facility] May 24, 2010 08:09 AM V9 TOBACCO OFFERED [facility] May 22, 2009 01:20 PM TOBACCO OFFERRED P T MEDS (PROVIDER) [facility] May 22, 2009 01:20 PM V9 CURRENT TOBACCO USER [facility] May 22, 2009 01:20 PM V9 TOBACCO OFFERED [facility]
--- OUTSIDE RECORDS SUMMARY | 2025-05-21 07:30 | XMS_ITS | Encounter Summary ---
Author Name [facility] Organization [facility] Address [address] [place] [address] Care Team Providers Care Mattress Renovator Name Role Phone GILBERTO PERALES Primary Care [...] PART A Jun 23, 2016 PART A [id number] [place] PATIENT MEDICARE (WNR) MEDICARE (M) PART B Jun 23, 2016 PART B [id number] [place] PATIENT MEDICARE (WNR) MEDICARE (M) PART A Jun 23, 2016 PART A [id number] [phone] [place] PATIENT MEDICARE (WNR) MEDICARE (M) PART B Jun 23, 2016 PART B [id number] [phone] [place] PATIENT MEDICARE PART D (WNR) MEDICARE (M) PART D Jun 23, 2016 PART D [id number] [place] PATIENT MEDICARE PART D (WNR) MEDICARE (M) PART D Jun 23, 2016 PART D [id number] [place] PATIENT [employer] PLAN G PLAN G Jun 23, 2016 PLAN G [id number] [phone] [place] PATIENT [employer] PL[employer] G PLANG Jun 23, 2016 PLANG [id number] [place] PATIENT Selected Encounter This section includes the information on record at [place] for the Encounter. Date/Time Encounter Type Encounter Description Reason Provider Source May 21, 2025 11:30 AM OFFICE O/P EST MOD 30 MIN PRIMARY CARE/MEDICINE ICD-10-CM I10 Essential (primary) hypertension GILBERTO PERALES Kevin Encounter Template Text not used by [place] Assessments - Encounter Diagnoses This section includes the primary and secondary diagnoses documented for the Encounter. Date/Time Primary/Secondary Diagnosis Diagnosis Name Provider Source May 21, 2025 12:11 PM PRIMARY Essential (primary) hypertension [facility] May 21, 2025 12:11 PM SECONDARY Athscl heart disease of [place] coronary artery w/o ang pctrs [facility] May 21, 2025 12:11 PM SECONDARY Benign prostatic hyperplasia with lower urinary tract symp [facility] May 21, 2025 12:11 PM SECONDARY Cervicalgia [facility] May 21, 2025 12:11 PM SECONDARY Encounter for immunization ALEX TAM [facility] May 21, 2025 12:11 PM SECONDARY Gastro-esophageal reflux disease without esophagitis [facility] May 21, 2025 12:11 PM SECONDARY Hyperlipidemia, unspecified [facility] May 21, 2025 12:11 PM SECONDARY Other male erectile dysfunction [facility] May 21, 2025 12:11 PM SECONDARY Type 2 diabetes mellitus with unspecified complications [facility] Plan of Treatment: Future Appointments (+ 6 months) and Future Tests (+/- 45 days) The Plan of Treatment section includes future care activities for the patient from all [place] treatmentfacilities. This section includes future appointments and [...] of theEncounter. The data comes from all [place] treatment facilities. Test Date/Time Test Type Test Details Facility Name May 21, 2025 12:00 AM Laboratory - Chemistry Order DRUG SCREEN EXPANDED IN-HOUSE URINE SP ONCE [facility] May 21, 2025 12:00 AM Laboratory - Chemistry Order MICROALBUMIN/CREAT RATIO URINE SP [facility] May 21, 2025 11:41 AM Procedure Order CP COLON ASYMPTOMATIC CP COLON ASYMPTOMATIC Proc Area Director's Choice [facility] May 21, 2025 11:44 AM Laboratory - Chemistry Order GLYCOHEMOGLOBIN [id number] BLOOD SP ONCE [facility] May 21, 2025 11:44 AM Laboratory - Chemistry Order LIPID PROFILE [id number] SP ONCE [facility] May 21, 2025 11:44 AM Laboratory - Chemistry Order CBC/PLT [id number] BLOOD SP ONCE [facility] May 21, 2025 11:44 AM Laboratory - Chemistry Order TSH [id number] SP ONCE [facility] May 21, 2025 11:44 AM Laboratory - Chemistry Order 25-OH VITAMIN D [id number] SP ONCE [facility] May 21, 2025 11:44 AM Laboratory - Chemistry Order B12 VITAMIN [id number] SP ONCE [facility] May 21, 2025 11:44 AM Laboratory - Chemistry Order FOLATE [id number] SP [facility] Vital Signs: All taken on the encounter date This section contains inpatient and outpatient Vital Signs collected on the date of the Encounter. Date/Time Temperature Pulse Blood Pressure Respiratory Rate SP02 Pain Height Weight Body Mass Index Source May 21, 2025 11:37 AM 132/69 mm[Hg] [facility] May 21, 2025 10:54 AM 97.6 F 66 /min 151/84 mm[Hg] 16 /min 99 % 7 72 in 199 lb 27 [facility] Immunizations: All administered on the encounter date This section contains immunizations associated to the Encounter. Immunization Series Date Issued Administered By Site Reaction Lot Number CVX Code Drug Bark Skinner Comment(s) Source TDAP May 21, 2025 ALEX TAM LEFT DELTO ID [id number] SANOFI PASTEUR ADMINISTERE D AT [place], Discussed risks vs benefits with and informed him to stay in lobby for approximate ly 30 mins for obs. No ASE's noted, and expressed understandi ng. Provider notified. [facility] Social History: Smoking Status (Most current) and Tobacco Use (All prior to encounter date) This section includes the most current, and the historical, smoking and tobacco- related health factors from the [place] facility where the Encounter took place. Current Smoking Status This section includes the most current smoking, or tobacco-related health factor, from the [place] facility where the Encounter took place. Date/Time Current Smoking Status Comment Francesco itjune May 21, 2025 11:30 AM VA-TOBACCO NEVER U SED CIGARETTES [facility] Tobacco Use History This section includes a history of the smoking, or tobacco-related health factors, that were collected on or before the date of the Encounter. The data comes from the [place] facility where the Encounter took place. Date/Time Smoking Status/Tobacco Use Comment F acility May 21, 2025 11:30 AM VA-TOBACCO SCREEN FOLLOW-UP [facility] May 21, 2025 11:30 AM VA-TOBACCO USE ADVICE [facility] May 21, 2025 11:30 AM VA-TOBACCO USE BOND BROKER NO [facility] May 21, 2025 11:30 AM VA-TOBACCO USE MED NO [facility] May 21, 2025 11:30 AM VA-TOBACCO USE MIGDALIA E DAYS CIGARS/PIPES [facility] May 21, 2025 11:30 AM VA-TOBACCO USE MIGDALIA E DAYS OTHER TYPE [facility] Sep 03, 2024 11:00 AM VA-TOBACCO DOESNT USE WI 30 MIN WAKEUP [facility] Sep 03, 2024 11:00 AM VA-TOBACCO USE 30 YEARS OR MORE [facility] Sep 03, 2024 11:00 AM VA-TOBACCO USE ADVICE [facility] Sep 03, 2024 11:00 AM VA-TOBACCO USE BOND BROKER NO [facility] Sep 03, [...] May 18, 2022 08:30 AM VA-TOBACCO USE BOND BROKER NO [facility] May 18, [...] Jul 02, 2020 10:00 AM VA-TOBACCO USE BOND BROKER NO [facility] Jul 02, [...] Nov 23, 2018 11:13 AM VA-TOBACCO USE BOND BROKER NO [facility] Nov 23, [...] 22, 2009 01:20 PM V9 TOBACCO OFFERED [facility] Encounter Notes: All associated encounter notes This [...] review controlled substances prescribed outside of the [facility], and any additional information that may become available, as an important component of standard clinical care, and in accordance with [facility] policy. Patient information was shared with the PDMP [employer] [place]. No prescription(s) for controlled substances outside the [facility] were found in the last 90 days. /anitha/ GILBERTO PERALES MD Signed: 05/21/2025 11:54 GILBERTO PERALES [facility] May 21, 2025 11:12 AM PRIMARY CARE NOTE: LOCAL TITLE: PC PROGRESS NOTE STANDARD TITLE: PRIMARY CARE NOTE DATE OF NOTE: MAY 21, 2025@11:12 ENTRY DATE: MAY 21, 2025@11:12:52 AUTHOR: GILBERTO PERALES EXP COSIGNER: URGENCY: STATUS: COMPLETED ID: 74 year old MALE Chief Complaint: annual PCP visit for ongoing management of active/chronic medical problems PC-Nurse's note is reviewed. NON-VA Provider- PCP- DIMAS Herrera NON-VA Pharmacy- [facility] HPI/PROBLEM LIST: Patient [...] ADMINISTERED COVID-19 (MODERNA), MRNA, LNP-S,* 3 06/23/2021 [facility] COVID-19 (MODERNA), MRNA, LNP-S,* 2 12/01/2020 [facility] COVID-19 (MODERNA), MRNA, LNP-S,* 1 10/30/2020 [facility] COVID-19 (MODERNA), MRNA, LNP-S,* 09/03/2024 [facility]* COVID-19 (PFIZER), MRNA, LNP-S, * 1 11/21/2022 [place]* COVID-19 (PFIZER), MRNA, LNP-S, * 4 05/18/2022 [facility]* HEP A, ADULT 05/23/2019 [facility]* HEP A, ADULT 11/23/2018 [facility]* HEP B, ADULT 1 07/20/2021 [facility]* INFLUENZA, HIGH-DOSE, TRIVALENT,* 09/03/2024 [facility]* [id number] (HISTORICAL) 11/08/2016 [place]* PNEUMOCOCCAL CONJUGATE PCV20, PO* [...] Ref Range 08/29/2017 11:31 SERUM SHEPPARD/TOT (TO [id number] NEG SIM - HEP B IMM HISTORY [...] healthy son and a daughter. 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 MARITAL STATUS - Living situation: Lives alone in [place]. in 2019 - lost of 48 years. Social: Son in [facility], daughter in [place]. 3 grandaughters, 1 step grandson, 2 step great grandsons. Golfs, gardens, mows. Active in [employer]. Tobacco: Quit 2012 - 75 pk/yr. smoked ppd since age 16 wuit in 2012 still Smokes 2 cigars/week. st ETOH: 1 [...] PLASMA!! UREA NITROGEN 13 mg/dL 9 - 12/23/2024 12:13 PLASMA!! eGFR (CKD-EPI) >90 SEE [...] PLASMA!! ANION GAP 11.0 mEq/L 3 - 19 ASSESSMENT AND PLAN: - Hypertension- controlled. Continue: [...] bid Still smokes 2 cigars/week, and has [place] every night. - Gastroesophageal reflux disease- Controlled. [...] been ordered. See orders tab for details. /es/ GILBERTO PERALES MD Signed: 05/21/2025 12:13 GILBERTO PERALES [facility] May 21, 2025 10:54 AM PRIMARY CARE [place] NOTE: LOCAL TITLE: Health Tech/analytical laboratory technician Note STANDARD TITLE: PRIMARY CARE NURSING NOTE [...] the event of emergency situations. Yes - [place]/Caregiver verbalized understanding of topics discussed and education [...] TDAP Date Administered: May 21, 2025 11:10 Bark Skinner: SANOFI PASTEUR Lot: [id number] Exp Date: March 22, 2026 [facility]: [phone] Admin Route/Site: INTRAMUSCULAR/LEFT DELTOID Dosage: 0.5mL Vaccine Information Statement(s): TDAP (TETANUS, DIPHTHERIA, PERTUSSIS) VACCINE VIS Nov 22, 2024 ([place]ONESIAN) Order By: Gilberto Perales Administered By: Alex [...] Immunization: Respiratory Syncytial Virus (RSV) Vaccine: Refused [employer] (Abrysvo, RSVpreF vaccine). Immunization: RSV, BIVALENT, PROTEIN [...] Not at all Suicide Screen: C-SSRS Screening [place] Suicide Severity Rating Scale (C-SSRS) screener 1. [...] Practical Nurse Signed: 05/21/2025 11:12 ALEX TAM [facility]
--- OUTSIDE RECORDS SUMMARY | 2025-05-21 08:31 | XMS_ITS | Continuity of Care Document ---
Author Name [facility] Organization [facility] Care Team Providers Care Edger Runner Name Role Phone [facility] Unavailable Unavailable Problems Combined list of problems from Department of Defense and [facility] facilities. It does not include entries that were removed or entered in error. Problem Status Onset Date Problem Type Date of Resolution Comments Source Adrenal adenoma Active Condition [place] [facility] N Benign essential hypertension Active Condition [place] [facility] Benign prostatic hyperplasia Active Condition [place] Cervical radiculopathy Active Condition [place] [facility] Coronary atherosclerosis Active Condition [place] Erectile dysfunction Active Condition [place] Gastroesophageal reflux disease Active Condition [place] [facility] Gastroesophageal reflux disease Active Condition [place] [facility] History of colonoscopy Active Condition Jun 15, 2022 Entered By: VIGNESH BROWN Comment: 05/2022 - repeat 3 years (04/2025) [facility] N Hyperlipidemia Active Condition [place] [facility] Neck pain Active Condition [place] [facility] Over[facility] bladder Active Condition [facility] N Peripheral vascular disease Active Condition [place] [facility] Type 2 diabetes mellitus Active Condition [place] [facility] Muscle spasm of thoracic back Inactive Condition 07/07/2021 [place] [facility] Sensorineural Hearing Loss, Bilateral Inactive Condition 07/07/2021 [place] [facility] Diagnosis: ICD-10-CM I10 Essential (primary) hypertension Active Diagnosis [facility] N Diagnosis: ICD-10-CM M54.2 Cervicalgia Active Diagnosis [place] [facility] N Diagnosis: ICD-10-CM M54.12 Radiculopathy, cervical region Active Diagnosis [facility] N Diagnosis: ICD-10-CM Z71.89 Other specified counseling Active Diagnosis [facility] N Diagnosis: ICD-10-CM R79.9 Abnormal finding of blood chemistry, unspecified Active Diagnosis [facility] Diagnosis: ICD-10-CM L82.1 Other seborrheic keratosis Active Diagnosis [facility] Diagnosis: ICD-10-CM Z13.89 Encounter for screening for other disorder Active Diagnosis [facility] Diagnosis: ICD-10-CM N40.0 Benign prostatic hyperplasia without lower urinry tract symp Active Diagnosis [facility] Diagnosis: ICD-10-CM H25.813 Combined forms of age-related cataract, bilateral Active [facility] Diagnosis: ICD-10-CM Z71.9 Counseling, unspecified Active Diagnosis [facility] Medications Combined list of outpatient medications from Department of Defense and [facility] Affairs facilities.Medications provided include 1) outpatient medications from the last 15 months, and 2) patient-reported medications. Medication Details Route Status Patient Instructions Prescription Expires Prescription Number Last Dispense Date Ordering Provider Order Date Order Qty Source ASPIRIN 81MG TAB,EC TAKE ONE TABLET BY MOUTH DAILY ORAL ACTIVE PEDRO BROWN 2008 [place] [facility] ATORVASTATI N CA 80MG TAB TAKE ONE TABLET BY MOUTH DAILY ORAL ACTIVE Tri JOHNS 2018 [place] [facility] FINASTERIDE 5MG TAB TAKE ONE TABLET BY MOUTH DAILY FOR PROSTATE ORAL SUSPEND ED 09/14/2025 [id number] YANCY PERAELS TA 2023 90 [place] [facility] FINASTERIDE 5MG TAB TAKE ONE TABLET BY MOUTH DAILY FOR PROSTATE ORAL DISCONT INUED 08/31/2024 [id number] YANCY PERALES TA 2022 90 [place] [facility] LISINOPRIL 20MG TAB TAKE ONE TABLET BY MOUTH DAILY ORAL ACTIVE MURIEL BROWN ON 2021 [place] [facility] METFORMIN HCL 500MG 24HR TAB,SA TAKE ONE TABLET BY MOUTH AFTER MEALS FOR BLOOD SUGAR ORAL ACTIVE 07/15/2025 [id number] KOYANCY SEN 2024 270 [place] [facility] METFORMIN HCL 500MG 24HR TAB,SA TAKE ONE TABLET BY MOUTH AFTER MEALS FOR BLOOD SUGAR ORAL DISCONT INUED 09/16/2025 [id number] 5 ANGELLAYANCY TA 2023 90 [place] [facility] METOPROLOL TARTRATE 100MG TAB TAKE ONE TABLET BY MOUTH TWICE A DAY ORAL ACTIVE YANCY PERALES 2022 [place] [facility] MINERALS/MU LTIVITAMINS CAP/TAB TAKE BY MOUTH DAILY ORAL ACTIVE MURIEL BROWN ON 2020 [place] [facility] OMEPRAZOLE 20MG CAP,EC TAKE 2 CAPSULES BY MOUTH ONCE A DAY 30 MINUTES BEFORE A MEAL ORAL ACTIVE ISLUIS GUERRAS ON 2021 [place] [facility] TADALAFIL 20MG TAB TAKE ONE TABLET BY MOUTH DIRECTED FOR ERECTILE DYSFUNCT ION -DO NOT TAKE WITH ANY MEDICATI ON CONTAINI NG NITRATES (LIMIT: 6 DOSES/30 DAYS OR 18 DOSES/90 DAYS, NON-REPL ACEABLE MEDICATI ON) TAKE ONE HOUR BEFORE SEX ON EMPTY STOMACH -DO NOT TAKE WITH ANY MEDICATI ON CONTAINI NG NITRATES (LIMIT: 6 DOSES/30 DAYS OR 18 DOSES/90 DAYS, NON-REPL ACEABLE MEDICATI ON) TAKE ONE HOUR BEFORE SEX ON EMPTY STOMACH ORAL 09/03/2024 [id number] YANCY PERALES 2022 12 [place] [facility] TAMSULOSIN HCL 0.4MG CAP TAKE ONE CAPSULE BY MOUTH EVERY EVENING FOR PROSTATE ORAL ACTIVE 09/04/2025 [id number] ANGELLAYANCY 2023 90 [place] [facility] TRAMADOL HCL 50MG TAB TAKE ONE TABLET BY MOUTH TWICE A DAY NEEDED FOR PAIN ORAL ACTIVE 09/13/2025 [id number] 5 YANCY PERALES 2024 60 [place] [facility] Immunizations Combined list of available immunizations from the Department of Defense and Veterans Affairs facilities. Immunization Series Date Given Administered By Site Reaction Lot Number CVX Code Drug Rfp Writer Status Comments Source TDAP 2024 ALEX TAM LEFT DELTO ID [id number] 115 complet ed [facility] [place], Discussed risks vs benefits with and informed him to stay in lobby for approxima tely 30 mins for obs. No ASE's noted, and expressed understan ding. Provider notified. [place] [facility] IN[facility], HIGH-DOSE, TRIVALENT, PF 2023 JOJO MEJIA RRA E LEFT DELTO ID [id number] 135 complet ed [facility] [place], [place] [facility] COVID-19 (MODERNA), MRNA, LNP-S, PF, 50 MCG/0.5 ML (AGES 12+ YEARS) 2023 JOJO MEJIA RRA E LEFT DELTO ID [id number] 312 complet ed [facility] [place], [place] [facility] COVID-19 (PFIZER), MRNA, LNP-S, BIVALENT BOOSTER, PF, 30 MCG/0.3 ML DOSE 1 2022 CHEPE ODELL LEFT DELTO ID [id number] 300 complet ed [facility] [place], [place] [facility] INFLUENZA, HIGH-DOSE, QUADRIVALENT 3 2021 197 complet ed HISTORICA L INFORMATI ON - FROM OTHER REGISTRY, [place] [facility] INFLUENZA, UNSPECIFIED FORMULATION 2021 88 complet ed HISTORICA L INFORMATI ON - FROM PARENT'S RECALL, [place] [facility] COVID-19 (PFIZER), MRNA, LNP-S, PF, 30 MCG/0.3 ML DOSE, [place]-SUCROSE (AGES 12+ YEARS) 4 2021 217 complet ed PFR; [id number]; 2 [place] [facility] PNEUMOCOCCAL CONJUGATE PCV20, POLYSACCHARID E [id number] CONJUGATE, ADJUVANT, PF 2021 216 complet ed [place] [facility] HEP B, ADULT 1 2020 43 complet ed [place] [facility] INFLUENZA, INJECTABLE, QUADRIVALENT, PRESERVATIVE FREE 2020 150 complet ed [place] [facility] COVID-19 (MODERNA), MRNA, LNP-S, PF, 100 MCG/0.5 ML DOSE 3 2020 207 complet ed [place] [facility] COVID-19 (MODERNA), MRNA, LNP-S, PF, 100 MCG/0.5 ML DOSE 2 2020 207 complet ed [place] [facility] COVID-19 (MODERNA), MRNA, LNP-S, PF, 100 MCG/0.5 ML DOSE 1 2020 207 complet ed [place] [facility] ZOSTER RECOMBINANT 2 2019 187 complet ed [place] [facility] INFLUENZA, INJECTABLE, QUADRIVALENT, PRESERVATIVE FREE 2019 150 complet ed [place] [facility] ZOSTER RECOMBINANT 1 2019 187 complet ed [place] [facility] INFLUENZA, INJECTABLE, QUADRIVALENT, PRESERVATIVE FREE 2018 150 complet ed [place] HEP A, ADULT 2018 52 complet ed [place] [facility] HEP A, ADULT 2018 52 complet ed [place] [facility] INFLUENZA, SEASONAL, INJECTABLE 2017 141 complet ed [place] [facility] INFLUENZA, HIGH DOSE SEASONAL 2 2017 135 complet ed HISTORICA L INFORMATI ON - FROM OTHER REGISTRY, [place] [facility] PNEUMOCOCCAL POLYSACCHARID E [id number] 2017 33 complet ed [place] [facility] ZOSTER LIVE 2016 121 complet ed [place] [facility] INFLUENZA A & B (HISTORICAL) 2016 88 complet ed [place] [facility] INFLUENZA, HIGH DOSE SEASONAL 1 2016 135 complet ed HISTORICA L INFORMATI ON - FROM OTHER REGISTRY, [place] [facility] [id number] (HISTORICAL) 2016 133 complet ed [place] [facility] INFLUENZA A & B (HISTORICAL) 2015 88 complet ed [place] [facility] INFLUENZA A & B (HISTORICAL) 2013 88 complet ed [place] [facility] FLU,3 YRS (HISTORICAL) 2012 88 complet ed [place] [facility] INFLUENZA A & B (HISTORICAL) 2011 88 complet ed [place] [facility] TETANUS TOXOID, UNSPECIFIED FORMULATION 2008 JANNA MCKENZIE 112 complet ed [place] [facility] Results Combined list of recent chemistry, hematology and other laboratory results from Department of Defense and Veterans Affairs, ranging from 15 months to all on record, depending upon the facility. Order Name Results Value Reference Range Date Interpretation Specimen Comments Source DRUG SCREEN EXPANDED IN-HOUSE TETRAHYDRO CANNABINOL [PRESENCE] IN URINE NEG Cutoff < 50 - 50 03/06 Specimen Type: URINE Comment: Screening method results are unconfirmed and are for medical use only. Unconfirmed screening results must not be used for non-medical purposes. Opiates test most sensitive for morphine, codeine and heroin and less sensitive for hydrocodone and hydromorpho ne where higher concentrati ons are needed for cut-off detection. Drugs of abuse screening is a preliminary analytical test result. A more specific alternate chemical method (GC/MS) must be used to obtain a confirmed analytical result. This assay provides a preliminary unconfirmed analytical test result that may be suitable for clinical management of patients in certain situations. Drug-test results should be interpreted in the context of clinical information . Patient metabolic characteris tics can affect test outcome. Ordering Provider: GILBERTO PERALES Report Released Date/Time: Feb 03, 2025 10:54 AM Reporting Lab: [id number] [address] [address] Performing Lab: [address] [address] [facility] DRUG SCREEN EXPANDED IN-HOUSE AMPHETAMIN ES [PRESENCE] IN URINE NEG Cutoff < 1000 - 1000 03/06 Specimen Type: URINE Comment: Screening method results are unconfirmed and are for medical use only. Unconfirmed screening results must not be used for non-medical purposes. Opiates test most sensitive for morphine, codeine and heroin and less sensitive for hydrocodone and hydromorpho ne where higher concentrati ons are needed for cut-off detection. Drugs of abuse screening is a preliminary analytical test result. A more specific alternate chemical method (GC/MS) must be used to obtain a confirmed analytical result. This assay provides a preliminary unconfirmed analytical test result that may be suitable for clinical management of patients in certain situations. Drug-test results should be interpreted in the context of clinical information . Patient metabolic characteris tics can affect test outcome. Ordering Provider: GILBERTO PERALES Report Released Date/Time: Feb 03, 2025 10:54 AM Reporting Lab: [address] [address] Performing Lab: [address] [address] [facility] DRUG SCREEN EXPANDED IN-HOUSE BARBITURAT ES [PRESENCE] IN URINE BY SCREEN METHOD NEG Cutoff < 200 - 200 03/06 Specimen Type: URINE Comment: Screening method results are unconfirmed and are for medical use only. Unconfirmed screening results must not be used for non-medical purposes. Opiates test most sensitive for morphine, codeine and heroin and less sensitive for hydrocodone and hydromorpho ne where higher concentrati ons are needed for cut-off detection. Drugs of abuse screening is a preliminary analytical test result. A more specific alternate chemical method (GC/MS) must be used to obtain a confirmed analytical result. This assay provides a preliminary unconfirmed analytical test result that may be suitable for clinical management of patients in certain situations. Drug-test results should be interpreted in the context of clinical information . Patient metabolic characteris tics can affect test outcome. Ordering Provider: GILBERTO PERALES Report Released Date/Time: Feb 03, 2025 10:54 AM Reporting Lab: [address] [address] Performing Lab: [address] [address] [facility] DRUG SCREEN EXPANDED IN-HOUSE BENZODIAZE PINES [PRESENCE] IN URINE BY SCREEN METHOD NEG Cutoff < 200 - 200 03/06 Specimen Type: URINE Comment: Screening method results are unconfirmed and are for medical use only. Unconfirmed screening results must not be used for non-medical purposes. Opiates test most sensitive for morphine, codeine and heroin and less sensitive for hydrocodone and hydromorpho ne where higher concentrati ons are needed for cut-off detection. Drugs of abuse screening is a preliminary analytical test result. A more specific alternate chemical method (GC/MS) must be used to obtain a confirmed analytical result. This assay provides a preliminary unconfirmed analytical test result that may be suitable for clinical management of patients in certain situations. Drug-test results should be interpreted in the context of clinical information . Patient metabolic characteris tics can affect test outcome. Ordering Provider: GILBERTO PERALES Report Released Date/Time: Feb 03, 2025 10:54 AM Reporting Lab: [address] [address] Performing Lab: [address] [address] [facility] DRUG SCREEN EXPANDED IN-HOUSE BENZOYLECG ONINE [PRESENCE] IN URINE NEG Cutoff < 300 - 300 03/06 Specimen Type: URINE Comment: Screening method results are unconfirmed and are for medical use only. Unconfirmed screening results must not be used for non-medical purposes. Opiates test most sensitive for morphine, codeine and heroin and less sensitive for hydrocodone and hydromorpho ne where higher concentrati ons are needed for cut-off detection. Drugs of abuse screening is a preliminary analytical test result. A more specific alternate chemical method (GC/MS) must be used to obtain a confirmed analytical result. This assay provides a preliminary unconfirmed analytical test result that may be suitable for clinical management of patients in certain situations. Drug-test results should be interpreted in the context of clinical information . Patient metabolic characteris tics can affect test outcome. Ordering Provider: GILBERTO PERALES Report Released Date/Time: Feb 03, 2025 10:54 AM Reporting Lab: [address] [address] Performing Lab: [address] [address] [facility] DRUG SCREEN EXPANDED IN-HOUSE OPIATES [PRESENCE] IN URINE BY SCREEN METHOD NEG Cutoff < 300 - 300 03/06 Specimen Type: URINE Comment: Screening method results are unconfirmed and are for medical use only. Unconfirmed screening results must not be used for non-medical purposes. Opiates test most sensitive for morphine, codeine and heroin and less sensitive for hydrocodone and hydromorpho ne where higher concentrati ons are needed for cut-off detection. Drugs of abuse screening is a preliminary analytical test result. A more specific alternate chemical method (GC/MS) must be used to obtain a confirmed analytical result. This assay provides a preliminary unconfirmed analytical test result that may be suitable for clinical management of patients in certain situations. Drug-test results should be interpreted in the context of clinical information . Patient metabolic characteris tics can affect test outcome. Ordering Provider: GILBERTO PERALES Report Released Date/Time: Feb 03, 2025 10:54 AM Reporting Lab: [address] [address] Performing Lab: [address] [address] [facility] DRUG SCREEN EXPANDED IN-HOUSE METHADONE [PRESENCE] IN URINE NEG Cutoff < 300 - 300 03/06 Specimen Type: URINE Comment: Screening method results are unconfirmed and are for medical use only. Unconfirmed screening results must not be used for non-medical purposes. Opiates test most sensitive for morphine, codeine and heroin and less sensitive for hydrocodone and hydromorpho ne where higher concentrati ons are needed for cut-off detection. Drugs of abuse screening is a preliminary analytical test result. A more specific alternate chemical method (GC/MS) must be used to obtain a confirmed analytical result. This assay provides a preliminary unconfirmed analytical test result that may be suitable for clinical management of patients in certain situations. Drug-test results should be interpreted in the context of clinical information . Patient metabolic characteris tics can affect test outcome. Ordering Provider: GILBERTO PERALES Report Released Date/Time: Feb 03, 2025 10:54 AM Reporting Lab: [address] [address] Performing Lab: [address] [address] [facility] DRUG SCREEN EXPANDED IN-HOUSE OXYCODONE [PRESENCE] IN URINE NEG Cutoff < 200 - 200 03/06 Specimen Type: URINE Comment: Screening method results are unconfirmed and are for medical use only. Unconfirmed screening results must not be used for non-medical purposes. Opiates test most sensitive for morphine, codeine and heroin and less sensitive for hydrocodone and hydromorpho ne where higher concentrati ons are needed for cut-off detection. Drugs of abuse screening is a preliminary analytical test result. A more specific alternate chemical method (GC/MS) must be used to obtain a confirmed analytical result. This assay provides a preliminary unconfirmed analytical test result that may be suitable for clinical management of patients in certain situations. Drug-test results should be interpreted in the context of clinical information . Patient metabolic characteris tics can affect test outcome. Ordering Provider: GILBERTO PERALES Report Released Date/Time: Feb 03, 2025 10:54 AM Reporting Lab: [address] [address] Performing Lab: [address] [address] [facility] DRUG SCREEN EXPANDED IN-HOUSE BUPRENORPH INE+NORBUP RENORPHINE [PRESENCE] IN URINE NEG Cutoff < 5 - 5 03/06 Specimen Type: URINE Comment: Screening method results are unconfirmed and are for medical use only. Unconfirmed screening results must not be used for non-medical purposes. Opiates test most sensitive for morphine, codeine and heroin and less sensitive for hydrocodone and hydromorpho ne where higher concentrati ons are needed for cut-off detection. Drugs of abuse screening is a preliminary analytical test result. A more specific alternate chemical method (GC/MS) must be used to obtain a confirmed analytical result. This assay provides a preliminary unconfirmed analytical test result that may be suitable for clinical management of patients in certain situations. Drug-test results should be interpreted in the context of clinical information . Patient metabolic characteris tics can affect test outcome. Ordering Provider: GILBERTO PERALES Report Released Date/Time: Feb 03, 2025 10:54 AM Reporting Lab: [address] [address] Performing Lab: [address] [address] [facility] DRUG SCREEN EXPANDED IN-HOUSE FENTANYL SCREEN IN-HOUSE NEG Cutoff < 1 - 1 03/06 Specimen Type: URINE Comment: Screening method results are unconfirmed and are for medical use only. Unconfirmed screening results must not be used for non-medical purposes. Opiates test most sensitive for morphine, codeine and heroin and less sensitive for hydrocodone and hydromorpho ne where higher concentrati ons are needed for cut-off detection. Drugs of abuse screening is a preliminary analytical test result. A more specific alternate chemical method (GC/MS) must be used to obtain a confirmed analytical result. This assay provides a preliminary unconfirmed analytical test result that may be suitable for clinical management of patients in certain situations. Drug-test results should be interpreted in the context of clinical information . Patient metabolic characteris tics can affect test outcome. Ordering Provider: GILBERTO PERALES Report Released Date/Time: Feb 03, 2025 10:54 AM Reporting Lab: [address] [address] Performing Lab: [address] [address] [facility] DRUG SCREEN EXPANDED IN-HOUSE TETRAHYDRO CANNABINOL [PRESENCE] IN URINE POS Cutoff < 50 - 50 12/23 Specimen Type: URINE Comment: Screening method results are unconfirmed and are for medical use only. Unconfirmed screening results must not be used for non-medical purposes. Opiates test most sensitive for morphine, codeine and heroin and less sensitive for hydrocodone and hydromorpho ne where higher concentrati ons are needed for cut-off detection. Drugs of abuse screening is a preliminary analytical test result. A more specific alternate chemical method (GC/MS) must be used to obtain a confirmed analytical result. This assay provides a preliminary unconfirmed analytical test result that may be suitable for clinical management of patients in certain situations. Drug-test results should be interpreted in the context of clinical information . Patient metabolic characteris tics can affect test outcome. Ordering Provider: GILBERTO PERALES Report Released Date/Time: Dec 17, 2024 04:05 PM Reporting Lab: [address] [address] Performing Lab: [address] [address] [facility] DRUG SCREEN EXPANDED IN-HOUSE AMPHETAMIN ES [PRESENCE] IN URINE NEG Cutoff < 1000 - 1000 12/23 Specimen Type: URINE Comment: Screening method results are unconfirmed and are for medical use only. Unconfirmed screening results must not be used for non-medical purposes. Opiates test most sensitive for morphine, codeine and heroin and less sensitive for hydrocodone and hydromorpho ne where higher concentrati ons are needed for cut-off detection. Drugs of abuse screening is a preliminary analytical test result. A more specific alternate chemical method (GC/MS) must be used to obtain a confirmed analytical result. This assay provides a preliminary unconfirmed analytical test result that may be suitable for clinical management of patients in certain situations. Drug-test results should be interpreted in the context of clinical information . Patient metabolic characteris tics can affect test outcome. Ordering Provider: GILBERTO PERALES Report Released Date/Time: Dec 17, 2024 04:05 PM Reporting Lab: [address] [address] Performing Lab: [address] [address] [facility] DRUG SCREEN EXPANDED IN-HOUSE BARBITURAT ES [PRESENCE] IN URINE BY SCREEN METHOD NEG Cutoff < 200 - 200 12/23 Specimen Type: URINE Comment: Screening method results are unconfirmed and are for medical use only. Unconfirmed screening results must not be used for non-medical purposes. Opiates test most sensitive for morphine, codeine and heroin and less sensitive for hydrocodone and hydromorpho ne where higher concentrati ons are needed for cut-off detection. Drugs of abuse screening is a preliminary analytical test result. A more specific alternate chemical method (GC/MS) must be used to obtain a confirmed analytical result. This assay provides a preliminary unconfirmed analytical test result that may be suitable for clinical management of patients in certain situations. Drug-test results should be interpreted in the context of clinical information . Patient metabolic characteris tics can affect test outcome. Ordering Provider: GILBERTO PERALES Report Released Date/Time: Dec 17, 2024 04:05 PM Reporting Lab: [address] [address] Performing Lab: [address] [address] [facility] DRUG SCREEN EXPANDED IN-HOUSE BENZODIAZE PINES [PRESENCE] IN URINE BY SCREEN METHOD NEG Cutoff < 200 - 200 12/23 Specimen Type: URINE Comment: Screening method results are unconfirmed and are for medical use only. Unconfirmed screening results must not be used for non-medical purposes. Opiates test most sensitive for morphine, codeine and heroin and less sensitive for hydrocodone and hydromorpho ne where higher concentrati ons are needed for cut-off detection. Drugs of abuse screening is a preliminary analytical test result. A more specific alternate chemical method (GC/MS) must be used to obtain a confirmed analytical result. This assay provides a preliminary unconfirmed analytical test result that may be suitable for clinical management of patients in certain situations. Drug-test results should be interpreted in the context of clinical information . Patient metabolic characteris tics can affect test outcome. Ordering Provider: GILBERTO PERALES Report Released Date/Time: Dec 17, 2024 04:05 PM Reporting Lab: [address] [address] Performing Lab: [place] [id number] [facility] DRUG SCREEN EXPANDED IN-HOUSE BENZOYLECG ONINE [PRESENCE] IN URINE NEG Cutoff < 300 - 300 12/23 Specimen Type: URINE Comment: Screening method results are unconfirmed and are for medical use only. Unconfirmed screening results must not be used for non-medical purposes. Opiates test most sensitive for morphine, codeine and heroin and less sensitive for hydrocodone and hydromorpho ne where higher concentrati ons are needed for cut-off detection. Drugs of abuse screening is a preliminary analytical test result. A more specific alternate chemical method (GC/MS) must be used to obtain a confirmed analytical result. This assay provides a preliminary unconfirmed analytical test result that may be suitable for clinical management of patients in certain situations. Drug-test results should be interpreted in the context of clinical information . Patient metabolic characteris tics can affect test outcome. Ordering Provider: GILBERTO PERALES Report Released Date/Time: Dec 17, 2024 04:05 PM Reporting Lab: [address] [address] Performing Lab: [address] [address] [facility] DRUG SCREEN EXPANDED IN-HOUSE OPIATES [PRESENCE] IN URINE BY SCREEN METHOD NEG Cutoff < 300 - 300 12/23 Specimen Type: URINE Comment: Screening method results are unconfirmed and are for medical use only. Unconfirmed screening results must not be used for non-medical purposes. Opiates test most sensitive for morphine, codeine and heroin and less sensitive for hydrocodone and hydromorpho ne where higher concentrati ons are needed for cut-off detection. Drugs of abuse screening is a preliminary analytical test result. A more specific alternate chemical method (GC/MS) must be used to obtain a confirmed analytical result. This assay provides a preliminary unconfirmed analytical test result that may be suitable for clinical management of patients in certain situations. Drug-test results should be interpreted in the context of clinical information . Patient metabolic characteris tics can affect test outcome. Ordering Provider: GILBERTO PERALES Report Released Date/Time: Dec 17, 2024 04:05 PM Reporting Lab: [address] [address] Performing Lab: [address] [address] [facility] DRUG SCREEN EXPANDED IN-HOUSE METHADONE [PRESENCE] IN URINE NEG Cutoff < 300 - 300 12/23 Specimen Type: URINE Comment: Screening method results are unconfirmed and are for medical use only. Unconfirmed screening results must not be used for non-medical purposes. Opiates test most sensitive for morphine, codeine and heroin and less sensitive for hydrocodone and hydromorpho ne where higher concentrati ons are needed for cut-off detection. Drugs of abuse screening is a preliminary analytical test result. A more specific alternate chemical method (GC/MS) must be used to obtain a confirmed analytical result. This assay provides a preliminary unconfirmed analytical test result that may be suitable for clinical management of patients in certain situations. Drug-test results should be interpreted in the context of clinical information . Patient metabolic characteris tics can affect test outcome. Ordering Provider: GILBERTO PERALES Report Released Date/Time: Dec 17, 2024 04:05 PM Reporting Lab: [address] [address] Performing Lab: [address] [address] [facility] DRUG SCREEN EXPANDED IN-HOUSE OXYCODONE [PRESENCE] IN URINE NEG Cutoff < 200 - 200 12/23 Specimen Type: URINE Comment: Screening method results are unconfirmed and are for medical use only. Unconfirmed screening results must not be used for non-medical purposes. Opiates test most sensitive for morphine, codeine and heroin and less sensitive for hydrocodone and hydromorpho ne where higher concentrati ons are needed for cut-off detection. Drugs of abuse screening is a preliminary analytical test result. A more specific alternate chemical method (GC/MS) must be used to obtain a confirmed analytical result. This assay provides a preliminary unconfirmed analytical test result that may be suitable for clinical management of patients in certain situations. Drug-test results should be interpreted in the context of clinical information . Patient metabolic characteris tics can affect test outcome. Ordering Provider: GILBERTO PERALES Report Released Date/Time: Dec 17, 2024 04:05 PM Reporting Lab: [address] [address] Performing Lab: [id number] [address] [facility] DRUG SCREEN EXPANDED IN-HOUSE BUPRENORPH INE+NORBUP RENORPHINE [PRESENCE] IN URINE NEG Cutoff < 5 - 5 12/23 Specimen Type: URINE Comment: Screening method results are unconfirmed and are for medical use only. Unconfirmed screening results must not be used for non-medical purposes. Opiates test most sensitive for morphine, codeine and heroin and less sensitive for hydrocodone and hydromorpho ne where higher concentrati ons are needed for cut-off detection. Drugs of abuse screening is a preliminary analytical test result. A more specific alternate chemical method (GC/MS) must be used to obtain a confirmed analytical result. This assay provides a preliminary unconfirmed analytical test result that may be suitable for clinical management of patients in certain situations. Drug-test results should be interpreted in the context of clinical information . Patient metabolic characteris tics can affect test outcome. Ordering Provider: GILBERTO PERALES Report Released Date/Time: Dec 17, 2024 04:05 PM Reporting Lab: [facility] [address] [address] Performing Lab: [address] [address] [facility] DRUG SCREEN EXPANDED IN-HOUSE FENTANYL SCREEN IN-HOUSE NEG Cutoff < 1 - 1 12/23 Specimen Type: URINE Comment: Screening method results are unconfirmed and are for medical use only. Unconfirmed screening results must not be used for non-medical purposes. Opiates test most sensitive for morphine, codeine and heroin and less sensitive for hydrocodone and hydromorpho ne where higher concentrati ons are needed for cut-off detection. Drugs of abuse screening is a preliminary analytical test result. A more specific alternate chemical method (GC/MS) must be used to obtain a confirmed analytical result. This assay provides a preliminary unconfirmed analytical test result that may be suitable for clinical management of patients in certain situations. Drug-test results should be interpreted in the context of clinical information . Patient metabolic characteris tics can affect test outcome. Ordering Provider: GILBERTO PERALES Report Released Date/Time: Dec 17, 2024 04:05 PM Reporting Lab: [address] [address] Performing Lab: [address] [address] [facility] PANEL 1 CREATININE [MASS/VOLU ME] IN SERUM OR PLASMA 0.81 mg/dL 0.72 - 1.25 12/23 Specimen Type: PLASMA Comment: Estimated Glomerular Filtration Rate (eGFR) calculated using the 2020 Chronic Kidney Disease-Epi demiology (CKD-EPI) Collaborati on creatinine equation; units of measure are mL/min/1.73 m2. Results are only valid for adults (>=18 years) whose serum creatinine is in a steady state. eGFR calculation s are not valid for patients with acute kidney injury and for patients on dialysis. Creatinine- based estimates of kidney function may also be inaccurate in patients with reduced creatinine generation due to decreased muscle mass (e.g., malnutritio n, severe hypoalbumin emia, sarcopenia, chronic neuromuscul ar disease, amputations , severe heart failure or liver disease) and in patients with increased creatinine generation due to increased muscle mass (e.g., muscle builders, anabolic steroids) or increased dietary intake. As drug clearance is proportiona l to total GFR and not GFR indexed to body surface area (BSA), in individuals with a BSA substantial ly different than 1.73 m2, drug dosing should be based on the reported eGFR value de-indexed from BSA by multiplying by the individual' s BSA and dividing by 1.73. CKD is diagnosed based on abnormaliti es of kidney structure or function, present for >3 months, with implication s for health and disease. CKD is classified and staged based on cause, eGFR and albuminuria (quantified as urine albumin to creatinine ratio). An eGFR >60 mL/min/1.73 m2 in the absence of increased urine albumin excretion or structural abnormaliti es does not represent CKD. eGFR CKD Interpretat ion (mL/min/1.7 3 m2) stage >=90 G1 Normal 60-89 G2 Mild decrease 45-59 G3A Mild to moderate decrease 30-44 G3B Moderate to severe decrease 15-29 G4 Severe decrease <15 G5 Kidney failure Ordering Provider: GILBERTO PERALES Report Released Date/Time: Dec 17, 2024 04:05 PM Reporting Lab: [facility] [address] [address] Performing Lab: [facility] [address] [address] [facility] PANEL 1 UREA NITROGEN [MASS/VOLU ME] IN SERUM OR PLASMA 13 mg/dL 9 12/23 Specimen Type: PLASMA Comment: Estimated Glomerular Filtration Rate (eGFR) calculated using the 2020 Chronic Kidney Disease-Epi demiology (CKD-EPI) Collaborati on creatinine equation; units of measure are mL/min/1.73 m2. Results are only valid for adults (>=18 years) whose serum creatinine is in a steady state. eGFR calculation s are not valid for patients with acute kidney injury and for patients on dialysis. Creatinine- based estimates of kidney function may also be inaccurate in patients with reduced creatinine generation due to decreased muscle mass (e.g., malnutritio n, severe hypoalbumin emia, sarcopenia, chronic neuromuscul ar disease, amputations , severe heart failure or liver disease) and in patients with increased creatinine generation due to increased muscle mass (e.g., muscle builders, anabolic steroids) or increased dietary intake. As drug clearance is proportiona l to total GFR and not GFR indexed to body surface area (BSA), in individuals with a BSA substantial ly different than 1.73 m2, drug dosing should be based on the reported eGFR value de-indexed from BSA by multiplying by the individual' s BSA and dividing by 1.73. CKD is diagnosed based on abnormaliti es of kidney structure or function, present for >3 months, with implication s for health and disease. CKD is classified and staged based on cause, eGFR and albuminuria (quantified as urine albumin to creatinine ratio). An eGFR >60 mL/min/1.73 m2 in the absence of increased urine albumin excretion or structural abnormaliti es does not represent CKD. eGFR CKD Interpretat ion (mL/min/1.7 3 m2) stage >=90 G1 Normal 60-89 G2 Mild decrease 45-59 G3A Mild to moderate decrease 30-44 G3B Moderate to severe decrease 15-29 G4 Severe decrease <15 G5 Kidney failure Ordering Provider: GILBERTO PERALES Report Released Date/Time: Dec 17, 2024 04:05 PM Reporting Lab: [facility] [address] [address] Performing Lab: [facility] [address] [address] [facility] PANEL 1 GLUCOSE [MASS/VOLU ME] IN SERUM OR PLASMA 88 mg/dL 74 - 100 12/23 Specimen Type: PLASMA Comment: Estimated Glomerular Filtration Rate (eGFR) calculated using the 2020 Chronic Kidney Disease-Epi demiology (CKD-EPI) Collaborati on creatinine equation; units of measure are mL/min/1.73 m2. Results are only valid for adults (>=18 years) whose serum creatinine is in a steady state. eGFR calculation s are not valid for patients with acute kidney injury and for patients on dialysis. Creatinine- based estimates of kidney function may also be inaccurate in patients with reduced creatinine generation due to decreased muscle mass (e.g., malnutritio n, severe hypoalbumin emia, sarcopenia, chronic neuromuscul ar disease, amputations , severe heart failure or liver disease) and in patients with increased creatinine generation due to increased muscle mass (e.g., muscle builders, anabolic steroids) or increased dietary intake. As drug clearance is proportiona l to total GFR and not GFR indexed to body surface area (BSA), in individuals with a BSA substantial ly different than 1.73 m2, drug dosing should be based on the reported eGFR value de-indexed from BSA by multiplying by the individual' s BSA and dividing by 1.73. CKD is diagnosed based on abnormaliti es of kidney structure or function, present for >3 months, with implication s for health and disease. CKD is classified and staged based on cause, eGFR and albuminuria (quantified as urine albumin to creatinine ratio). An eGFR >60 mL/min/1.73 m2 in the absence of increased urine albumin excretion or structural abnormaliti es does not represent CKD. eGFR CKD Interpretat ion (mL/min/1.7 3 m2) stage >=90 G1 Normal 60-89 G2 Mild decrease 45-59 G3A Mild to moderate decrease 30-44 G3B Moderate to severe decrease 15-29 G4 Severe decrease <15 G5 Kidney failure Ordering Provider: GILBERTO PERALES Report Released Date/Time: Dec 17, 2024 04:05 PM Reporting Lab: [facility] [address] [address] Performing Lab: [facility] [address] [address] [facility] PANEL 1 SODIUM [MOLES/VOL UME] IN SERUM OR PLASMA 142 mmol/L 136 - 145 12/23 Specimen Type: PLASMA Comment: Estimated Glomerular Filtration Rate (eGFR) calculated using the 2020 Chronic Kidney Disease-Epi demiology (CKD-EPI) Collaborati on creatinine equation; units of measure are mL/min/1.73 m2. Results are only valid for adults (>=18 years) whose serum creatinine is in a steady state. eGFR calculation s are not valid for patients with acute kidney injury and for patients on dialysis. Creatinine- based estimates of kidney function may also be inaccurate in patients with reduced creatinine generation due to decreased muscle mass (e.g., malnutritio n, severe hypoalbumin emia, sarcopenia, chronic neuromuscul ar disease, amputations , severe heart failure or liver disease) and in patients with increased creatinine generation due to increased muscle mass (e.g., muscle builders, anabolic steroids) or increased dietary intake. As drug clearance is proportiona l to total GFR and not GFR indexed to body surface area (BSA), in individuals with a BSA substantial ly different than 1.73 m2, drug dosing should be based on the reported eGFR value de-indexed from BSA by multiplying by the individual' s BSA and dividing by 1.73. CKD is diagnosed based on abnormaliti es of kidney structure or function, present for >3 months, with implication s for health and disease. CKD is classified and staged based on cause, eGFR and albuminuria (quantified as urine albumin to creatinine ratio). An eGFR >60 mL/min/1.73 m2 in the absence of increased urine albumin excretion or structural abnormaliti es does not represent CKD. eGFR CKD Interpretat ion (mL/min/1.7 3 m2) stage >=90 G1 Normal 60-89 G2 Mild decrease 45-59 G3A Mild to moderate decrease 30-44 G3B Moderate to severe decrease 15-29 G4 Severe decrease <15 G5 Kidney failure Ordering Provider: GILBERTO PERALES Report Released Date/Time: Dec 17, 2024 04:05 PM Reporting Lab: [facility] [address] [phone] Performing Lab: [facility] [address] [address] [facility] PANEL 1 POTASSIUM [MOLES/VOL UME] IN SERUM OR PLASMA 4.4 mmol/L 3.5 - 5.1 12/23 Specimen Type: PLASMA Comment: Estimated Glomerular Filtration Rate (eGFR) calculated using the 2020 Chronic Kidney Disease-Epi demiology (CKD-EPI) Collaborati on creatinine equation; units of measure are mL/min/1.73 m2. Results are only valid for adults (>=18 years) whose serum creatinine is in a steady state. eGFR calculation s are not valid for patients with acute kidney injury and for patients on dialysis. Creatinine- based estimates of kidney function may also be inaccurate in patients with reduced creatinine generation due to decreased muscle mass (e.g., malnutritio n, severe hypoalbumin emia, sarcopenia, chronic neuromuscul ar disease, amputations , severe heart failure or liver disease) and in patients with increased creatinine generation due to increased muscle mass (e.g., muscle builders, anabolic steroids) or increased dietary intake. As drug clearance is proportiona l to total GFR and not GFR indexed to body surface area (BSA), in individuals with a BSA substantial ly different than 1.73 m2, drug dosing should be based on the reported eGFR value de-indexed from BSA by multiplying by the individual' s BSA and dividing by 1.73. CKD is diagnosed based on abnormaliti es of kidney structure or function, present for >3 months, with implication s for health and disease. CKD is classified and staged based on cause, eGFR and albuminuria (quantified as urine albumin to creatinine ratio). An eGFR >60 mL/min/1.73 m2 in the absence of increased urine albumin excretion or structural abnormaliti es does not represent CKD. eGFR CKD Interpretat ion (mL/min/1.7 3 m2) stage >=90 G1 Normal 60-89 G2 Mild decrease 45-59 G3A Mild to moderate decrease 30-44 G3B Moderate to severe decrease 15-29 G4 Severe decrease <15 G5 Kidney failure Ordering Provider: GILBERTO PERALES Report Released Date/Time: Dec 17, 2024 04:05 PM Reporting Lab: [facility] [address] [address] Performing Lab: [facility] [address] [address] [facility] PANEL 1 CHLORIDE [MOLES/VOL UME] IN SERUM OR PLASMA 106 mmol/L 98 - 107 12/23 Specimen Type: PLASMA Comment: Estimated Glomerular Filtration Rate (eGFR) calculated using the 2020 Chronic Kidney Disease-Epi demiology (CKD-EPI) Collaborati on creatinine equation; units of measure are mL/min/1.73 m2. Results are only valid for adults (>=18 years) whose serum creatinine is in a steady state. eGFR calculation s are not valid for patients with acute kidney injury and for patients on dialysis. Creatinine- based estimates of kidney function may also be inaccurate in patients with reduced creatinine generation due to decreased muscle mass (e.g., malnutritio n, severe hypoalbumin emia, sarcopenia, chronic neuromuscul ar disease, amputations , severe heart failure or liver disease) and in patients with increased creatinine generation due to increased muscle mass (e.g., muscle builders, anabolic steroids) or increased dietary intake. As drug clearance is proportiona l to total GFR and not GFR indexed to body surface area (BSA), in individuals with a BSA substantial ly different than 1.73 m2, drug dosing should be based on the reported eGFR value de-indexed from BSA by multiplying by the individual' s BSA and dividing by 1.73. CKD is diagnosed based on abnormaliti es of kidney structure or function, present for >3 months, with implication s for health and disease. CKD is classified and staged based on cause, eGFR and albuminuria (quantified as urine albumin to creatinine ratio). An eGFR >60 mL/min/1.73 m2 in the absence of increased urine albumin excretion or structural abnormaliti es does not represent CKD. eGFR CKD Interpretat ion (mL/min/1.7 3 m2) stage >=90 G1 Normal 60-89 G2 Mild decrease 45-59 G3A Mild to moderate decrease 30-44 G3B Moderate to severe decrease 15-29 G4 Severe decrease <15 G5 Kidney failure Ordering Provider: GILBERTO PERALES Report Released Date/Time: Dec 17, 2024 04:05 PM Reporting Lab: [facility] [address] [address] Performing Lab: [facility] [address] [address] [facility] PANEL 1 CARBON DIOXIDE, TOTAL [MOLES/VOL UME] IN SERUM OR PLASMA 25 mmol/L 12/23 Specimen Type: PLASMA Comment: Estimated Glomerular Filtration Rate (eGFR) calculated using the 2020 Chronic Kidney Disease-Epi demiology (CKD-EPI) Collaborati on creatinine equation; units of measure are mL/min/1.73 m2. Results are only valid for adults (>=18 years) whose serum creatinine is in a steady state. eGFR calculation s are not valid for patients with acute kidney injury and for patients on dialysis. Creatinine- based estimates of kidney function may also be inaccurate in patients with reduced creatinine generation due to decreased muscle mass (e.g., malnutritio n, severe hypoalbumin emia, sarcopenia, chronic neuromuscul ar disease, amputations , severe heart failure or liver disease) and in patients with increased creatinine generation due to increased muscle mass (e.g., muscle builders, anabolic steroids) or increased dietary intake. As drug clearance is proportiona l to total GFR and not GFR indexed to body surface area (BSA), in individuals with a BSA substantial ly different than 1.73 m2, drug dosing should be based on the reported eGFR value de-indexed from BSA by multiplying by the individual' s BSA and dividing by 1.73. CKD is diagnosed based on abnormaliti es of kidney structure or function, present for >3 months, with implication s for health and disease. CKD is classified and staged based on cause, eGFR and albuminuria (quantified as urine albumin to creatinine ratio). An eGFR >60 mL/min/1.73 m2 in the absence of increased urine albumin excretion or structural abnormaliti es does not represent CKD. eGFR CKD Interpretat ion (mL/min/1.7 3 m2) stage >=90 G1 Normal 60-89 G2 Mild decrease 45-59 G3A Mild to moderate decrease 30-44 G3B Moderate to severe decrease 15-29 G4 Severe decrease <15 G5 Kidney failure Ordering Provider: GILBERTO PERALES Report Released Date/Time: Dec 17, 2024 04:05 PM Reporting Lab: [facility] [address] [facility] [address] Performing Lab: [facility] [address] [facility] [address] [facility] PANEL 1 CALCIUM [MASS/VOLU ME] IN SERUM OR PLASMA 9.8 mg/dL 8.4 - 10.2 12/23 Specimen Type: PLASMA Comment: Estimated Glomerular Filtration Rate (eGFR) calculated using the 2020 Chronic Kidney Disease-Epi demiology (CKD-EPI) Collaborati on creatinine equation; units of measure are mL/min/1.73 m2. Results are only valid for adults (>=18 years) whose serum creatinine is in a steady state. eGFR calculation s are not valid for patients with acute kidney injury and for patients on dialysis. Creatinine- based estimates of kidney function may also be inaccurate in patients with reduced creatinine generation due to decreased muscle mass (e.g., malnutritio n, severe hypoalbumin emia, sarcopenia, chronic neuromuscul ar disease, amputations , severe heart failure or liver disease) and in patients with increased creatinine generation due to increased muscle mass (e.g., muscle builders, anabolic steroids) or increased dietary intake. As drug clearance is proportiona l to total GFR and not GFR indexed to body surface area (BSA), in individuals with a BSA substantial ly different than 1.73 m2, drug dosing should be based on the reported eGFR value de-indexed from BSA by multiplying by the individual' s BSA and dividing by 1.73. CKD is diagnosed based on abnormaliti es of kidney structure or function, present for >3 months, with implication s for health and disease. CKD is classified and staged based on cause, eGFR and albuminuria (quantified as urine albumin to creatinine ratio). An eGFR >60 mL/min/1.73 m2 in the absence of increased urine albumin excretion or structural abnormaliti es does not represent CKD. eGFR CKD Interpretat ion (mL/min/1.7 3 m2) stage >=90 G1 Normal 60-89 G2 Mild decrease 45-59 G3A Mild to moderate decrease 30-44 G3B Moderate to severe decrease 15-29 G4 Severe decrease <15 G5 Kidney failure Ordering Provider: GILBERTO PERALES Report Released Date/Time: Dec 17, 2024 04:05 PM Reporting Lab: [place] [place] [facility] [address] [facility] [address] Performing Lab: [facility] [place] [facility] [address] [facility] [address] [facility] PANEL 1 ANION GAP 3 IN SERUM OR PLASMA 11 meq/L 3 - 19 12/23 Specimen Type: PLASMA Comment: Estimated Glomerular Filtration Rate (eGFR) calculated using the 2020 Chronic Kidney Disease-Epi demiology (CKD-EPI) Collaborati on creatinine equation; units of measure are mL/min/1.73 m2. Results are only valid for adults (>=18 years) whose serum creatinine is in a steady state. eGFR calculation s are not valid for patients with acute kidney injury and for patients on dialysis. Creatinine- based estimates of kidney function may also be inaccurate in patients with reduced creatinine generation due to decreased muscle mass (e.g., malnutritio n, severe hypoalbumin emia, sarcopenia, chronic neuromuscul ar disease, amputations , severe heart failure or liver disease) and in patients with increased creatinine generation due to increased muscle mass (e.g., muscle builders, anabolic steroids) or increased dietary intake. As drug clearance is proportiona l to total GFR and not GFR indexed to body surface area (BSA), in individuals with a BSA substantial ly different than 1.73 m2, drug dosing should be based on the reported eGFR value de-indexed from BSA by multiplying by the individual' s BSA and dividing by 1.73. CKD is diagnosed based on abnormaliti es of kidney structure or function, present for >3 months, with implication s for health and disease. CKD is classified and staged based on cause, eGFR and albuminuria (quantified as urine albumin to creatinine ratio). An eGFR >60 mL/min/1.73 m2 in the absence of increased urine albumin excretion or structural abnormaliti es does not represent CKD. eGFR CKD Interpretat ion (mL/min/1.7 3 m2) stage >=90 G1 Normal 60-89 G2 Mild decrease 45-59 G3A Mild to moderate decrease 30-44 G3B Moderate to severe decrease 15-29 G4 Severe decrease <15 G5 Kidney failure Ordering Provider: GILBERTO PERALES Report Released Date/Time: Dec 17, 2024 04:05 PM Reporting Lab: [facility] [address] [address] Performing Lab: [facility] [address] [address] [facility] PANEL 1 GLOMERULAR FILTRATION RATE/1.73 SQ M.PREDICTE D [VOLUME RATE/AREA] IN SERUM, PLASMA OR BLOOD BY CREATININE -BASED FORMULA (CKD-EPI 2020) >90 12/23 Specimen Type: PLASMA Comment: Estimated Glomerular Filtration Rate (eGFR) calculated using the 2020 Chronic Kidney Disease-Epi demiology (CKD-EPI) Collaborati on creatinine equation; units of measure are mL/min/1.73 m2. Results are only valid for adults (>=18 years) whose serum creatinine is in a steady state. eGFR calculation s are not valid for patients with acute kidney injury and for patients on dialysis. Creatinine- based estimates of kidney function may also be inaccurate in patients with reduced creatinine generation due to decreased muscle mass (e.g., malnutritio n, severe hypoalbumin emia, sarcopenia, chronic neuromuscul ar disease, amputations , severe heart failure or liver disease) and in patients with increased creatinine generation due to increased muscle mass (e.g., muscle builders, anabolic steroids) or increased dietary intake. As drug clearance is proportiona l to total GFR and not GFR indexed to body surface area (BSA), in individuals with a BSA substantial ly different than 1.73 m2, drug dosing should be based on the reported eGFR value de-indexed from BSA by multiplying by the individual' s BSA and dividing by 1.73. CKD is diagnosed based on abnormaliti es of kidney structure or function, present for >3 months, with implication s for health and disease. CKD is classified and staged based on cause, eGFR and albuminuria (quantified as urine albumin to creatinine ratio). An eGFR >60 mL/min/1.73 m2 in the absence of increased urine albumin excretion or structural abnormaliti es does not represent CKD. eGFR CKD Interpretat ion (mL/min/1.7 3 m2) stage >=90 G1 Normal 60-89 G2 Mild decrease 45-59 G3A Mild to moderate decrease 30-44 G3B Moderate to severe decrease 15-29 G4 Severe decrease <15 G5 Kidney failure Ordering Provider: GILBERTO PERALES Report Released Date/Time: Dec 17, 2024 04:05 PM Reporting Lab: [address] [address] Performing Lab: [place] [phone] [facility] B12 VITAMIN COBALAMIN (VITAMIN B12) [MASS/VOLU ME] IN SERUM OR PLASMA 415 pg/mL 213 - 816 09/10 Specimen Type: PLASMA Comment: Vitamin B12 test may not yield results when protein level of sample is too elevated. Ordering Provider: GILBERTO PERALES Report Released Date/Time: Sep 07, 2024 08:05 PM Reporting Lab: [address] [address] Performing Lab: [address] [address] [facility] FOLATE FOLATE [MASS/VOLU ME] IN SERUM OR PLASMA 18.7 ng/mL 7.0 - 31.4 09/10 Specimen Type: PLASMA Comment: Vitamin B12 test may not yield results when protein level of sample is too elevated. Ordering Provider: GILBERTO PERALES Report Released Date/Time: Sep 07, 2024 08:05 PM Reporting Lab: [address] [address] Performing Lab: [address] [address] [facility] URINALYS IS COLOR OF URINE Yellow 09/03 Specimen Type: URINE Comment: Microscopic not indicated Ordering Provider: GILBERTO PERALES Report Released Date/Time: Sep 03, 2024 12:10 PM Reporting Lab: [address] [address] Performing Lab: [address] [address] [facility] URINALYS IS APPEARANCE OF URINE Clear 09/03 Specimen Type: URINE Comment: Microscopic not indicated Ordering Provider: GILBERTO PERALES Report Released Date/Time: Sep 03, 2024 12:10 PM Reporting Lab: [address] [address] Performing Lab: [address] [address] [facility] URINALYS IS UROBILINOG EN [MASS/VOLU ME] IN URINE BY TEST STRIP Normalmg /dL 09/03 Specimen Type: URINE Comment: Microscopic not indicated Ordering Provider: GILBERTO PERALES Report Released Date/Time: Sep 03, 2024 12:10 PM Reporting Lab: [address] [address] Performing Lab: [address] [address] [facility] URINALYS IS HEMOGLOBIN [PRESENCE] IN URINE BY TEST STRIP Negative 09/03 Specimen Type: URINE Comment: Microscopic not indicated Ordering Provider: GILBERTO PERALES Report Released Date/Time: Sep 03, 2024 12:10 PM Reporting Lab: [address] [address] Performing Lab: [address] [address] [facility] URINALYS IS BILIRUBIN. TOTAL [PRESENCE] IN URINE BY TEST STRIP Negative 09/03 Specimen Type: URINE Comment: Microscopic not indicated Ordering Provider: GILBERTO PERALES Report Released Date/Time: Sep 03, 2024 12:10 PM Reporting Lab: [address] [address] Performing Lab: [address] [address] [facility] URINALYS IS KETONES [MASS/VOLU ME] IN URINE BY TEST STRIP Negative mg/dL 09/03 Specimen Type: URINE Comment: Microscopic not indicated Ordering Provider: GILBERTO PERALES Report Released Date/Time: Sep 03, 2024 12:10 PM Reporting Lab: [address] [address] Performing Lab: [address] [address] [facility] URINALYS IS PROTEIN [MASS/VOLU ME] IN URINE BY TEST STRIP Negative mg/dL 09/03 Specimen Type: URINE Comment: Microscopic not indicated Ordering Provider: GILBERTO PERALES Report Released Date/Time: Sep 03, 2024 12:10 PM Reporting Lab: [address] [address] Performing Lab: [address] [address] [facility] URINALYS IS PH OF URINE BY TEST STRIP 6.5 4.5 - 8.0 09/03 Specimen Type: URINE Comment: Microscopic not indicated Ordering Provider: GILBERTO PERALES Report Released Date/Time: Sep 03, 2024 12:10 PM Reporting Lab: [address] [address] Performing Lab: [address] [address] [facility] URINALYS IS NITRITE [PRESENCE] IN URINE BY TEST STRIP Negative 09/03 Specimen Type: URINE Comment: Microscopic not indicated Ordering Provider: GILBERTO PERALES Report Released Date/Time: Sep 03, 2024 12:10 PM Reporting Lab: [address] [address] Performing Lab: [address] [address] [facility] URINALYS IS LEUKOCYTE ESTERASE [PRESENCE] IN URINE BY TEST STRIP Negative 09/03 Specimen Type: URINE Comment: Microscopic not indicated Ordering Provider: GILBERTO PERALES Report Released Date/Time: Sep 03, 2024 12:10 PM Reporting Lab: [address] [address] Performing Lab: [address] [address] [facility] URINALYS IS SPECIFIC GRAVITY OF URINE 1.018 1.005 - 1.030 09/03 Specimen Type: URINE Comment: Microscopic not indicated Ordering Provider: GILBERTO PERALES Report Released Date/Time: Sep 03, 2024 12:10 PM Reporting Lab: [address] [address] Performing Lab: [address] [address] [facility] URINALYS IS GLUCOSE [MASS/VOLU ME] IN URINE BY TEST STRIP Negative mg/dL 09/03 Specimen Type: URINE Comment: Microscopic not indicated Ordering Provider: GILEBRTO PERALES Report Released Date/Time: Sep 03, 2024 12:10 PM Reporting Lab: [address] [address] Performing Lab: [address] [address] [facility] TSH THYROTROPI N [UNITS/VOL UME] IN SERUM OR PLASMA 0.9531 m[IU]/mL 0.3500 - 4.9400 09/03 Specimen Type: PLASMA Comment: Estimated Glomerular Filtration Rate (eGFR) calculated using the 2020 Chronic Kidney Disease-Epi demiology (CKD-EPI) Collaborati on creatinine equation; units of measure are mL/min/1.73 m2. Results are only valid for adults (>=18 years) whose serum creatinine is in a steady state. eGFR calculation s are not valid for patients with acute kidney injury and for patients on dialysis. Creatinine- based estimates of kidney function may also be inaccurate in patients with reduced creatinine generation due to decreased muscle mass (e.g., malnutritio n, severe hypoalbumin emia, sarcopenia, chronic neuromuscul ar disease, amputations , severe heart failure or liver disease) and in patients with increased creatinine generation due to increased muscle mass (e.g., muscle builders, anabolic steroids) or increased dietary intake. As drug clearance is proportiona l to total GFR and not GFR indexed to body surface area (BSA), in individuals with a BSA substantial ly different than 1.73 m2, drug dosing should be based on the reported eGFR value de-indexed from BSA by multiplying by the individual' s BSA and dividing by 1.73. CKD is diagnosed based on abnormaliti es of kidney structure or function, present for >3 months, with implication s for health and disease. CKD is classified and staged based on cause, eGFR and albuminuria (quantified as urine albumin to creatinine ratio). An eGFR >60 mL/min/1.73 m2 in the absence of increased urine albumin excretion or structural abnormaliti es does not represent CKD. eGFR CKD Interpretat ion (mL/min/1.7 3 m2) stage >=90 G1 Normal 60-89 G2 Mild decrease 45-59 G3A Mild to moderate decrease 30-44 G3B Moderate to severe decrease 15-29 G4 Severe decrease <15 G5 Kidney failure Ordering Provider: GILBERTO PERALES Report Released Date/Time: Sep 03, 2024 12:10 PM Reporting Lab: [address] [address] Performing Lab: [address] [address] [facility] GLYCOHEM OGLOBIN HEMOGLOBIN A1C/HEMOGL OBIN.TOTAL IN BLOOD BY HPLC 6.5 4.4 - 6.4 09/03 H Specimen Type: BLOOD Comment: [facility] guidelines for A1c interpretat ion: Glycemic control targets are based on Shared Decision Making between clinicians and patients. Criteria used to establish an A1c target recommendat ion can be found at https://www .ga.gov/samara lityandpati entsafety/ and include the use of result accuracy and precision(C V) of the A1c tests clinicians utilize at their own sites of practice. Values obtained from A1C measurement s can vary. For typical A1C assays, a reported value of 7.0 could actually be between 6.72 and 7.28 if measured by a reference method. A reported value of 9.0 could actually be between 8.73 and 9.27. Ref: https://ngs p.org/CAPda ta.asp. The in-house Path-[employer] D-100 analyzer has a historical CV <= 2%. Contact the laboratory for further performance characteris tics of this assay. Ordering Provider: GILBERTO PERALES Report Released Date/Time: Sep 03, 2024 12:10 PM Reporting Lab: [address] [address] Performing Lab: [place] [phone] [place] [address] 25-OH VITAMIN D 25-HYDROXY VITAMIN D3 [MASS/VOLU ME] IN SERUM OR PLASMA 38.1 ng/mL 20.0 - 50.0 09/03 Specimen Type: SERUM Comment: The National Institutes of Health (NIH) recommendat ions state: <12 ng/mL - Deficient 20 - 50 ng/mL - Optimal Levels - adequate for most people. >50 ng/mL - Increased risk of hypercalciu laure/other health problems - clinical correlation is required. These reference ranges represent clinical decision values rather than population- based reference values. Ordering Provider: GILBERTO PERALES Report Released Date/Time: Sep 03, 2024 12:10 PM Reporting Lab: [place] [phone] Performing Lab: [place] [id number] [place] [address] CBC/PLT LEUKOCYTES [#/VOLUME] IN BLOOD BY AUTOMATED COUNT 7.0 10*3/uL 5.0 - 10.0 09/03 Specimen Type: BLOOD No comment entered. Ordering Provider: GILBERTO PERALES Report Released Date/Time: Sep 03, 2024 12:10 PM Reporting Lab: [address] [address] Performing Lab: [address] [phone] [place] [address] CBC/PLT ERYTHROCYT ES [#/VOLUME] IN BLOOD BY AUTOMATED COUNT 5.00 10*6/uL 4.6 - 6.2 09/03 Specimen Type: BLOOD No comment entered. Ordering Provider: GILBERTO PERALES Report Released Date/Time: Sep 03, 2024 12:10 PM Reporting Lab: [address] [address] Performing Lab: [address] [place] [address] [facility] CBC/PLT HEMOGLOBIN [MASS/VOLU ME] IN BLOOD 16.7 g/dL 14.0 - 18.0 09/03 Specimen Type: BLOOD No comment entered. Ordering Provider: GILBERTO PERALES Report Released Date/Time: Sep 03, 2024 12:10 PM Reporting Lab: [address] [address] Performing Lab: [place] [phone] [place] [address] CBC/PLT HEMATOCRIT [VOLUME FRACTION] OF BLOOD BY AUTOMATED COUNT 50.3 42.0 - 52.0 09/03 Specimen Type: BLOOD No comment entered. Ordering Provider: GILBERTO PERALES Report Released Date/Time: Sep 03, 2024 12:10 PM Reporting Lab: [address] [address] Performing Lab: [place] [phone] [place] [address] CBC/PLT MCV [ENTITIC VOLUME] BY AUTOMATED COUNT 100.6 fL 80.0 - 94.0 09/03 H Specimen Type: BLOOD No comment entered. Ordering Provider: GILBERTO PERALES Report Released Date/Time: Sep 03, 2024 12:10 PM Reporting Lab: [address] [address] Performing Lab: [place] [phone] [place] [address] CBC/PLT MCH [ENTITIC MASS] BY AUTOMATED COUNT 33.4 pg 27.0 - 31.0 09/03 H Specimen Type: BLOOD No comment entered. Ordering Provider: GILBERTO PERALES Report Released Date/Time: Sep 03, 2024 12:10 PM Reporting Lab: [address] [address] Performing Lab: [address] [phone] [place] [address] CBC/PLT MCHC [MASS/VOLU ME] BY AUTOMATED COUNT 33.2 g/dL 32.0 - 36.0 09/03 Specimen Type: BLOOD No comment entered. Ordering Provider: GILBERTO PERALES Report Released Date/Time: Sep 03, 2024 12:10 PM Reporting Lab: [address] [address] Performing Lab: [address] [phone] [place] [address] CBC/PLT PLATELETS [#/VOLUME] IN BLOOD 115 10*3/uL 150 - 450 09/03 L Specimen Type: BLOOD No comment entered. Ordering Provider: GILBERTO PERALES Report Released Date/Time: Sep 03, 2024 12:10 PM Reporting Lab: [address] [address] Performing Lab: [address] CBC/PLT PLATELET MEAN VOLUME [ENTITIC VOLUME] IN BLOOD 12.9 fL 9.0 - 13.1 09/03 Specimen Type: BLOOD No comment entered. Ordering Provider: GILBERTO PERALES Report Released Date/Time: Sep 03, 2024 12:10 PM Reporting Lab: [address] [address] Performing Lab: [address] CBC/PLT ERYTHROCYT E DISTRIBUTI ON WIDTH [ENTITIC VOLUME] BY AUTOMATED COUNT 12.1 11.0 - 16.0 09/03 Specimen Type: BLOOD No comment entered. Ordering Provider: GILBERTO PERAELS Report Released Date/Time: Sep 03, 2024 12:10 PM Reporting Lab: [address] [address] Performing Lab: [address] [phone] [place] [address] CBC/PLT NUCLEATED ERYTHROCYT ES/100 ERYTHROCYT ES IN BLOOD 0.0 0.0 - 0.0 09/03 Specimen Type: BLOOD No comment entered. Ordering Provider: GILBERTO PERALES Report Released Date/Time: Sep 03, 2024 12:10 PM Reporting Lab: [address] [place] [address] Performing Lab: [facility] [facility] [address] [facility] [address] [facility] Vital Signs Combined list of inpatient and outpatient Vital Signs from Department of Defense and Veterans Affairs, ranging from 12 months to all on record, depending upon the facility. Vital Sign Value Date Comments Source SYSTOLIC BLOOD PRESSURE 151 05/21/2025 10:54:42 [facility] DIAST[facility]IC BLOOD PRESSURE 84 05/21/2025 10:54:42 [facility] PULSE OXIMETRY 99 % 05/21/2025 10:54:42 [facility] WEIGHT 199 05/21/2025 10:54:42 [place] [facility] BMI 27 kg/m2 05/21/2025 10:54:42 [place] [facility] PAIN 7 05/21/2025 10:54:42 [place] [facility] HEIGHT 72 05/21/2025 10:54:42 [place] [facility] TEMPERATURE 97.6 05/21/2025 10:54:42 [facility]ERENICE NGTON [facility] PULSE 66 05/21/2025 10:54:42 [place] [facility] RESPIRATION 16 05/21/2025 10:54:42 [facility] N[facility] SYSTOLIC BLOOD PRESSURE 133 12/16/2024 10:47:00 [facility] DIASTOL[facility] BLOOD PRESSURE 81 12/16/2024 10:47:00 [facility] PULSE OXIMETRY 97 12/16/2024 10:47:00 [facility] WEIGHT 205.0 12/16/2024 10:47:00 [place] [facility] BMI 27 kg/m2 12/16/2024 10:47:00 [place] [facility] PAIN 8 12/16/2024 10:47:00 [place] [facility] TEMPERATURE 98.4 12/16/2024 10:47:00 [facility] N[facility] PULSE 62 12/16/2024 10:47:00 [place] [facility] SYSTOLIC BLOOD PRESSURE 154 09/03/2024 10:18:31 [facility] DIAST[facility]IC BLOOD PRESSURE 88 09/03/2024 10:18:31 [facility] PULSE OXIMETRY 100 09/03/2024 10:18:31 [facility] WEIGHT 209.8 09/03/2024 10:18:31 KYLE OWEN [facility] BMI 28 kg/m2 09/03/2024 10:18:31 KYLE BAKARI [facility] PAIN 8 09/03/2024 10:18:31 KYLE BAKARI [facility] HEIGHT 73 09/03/2024 10:18:31 KYLE BAKARI [facility] TEMPERATURE 97.8 09/03/2024 10:18:31 [facility] PULSE 58 09/03/2024 10:18:31 KYLE [facility] Encounters Combined list of: 1) Encounters from Department of Veterans Affairs facilities going backup to the last 18 months, not all [place] inpatient encounters are included; 2) Encounters from the Department of Defense facilities going backup to 280 months. 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 DAVIAN Basilio 12/28 [place] [facility] Outpatient Encounter [id number] 01/09 [place] [facility] Outpatient Encounter [id number] 02/11 [place] [facility] Outpatient Encounter [id number] 02/26 [place] [facility] Outpatient Encounter [id number] 02/27 [place] [facility] Outpatient Encounter [id number] 03/04 [place] Outpatient Encounter [id number] 04/18 [place] [facility] Outpatient Encounter [id number] 04/19 [place] [facility] Outpatient Encounter [id number] Diagnos is: ICD-10- CM 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 RADHA Atkinson 05/15 [place] [facility] O/P EST MOD 30 MIN [id number] Diagnos is: ICD-10- CM H25.813 Combine d forms of age-rel ated catarac t, bilater al ELKE NEWTON L 05/29 [place] [facility] Outpatient Encounter [id number] 08/08 [place] Outpatient Encounter [id number] 08/30 [place] OFFICE O/P EST HI 40 MIN [id number] Diagnos is: ICD-10- CM N40.0 Benign prostat ic hyperpl denise without lower urinry tract symp KOUSA,DAVIAN A 09/03 [place] [facility] TELEHEALTH FACILITY FEE [id number] Diagnos is: ICD-10- CM Z13.89 Encount er for screeni ng for other disorde r AMADO GANDARA NDTri L 09/03 [place] [facility] Outpatient Encounter [id number] Diagnos is: ICD-10- CM L82.1 Other seborrh eic keratos is CHINCHILLA,CHR ISTOPHER C 09/05 [place] Outpatient Encounter [id number] 09/05 [place] HC PRO PHONE CALL 5-10 MIN [id number] Diagnos is: ICD-10- CM R79.9 Abnorma l finding of blood entry level chemist ry, unspeci fied Edin GOODMAN CELINA G 09/09 [place] [facility] HC PRO PHONE CALL 5-10 MIN [id number] Diagnos is: ICD-10- CM 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 Diagnos is: ICD-10- CM M54.2 Cervica lgjovita MOTA,GR EG R 12/16 [place] Outpatient Encounter [id number] 12/17 [place] Outpatient Encounter [id number] 12/17 [place] [facility] Outpatient Encounter [id number] 12/19 [place] [id number] ASSMT&MGMT NQHP 5-10 [id number] Diagnos is: ICD-10- CM M54.12 Radicul opathy, cervica l region REX,L CELINA G 12/20 [place] [id number] ASSMT&MGMT NQHP 5-10 [id number] Diagnos is: ICD-10- CM M54.2 Cervica premajovita BOY KUO 12/26 [place] [facility] Outpatient Encounter [id number] 12/27 [place] [facility] Outpatient Encounter [id number] 02/03 [place] Outpatient Encounter [id number] 02/17 [place] Outpatient Encounter [id number] 03/06 [place] [facility] Outpatient Encounter [id number] 03/10 [place] [facility] [place] [facility] Outpatient Encounter [id number] 03/11 [place] Outpatient Encounter [id number] 03/12 [place] [facility] Outpatient Encounter [id number] 03/12 [place] [facility] Outpatient Encounter [id number] 04/21 [place] [facility] [place] [facility] Outpatient Encounter [id number] 04/22 [place] Outpatient Encounter [id number] 04/25 [place] [facility] [place] [facility] Outpatient Encounter [id number] 04/28 [place] [facility] Outpatient Encounter [id number] 04/29 [place] [facility] Outpatient Encounter [id number] 05/20 [place] [facility] Outpatient Encounter [id number] 05/21 [place] [facility] Outpatient Encounter [id number] 05/21 [place] [facility] OFFICE O/P EST MOD 30 MIN [id number] Diagnos is: ICD-10- CM I10 Essenti al (primar y) hyperte nsion ANGELLA,DAVIAN A 05/21 [place] [facility] Social History Combined list of available smoking, tobacco, and other social history from [facility] and [facility] facilities. Social History Type Response Date Comment [facility] e Tobacco [facility] 05/21/2025 [facility] History of tobacco use [place]-TOBACCO USE SOME DAYS OTHER TYPE 05/21/2025 [facility] History of tobacco use [place]-TOBACCO DOESNT USE WI 30 MIN WAKEUP 09/03/2024 [facility] History of tobacco use [place]-TOBACCO USER EVERY DAY 05/18/2022 [facility] History of tobacco use [place]-TOBACCO FORMER USER 02/22/2021 [facility] History of tobacco use [place]-TOBACCO USER SOME DAYS 07/02/2020 [facility] History of tobacco use [facility] WI 30 MIN WAKEUP 11/23/2018 [facility] History of tobacco use V9 LIFETIME NON-USER OF TOBACCO 08/29/2017 [facility] History of tobacco use V9 LIFETIME NON-USER OF TOBACCO 10/20/2016 [facility] History of tobacco use V9 LIFETIME NON-USER OF TOBACCO 10/28/2015 [facility] History of tobacco use V9 QUIT TOBACCO >12 MO and <7 YRS AGO 09/24/2014 [facility] History of tobacco use V9 CURRENT TOBACCO USER 09/13/2013 [facility] History of tobacco use V9 CURRENT TOBACCO USER 07/12/2012 [facility] History of tobacco use V9 CURRENT TOBACCO USER 07/04/2011 [facility] History of tobacco use V9 CURRENT TOBACCO USER 05/24/2010 [facility] History of tobacco use V9 CURRENT TOBACCO USER 05/22/2009 [facility] Plan of Care List of future care activities from Department [facility] facilities. Additional future care activities may be listed in the Assessment and Plan section. Date/Time Care Activity Care Activity Detail Facili ty 05/21/2025 AMBULATORY - NONE AMB[facility]AT[facility] - NONE [facility]
--- OUTSIDE RECORDS SUMMARY | 2025-05-21 13:31 | XMS_ITS | Continuity of Care Document ---
Author Organization Formerly [facility]. If a dditional information is needed, contact Health Information Management at [phone] Address [address] [place] [address] Phone Care Team Providers Care Bank Guard Name Role Phone Unavailable Unavailable Unavailable Unavailable Unavailable Unavailable Unavailable Unavailable Unavailable Unavailable Unavailable Unavailable Problems Hypertensive disorder Onset:04-Dec-2022 Iftikhar Jackson PA-C Status:Acute Nausea Onset:04-Dec-2022 Iftikhar Jackson PA-C Status:Acute Functional Status Functional finding 03-Dec-2022 Functional finding 03-Dec-2022 Functional finding 03-Dec-2022 Allergies and Adverse Reactions No Known Allergies(Allergy) Onset: 03-Dec-2022 Medications ondansetron 4 MG Disintegrat ing Oral Tablet;4 MG ORAL Q6H Start:04-Dec-2022 Comments:4 mg PO Q6H
== END 2025-05-21 23:59 | disposition home or self-care (01) ==
LOC: RT 13:29
PROVIDERS: PCP Family Medicine; Visit Provider Family Medicine
DX: I08.0 Rheumatic disorders of both mitral and aortic valves (principal); I65.23 Occlusion and stenosis of bilateral carotid arteries; I10 Essential (primary) hypertension; I25.10 Atherosclerotic heart disease of native coronary artery without angina pectoris
CPT/HCPCS: 93306; 93880

== ENCOUNTER 2025-05-27 09:52 | Outpatient (CLI) | payer MEDICARE, OTHER, SELFPAY ==
--- OUTSIDE RECORDS SUMMARY | 2024-05-29 06:20 | XMS_ITS | Encounter Summary ---
Author Name [facility] [place] Organization [facility] [place] [place] Address [address] [place] [address] Care Team Providers Care Food Clerk Name Role Phone GILBERTO PERALES Primary Care Provider Unavailabl e Insurance Providers: All historical and current Section Date Range: From patient's date of to the date document was created. This section includes the names of all active insurance providers for the patient. Insurance Provider Type of Coverage Plan Name Start of Policy Coverage End of Policy Coverage Group Number Member ID Insurance Provider's Telephone Number Policy Lion's Name Patient's Relationship to Policy Lion MEDICARE (WNR) MEDICARE (M) PART B Jun 23, 2016 PART B [id number] ERWIN HALL PATIENT MEDICARE (WNR) MEDICARE (M) PART A Jun 23, 2016 PART A [id number] ERWIN HALL PATIENT MEDICARE (WNR) MEDICARE (M) PART A Jun 23, 2016 PART A [id number] ERWIN HALL PATIENT MEDICARE (WNR) MEDICARE (M) PART B Jun 23, 2016 PART B [id number] [phone] ERWIN HALL PATIENT MEDICARE PART D (WNR) MEDICARE (M) PART D Jun 23, 2016 PART D [id number] ERWIN HALL PATIENT MEDICARE PART D (WNR) MEDICARE (M) PART D Jun 23, 2016 PART D [id number] ERWIN HALL PATIENT [employer] [employer] PLAN G PLAN G Jun 23, 2016 PLAN G [id number] ERWIN HALL PATIENT [employer] [place] [employer] PLAN G PLANG Jun 23, 2016 PLANG [id number] [phone] ERWIN HALL PATIENT Selected Encounter This section includes the information on record at [place] for the Encounter. Date/Time Encounter Type Encounter Description Reason Provider Source May 29, 2024 10:20 AM OFFICE O/P EST MOD 30 MIN OPTOMETRY ICD-10-CM H25.813 Combined forms of age-related cataract, bilateral YU,BREY NE L IHE Encounter Template Text not used by [place] Assessments - Encounter Diagnoses This section includes the primary and secondary diagnoses documented for the Encounter. Date/Time Primary/Secondary Diagnosis Diagnosis Name Provider Source May 29, 2024 03:23 PM PRIMARY Combined forms of age-related cataract, bilateral YU,ADRIANY NE L [facility] May 29, 2024 03:23 PM SECONDARY Dry eye syndrome of bilateral lacrimal glands LAMAR,ROBB NE L [facility] May 29, 2024 03:23 PM SECONDARY Presbyopia ROBB YU NE L [facility] May 29, 2024 03:23 PM SECONDARY Vitreous degeneration, bilateral LAMAR,ADRIANY NE L [facility] Plan of Treatment: Future Appointments (+ 6 months) and Future Tests (+/- 45 days) The Plan of Treatment section includes future care activities for the patient from all [place] treatmentfacilities. This section includes future appointments and future orders which are active, pending or scheduled. Future Appointments This section includes appointments that were scheduled to occur 6 months from the date of the Encounter, up to a maximum of 20 appointments. The data comes from all [place] treatment facilities. Appointment Date/Time Appointment Type Appointme nt Facility Name Sep 03, 2024 11:00 AM [facility] NONE [facility] Sep 06, 2024 09:00 AM AMBULATORY - NONE [facility] Nov 23, 2024 10:00 AM [facility] - [facility] [facility] Social History: Smoking Status (Most current) and Tobacco Use (All prior to encounter date) This section includes the most current, and the historical, smoking and tobacco- related health factors from the [place] facility where the Encounter took place. Current Smoking Status This section includes the most current smoking, or tobacco-related health factor, from the [place] facility where the Encounter took place. Date/Time Current Smoking Status Comment Francesco ity May 18, 2022 08:30 AM VA-TOBACCO USER EVERY DAY [facility] Tobacco Use History This section includes a history of the smoking, or tobacco-related health factors, that were collected on or before the date of the Encounter. The data comes from the [place] facility where the Encounter took place. Date/Time Smoking Status/Tobacco Use Comment F acility May 18, 2022 08:30 AM VA-TOBACCO USE 30 YEARS OR MORE [facility] May 18, 2022 08:30 AM VA-TOBACCO USE ADVICE [facility] May 18, 2022 08:30 AM VA-TOBACCO USE IDENTITY MANAGEMENT CONSULTANT NO [facility] May 18, 2022 08:30 AM VA-TOBACCO USE MED NO [facility] May 18, 2022 08:30 AM VA-TOBACCO USER EVERY DAY [facility] Jul 02, 2020 10:00 AM VA-TOBACCO DOESNT USE WI 30 MIN WAKEUP [facility] Jul 02, 2020 10:00 AM VA-TOBACCO USE 30 YEARS OR MORE [facility] Jul 02, 2020 10:00 AM VA-TOBACCO USE ADVICE [facility] Jul 02, 2020 10:00 AM VA-TOBACCO USE IDENTITY MANAGEMENT CONSULTANT NO [facility] Jul 02, 2020 10:00 AM VA-TOBACCO USE MED NO [facility] Jul 02, 2020 10:00 AM VA-TOBACCO USER SOME DAYS [facility] Nov 23, 2018 11:13 AM VA-TOBACCO DOESNT USE WI 30 MIN WAKEUP [facility] Nov 23, 2018 11:13 AM VA-TOBACCO USE 30 YEARS OR MORE [facility] Nov 23, 2018 11:13 AM VA-TOBACCO USE ADVICE [facility] Nov 23, 2018 11:13 AM VA-TOBACCO USE IDENTITY MANAGEMENT CONSULTANT NO [facility] Nov 23, 2018 11:13 AM VA-TOBACCO USE MED NO [facility] Nov 23, 2018 11:13 AM VA-TOBACCO USER SOME DAYS [facility] Aug 29, 2017 09:43 AM V9 LIFETIME NON-USER OF TOBACCO [facility] Oct 20, 2016 09:13 AM V9 LIFETIME NON-USER OF TOBACCO [facility] Oct 28, 2015 09:04 AM V9 LIFETIME NON-USER OF TOBACCO [facility] Sep 24, 2014 10:16 AM V9 QUIT TOBACCO >1 2 MO & <7 YRS AGO [facility] Sep 24, 2014 10:16 AM V9 TOBACCO OFFERED [facility] Sep 13, 2013 10:18 AM TOBACCO OFFERRED P T MEDS (PROVIDER) [facility] Sep 13, 2013 10:18 AM V9 CURRENT TOBACCO USER [facility] Sep 13, 2013 10:18 AM V9 TOBACCO OFFERED [facility] Jul 12, 2012 05:32 PM V9 CURRENT TOBACCO USER [facility] Jul 12, 2012 05:32 PM V9 QUIT TOBACCO >1 2 MO & <7 YRS AGO [facility] Jul 12, 2012 05:32 PM V9 TOBACCO OFFERED [facility] Jul 04, 2011 09:53 AM TOBACCO OFFERRED P T MEDS (PROVIDER) [facility] Jul 04, 2011 09:53 AM V9 CURRENT TOBACCO USER [facility] Jul 04, 2011 09:53 AM V9 TOBACCO OFFERED [facility] May 24, 2010 08:09 AM TOBACCO OFFERRED P T MEDS (PROVIDER) [facility] May 24, 2010 08:09 AM V9 CURRENT TOBACCO USER [facility] May 24, 2010 08:09 AM V9 TOBACCO OFFERED [facility] May 22, 2009 01:20 PM TOBACCO OFFERRED P T MEDS (PROVIDER) [facility] May 22, 2009 01:20 PM V9 CURRENT TOBACCO USER [facility] May 22, 2009 01:20 PM V9 TOBACCO OFFERED [facility] Encounter Notes: All associated encounter notes This section contains the clinical notes associated to the Encounter. Date/Time Encounter Note(s) Provider Source May 29, 2024 03:49 PM STUDENT NOTE: LOCAL TITLE: MEDICAL STUDENT SOAP NOTE STANDARD TITLE: STUDENT NOTE DATE OF NOTE: MAY 29, 2024@15:49 ENTRY DATE: MAY 29, 2024@15:50:07 AUTHOR: GEORGE PAK EXP COSIGNER: ELKE YU URGENCY: STATUS: COMPLETED I participated in this patient care encounter with Dr. Yu. /anitha/ GEORGE PAK Optometry Student Signed: 05/29/2024 15:50 /anitha/ ELKE YU Staff Evp, Primary Care Service Cosigned: 05/29/2024 15:57 GEORGE PAK [facility] May 29, 2024 10:40 AM OPTOMETRY NOTE: LOCAL TITLE: OPTOMETRY ATTENDING NOTE STANDARD TITLE: OPTOMETRY NOTE DATE OF NOTE: MAY 29, 2024@10:40 ENTRY DATE: MAY 29, 2024@10:40:59 AUTHOR: ELKE YU EXP COSIGNER: URGENCY: STATUS: COMPLETED OPTOMETRY ATTENDING NOTE Has ADDENDA Type of exam: Comprehensive Chief complaint/Reason for visit: 73YO WHITE patient presents for full exam to monitor cataracts OU and dry eyes OU. Patient reports N blur with current spec rx. Uses Refresh OTC ATs prn OU with relief. Reports long-standing floaters OU, occuring more frequently, and reports lightning bolt OU lasts a few seconds and happens every day, has them noticed for 1 year. No other ocular or visual complaints. Ocular History: FAUSTINO: 05/19/23 (-) Eye Injury: (+) Eye Surgery/Laser Tx: LASIK (monovision, OD distance) 20+ years ago (-) Eye Infection: (+) Other: cataracts OU, PVD OU (-) History of Cancer (-) History of Known CVA (+) Use of anticoagulant Type: 81 mg aspirin Ocular Medications: OTC Clear Eyes 1x/day OU (-) History of allergies to ocular medications Family history: None Smoking history: (+) Smoking If currently smoking, is pt interested in smoking cessation? NO Duration, packs per day: occasionally smokes a cigar Pt is aware of availability of support groups/medication/other resources to help with smoking cessation at the [place] Additional Risk Factors for Macular Degeneration: (+) Patient is over age 60 (-) Obesity (Centers for Disease Control and Prevention definition: BMI of 30 or more) (+) Pt has heritage (-) Female sex Additional Glaucoma Risk Hx: (-) over age 40 (+) Pt is over age 60 (-) Pt has [place] heritage Medical history: Active problems - Computerized Problem List is the source for the followin. History of colonoscopy 05/2022 - repeat 3 years (04/2025) 2. Adrenal adenoma 3. Overactive bladder 4. Peripheral vascular disease 5. Hyperlipidemia 6. Benign prostatic hyperplasia 7. Benign essential hypertension 8. Gastroesophageal reflux disease 9. Coronary atherosclerosis Allergies: Patient has answered NKA Medications: Active Outpatient Medications (including Supplies): Active Outpatient Medications Status 1) FINASTERIDE 5MG TAB TAKE ONE TABLET BY MOUTH DAILY ACTIVE FOR PROSTATE 2) TADALAFIL 20MG TAB TAKE ONE TABLET BY MOUTH ACTIVE DIRECTED FOR ERECTILE DYSFUNCTION -DO NOT TAKE WITH ANY MEDICATION CONTAINING NITRATES (LIMIT: 6 DOSES/30 DAYS OR 18 DOSES/90 DAYS, NON-REPLACEABLE MEDICATION) TAKE ONE HOUR BEFORE SEX ON EMPTY STOMACH Active Non-VA Medications Status 1) Non-VA ASPIRIN 81MG EC TAB 81MG MOUTH DAILY ACTIVE 2) Non-VA ATORVASTATIN CALCIUM 80MG TAB 80MG MOUTH DAILY ACTIVE 3) Non-VA CALCIUM POLYCARBOPHIL 625MG TAB 625MG MOUTH ACTIVE DAILY 4) Non-VA DOCUSATE CAP,ORAL MOUTH ACTIVE 5) Non-VA LISINOPRIL TAB 20MG 20MG MOUTH DAILY ACTIVE 6) Non-VA METOPROLOL TARTRATE 100MG TAB 50MG MOUTH TWICE ACTIVE A DAY 7) Non-VA MINERALS/MULTIVITAMINS CAP/TAB MOUTH DAILY ACTIVE 8) Non-VA OMEPRAZOLE 20MG EC CAP 40MG MOUTH ONCE A DAY ACTIVE 30 MINUTES BEFORE A MEAL 10 Total Medications Medication list reviewed by: Any Medication list is accurate per patient/doctor review, Pt/significant other reports patient taking ALL VA, Non VA,OTC medications as listed on medication tab. Describe Discrepancies: Printed copy of medication list provided to patient and/or significant other and reviewed: Yes Explained to patient and/or significant other the importance of keeping providers updated on medication changes and to carrying an updated list of medication at all times in case of an emergency situation. Yes Medication changes reviewed, patient/significant other verbalized understanding, provided updated list. VA: cc (habitual in phoropter) 20/30-2 20/50 Habitual Rx: OD: +0.25-0.24c572 OS: -1.25 DS Add:+2.50 EOMs: Full and unrestricted OU, No Diplopia Confrontation VF: Full to finger count OU Pupils: PERRL, no APD Refraction: OD: +0.75 -0.50 X 075 20/25 OS: -0.50 DS 20/30-1 Add: 2.50 20/25 Final RX: Same as above SLIT LAMP EXAM: Lids/lashes: bleph OS > OD Conj/sclera: Clear/white OU Cornea: Clear OU Anterior chamber: D/q OU Iris/pupil: Flat/round OU Informed consent obtained prior to instillation of all diagnostic pharmaceutical agents. IOPs (Goldmann applanation): igt Altafluor Benox OD, OS OD: 15 OS: 16 Time: 1056 Angles: VH 4+ N/T OU OCULAR HEALTH: igt 1% Tropicacyl OD, igt 1% Tropicacyl OS, igt 2.5% Phenylephrine OD, igt 2.5% Phenylephrine OS Time: 1057 Lenses used for viewinD, 20D LENS: OD: 2+ NS, 1+ cortical OS: 2+ NS, 2+ cortical C/D: H/ V OD: 0.55/0.55 PPA 360, NRRI, No Hemes, No Pallor, No Edema OS: 0.50/0.50 PPA 360, NRRI, No Hemes, No Pallor, No Edema Size: average MACULA: OD: Flat, even pigment 1+ nasal ERM OS: Flat, even pigment VESSELS: OD: 2/3 AV OS: 2/3 AV POSTERIOR POLE: OD: Clear OS: 0.25DD hypopigmentation spot superior mid-periphery VITREOUS: OD: PVD OS: PVD, 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 Senile combined cataracts OU - BCVA 20/25 OD, 20/30-1 OS 2. 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 Presbyopia OU P: 1. Patient educated about cataracts, their effect on vision and the typical time for extraction is when they begin to affect the patient's activities of daily living. Patient was advised on the typical gradual course of cataracts and instructed to RTC if vision changes significantly before next F/U. 2. Patient educated on the use of VA artificial tears 3-4 times per day OU. Patient educated regarding proper lid hygiene and warm compresses daily OU. Patient to RTC should symptoms worsen or not improve with supportive intervention. 3. Patient was educated to return to clinic immediately if they note any change in vision, flashes of light, or onset of new floaters. Patient was informed that these can be symptoms of retinal detachment and it is an ocular emergency. If prompt surgical treatment is provided, permanent vision loss can potentially be prevented. Pt was advised to go to the ER outside of normal business hours. Monitor yearly with DFE. 4. Released updated spec rx. The [place]/caregiver voiced understanding of topics covered/discussed in today's visit. Next visit: 12 months with Attending 4 for CEKevin /anitha/ ELKE YU Staff Evp, Primary Care Service Signed: 05/29/2024 15:23 05/20/2025 ADDENDUM STATUS: COMPLETED Called pt to sched OPT appt, no answer. Left VM for pt to contact scheduling to sched appt. Mailed letter /anitha/ LEISA KAYE Drying Supervisor Signed: 05/20/2025 11:22 [facility]
--- OUTSIDE RECORDS SUMMARY | 2024-08-30 08:03 | XMS_ITS ---
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 Name Role Phone GILBERTO PERALES Primary Care [...] PART B Jun 23, 2016 PART B [id number] ERWIN HALL PATIENT MEDICARE (WNR) MEDICARE (M) PART A Jun 23, 2016 PART A [id number] [phone] ERWIN HALL PATIENT MEDICARE (WNR) MEDICARE (M) PART A Jun 23, 2016 PART A [id number] [phone] ERWIN HALL PATIENT MEDICARE (WNR) MEDICARE (M) PART B Jun 23, 2016 PART B [id number] [phone] ERWIN HALL PATIENT MEDICARE PART D (WNR) MEDICARE (M) PART D Jun 23, 2016 PART D [id number] ERWIN HALL PATIENT MEDICARE PART D (WNR) MEDICARE (M) PART D Jun 23, 2016 PART D [id number] ERWIN HALL PATIENT [employer] PLAN G PLAN G Jun 23, 2016 PLAN G [id number] ERWIN HALL PATIENT [employer] PL[employer] G PLANG Jun 23, 2016 PLANG [id number] [phone] ERWIN HALL PATIENT Selected Encounter This section includes the information on record at NH for the Encounter. Date/Time Encounter Type Encounter Description Reason Pro vider Source Aug 30, 2024 12:03 PM Outpatient Encounter ADMIN PAT ACTIVTIES (MASNONCT) I[facility] Encounter Template Text not used by NH Plan of Treatment: Future Appointments (+ 6 months) and Future Tests (+/- 45 days) The Plan of Treatment section includes future care activities for the patient from all NH treatmentfacilities. This section includes future appointments and future orders which are active, pending or scheduled. Future Appointments This section includes appointments that were scheduled to occur 6 months from the date of the Encounter, up to a maximum of 20 appointments. The data comes from all NH treatment facilities. Appointment Date/Time Appointment Type Appointme nt Facility Name Sep 03, 2024 11:00 AM AMBULATORY - NONE [facility] Sep 06, 2024 09:00 AM AMBULATORY - NONE [facility] Nov 23, 2024 10:00 AM AMBULATORY - NONE [facility] Dec 16, 2024 11:20 AM AMBULATORY - SURGERY [facility] Lab Results: +/- 30 days of the encounter This section includes the Chemistry and Hematology Lab Results on record with NH for the patient. Radiology Reports and Pathology Reports are provided separately, in subsequent sections. Lab Results This section contains the Chemistry/Hematology Results that were resulted 30 days before or 30 daysafter the date of the Encounter. Date/Time Source Result Type Result - Unit Interpretation Reference Range Specimen Type Comment Sep 10, 2024 12:45 PM [facility] B12 VITAMIN PLASMA Specimen Type: PLASMA Comment: Vitamin B12 test may not yield results when protein level of sample is too elevated. Ordering Provider: GILBERTO PERALES Report Released Date/Time: Sep 07, 2024 08:05 PM Reporting Lab: [address] [phone] Performing Lab: [address] [phone] B12 VITAMIN 415 pg/mL 213-816 Sep 10, 2024 12:45 PM [facility] FOLATE PLASMA Specimen Type: PLASMA Comment: Vitamin B12 test may not yield results when protein level of sample is too elevated. Ordering Provider: GILBERTO PERALES Report Released Date/Time: Sep 07, 2024 08:05 PM Reporting Lab: [address] [phone] Performing Lab: [address] [address] FOLATE 18.7 ng/mL 7.0-31.4 Sep 03, 2024 01:05 PM [facility] URINALYSIS URINE Specimen Type: URINE Comment: Microscopic not indicated Ordering Provider: GILBERTO PERALES Report Released Date/Time: Sep 03, 2024 12:10 PM Reporting Lab: [address] [phone] Performing Lab: [address] [phone] URINE COLOR Yellow Colorless-Yellow APPEARANCE Clear Clear UROBILINOGEN Normal mg/dL Normal URINE BLOOD Negative Negative URINE BILIRUBIN Negative Negative URINE KETONES Negative mg/dL Negative URINE PROTEIN Negative mg/dL Negative-Tr david URINE PH 6.5 4.5-8.0 URINE NITRITE Negative Negative URINE LEUKOCYTE EST Negative Negative SPECIFIC GRAVITY 1.018 1.005-1.030 URINE GLUCOSE Negative mg/dL Negative Sep 03, 2024 12:45 PM [facility] TSH PLASMA Specimen Type: PLASM A Comment: Estimated Glomerular Filtration Rate (eGFR) calculated using the 2020 Chronic Kidney Disease-Epidemiology (CKD-EPI) Collaboration creatinine equation; units of measure are mL/min/1.73 m2. Results are only valid for adults (>=18 years) whose serum creatinine is in a steady state. eGFR calculations are not valid for patients with acute kidney injury and for patients on dialysis. Creatinine-based estimates of kidney function may also be inaccurate in patients with reduced creatinine generation due to decreased muscle mass (e.g., malnutrition, severe hypoalbuminemia, sarcopenia, chronic neuromuscular disease, amputations, severe heart failure or liver disease) and in patients with increased creatinine generation due to increased muscle mass (e.g., muscle builders, anabolic steroids) or increased dietary intake. As drug clearance is proportional to total GFR and not GFR indexed to body surface area (BSA), in individuals with a BSA substantially different than 1.73 m2, drug dosing should be based on the reported eGFR value de-indexed from BSA by multiplying by the individual's BSA and dividing by 1.73. CKD is diagnosed based on abnormalities of kidney structure or function, present for >3 months, with implications for health and disease. CKD is classified and staged based on cause, eGFR and albuminuria (quantified as urine albumin to creatinine ratio). An eGFR >60 mL/min/1.73 m2 in the absence of increased urine albumin excretion or structural abnormalities does not represent CKD. eGFR CKD Interpretation (mL/min/1.73 m2) stage >=90 G1 Normal 60-89 G2 Mild decrease 45-59 G3A Mild to moderate decrease 30-44 G3B Moderate to severe decrease 15-29 G4 Severe decrease <15 G5 Kidney failure Ordering Provider: GILBERTO PERALES Report Released Date/Time: Sep 03, 2024 12:10 PM Reporting Lab: [address] [phone] Performing Lab: [address] [address] TSH 0.9531 m[IU]/mL 0.3500-4.9400 Sep 03, 2024 12:45 PM [facility] GLYCOHEMOGLOBIN BLOOD Specimen Type: BLOOD Comment: [facility] guidelines for A1c interpretation: Glycemic control targets are based on Shared Decision Making between clinicians and patients. Criteria used to establish an A1c target recommendation can be found at https://www.nh.gov/qualityandpatientsafety/ and include the use of result accuracy and precision(CV) of the A1c tests clinicians utilize at their own sites of practice. Values obtained from A1C measurements can vary. For typical A1C assays, a reported value of 7.0 could actually be between 6.72 and 7.28 if measured by a reference method. A reported value of 9.0 could actually be between 8.73 and 9.27. Ref: https://ngsp.org/CAPdata.asp. The in-house [employer]-Met[employer]om[employer] D-100 analyzer has a historical CV <= 2%. Contact the laboratory for further performance characteristics of this assay. Ordering Provider: GILBERTO PERALES Report Released Date/Time: Sep 03, 2024 12:10 PM Reporting Lab: [address] [phone] Performing Lab: [address] [phone] GLYCOHEMOGLOBIN 6.5 H 4.4-6.4 Sep 03, 2024 12:45 PM [facility] 25-OH VITAMIN D SERUM Specime n Type: SERUM Comment: The National Institutes of Health (NIH) recommendations state: <12 ng/mL - Deficient 20 - 50 ng/mL - Optimal Levels - adequate for most people. >50 ng/mL - Increased risk of hypercalciuria/other health problems - clinical correlation is required. These reference ranges represent clinical decision values rather than population-based reference values. Ordering Provider: GILBERTO PERALES Report Released Date/Time: Sep 03, 2024 12:10 PM Reporting Lab: [address] [phone] Performing Lab: [address] [address] 25-OH VITAMIN D 38.1 ng/mL 20.0-50.0 Sep 03, 2024 12:45 PM [facility] LIPID PROFILE PLASMA Specimen Type: PLASM A Comment: Estimated Glomerular Filtration Rate (eGFR) calculated using the 2020 Chronic Kidney Disease-Epidemiology (CKD-EPI) Collaboration creatinine equation; units of measure are mL/min/1.73 m2. Results are only valid for adults (>=18 years) whose serum creatinine is in a steady state. eGFR calculations are not valid for patients with acute kidney injury and for patients on dialysis. Creatinine-based estimates of kidney function may also be inaccurate in patients with reduced creatinine generation due to decreased muscle mass (e.g., malnutrition, severe hypoalbuminemia, sarcopenia, chronic neuromuscular disease, amputations, severe heart failure or liver disease) and in patients with increased creatinine generation due to increased muscle mass (e.g., muscle builders, anabolic steroids) or increased dietary intake. As drug clearance is proportional to total GFR and not GFR indexed to body surface area (BSA), in individuals with a BSA substantially different than 1.73 m2, drug dosing should be based on the reported eGFR value de-indexed from BSA by multiplying by the individual's BSA and dividing by 1.73. CKD is diagnosed based on abnormalities of kidney structure or function, present for >3 months, with implications for health and disease. CKD is classified and staged based on cause, eGFR and albuminuria (quantified as urine albumin to creatinine ratio). An eGFR >60 mL/min/1.73 m2 in the absence of increased urine albumin excretion or structural abnormalities does not represent CKD. eGFR CKD Interpretation (mL/min/1.73 m2) stage >=90 G1 Normal 60-89 G2 Mild decrease 45-59 G3A Mild to moderate decrease 30-44 G3B Moderate to severe decrease 15-29 G4 Severe decrease <15 G5 Kidney failure Ordering Provider: GILBERTO PERALES Report Released Date/Time: Sep 03, 2024 12:10 PM Reporting Lab: [address] [phone] Performing Lab: [address] [phone] CHOLESTEROL 131 mg/dL 0-199 TRIGLYCERIDE 91 mg/dL 0-149 HDL CHOLESTEROL 46 mg/dL 40-69 DIRECT LDL CHOL. 75 mg/dL 0-100 Sep 03, 2024 12:45 PM [facility] CBC/PLT BLOOD Specimen Type: BLOOD No comment entered. Ordering Provider: GILBERTO PERALES Report Released Date/Time: Sep 03, 2024 12:10 PM Reporting Lab: [address] [phone] Performing Lab: [address] [phone] WBC 7.0 10*3/uL 5.0-10.0 RBC 5.00 10*6/uL 4.6-6.2 HGB 16.7 g/dL 14.0-18.0 HCT 50.3 42.0-52.0 MCV 100.6 fL H 80.0-94.0 MCH 33.4 pg H 27.0-31.0 MCHC 33.2 g/dL 32.0-36.0 PLT 115 10*3/uL L 150-450 MPV 12.9 fL 9.0-13.1 RDW 12.1 11.0-16.0 NRBC 0.0 0.0-0.0 Sep 03, 2024 12:45 PM [facility] PANEL 5 PLASMA Specimen Type: PLASM A Comment: Estimated Glomerular Filtration Rate (eGFR) calculated using the 2020 Chronic Kidney Disease-Epidemiology (CKD-EPI) Collaboration creatinine equation; units of measure are mL/min/1.73 m2. Results are only valid for adults (>=18 years) whose serum creatinine is in a steady state. eGFR calculations are not valid for patients with acute kidney injury and for patients on dialysis. Creatinine-based estimates of kidney function may also be inaccurate in patients with reduced creatinine generation due to decreased muscle mass (e.g., malnutrition, severe hypoalbuminemia, sarcopenia, chronic neuromuscular disease, amputations, severe heart failure or liver disease) and in patients with increased creatinine generation due to increased muscle mass (e.g., muscle builders, anabolic steroids) or increased dietary intake. As drug clearance is proportional to total GFR and not GFR indexed to body surface area (BSA), in individuals with a BSA substantially different than 1.73 m2, drug dosing should be based on the reported eGFR value de-indexed from BSA by multiplying by the individual's BSA and dividing by 1.73. CKD is diagnosed based on abnormalities of kidney structure or function, present for >3 months, with implications for health and disease. CKD is classified and staged based on cause, eGFR and albuminuria (quantified as urine albumin to creatinine ratio). An eGFR >60 mL/min/1.73 m2 in the absence of increased urine albumin excretion or structural abnormalities does not represent CKD. eGFR CKD Interpretation (mL/min/1.73 m2) stage >=90 G1 Normal 60-89 G2 Mild decrease 45-59 G3A Mild to moderate decrease 30-44 G3B Moderate to severe decrease 15-29 G4 Severe decrease <15 G5 Kidney failure Ordering Provider: GILBERTO PERALES Report Released Date/Time: Sep 03, 2024 12:10 PM Reporting Lab: [address] [phone] Performing Lab: [address] [address] CREATININE 1.02 mg/dL 0.72-1.25 UREA NITROGEN 14 mg/dL 9-25 GLUCOSE 97 mg/dL 74-100 SODIUM 142 mmol/L 136-145 POTASSIUM 4.6 mmol/L 3.5-5.1 CHLORIDE 108 mmol/L H 98-107 CO2 25 mmol/L 22-29 CALCIUM 9.8 mg/dL 8.4-10.2 TOTAL PROTEIN 7.3 g/dL 6.4-8.3 ALBUMIN 4.3 g/dL 3.5-5.2 TOTAL BILIRUBIN 0.8 mg/dL 0.2-1.2 AST 28 U/L 5-34 ALT 24 U/L 0-55 ANION GAP 9 meq/L 3-19 ALK PHOS 60 U/L 40-150 eGFR (CKD-EPI) 78 Social History: Smoking Status (Most current) and Tobacco Use (All prior to encounter date) This section includes the most current, and the historical, smoking and tobacco- related health factors from the NH facility where the Encounter took place. Current Smoking Status This section includes the most current smoking, or tobacco-related health factor, from the NH facility where the Encounter took place. Date/Time Current Smoking Status Comment Francesco ity February 22, 2021 01:15 PM NH-TOBACCO FORMER USER [facility] Tobacco Use History This section includes a history of the smoking, or tobacco-related health factors, that were collected on or before the date of the Encounter. The data comes from the NH facility where the Encounter took place. Date/Time Smoking Status/Tobacco Use Comment F luda February 22, 2021 01:15 PM NH-TOBACCO QUIT 5 TO < 15 YRS [facility] Radiology Reports: +/- 30 days of the encounter Radiology Reports For cases when an order for radiology services may have been completed prior to the date of the Encounter, the report list includes the Radiology Reports that were completed up to 30 days before dateof the Encounter. For cases when an order for radiology services may have been completed after the date of the Encounter, the report list also includes the Radiology Reports that were completed up to30 days after date of the Encounter. The data comes from all NH treatment facilities. Date/Time Radiology Report Provider Source Sep 06, 2024 08:35 AM U/S SCROTUM: ERWIN HALL [id number] -[id number] M Exm Date: SEP 06, 2024@08:35 Req Phys: ANGELLAYANCYRADHA Pat Loc: JIN PACT ALPHA 1-3 (Req'g Loc) Img Loc: ULTRASOUND Service: [place] [address] (Case [id number] COMPLETE)U/S SCROTUM (US Detailed) CPT:09071 Reason for Study: SEE CLINICAL HISTORY Clinical History: REASON FOR EXAM:Suspected Hydrocele PERTINENT PATIENT HISTORY: pt is concerned about left testicle being larger than the right that might be a cancer . PROVIDER ExtPager# Report Status: Verified Date Reported: SEP 06, 2024 Date Verified: SEP 06, 2024 Industrial Tech Instructor E-Sig: Report: U/S SCROTUM HISTORY: Suspected hydrocele PERTINENT PATIENT HISTORY: pt is concerned about left testicle being larger than the right that might be a cancer . TECHNIQUE: Still grayscale and color Doppler images of the scrotum were obtained. Spectral Doppler images were obtained. COMPARISON:None available FINDINGS: Right testicle: Right testis measures 2.2 x 4.1 x 4.9 cm with calculated volume of 22.9 mL. No intratesticular mass is seen. Normal homogenous echotexture of the testis. Normal arterial and venous spectral Doppler waveforms are present. Left testicle: Left testis measures 2.9 x 3.0 x 4.7 cm with calculated volume of 21.4 mL. No intratesticular mass is seen. There is tubular ectasia of the rete testis. Normal homogenous echotexture of the testis. Normal arterial and venous spectral Doppler waveforms are present. Right epididymis: Right epididymal head measures 0.9 x 0.7 x 0.6 cm without focal lesion identified; normal color Doppler flow. Left epididymis: Left epididymal head measures 1.1 x 0.9 x 0.9 cm with a small left epididymal head cyst measuring 0.5 x 0.4 x 0.3 cm. There is a large chronic appearing left hydrocele. No varicocele is seen. Impression: 1. Large chronic appearing left hydrocele. 2. Small left epididymal head cyst. 3. No intratesticular mass detected. 4. 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 Primary Diagnostic Code: NO ALERT REQUIRED Primary Interpreting Staff: NIRALI OCONNOR, Staff Physician Verified by specialty plant supervisor for NIRALI OCONNOR /NIRALI JORGENSEN [facility] Encounter Notes: All associated encounter notes This section contains the clinical notes associated to the Encounter. Date/Time Encounter Note(s) Provider Source Aug 30, 2024 12:03 PM TELEPHONE ENCOUNTE R NOTE: LOCAL TITLE: Pc Pact Pre-clinic Telephone Reminder STANDARD TITLE: TELEPHONE ENCOUNTER NOTE DATE OF NOTE: AUG 30, 2024@12:03 ENTRY DATE: AUG 30, 2024@12:03:28 AUTHOR: ROSALIA LILLY EXP COSIGNER: URGENCY: STATUS: COMPLETED Called as a reminder of upcoming appointment: [facility]IN PACT ALPHA 1-3 Sep 03, 2024@11:00 [facility] Also to confirm building [address] on the 3rd floor to better assist [place] of location for appointment. Couldn't reach to confirm above appt. Left Hip[employer] friendly message. /anitha/ Rosalia CHAVEZ Signed: 08/30/2024 12:06 ROSALIA LILLY [facility]
--- OUTSIDE RECORDS SUMMARY | 2025-04-22 06:45 | XMS_ITS ---
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 Name Role Phone GILBERTO PERALES Primary [...] PART A Jun 23, 2016 PART A [id number] [place] PATIENT MEDICARE (WNR) MEDICARE (M) PART B Jun 23, 2016 PART B [id number] [place] PATIENT MEDICARE (WNR) MEDICARE (M) PART A Jun 23, 2016 PART A [id number] [phone] [place] PATIENT MEDICARE (WNR) MEDICARE (M) PART B Jun 23, 2016 PART B [id number] [id number] [phone] [place] PATIENT MEDICARE PART D (WNR) MEDICARE (M) PART D Jun 23, 2016 PART D [id number] [place] PATIENT MEDICARE PART D (WNR) MEDICARE (M) PART D Jun 23, 2016 PART D [id number] [phone] ER[place] PATIENT [employer] [place] [employer] PLAN G PLAN G Jun 23, 2016 PLAN G [id number] ER[place] H[place] PATIENT [employer] [place] [employer] PLAN G PLANG Jun 23, 2016 PLANG [id number] [place] PATIENT Selected Encounter This section includes the information on record at [place] for the Encounter. Date/Time Encounter Type Encounter Description Reason Pro vider Source Apr 22, 2025 10:45 AM Outpatient Encounter ADMIN PAT ACTIVTIES (MASNONCT) IHE Encounter Template Text not used by [place] Plan of Treatment: Future Appointments (+ 6 months) and Future Tests (+/- 45 days) The Plan of Treatment section includes future care activities for the patient from all [place] treatmentfacilities. This section includes future appointments and future orders which are active, pending or scheduled. Future Appointments This section includes appointments that were scheduled to occur 6 months from the date of the Encounter, up to a maximum of 20 appointments. The data comes from all [place] treatment facilities. Appointment Date/Time Appointment Type Appointme nt Facility Name May 21, 2025 11:30 AM AMBULATORY - NONE [facility] Active, Pending, and Scheduled Orders This section includes a listing of several types of active, pending, and scheduled orders, including clinic medications orders, diagnostic test orders, procedure orders and consult orders; where the start date of the order is 45 days before the date of the Encounter or 45 days after the date of theEncounter. The data comes from all [facility]. Test Date/Time Test Type Test Details Facility Name May 21, 2025 12:00 AM Laboratory - Chemistry Order DRUG SCREEN EXPANDED IN-HOUSE URINE SP ONCE [facility] May 21, 2025 12:00 AM Laboratory - Chemistry Order MICROALBUMIN/CREAT RATIO URINE SP [facility] May 21, 2025 11:41 AM Procedure Order CP COLON A SYMPTOMATIC CP COLON ASYMPTOMATIC Proc Procurement Manager's Choice [facility] Lab Results: +/- 30 days of the encounter This section includes the Chemistry and Hematology Lab Results on record with [place] for the patient. Radiology Reports and Pathology Reports are provided separately, in subsequent sections. Lab Results This section contains the Chemistry/Hematology Results that were resulted 30 days before or 30 daysafter the date of the Encounter. Date/Time Source Result Type Result - Unit Interpretation Reference Range Specimen Type Comment May 21, 2025 11:44 AM [facility] GLYCOHEMOGLOBIN BLOOD Specimen Type: BLOOD Comment: Prediabetes: 5.7%-6.4% Diabetes: >= 6.5% [facility] guidelines for A1c interpretation: Glycemic control targets are based on Shared Decision Making between clinicians and patients. Criteria used to establish an A1c target recommendation can be found at https://www.dc. ov/qualityandpat ientsafety/ and include the use of result accuracy and precision(CV) of the A1c tests clinicians utilize at their own sites of practice. Values obtained from A1C measurements can vary. For typical A1C assays, a reported value of 7.0 could actually be between 6.72 and 7.28 if measured by a reference method. A reported value of 9.0 could actually be between 8.73 and 9.27. Ref: https://ngsp.org /CAPdata.asp. The in-house [employer] D-100 analyzer has a historical CV <= 2%. Contact the laboratory for further performance characteristics of this assay. Ordering Provider: GILBERTO PERALES Report Released Date/Time: May 21, 2025 11:41 AM Reporting Lab: [place] [id number] Performing Lab: [place] [address] GLYCOHEMOGLOBIN 5.3 4.4-5.6 May 21, 2025 11:44 AM [facility] TSH P LASMA Specimen Type: PLASMA No comment entered. Ordering Provider: GILBERTO PERALES Report Released Date/Time: May 21, 2025 11:41 AM Reporting Lab: [place] [id number] Performing Lab: [place] [id number] TSH 0.8987 m[IU]/mL 0.3500-4.9400 May 21, 2025 11:44 AM [facility] LIPID PROFILE PLASMA Specimen Type: PLASMA No comment entered. Ordering Provider: GILBERTO PERALES Report Released Date/Time: May 21, 2025 11:41 AM Reporting Lab: [address] [address] Performing Lab: [address] [address] CHOLESTEROL 139 mg/dL 0-199 TRIGLYCERIDE 96 mg/dL 0-149 HDL CHOLESTEROL 53 mg/dL 40-69 DIRECT LDL CHOL. 73 mg/dL 0-100 May 21, 2025 11:44 AM [facility] 25-OH VITAMIN D SERUM Specime n Type: [...] Ordering Provider: GILBERTO PERALES Report Released Date/Time: May 21, 2025 11:41 AM Reporting Lab: [address] [address] Performing Lab: [address] [address] 25-OH VITAMIN D 47.4 ng/mL 20.0-50.0 May 21, 2025 11:44 AM [facility] B12 VITAMIN PLASMA Specimen Type: PLASMA Comment: Vitamin B12 test may not yield results when protein level of sample is too elevated. Ordering Provider: GILBERTO PERALES Report Released Date/Time: May 21, 2025 11:41 AM Reporting Lab: [address] [address] Performing Lab: [address] [address] B12 VITAMIN 632 pg/mL 213-816 May 21, 2025 11:44 AM [facility] FOLATE PLASMA Specimen Type: PLASMA Comment: Vitamin B12 test may not yield results when protein level of sample is too elevated. Ordering Provider: GILBERTO PERALES Report Released Date/Time: May 21, 2025 11:41 AM Reporting Lab: [address] [address] Performing Lab: [address] [address] FOLATE 16.8 ng/mL 7.0-31.4 May 21, 2025 11:44 AM [facility] CBC/PLT BLOOD Specimen Type: BLOOD No comment entered. Ordering Provider: GILBERTO PERALES Report Released Date/Time: May 21, 2025 11:41 AM Reporting Lab: [address] [address] Performing Lab: [address] [address] WBC 8.1 10*3/uL 5.0-10.0 RBC 4.75 10*6/uL 4.6-6.2 HGB 15.6 g/dL 14.0-18.0 HCT 46.6 42.0-52.0 MCV 98.1 fL H 80.0-94.0 MCH 32.8 pg H 27.0-31.0 MCHC 33.5 g/dL 32.0-36.0 PLT 123 10*3/uL L 150-450 MPV 12.7 fL 9.0-13.1 RDW 12.1 11.0-16.0 NRBC 0.0 0.0-0.0 Social History: Smoking Status (Most current) and Tobacco Use (All prior to encounter date) This section includes the most current, and the historical, smoking and tobacco- related health factors from the [place] facility where the Encounter took place. Current Smoking Status This section includes the most current smoking, or tobacco-related health factor, from the [place] facility where the Encounter took place. Date/Time Current Smoking Status Comment Francesco ity February 22, 2021 01:15 PM VA-TOBACCO FORMER USER [facility] Tobacco Use History This section includes a history of the smoking, or tobacco-related health factors, that were collected on or before the date of the Encounter. The data comes from the [place] facility where the Encounter took place. Date/Time Smoking Status/Tobacco Use Comment F accris February 22, 2021 01:15 PM VA-TOBACCO QUIT 5 TO < 15 YRS [facility] Encounter Notes: All associated encounter notes This section contains the clinical notes associated to the Encounter. Date/Time Encounter Note(s) Provider Source Apr 22, 2025 12:43 PM ADDENDUM: LOCAL TITLE: Addendum STANDARD TITLE: ADDENDUM DATE OF NOTE: APR 22, 2025@12:43:11 ENTRY DATE: APR 22, 2025@12:43:12 AUTHOR: JULIENNE KAYE EXP COSIGNER: URGENCY: STATUS: COMPLETED Called [facility] back they are just waiting on a refill on this prescription Metoprolol Tartrate 50 mg twice a day. /anitha/ JULIENNE KAYE RN Signed: 04/22/2025 12:45 Receipt Acknowledged By: 04/22/2025 14:42 /es/ ALESSANDRA DODSON APRN for GILBERTO PERALES --- Original Document --- 04/22/25 CCC: SCHEDULING ADMINISTRATION: Caller Verification Call Back Number: [phone] Emergency Contact: SHANEL BERNAL Emergency Contact Caller/Recipient Relation to Patient: Other If Other Describe Relation to Patient: [facility] Caller Name: Ebony Administrative Administrative Note Reason: Other Administrative Note Comments: Ebony with [facility] needs to speak with someone regarding 's prescription. Please call back. IMPORTANT: This note was created by [facility] Clinical Contact Center staff. Please do not alert the staff member by adding them as a signer for future communications. Alerts are not monitored by this user. /anitha/ MAHSA CHILDS MSA Signed: 04/22/2025 10:45 Receipt Acknowledged By: 04/22/2025 12:43 /anitha/ JULIENNE MALLOY RN-[facility] Apr 22, 2025 10:45 AM ADMINISTRATIVE NOT E: LOCAL TITLE: CCC: SCHEDULING ADMINISTRATION STANDARD TITLE: ADMINISTRATIVE NOTE DATE OF NOTE: APR 22, 2025@10:45:30 ENTRY DATE: APR 22, 2025@10:45:31 AUTHOR: MAHSA CHILDS EXP COSIGNER: URGENCY: STATUS: COMPLETED CCC: SCHEDULING ADMINISTRATION Has ADDENDA Caller Verification Call Back Number: [phone] Emergency Contact: SHANEL BERNAL Emergency Contact Caller/Recipient Relation to Patient: Other If Other Describe Relation to Patient: [facility] Caller Name: Ebony Administrative Administrative Note Reason: Other Administrative Note Comments: Ebony with [facility] needs to speak with someone regarding 's prescription. Please call back. IMPORTANT: This note was created by [facility] Clinical Contact Center staff. Please do not [...] 04/22/2025 14:42 /anitha/ ALESSANDRA DODSON APRN for GILBERTO PERALES 04/22/2025 ADDENDUM STATUS: COMPLETED Metoprolol rx called to pharm. Year supply provided. /diane DODSON BUCKLE ASSEMBLER Signed: 04/22/2025 14:56 MAHSA CHILDS-NAEL [facility]
--- OUTSIDE RECORDS SUMMARY | 2025-04-25 09:51 | XMS_ITS | Encounter Summary ---
Author Name [facility] [place] Organization [facility] [place] Address [address] [place] [address] Care Team Providers Care Special Education Assistant Name Role Phone GILBERTO PERALES Primary Care [...] PART B Jun 23, 2016 PART B [id number] [place] PATIENT MEDICARE (WNR) MEDICARE (M) PART A Jun 23, 2016 PART A [id number] ER[place] PATIENT MEDICARE (WNR) MEDICARE (M) PART A Jun 23, 2016 PART A [id number] [phone] ERWIN HALL PATIENT MEDICARE (WNR) MEDICARE (M) PART B Jun 23, 2016 PART B [id number] ERWIN HALL PATIENT MEDICARE PART D (WNR) MEDICARE (M) PART D Jun 23, 2016 PART D [id number] ERWIN HALL PATIENT MEDICARE PART D (WNR) MEDICARE (M) PART D Jun 23, 2016 PART D [id number] ERWIN HALL PATIENT [employer] [place] [employer] PLAN G PLAN G Jun 23, 2016 PLAN G [id number] ERWIN HALL PATIENT [employer] [place] [employer] PLAN G PLANG Jun 23, 2016 PLANG [id number] ERWIN H[place] PATIENT Selected Encounter This section includes the information on record at [place] for the Encounter. Date/Time Encounter Type Encounter Description Reason Pro vider Source Apr 25, 2025 01:51 PM Outpatient Encounter ADMIN PAT ACTIVTIES (MASNONCT) IHE Encounter Template Text not used by [place] Plan of Treatment: Future Appointments (+ 6 months) and Future Tests (+/- 45 days) The Plan of Treatment section includes future care activities for the patient from all [place] treatmentfacilities. This section includes future appointments and future orders which are active, pending or scheduled. Future Appointments This section includes appointments that were scheduled to occur 6 months from the date of the Encounter, up to a maximum of 20 appointments. The data comes from all [place] treatment facilities. Appointment Date/Time Appointment Type Appointme nt Facility Name May 21, 2025 11:30 AM AMBULATORY - NONE [facility] Active, Pending, and Scheduled Orders This section includes a listing of several types of active, pending, and scheduled orders, including clinic medications orders, diagnostic test orders, procedure orders and consult orders; where the start date of the order is 45 days before the date of the Encounter or 45 days after the date of theEncounter. The data comes from all [facility]. Test Date/Time Test Type Test Details Facility Name May 21, 2025 12:00 AM Laboratory - Chemistry Order MICROALBUMIN/CREAT RATIO URINE SP [facility] May 21, 2025 12:00 AM Laboratory - Chemistry Order DRUG SCREEN EXPANDED IN-HOUSE URINE SP ONCE [facility] May 21, 2025 11:41 AM Procedure Order CP COLON A SYMPTOMATIC CP COLON ASYMPTOMATIC Proc Teaching Specialists's Choice [facility] Lab Results: +/- 30 days of the encounter This section includes the Chemistry and Hematology Lab Results on record with [place] for the patient. Radiology Reports and Pathology Reports are provided separately, in subsequent sections. Lab Results This section contains the Chemistry/Hematology Results that were resulted 30 days before or 30 daysafter the date of the Encounter. Date/Time Source Result Type Result - Unit Interpretation Reference Range Specimen Type Comment May 21, 2025 11:44 AM [facility] GLYCOHEMOGLOBIN BLOOD Specimen Type: BLOOD Comment: Prediabetes: 5.7%-6.4% Diabetes: >= 6.5% [facility] guidelines for A1c interpretation: Glycemic control targets are based on Shared Decision Making between clinicians and patients. Criteria used to establish an A1c target recommendation can be found at https://www.pa. ov/qualityandpat ientsafety/ and include the use of [...] and 9.27. Ref: https://ngsp.org /CAPdata.asp. The in-house [employer] D-100 analyzer has a historical CV <= 2%. Contact the laboratory for further performance characteristics of this assay. Ordering Provider: GILBERTO PERALES Report Released Date/Time: May 21, 2025 11:41 AM Reporting Lab: [place] [id number] Performing Lab: [place] [id number] GLYCOHEMOGLOBIN 5.3 4.4-5.6 May 21, 2025 11:44 AM [facility] TSH P LASMA Specimen Type: PLASMA No comment entered. Ordering Provider: GILBERTO PERALES Report Released Date/Time: May 21, 2025 11:41 AM Reporting Lab: [place] [id number] Performing Lab: [place] [id number] TSH 0.8987 m[IU]/mL 0.3500-4.9400 May 21, 2025 11:44 AM [facility] LIPID PROFILE PLASMA Specimen Type: PLASMA No comment entered. Ordering Provider: GILBERTO PERALES Report Released Date/Time: May 21, 2025 11:41 AM Reporting Lab: [address] [phone] Performing Lab: [address] [address] CHOLESTEROL 139 mg/dL 0-199 TRIGLYCERIDE 96 mg/dL 0-149 HDL CHOLESTEROL 53 mg/dL 40-69 DIRECT LDL CHOL. 73 mg/dL 0-100 May 21, 2025 11:44 AM [facility] 25-OH VITAMIN D SERUM Specime n Type: [...] May 21, 2025 11:41 AM Reporting Lab: [address] [address] Performing Lab: [place] [id number] 25-OH VITAMIN D 47.4 ng/mL 20.0-50.0 May 21, 2025 11:44 AM [facility] B12 VITAMIN PLASMA Specimen Type: PLASMA Comment: Vitamin B12 test may not yield results when protein level of sample is too elevated. Ordering Provider: GILBERTO PERALES Report Released Date/Time: May 21, 2025 11:41 AM Reporting Lab: [address] [phone] Performing Lab: [address] [address] B12 VITAMIN 632 pg/mL 213-816 May 21, 2025 11:44 AM [facility] FOLATE PLASMA Specimen Type: PLASMA Comment: Vitamin B12 test may not yield results when protein level of sample is too elevated. Ordering Provider: GILBERTO PERALES Report Released Date/Time: May 21, 2025 11:41 AM Reporting Lab: [address] [phone] Performing Lab: [address] [address] FOLATE 16.8 ng/mL 7.0-31.4 May 21, 2025 11:44 AM [facility] CBC/PLT BLOOD Specimen Type: BLOOD No comment entered. Ordering Provider: GILBERTO PERALES Report Released Date/Time: May 21, 2025 11:41 AM Reporting Lab: [address] [phone] Performing Lab: [address] [address] WBC 8.1 10*3/uL 5.0-10.0 RBC 4.75 10*6/uL [...] and tobacco- related health factors from the [place] facility where the Encounter took place. Current Smoking Status This section includes the most current smoking, or tobacco-related health factor, from the [place] facility where the Encounter took place. Date/Time Current Smoking Status Comment [place] Sep 03, 2024 11:00 AM VA-TOBACCO USER SOME DAYS [facility] Tobacco Use History This section includes a history of the smoking, or tobacco-related health factors, that were collected on or before the date of the Encounter. The data comes from the [place] facility where the Encounter took place. Date/Time Smoking Status/Tobacco Use Comment Roxanne accris Sep 03, 2024 11:00 AM VA-TOBACCO USE 30 YEARS OR MORE [facility] Sep 03, 2024 11:00 AM VA-TOBACCO USE ADVICE [facility] Sep 03, 2024 11:00 AM VA-TOBACCO USE ENVELOPE STUFFER NO [facility] Sep 03, 2024 11:00 AM VA-TOBACCO USE MED NO [facility] Sep 03, 2024 11:00 AM VA-TOBACCO USER SOME DAYS [facility] May 18, 2022 08:30 AM VA-TOBACCO DOESNT USE WI 30 MIN WAKEUP [facility] May 18, 2022 08:30 AM VA-TOBACCO USE 30 YEARS OR MORE [facility] May 18, 2022 08:30 AM VA-TOBACCO USE ADVICE [facility] May 18, 2022 08:30 AM VA-TOBACCO USE ENVELOPE STUFFER NO [facility] May 18, 2022 08:30 AM VA-TOBACCO USE MED NO [facility] May 18, 2022 08:30 AM VA-TOBACCO USER EVERY DAY [facility] Jul 02, 2020 10:00 AM VA-TOBACCO DOESNT USE WI 30 MIN WAKEUP [facility] Jul 02, 2020 10:00 AM VA-TOBACCO USE 30 YEARS OR MORE [facility] Jul 02, 2020 10:00 AM VA-TOBACCO USE ADVICE [facility] Jul 02, 2020 10:00 AM VA-TOBACCO USE ENVELOPE STUFFER NO [facility] Jul 02, 2020 10:00 AM VA-TOBACCO USE MED NO [facility] Jul 02, 2020 10:00 AM VA-TOBACCO USER SOME DAYS [facility] Nov 23, 2018 11:13 AM VA-TOBACCO DOESNT USE WI 30 MIN WAKEUP [facility] Nov 23, 2018 11:13 AM VA-TOBACCO USE 30 YEARS OR MORE [facility] Nov 23, 2018 11:13 AM VA-TOBACCO USE ADVICE [facility] Nov 23, 2018 11:13 AM VA-TOBACCO USE ENVELOPE STUFFER NO [facility] Nov 23, 2018 11:13 AM VA-TOBACCO USE MED NO [facility] Nov 23, 2018 11:13 AM VA-TOBACCO USER SOME DAYS [facility] Aug 29, 2017 09:43 AM V9 LIFETIME NON-USER OF TOBACCO [facility] Oct 20, 2016 09:13 AM V9 LIFETIME NON-USER OF TOBACCO [facility] Oct 28, 2015 09:04 AM V9 LIFETIME NON-USER OF TOBACCO [facility] Sep 24, 2014 10:16 AM V9 QUIT TOBACCO >1 2 MO & <7 YRS AGO [facility] Sep 24, 2014 10:16 AM V9 TOBACCO OFFERED [facility] Sep 13, 2013 10:18 AM TOBACCO OFFERRED P T MEDS (PROVIDER) [facility] Sep 13, 2013 10:18 AM V9 CURRENT TOBACCO USER [facility] Sep 13, 2013 10:18 AM V9 TOBACCO OFFERED [facility] Jul 12, 2012 05:32 PM V9 CURRENT TOBACCO USER [facility] Jul 12, 2012 05:32 PM V9 QUIT TOBACCO >1 2 MO & <7 YRS AGO [facility] Jul 12, 2012 05:32 PM V9 TOBACCO OFFERED [facility] Jul 04, 2011 09:53 AM TOBACCO OFFERRED P T MEDS (PROVIDER) [facility] Jul 04, 2011 09:53 AM V9 CURRENT TOBACCO USER [facility] Jul 04, 2011 09:53 AM V9 TOBACCO OFFERED [facility] May 24, 2010 08:09 AM TOBACCO OFFERRED P T MEDS (PROVIDER) [facility] May 24, 2010 08:09 AM V9 CURRENT TOBACCO USER [facility] May 24, 2010 08:09 AM V9 TOBACCO OFFERED [facility] May 22, 2009 01:20 PM TOBACCO OFFERRED P T MEDS (PROVIDER) [facility] May 22, 2009 01:20 PM V9 CURRENT TOBACCO USER [facility] May 22, 2009 01:20 PM V9 TOBACCO OFFERED [facility] Encounter Notes: All associated encounter notes This section contains the clinical notes associated to the Encounter. Date/Time Encounter Note(s) Provider Source Apr 25, 2025 01:51 PM PHARMACY TELEPHONE ENCOUNTER NOTE: LOCAL TITLE: PHARMACY TELEPHONE CARE NOTE STANDARD TITLE: PHARMACY TELEPHONE ENCOUNTER NOTE DATE OF NOTE: APR 25, 2025@13:51 ENTRY DATE: APR 25, 2025@13:51:36 AUTHOR: SHADE RODRIGUEZ EXP COSIGNER: URGENCY: STATUS: COMPLETED 1. Name of caller: PT 2. Phone #: 3. Specialty Clinic/Primary Care Team: Progress Note Date Title Author (and Author's Title) SEP 03, 2024@11:26 PC PROGRESS NOTE GILBERTO PERALES (PRIMARY CARE PHYSI 4. Medication: LISINOPRIL TAB 20MG 20MG DAILY-PLEASE CALL INTO ANA LORENZ @[phone] 5. Last fill date: Provider: 6. The caller requests prescription: 7. View Alert to: /anitha/ SHADE RODRIGUEZ VISN 9 [facility] Signed: 04/25/2025 13:52 Receipt Acknowledged By: 04/29/2025 20:40 /anitha/ SHADE [facility]
--- OUTSIDE RECORDS SUMMARY | 2025-04-28 07:13 | XMS_ITS ---
Author Name [facility] [place] [facility] [place] [facility] [place] Address [address] [place] [address] Care Team Providers Care Suggestion Clerk Name Role Phone GILBERTO PERALES Primary [...] PART A Jun 23, 2016 PART A [id number] [phone] ERWIN HALL PATIENT MEDICARE (WNR) MEDICARE (M) PART B Jun 23, 2016 PART B [id number] ERWIN HALL PATIENT MEDICARE (WNR) MEDICARE (M) PART A Jun 23, 2016 PART A [id number] [phone] ERWIN HALL PATIENT MEDICARE (WNR) MEDICARE (M) PART B Jun 23, 2016 PART B [id number] [phone] ERWIN HALL PATIENT MEDICARE PART D (WNR) MEDICARE (M) PART D Jun 23, 2016 PART D [id number] ERWIN HALL PATIENT MEDICARE PART D (WNR) MEDICARE (M) PART D Jun 23, 2016 PART D [id number] ERWIN HALL PATIENT [employer] [place] [employer] PLAN G PLAN G Jun 23, 2016 PLAN G [id number] [phone] ERWIN HALL PATIENT [employer] [place] [employer] PLAN G PLANG Jun 23, 2016 PLANG [id number] [phone] ERWIN HALL PATIENT Selected Encounter This section includes the information on record at [place] for the Encounter. Date/Time Encounter Type Encounter Description Reason Pro vider Source Apr 28, 2025 11:13 AM Outpatient Encounter ADMIN PAT ACTIVTIES (MASNONCT) IHE Encounter Template Text not used by [place] Plan of Treatment: Future Appointments (+ 6 months) and Future Tests (+/- 45 days) The Plan of Treatment section includes future care activities for the patient from all [place] treatmentfacilities. This section includes future appointments and future orders which are active, pending or scheduled. Future Appointments This section includes appointments that were scheduled to occur 6 months from the date of the Encounter, up to a maximum of 20 appointments. The data comes from all [place] treatment facilities. Appointment Date/Time Appointment Type Appointme nt Facility Name May 21, 2025 11:30 AM [facility]ORY [facility] NONE [facility] Active, Pending, and Scheduled Orders This section includes a listing of several types of active, pending, and scheduled orders, including clinic medications orders, diagnostic test orders, procedure orders and consult orders; where the start date of the order is 45 days before the date of the Encounter or 45 days after the date of theEncounter. The data comes from all [facility]. Test Date/Time Test Type Test Details Facility Name May 21, 2025 12:00 AM Laboratory - Chemistry Order DRUG SCREEN EXPANDED IN-HOUSE URINE SP ONCE [facility] May 21, 2025 12:00 AM Laboratory - Chemistry Order MICROALBUMIN/CREAT RATIO URINE SP [facility] May 21, 2025 11:41 AM Procedure Order CP COLON A SYMPTOMATIC CP COLON ASYMPTOMATIC Proc Configuration Management Advisor's Choice [facility] Lab Results: +/- 30 days of the encounter This section includes the Chemistry and Hematology Lab Results on record with [place] for the patient. Radiology Reports and Pathology [...] BLOOD Comment: Prediabetes: 5.7%-6.4% Diabetes: >= 6.5% [facility] guidelines for A1c interpretation: Glycemic control targets are based on Shared Decision Making between clinicians and patients. Criteria used to establish an A1c target recommendation can be found at https://www.id. ov/qualityandpat ientsafety/ and include the use of [...] and 9.27. Ref: https://ngsp.org /CAPdata.asp. The in-house [place] D-100 analyzer has a historical CV <= 2%. Contact the laboratory for further performance characteristics of this assay. Ordering Provider: GILBERTO PERALES Report Released Date/Time: May 21, 2025 11:41 AM Reporting Lab: [place] [id number] Performing Lab: [place] [id number] GLYCOHEMOGLOBIN 5.3 4.4-5.6 May 21, 2025 11:44 AM [facility] 25-OH VITAMIN D SERUM Specime n [...] May 21, 2025 11:41 AM Reporting Lab: [address] [phone] Performing Lab: [address] [address] 25-OH VITAMIN D 47.4 ng/mL 20.0-50.0 May 21, 2025 11:44 AM [facility] TSH P LASMA Specimen Type: PLASMA No comment entered. Ordering Provider: GILBERTO PERALES Report Released Date/Time: May 21, 2025 11:41 AM Reporting Lab: [address] [address] Performing Lab: [address] [address] TSH 0.8987 m[IU]/mL 0.3500-4.9400 May 21, 2025 11:44 AM [facility] LIPID PROFILE PLASMA Specimen Type: PLASMA No comment entered. Ordering Provider: GILBERTO PERALES Report Released Date/Time: May 21, 2025 11:41 AM Reporting Lab: [address] [address] Performing Lab: [address] [address] CHOLESTEROL 139 mg/dL 0-199 TRIGLYCERIDE 96 mg/dL 0-149 HDL CHOLESTEROL 53 mg/dL 40-69 DIRECT LDL CHOL. 73 mg/dL 0-100 May 21, 2025 11:44 AM [facility] B12 VITAMIN PLASMA Specimen Type: PLASMA Comment: Vitamin B12 test may not yield results when protein level of sample is too elevated. Ordering Provider: GILBERTO PERALES Report Released Date/Time: May 21, 2025 11:41 AM Reporting Lab: [address] [address] Performing Lab: [address] [address] B12 VITAMIN 632 pg/mL 213-816 May 21, 2025 11:44 AM [facility] FOLATE PLASMA Specimen Type: PLASMA Comment: Vitamin B12 test may not yield results when protein level of sample is too elevated. Ordering Provider: GILBERTO PERALES Report Released Date/Time: May 21, 2025 11:41 AM Reporting Lab: [address] [address] Performing Lab: [address] [address] FOLATE 16.8 ng/mL 7.0-31.4 May 21, 2025 11:44 AM [facility] CBC/PLT BLOOD Specimen Type: BLOOD No comment entered. Ordering Provider: GILBERTO PERALES Report Released Date/Time: May 21, 2025 11:41 AM Reporting Lab: [address] [address] Performing Lab: [address] [address] WBC 8.1 10*3/uL 5.0-10.0 RBC 4.75 10*6/uL [...] and tobacco- related health factors from the [place] facility where the Encounter took place. Current Smoking Status This section includes the most current smoking, or tobacco-related health factor, from the [place] facility where the Encounter took place. Date/Time Current Smoking Status Comment Francesco itjune February 22, 2021 01:15 PM VA-TOBACCO FORMER USER [facility] Tobacco Use History This section includes a history of the smoking, or tobacco-related health factors, that were collected on or before the date of the Encounter. The data comes from the [place] facility where the Encounter took place. Date/Time Smoking Status/Tobacco Use Comment F accris February 22, 2021 01:15 PM VA-TOBACCO QUIT 5 TO < 15 YRS [facility] Encounter Notes: All associated encounter notes This section contains the clinical notes associated to the Encounter. Date/Time Encounter Note(s) Provider Source May 05, 2025 01:14 PM ADDENDUM: LOCAL TITLE: Addendum STANDARD TITLE: ADDENDUM DATE OF NOTE: MAY 05, 2025@13:14:17 ENTRY DATE: MAY 05, 2025@13:14:18 AUTHOR: JULIENNE KAYE COSIGNER: URGENCY: STATUS: COMPLETED PACT MSA please call and schedule next available with PCP to evaluate weakness in lower extremities. /anitha/ JULIENNE KAYE RN Signed: 05/05/2025 13:15 Receipt Acknowledged By: 05/05/2025 14:19 /anitha/ Rosalia Diaz AMSA --- Original Document --- 04/28/25 CCC: SCHEDULING ADMINISTRATION: Caller Verification Emergency Contact: SHANEL BERNAL Emergency Contact Caller/Recipient Relation to Patient: Self Caller Name: ERWIN HALL Administrative Administrative Note Reason: Other Administrative Note Comments: Pt calling to speak with you regarding a couple questions he has IMPORTANT: This note was created by [facility] Clinical Contact Center staff. Please do not alert the staff member by adding them as a signer for future communications. Alerts are not monitored by this user. /anitha/ PEYTON LENNON Advanced manager medical affairs Signed: 04/28/2025 11:13 Receipt Acknowledged By: 04/28/2025 12:24 /anitha/ JULIENNE KAYE RN 04/28/2025 ADDENDUM STATUS: COMPLETED Spoke with . One week ago he was on his rider color buffer and stood up. Had no strength in his lower legs and fell forward hitting his left rib cage. Was not seen in the ED did not feel like he needed too. Is concerned about the strength in his legs from his thighs to his ankles. Says his feet are fine. He has decreased strength slight improvement daily but is concerned. He was concerned it was the Tramadol that he had recently started so he held it for a couple days with no improvement in his legs so he has resumed that for his upper back pain. He denies any lower back pain does say his legs feel like they did when he has trouble with his sciatic nerve but without the pain. PLEASE REVIEW AND ADVISE /anitha/ JULIENNE KAYE RN Signed: 04/28/2025 12:23 Receipt Acknowledged By: 05/05/2025 12:48 /anitha/ CHERYL ALARCON MD Primary Care Physician, Team [facility] for GILBERTO PERALES 05/05/2025 ADDENDUM STATUS: COMPLETED Please schedule for evaluation by PCP. Strict ED precautions for any difficulty ambulating or continued falls. /anitha/ CHERYL ALARCON MD Primary Care Physician, Team [facility] Signed: 05/05/2025 12:50 Receipt Acknowledged By: 05/05/2025 13:14 /anitha/ JULIENNE KAYE RN for MERRICK Lazar REX 05/05/2025 ADDENDUM STATUS: UNSIGNED You may not VIEW this UNSIGNED Addendum. JULIENNE KAYE-CDD [facility] May 05, 2025 12:49 PM ADDENDUM: LOCAL TITLE: Addendum STANDARD TITLE: ADDENDUM DATE OF NOTE: MAY 05, 2025@12:49:29 ENTRY DATE: MAY 05, 2025@12:49:29 AUTHOR: CHERYL ALARCONIGNER: URGENCY: STATUS: COMPLETED Please schedule [place] for evaluation by PCP. Strict ED precautions for any difficulty ambulating or continued falls. /anitha/ CHERYL ALARCON MD Primary Care Physician, Team [facility] Signed: 05/05/2025 12:50 Receipt Acknowledged By: 05/05/2025 13:14 /anitha/ JULIENNE KAYE RN for MERRICK Lazar REX --- Original Document --- 04/28/25 CCC: SCHEDULING ADMINISTRATION: Caller Verification Emergency Contact: SHANEL BERNAL Emergency Contact Caller/Recipient Relation to Patient: Self Caller Name: ERWIN HALL Administrative Administrative Note Reason: Other Administrative Note Comments: Pt calling to speak with you regarding a couple questions he has IMPORTANT: This note was created by [facility] Clinical Contact Center staff. Please do not alert the staff member by adding them as a signer for future communications. Alerts are not monitored by this user. /es/ PEYTON LENNON Advanced manager medical affairs Signed: 04/28/2025 11:13 Receipt Acknowledged By: 04/28/2025 12:24 /es/ JULIENNE KAYE RN 04/28/2025 ADDENDUM STATUS: COMPLETED Spoke with . One week ago he was on his rider color buffer and stood up. Had no strength in his lower legs and fell forward hitting his left rib cage. Was not seen in the ED did not feel like he needed too. Is concerned about the strength in his legs from his thighs to his ankles. Says his feet are fine. He has decreased strength slight improvement daily but is concerned. He was concerned it was the Tramadol that he had recently started so he held it for a couple days with no improvement in his legs so he has resumed that for his upper back pain. He denies any lower back pain does say his legs feel like they did when he has trouble with his sciatic nerve but without the pain. PLEASE REVIEW AND ADVISE /es/ JULIENNE KAYE RN Signed: 04/28/2025 12:23 Receipt Acknowledged By: 05/05/2025 12:48 /es/ CHERYL ALARCON MD Primary Care Physician, Team [facility] quick GILBERTO GOODENFRANCY 05/05/2025 ADDENDUM STATUS: UNSIGNED You may not VIEW this UNSIGNED Addendum. CHERYL ALARCON-CDD [facility] Apr 28, 2025 12:15 PM ADDENDUM: LOCAL TITLE: Addendum STANDARD TITLE: ADDENDUM DATE OF NOTE: APR 28, 2025@12:15:03 ENTRY DATE: APR 28, 2025@12:15:04 AUTHOR: JULIENNE KAYE COSIGNER: URGENCY: STATUS: COMPLETED Spoke with . One week ago he was on his rider color buffer and stood up. Had no strength in his lower legs and fell forward hitting his left rib cage. Was not seen in the ED did not feel like he needed too. Is concerned about the strength in his legs from his thighs to his ankles. Says his feet are fine. He has decreased strength slight improvement daily but is concerned. He was concerned it was the Tramadol that he had recently started so he held it for a couple days with no improvement in his legs so he has resumed that for his upper back pain. He denies any lower back pain does say his legs feel like they did when he has trouble with his sciatic nerve but without the pain. PLEASE REVIEW AND ADVISE /es/ JULIENNE KAYE RN Signed: 04/28/2025 12:23 Receipt Acknowledged By: 05/05/2025 12:48 /es/ CHERYL ALARCON MD Primary Care Physician, Team [facility] for GILBERTO PERALES --- Original Document --- 04/28/25 CCC: SCHEDULING ADMINISTRATION: Caller Verification Emergency Contact: SHANEL BERNAL Emergency Contact Caller/Recipient Relation to Patient: Self Caller Name: ERWIN HALL Administrative Administrative Note Reason: Other Administrative Note Comments: Pt calling to speak with you regarding a couple questions he has IMPORTANT: This note was created by [place] [facility] Clinical Contact Center staff. Please do not alert the staff member by adding them as a signer for future communications. Alerts are not monitored by this user. /es/ PEYTON LENNON Advanced manager medical affairs Signed: 04/28/2025 11:13 Receipt Acknowledged By: 04/28/2025 12:24 /anitha/ JULIENNE MALLOY RN-CDD [facility] Apr 28, 2025 11:13 AM ADMINISTRATIVE NOT E: LOCAL TITLE: CCC: SCHEDULING ADMINISTRATION STANDARD TITLE: ADMINISTRATIVE NOTE DATE OF NOTE: APR 28, 2025@11:13:49 ENTRY DATE: APR 28, 2025@11:13:49 AUTHOR: PEYTON PARADA COSIGNER: URGENCY: STATUS: COMPLETED CCC: SCHEDULING ADMINISTRATION Has ADDENDA Caller Verification Emergency Contact: SHANEL BERNAL Emergency Contact Caller/Recipient Relation to Patient: Self Caller Name: ERWIN HALL Administrative Administrative Note Reason: Other Administrative Note Comments: Pt calling to speak with you regarding a couple questions he has IMPORTANT: This note was created by [facility] Clinical Contact Center staff. Please do not alert the staff member by adding them as a signer for future communications. Alerts are not monitored by this user. /anitha/ PEYTON LENNON Advanced manager medical affairs Signed: 04/28/2025 11:13 Receipt Acknowledged By: 04/28/2025 12:24 /anitha/ JULIENNE KAYE RN 04/28/2025 ADDENDUM STATUS: COMPLETED Spoke with . One week ago he was on his rider color buffer and stood up. Had no strength in his lower legs and fell forward hitting his left rib cage. Was not seen in the ED did not feel like he needed too. Is concerned about the strength in his legs from his thighs to his ankles. Says his feet are fine. He has decreased strength slight improvement daily but is concerned. He was concerned it was the Tramadol that he had recently started so he held it for a couple days with no improvement in his legs so he has resumed that for his upper back pain. He denies any lower back pain does say his legs feel like they did when he has trouble with his sciatic nerve but without the pain. PLEASE REVIEW AND ADVISE /anitha/ JULIENNE KAYE RN Signed: 04/28/2025 12:23 Receipt Acknowledged By: 05/05/2025 12:48 /es/ CHERYL ALARCON MD Primary Care Physician, Team [place] for GILBERTO PERALES 05/05/2025 ADDENDUM STATUS: COMPLETED Please schedule [place] for evaluation by PCP. Strict ED precautions for any difficulty ambulating or continued falls. /anitha/ CHERYL ALARCON MD Primary Care Physician, Team [place] Signed: 05/05/2025 12:50 Receipt Acknowledged By: 05/05/2025 13:14 /es/ JULIENNE KAYE RN for MERRICK GOODMAN 05/05/2025 ADDENDUM STATUS: COMPLETED PACT MSA please call and schedule next available with PCP to evaluate weakness in lower extremities. /anitha/ JULIENNE KAYE RN Signed: 05/05/2025 13:15 Receipt Acknowledged By: 05/05/2025 14:19 /es/ Rosalia CHAVEZ 05/05/2025 ADDENDUM STATUS: COMPLETED Contacted , per his request and DD/T, scheduled the following appt: JIN PACT ALPHA 1-3 May 21, 2025@11:30 AM EDT FUTURE PPDD/T LETTER MAILED -PC Provider, [place] also stated that he is not currently taking his tramadol again because he wants to see if it affects anything by not taking it. /es/ Rosalia CHAVEZ Signed: 05/05/2025 14:22 PEYTON PARADA-CDD [facility]
--- OUTSIDE RECORDS SUMMARY | 2025-04-29 08:43 | XMS_ITS | Encounter Summary ---
Author Name [facility] [place] [facility] [place] Address [address] [place] [address] Care Team Providers Care School Resource Officer Name Role Phone GILBERTO PERALES Primary Care [...] PART A Jun 23, 2016 PART A [id number] [place] PATIENT MEDICARE (WNR) MEDICARE (M) PART B Jun 23, 2016 PART B [id number] [phone] [place] PATIENT MEDICARE (WNR) MEDICARE (M) PART A Jun 23, 2016 PART A [id number] [place] PATIENT MEDICARE (WNR) MEDICARE (M) PART B Jun 23, 2016 PART B [id number] [place] PATIENT MEDICARE PART D (WNR) MEDICARE (M) PART D Jun 23, 2016 PART D [id number] [place] PATIENT MEDICARE PART D (WNR) MEDICARE (M) PART D Jun 23, 2016 PART D [id number] ERWIN HALL PATIENT [employer] [place] [employer] PLAN G PLAN G Jun 23, 2016 PLAN G [id number] ERWIN HALL PATIENT [employer] [place] [employer] PLAN G PLANG Jun 23, 2016 PLANG [id number] ERWIN HALL PATIENT Selected Encounter This section includes the information on record at [place] for the [place]counter. Date/Time Encounter Type Encounter Description Reason Pro vider Source Apr 29, 2025 12:43 PM Outpatient Encounter ADMIN PAT ACTIVTIES (MASNONCT) IHE Encounter Template Text not used by [place] Plan of Treatment: Future Appointments (+ 6 months) and Future Tests (+/- 45 days) The Plan of Treatment section includes future care activities for the patient from all [place] treatmentfacilities. This section includes future appointments and future orders which are active, pending or scheduled. Future Appointments This section includes appointments that were scheduled to occur 6 months from the date of the Encounter, up to a maximum of 20 appointments. The data comes from all [place] treatment facilities. Appointment Date/Time Appointment Type Appointme nt Facility Name May 21, 2025 11:30 AM [facility] NONE [facility] Active, Pending, and Scheduled Orders This section includes a listing of several types of active, pending, and scheduled orders, including clinic medications orders, diagnostic test orders, procedure orders and consult orders; where the start date of the order is 45 days before the date of the Encounter or 45 days after the date of theEncounter. The data comes from all [facility]. Test Date/Time Test Type Test Details Facility Name May 21, 2025 12:00 AM Laboratory - Chemistry Order MICROALBUMIN/CREAT RATIO URINE SP [facility] May 21, 2025 12:00 AM Laboratory - Chemistry Order DRUG SCREEN EXPANDED IN-HOUSE URINE SP ONCE [facility] May 21, 2025 11:41 AM Procedure Order CP COLON A SYMPTOMATIC CP COLON ASYMPTOMATIC Proc Driving Teacher's Choice [facility] Lab Results: +/- 30 days of the encounter This section includes the Chemistry and Hematology Lab Results on record with [place] for the patient. Radiology Reports and Pathology Reports are provided separately, in subsequent sections. Lab Results This section contains the Chemistry/Hematology Results that were resulted 30 days before or 30 daysafter the date of the Encounter. Date/Time Source Result Type Result - Unit Interpretation Reference Range Specimen Type Comment May 21, 2025 11:44 AM [facility] GLYCOHEMOGLOBIN BLOOD Specimen Type: BLOOD Comment: Prediabetes: 5.7%-6.4% Diabetes: >= 6.5% [place] guidelines for A1c interpretation: Glycemic control targets are based on Shared Decision Making between clinicians and patients. Criteria used to establish an A1c target recommendation can be found at https://www.wi. ov/qualityandpat ientsafety/ and include the use of [...] and 9.27. Ref: https://ngsp.org /CAPdata.asp. The in-house [employer] D-100 analyzer has a historical CV <= 2%. Contact the laboratory for further performance characteristics of this assay. Ordering Provider: GILBERTO PERALES Report Released Date/Time: May 21, 2025 11:41 AM Reporting Lab: [address] [id number] Performing Lab: [place] [id number] GLYCOHEMOGLOBIN 5.3 4.4-5.6 May 21, 2025 11:44 AM [facility] LIPID PROFILE PLASMA Specimen Type: PLASMA No comment entered. Ordering Provider: GILBERTO PERALES Report Released Date/Time: May 21, 2025 11:41 AM Reporting Lab: [address] [address] Performing Lab: [place] [id number] CHOLESTEROL 139 mg/dL 0-199 TRIGLYCERIDE 96 mg/dL 0-149 HDL CHOLESTEROL 53 mg/dL 40-69 DIRECT LDL CHOL. 73 mg/dL 0-100 May 21, 2025 11:44 AM [facility] TSH P LASMA Specimen Type: PLASMA No comment entered. Ordering Provider: GILBERTO PERALES Report Released Date/Time: May 21, 2025 11:41 AM Reporting Lab: [place] [id number] Performing Lab: [place] [id number] TSH 0.8987 m[IU]/mL 0.3500-4.9400 May 21, 2025 11:44 AM [facility] 25-OH VITAMIN D SERUM Specime [...] May 21, 2025 11:41 AM Reporting Lab: [place] [id number] Performing Lab: [place] [id number] 25-OH VITAMIN D 47.4 ng/mL 20.0-50.0 May 21, 2025 11:44 AM [facility] FOLATE PLASMA Specimen Type: PLASMA Comment: Vitamin B12 test may not yield results when protein level of sample is too elevated. Ordering Provider: GILBERTO PERALES Report Released Date/Time: May 21, 2025 11:41 AM Reporting Lab: [place] [id number] Performing Lab: [place] [id number] FOLATE 16.8 ng/mL 7.0-31.4 May 21, 2025 11:44 AM [facility] B12 VITAMIN PLASMA Specimen Type: PLASMA Comment: Vitamin B12 test may not yield results when protein level of sample is too elevated. Ordering Provider: GILBERTO PERALES Report Released Date/Time: May 21, 2025 11:41 AM Reporting Lab: [place] [id number] Performing Lab: [address] [id number] B12 VITAMIN 632 pg/mL 213-816 May 21, 2025 11:44 AM [facility] CBC/PLT BLOOD Specimen Type: BLOOD No comment entered. Ordering Provider: GILBERTO PERALES Report Released Date/Time: May 21, 2025 11:41 AM Reporting Lab: [address] [phone] Performing Lab: [address] [address] WBC 8.1 10*3/uL 5.0-10.0 RBC 4.75 10*6/uL [...] and tobacco- related health factors from the [place] facility where the Encounter took place. Current Smoking Status This section includes the most current smoking, or tobacco-related health factor, from the [place] facility where the Encounter took place. Date/Time Current Smoking Status Comment Francesco [place] Sep 03, 2024 11:00 AM VA-TOBACCO USER SOME DAYS [facility] Tobacco Use History This section includes a history of the smoking, or tobacco-related health factors, that were collected on or before the date of the Encounter. The data comes from the [place] facility where the Encounter took place. Date/Time Smoking Status/Tobacco Use Comment Roxanne accris Sep 03, 2024 11:00 AM VA-TOBACCO USE 30 YEARS OR MORE [facility] Sep 03, 2024 11:00 AM VA-TOBACCO USE ADVICE [facility] Sep 03, 2024 11:00 AM VA-TOBACCO USE NETWORK LIAISON NO [facility] Sep 03, 2024 11:00 AM VA-TOBACCO USE MED NO [facility] Sep 03, 2024 11:00 AM VA-TOBACCO USER SOME DAYS [facility] May 18, 2022 08:30 AM VA-TOBACCO DOESNT USE WI 30 MIN WAKEUP [facility] May 18, 2022 08:30 AM VA-TOBACCO USE 30 YEARS OR MORE [facility] May 18, 2022 08:30 AM VA-TOBACCO USE ADVICE [facility] May 18, 2022 08:30 AM VA-TOBACCO USE NETWORK LIAISON NO [facility] May 18, 2022 08:30 AM VA-TOBACCO USE MED NO [facility] May 18, 2022 08:30 AM VA-TOBACCO USER EVERY DAY [facility] Jul 02, 2020 10:00 AM VA-TOBACCO DOESNT USE WI 30 MIN WAKEUP [facility] Jul 02, 2020 10:00 AM VA-TOBACCO USE 30 YEARS OR MORE [facility] Jul 02, 2020 10:00 AM VA-TOBACCO USE ADVICE [facility] Jul 02, 2020 10:00 AM VA-TOBACCO USE NETWORK LIAISON NO [facility] Jul 02, 2020 10:00 AM VA-TOBACCO USE MED NO [facility] Jul 02, 2020 10:00 AM VA-TOBACCO USER SOME DAYS [facility] Nov 23, 2018 11:13 AM VA-TOBACCO DOESNT USE WI 30 MIN WAKEUP [facility] Nov 23, 2018 11:13 AM VA-TOBACCO USE 30 YEARS OR MORE [facility] Nov 23, 2018 11:13 AM VA-TOBACCO USE ADVICE [facility] Nov 23, 2018 11:13 AM VA-TOBACCO USE NETWORK LIAISON NO [facility] Nov 23, 2018 11:13 AM VA-TOBACCO USE MED NO [facility] Nov 23, 2018 11:13 AM VA-TOBACCO USER SOME DAYS [facility] Aug 29, 2017 09:43 AM V9 LIFETIME NON-USER OF TOBACCO [facility] Oct 20, 2016 09:13 AM V9 LIFETIME NON-USER OF TOBACCO [facility] Oct 28, 2015 09:04 AM V9 LIFETIME NON-USER OF TOBACCO [facility] Sep 24, 2014 10:16 AM V9 QUIT TOBACCO >1 2 MO & <7 YRS AGO [facility] Sep 24, 2014 10:16 AM V9 TOBACCO OFFERED [facility] Sep 13, 2013 10:18 AM TOBACCO OFFERRED P T MEDS (PROVIDER) [facility] Sep 13, 2013 10:18 AM V9 CURRENT TOBACCO USER [facility] Sep 13, 2013 10:18 AM V9 TOBACCO OFFERED [facility] Jul 12, 2012 05:32 PM V9 CURRENT TOBACCO USER [facility] Jul 12, 2012 05:32 PM V9 QUIT TOBACCO >1 2 MO & <7 YRS AGO [facility] Jul 12, 2012 05:32 PM V9 TOBACCO OFFERED [facility] Jul 04, 2011 09:53 AM TOBACCO OFFERRED P T MEDS (PROVIDER) [facility] Jul 04, 2011 09:53 AM V9 CURRENT TOBACCO USER [facility] Jul 04, 2011 09:53 AM V9 TOBACCO OFFERED [facility] May 24, 2010 08:09 AM TOBACCO OFFERRED P T MEDS (PROVIDER) [facility] May 24, 2010 08:09 AM V9 CURRENT TOBACCO USER [facility] May 24, 2010 08:09 AM V9 TOBACCO OFFERED [facility] May 22, 2009 01:20 PM TOBACCO OFFERRED P T MEDS (PROVIDER) [facility] May 22, 2009 01:20 PM V9 CURRENT TOBACCO USER [facility] May 22, 2009 01:20 PM V9 TOBACCO OFFERED [facility] Encounter Notes: All associated encounter [...] Hilar[facility] Moss per pt's request Thank you. /diane PERALES MD Signed: 04/29/2025 17:23 Receipt Acknowledged By: 04/30/2025 10:37 /anitha/ Layne CHAVEZ --- Original Document --- 04/29/25 PHARMACY TELEPHONE CARE NOTE: 1. Name of caller: [facility] 2. Phone #: 3. Specialty Clinic/Primary Care Team: Progress Note Date Title Author (and Author's Title) SEP 03, 2024@11:26 PC PROGRESS NOTE GILBERTO PERALES (PRIMARY CARE PHYSI 4. Medication: LISINOPRIL TAB 20MG 20MG DAILY--PATIENT NEEDS SCRIPT CALLED INTO [facility] @ [phone] 5. Last fill date: ... Provider: 6. The caller requests prescription: Mailed 7. View Alert to: /anitha/ ALEXSANDER RENNER [facility] [employer] Mechan[employer] Signed: 04/29/2025 12:45 Receipt Acknowledged By: 04/29/2025 17:20 /anitha/ GILBERTO PERALES MD 04/29/2025 ADDENDUM STATUS: COMPLETED vet states he is completely out of medication and needs these called into pharmacy today. /anitha/ TIERRA LARA [facility] Signed: 04/29/2025 13:00 Receipt Acknowledged By: 04/29/2025 17:22 /diane PERALES MD 04/30/2025 08:07 /anitha/ Layne CHAVEZ 04/30/2025 ADDENDUM STATUS: UNSIGNED You may not VIEW this UNSIGNED Addendum. GILBERTO PERALES[facility] Apr 29, 2025 12:59 PM ADDENDUM: LOCAL TITLE: Addendum STANDARD TITLE: ADDENDUM DATE OF NOTE: APR 29, 2025@12:59:18 ENTRY DATE: APR 29, 2025@12:59:18 AUTHOR: TIERRA LARA EXP COSIGNER: URGENCY: STATUS: COMPLETED vet states he is completely out of medication and needs these called into pharmacy today. /anitha/ TIERRA LARA [facility] Signed: 04/29/2025 13:00 Receipt Acknowledged By: 04/29/2025 17:22 /anitha/ GILBERTO PERALES MD 04/30/2025 08:07 /es/ Layne Diaz AMSA --- Original Document --- 04/29/25 PHARMACY TELEPHONE CARE NOTE: 1. Name of caller: [facility] 2. Phone #: 3. Specialty Clinic/Primary Care Team: Progress Note Date Title Author (and Author's Title) SEP 03, 2024@11:26 PC PROGRESS NOTE GILBERTO PERALES (PRIMARY CARE PHYSI 4. Medication: LISINOPRIL TAB 20MG 20MG DAILY--PATIENT NEEDS SCRIPT CALLED INTO [facility] @ [phone] 5. Last fill date: ... Provider: 6. The caller requests prescription: Mailed 7. View Alert to: /anitha/ ALEXSANDER RENNER [facility] Pharmacy [employer] Mechanic Signed: 04/29/2025 12:45 Receipt Acknowledged By: 04/29/2025 17:20 /anitha/ GILBERTO PERALES MD 04/29/2025 ADDENDUM STATUS: COMPLETED Lisinopril 20 mg po daily x 90 days with 3 refills for HTN will be faxed to Hilario Moss per pt's request Thank you. /anitha/ GILBERTO PERALES MD Signed: 04/29/2025 17:23 Receipt Acknowledged By: * AWAITING SIGNATURE * LAYNE DIAZ SANTANA R [place] Apr 29, 2025 12:43 PM PHARMACY TELEPHONE ENCOUNTER NOTE: LOCAL TITLE: PHARMACY TELEPHONE CARE NOTE STANDARD TITLE: PHARMACY TELEPHONE ENCOUNTER NOTE DATE OF NOTE: APR 29, 2025@12:43 ENTRY DATE: APR 29, 2025@12:43:47 AUTHOR: ALEXSANDER RENNER COSIGNER: URGENCY: STATUS: COMPLETED PHARMACY TELEPHONE CARE NOTE Has ADDENDA 1. Name of caller: [facility] 2. Phone #: 3. Specialty Clinic/Primary Care Team: Progress Note Date Title Author (and Author's Title) SEP 03, 2024@11:26 PC PROGRESS NOTE GILBERTO PERALES (PRIMARY CARE PHYSI 4. Medication: LISINOPRIL TAB 20MG 20MG DAILY--PATIENT NEEDS SCRIPT CALLED INTO [facility] IN [place] @ [phone] 5. Last fill date: ... Provider: 6. The caller requests prescription: Mailed 7. 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 /anitha/ TIERRA LARA [facility] Signed: 04/29/2025 13:00 Receipt Acknowledged By: 04/29/2025 17:22 /diane PERALES MD 04/30/2025 08:07 /anitha/ [facility]25 ADDENDUM STATUS: COMPLETED Lisinopril 20 mg po daily x 90 days with 3 refills for HTN will be faxed to [place] [facility] per pt's request Thank you. /anitha/ GILBERTO PERALES MD Signed: 04/29/2025 17:23 Receipt Acknowledged By: 04/30/2025 10:37 /anitha/ Layne CHAVEZ 04/30/2025 ADDENDUM STATUS: COMPLETED Pact RN has faxed the above prescription to [facility] at: [phone]. This editorial writer called the pharmacy and verified that the fax was received and the medication is being prepared for the [place] to miner pick. /anitha/ Layne CHAVEZ Signed: 04/30/2025 10:39 ALEXSANDER RENNER[facility]
--- OUTSIDE RECORDS SUMMARY | 2025-05-20 20:00 | XMS_ITS ---
Author Name [facility] [facility] [place] [facility] [place] Address [address] [place] [address] Care Team Providers Care Retail Sales Associate Seasonal Name Role Phone GILBERTO PERALES Primary Care [...] PART B Jun 23, 2016 PART B [id number] [place] H[place] PATIENT MEDICARE (WNR) MEDICARE (M) PART A Jun 23, 2016 PART A [id number] [phone] ER[place] H[place] PATIENT MEDICARE (WNR) MEDICARE (M) PART A Jun 23, 2016 PART A [id number] ERWIN HALL PATIENT MEDICARE (WNR) MEDICARE (M) PART B Jun 23, 2016 PART B [id number] ERWIN HALL PATIENT MEDICARE PART D (WNR) MEDICARE (M) PART D Jun 23, 2016 PART D [id number] ERWIN HALL PATIENT MEDICARE PART D (WNR) MEDICARE (M) PART D Jun 23, 2016 PART D [id number] ERWIN HALL PATIENT [employer] [place] [employer] PLAN G PLAN G Jun 23, 2016 PLAN G [id number] ERWIN HALL PATIENT [employer] [place] [employer] PL[employer] G PLANG Jun 23, 2016 PLANG [id number] ERWIN HALL PATIENT Selected Encounter This section includes the information on record at [place] for the Encounter. Date/Time Encounter Type Encounter Description Reason Pro vider Source May 21, 2025 12:00 AM Outpatient Encounter EVENT (HISTORICAL) IHE Encounter Template Text not used by [place] Plan of Treatment: Future Appointments (+ 6 months) and Future Tests (+/- 45 days) The Plan of Treatment section includes future care activities for the patient from all [place] treatmentfacilities. This section includes future appointments and [...] of theEncounter. The data comes from all [place] treatment facilities. Test Date/Time Test Type Test Details Facility Name May 21, 2025 12:00 AM Laboratory - Chemistry Order MICROALBUMIN/CREAT RATIO URINE SP [facility] May 21, 2025 12:00 AM Laboratory - Chemistry Order DRUG SCREEN EXPANDED IN-HOUSE URINE SP ONCE [facility] May 21, 2025 11:41 AM Procedure Order CP COLON A SYMPTOMATIC CP COLON ASYMPTOMATIC Proc Sheriffs Officer's Choice [facility] Lab Results: +/- 30 days of the encounter This section includes the Chemistry and Hematology Lab Results on record with [place] for the patient. Radiology Reports and Pathology Reports are provided separately, in subsequent sections. Lab Results This section contains the Chemistry/Hematology Results that were resulted 30 days before or 30 daysafter the date of the Encounter. Date/Time Source Result Type Result - Unit Interpretation Reference Range Specimen Type Comment May 21, 2025 11:44 AM [facility] GLYCOHEMOGLOBIN BLOOD Specimen Type: BLOOD Comment: Prediabetes: 5.7%-6.4% Diabetes: >= 6.5% [facility] guidelines for A1c interpretation: Glycemic control targets are based on Shared Decision Making between clinicians and patients. Criteria used to establish an A1c target recommendation can be found at https://www.ct. ov/qualityandpat ientsafety/ and include the use of [...] and 9.27. Ref: https://ngsp.org /CAPdata.asp. The in-house sickweather D-100 analyzer has a historical CV <= 2%. Contact the laboratory for further performance characteristics of this assay. Ordering Provider: GILBERTO PERALES Report Released Date/Time: May 21, 2025 11:41 AM Reporting Lab: [place] [phone] Performing Lab: [place] [id number] GLYCOHEMOGLOBIN 5.3 4.4-5.6 May 21, 2025 11:44 AM [facility] TSH P LASMA Specimen Type: PLASMA No comment entered. Ordering Provider: GILBERTO PERALES Report Released Date/Time: May 21, 2025 11:41 AM Reporting Lab: [address] [phone] Performing Lab: [address] [address] TSH 0.8987 m[IU]/mL 0.3500-4.9400 May 21, 2025 11:44 AM [facility] LIPID PROFILE PLASMA Specimen Type: PLASMA No comment entered. Ordering Provider: GILBERTO PERALES Report Released Date/Time: May 21, 2025 11:41 AM Reporting Lab: [address] [phone] Performing Lab: [address] [address] CHOLESTEROL 139 mg/dL 0-199 TRIGLYCERIDE 96 mg/dL 0-149 HDL CHOLESTEROL 53 mg/dL 40-69 DIRECT LDL CHOL. 73 mg/dL 0-100 May 21, 2025 11:44 AM [facility] 25-OH VITAMIN D SERUM Specime n [...] May 21, 2025 11:41 AM Reporting Lab: [place] [phone] Performing Lab: [place] [phone] 25-OH VITAMIN D 47.4 ng/mL 20.0-50.0 May 21, 2025 11:44 AM [facility] B12 VITAMIN PLASMA Specimen Type: PLASMA Comment: Vitamin B12 test may not yield results when protein level of sample is too elevated. Ordering Provider: GILBERTO PERALES Report Released Date/Time: May 21, 2025 11:41 AM Reporting Lab: [address] [address] Performing Lab: [place] [phone] B12 VITAMIN 632 pg/mL 213-816 May 21, 2025 11:44 AM [facility] FOLATE PLASMA Specimen Type: PLASMA Comment: Vitamin B12 test may not yield results when protein level of sample is too elevated. Ordering Provider: GILBERTO PERALES Report Released Date/Time: May 21, 2025 11:41 AM Reporting Lab: [address] [address] Performing Lab: [place] [phone] FOLATE 16.8 ng/mL 7.0-31.4 May 21, 2025 11:44 AM [facility] CBC/PLT BLOOD Specimen Type: BLOOD No comment entered. Ordering Provider: GILBERTO PERALES Report Released Date/Time: May 21, 2025 11:41 AM Reporting Lab: [place] [id number] [facility] [phone] Performing Lab: [place] [id number] [facility] [phone] WBC 8.1 10*3/uL 5.0-10.0 RBC 4.75 10*6/uL 4.6-6.2 HGB 15.6 g/dL 14.0-18.0 HCT 46.6 42.0-52.0 MCV 98.1 fL H 80.0-94.0 MCH 32.8 pg H 27.0-31.0 MCHC 33.5 g/dL 32.0-36.0 PLT 123 10*3/uL L 150-450 MPV 12.7 fL 9.0-13.1 RDW 12.1 11.0-16.0 NRBC 0.0 0.0-0.0 Vital Signs: All taken on the encounter date This section contains inpatient and outpatient Vital Signs collected on the date of the Encounter. Date/Time Temperature Pulse Blood Pressure Respiratory Rate SP02 Pain Height Weight Body Mass Index Source May 21, 2025 11:37 AM 132/69 mm[Hg] [facility] May 21, 2025 10:54 AM 97.6 F 66 /min 151/84 mm[Hg] 16 /min 99 % 7 72 in 199 lb 27 [facility] Social History: Smoking Status (Most current) and Tobacco Use (All prior to encounter date) This section includes the most current, and the historical, smoking and tobacco- related health factors from the [place] facility where the Encounter took place. Current Smoking Status This section includes the most current smoking, or tobacco-related health factor, from the [place] facility where the Encounter took place. Date/Time Current Smoking Status Comment Francesco ity May 21, 2025 11:30 AM VA-TOBACCO NEVER U SED CIGARETTES [facility] Tobacco Use History This section includes a history of the smoking, or tobacco-related health factors, that were collected on or before the date of the Encounter. The data comes from the [place] facility where the Encounter took place. Date/Time Smoking Status/Tobacco Use Comment F acility May 21, 2025 11:30 AM VA-TOBACCO SCREEN FOLLOW-UP [facility] May 21, 2025 11:30 AM VA-TOBACCO USE ADVICE [facility] May 21, 2025 11:30 AM VA-TOBACCO USE PRIMARY CARE SALES REPRESENTATIVE NO [facility] May 21, 2025 11:30 AM VA-TOBACCO USE MED NO [facility] May 21, 2025 11:30 AM VA-TOBACCO USE MIGDALIA E DAYS CIGARS/PIPES [facility] May 21, 2025 11:30 AM VA-TOBACCO USE MIGDALIA E DAYS OTHER TYPE [facility] Sep 03, 2024 11:00 AM VA-TOBACCO DOESNT USE WI 30 MIN WAKEUP [facility] Sep 03, 2024 11:00 AM VA-TOBACCO USE 30 YEARS OR MORE [facility] Sep 03, 2024 11:00 AM VA-TOBACCO USE ADVICE [facility] Sep 03, 2024 11:00 AM VA-TOBACCO USE PRIMARY CARE SALES REPRESENTATIVE NO [facility] Sep 03, 2024 11:00 AM VA-TOBACCO USE MED NO [facility] Sep 03, 2024 11:00 AM VA-TOBACCO USER SOME DAYS [facility] May 18, 2022 08:30 AM VA-TOBACCO DOESNT USE WI 30 MIN WAKEUP [facility] May 18, 2022 08:30 AM VA-TOBACCO USE 30 YEARS OR MORE [facility] May 18, 2022 08:30 AM VA-TOBACCO USE ADVICE [facility] May 18, 2022 08:30 AM VA-TOBACCO USE PRIMARY CARE SALES REPRESENTATIVE NO [facility] May 18, 2022 08:30 AM VA-TOBACCO USE MED NO [facility] May 18, 2022 08:30 AM VA-TOBACCO USER EVERY DAY [facility] Jul 02, 2020 10:00 AM VA-TOBACCO DOESNT USE WI 30 MIN WAKEUP [facility] Jul 02, 2020 10:00 AM VA-TOBACCO USE 30 YEARS OR MORE [facility] Jul 02, 2020 10:00 AM VA-TOBACCO USE ADVICE [facility] Jul 02, 2020 10:00 AM VA-TOBACCO USE PRIMARY CARE SALES REPRESENTATIVE NO [facility] Jul 02, 2020 10:00 AM VA-TOBACCO USE MED NO [facility] Jul 02, 2020 10:00 AM VA-TOBACCO USER SOME DAYS [facility] Nov 23, 2018 11:13 AM VA-TOBACCO DOESNT USE WI 30 MIN WAKEUP [facility] Nov 23, 2018 11:13 AM VA-TOBACCO USE 30 YEARS OR MORE [facility] Nov 23, 2018 11:13 AM VA-TOBACCO USE ADVICE [facility] Nov 23, 2018 11:13 AM VA-TOBACCO USE PRIMARY CARE SALES REPRESENTATIVE NO [facility] Nov 23, 2018 11:13 AM VA-TOBACCO USE MED NO [facility] Nov 23, 2018 11:13 AM VA-TOBACCO USER SOME DAYS [facility] Aug 29, 2017 09:43 AM V9 LIFETIME NON-USER OF TOBACCO [facility] Oct 20, 2016 09:13 AM V9 LIFETIME NON-USER OF TOBACCO [facility] Oct 28, 2015 09:04 AM V9 LIFETIME NON-USER OF TOBACCO [facility] Sep 24, 2014 10:16 AM V9 QUIT TOBACCO >1 2 MO & <7 YRS AGO [facility] Sep 24, 2014 10:16 AM V9 TOBACCO OFFERED [facility] Sep 13, 2013 10:18 AM TOBACCO OFFERRED P T MEDS (PROVIDER) [facility] Sep 13, 2013 10:18 AM V9 CURRENT TOBACCO USER [facility] Sep 13, 2013 10:18 AM V9 TOBACCO OFFERED [facility] Jul 12, 2012 05:32 PM V9 CURRENT TOBACCO USER [facility] Jul 12, 2012 05:32 PM V9 QUIT TOBACCO >1 2 MO & <7 YRS AGO [facility] Jul 12, 2012 05:32 PM V9 TOBACCO OFFERED [facility] Jul 04, 2011 09:53 AM TOBACCO OFFERRED P T MEDS (PROVIDER) [facility] Jul 04, 2011 09:53 AM V9 CURRENT TOBACCO USER [facility] Jul 04, 2011 09:53 AM V9 TOBACCO OFFERED [facility] May 24, 2010 08:09 AM TOBACCO OFFERRED P T MEDS (PROVIDER) [facility] May 24, 2010 08:09 AM V9 CURRENT TOBACCO USER [facility] May 24, 2010 08:09 AM V9 TOBACCO OFFERED [facility] May 22, 2009 01:20 PM TOBACCO OFFERRED P T MEDS (PROVIDER) [facility] May 22, 2009 01:20 PM V9 CURRENT TOBACCO USER [facility] May 22, 2009 01:20 PM V9 TOBACCO OFFERED [facility]
--- OUTSIDE RECORDS SUMMARY | 2025-05-22 08:16 | XMS_ITS | Encounter Summary ---
Author Name [facility] [place] [facility] [place] Address [address] [place] [address] Care Team Providers Care Animal Biologist Name Role Phone GILBERTO PERALES Primary Care [...] PART B Jun 23, 2016 PART B [id number] ERWIN HALL PATIENT MEDICARE (WNR) MEDICARE (M) PART A Jun 23, 2016 PART A [id number] ERWIN HALL PATIENT MEDICARE (WNR) MEDICARE (M) PART A Jun 23, 2016 PART A [id number] [phone] ERWIN HALL PATIENT MEDICARE (WNR) MEDICARE (M) PART B Jun 23, 2016 PART B [id number] ERWIN HALL PATIENT MEDICARE PART D (WNR) MEDICARE (M) PART D Jun 23, 2016 PART D [id number] ERWIN HALL PATIENT MEDICARE PART D (WNR) MEDICARE (M) PART D Jun 23, 2016 PART D [id number] [phone] ERWIN HALL PATIENT [employer]UT[employer] OF [facility] PLAN G PLAN G Jun 23, 2016 PLAN G [id number] ERWIN HALL PATIENT [employer] OF [place] [employer] PLAN G PLANG Jun 23, 2016 PLANG [id number] ERWIN HALL PATIENT Selected Encounter This section includes the information on record at [place] for the Encounter. Date/Time Encounter Type Encounter Description Reason Pro vider Source May 22, 2025 12:16 PM Outpatient Encounter GI ENDOSCOPY IHE Encounter Template Text not used by [...] of theEncounter. The data comes from all [place] treatment facilities. Test Date/Time Test Type Test Details Facility Name May 21, 2025 12:00 AM Laboratory - Chemistry Order DRUG SCREEN EXPANDED IN-HOUSE URINE SP ONCE [facility] May 21, 2025 12:00 AM Laboratory - Chemistry Order MICROALBUMIN/CREAT RATIO URINE SP [facility] May 21, 2025 11:41 AM Procedure Order CP COLON A SYMPTOMATIC CP COLON ASYMPTOMATIC Proc Restaurant Host's Choice [facility] Lab Results: +/- 30 days of [...] Type Comment May 21, 2025 11:44 AM [facility] GLYCOHEMOGLOBIN BLOOD Specimen Type: BLOOD Comment: Prediabetes: 5.7%-6.4% Diabetes: >= 6.5% [facility] guidelines for A1c interpretation: Glycemic control targets are based on Shared Decision Making between clinicians and patients. Criteria used to establish an A1c target recommendation can be found at https://www.ca.g ov/qualityandpat ientsafety/ and include the use of [...] and 9.27. Ref: https://ngsp.org /CAPdata.asp. The in-house [employer] D-100 analyzer has a historical CV <= 2%. Contact the laboratory for further performance characteristics of this assay. Ordering Provider: GILBERTO PREALES Report Released Date/Time: May 21, 2025 11:41 AM Reporting Lab: [place] [id number] Performing Lab: [place] [phone] GLYCOHEMOGLOBIN 5.3 4.4-5.6 May 21, 2025 11:44 AM [facility] TSH P LASMA Specimen Type: PLASMA No comment entered. Ordering Provider: GILBERTO PERALES Report Released Date/Time: May 21, 2025 11:41 AM Reporting Lab: [place] [phone] Performing Lab: [place] [phone] TSH 0.8987 m[IU]/mL 0.3500-4.9400 May 21, 2025 11:44 AM [facility] LIPID PROFILE PLASMA Specimen Type: PLASMA No comment entered. Ordering Provider: GILBERTO PERALES Report Released Date/Time: May 21, 2025 11:41 AM Reporting Lab: [address] [address] Performing Lab: [place] [phone] CHOLESTEROL 139 mg/dL 0-199 TRIGLYCERIDE 96 mg/dL 0-149 HDL CHOLESTEROL 53 mg/dL 40-69 DIRECT LDL CHOL. 73 mg/dL 0-100 May 21, 2025 11:44 AM [facility] 25-OH VITAMIN D SERUM Specime n [...] May 21, 2025 11:41 AM Reporting Lab: [place] [phone] Performing Lab: [place] [phone] 25-OH VITAMIN D 47.4 ng/mL 20.0-50.0 May 21, 2025 11:44 AM [facility] B12 VITAMIN PLASMA Specimen Type: PLASMA Comment: Vitamin B12 test may not yield results when protein level of sample is too elevated. Ordering Provider: GILBERTO PERALES Report Released Date/Time: May 21, 2025 11:41 AM Reporting Lab: [address] [address] Performing Lab: [place] [phone] B12 VITAMIN 632 pg/mL 213-816 May 21, 2025 11:44 AM [facility] FOLATE PLASMA Specimen Type: PLASMA Comment: Vitamin B12 test may not yield results when protein level of sample is too elevated. Ordering Provider: GILBERTO PERALES Report Released Date/Time: May 21, 2025 11:41 AM Reporting Lab: [address] [address] Performing Lab: [place] [phone] FOLATE 16.8 ng/mL 7.0-31.4 May 21, 2025 11:44 AM [facility] CBC/PLT BLOOD Specimen Type: BLOOD No comment entered. Ordering Provider: GILBERTO PERALES Report Released Date/Time: May 21, 2025 11:41 AM Reporting Lab: [facility] [address] [facility] [address] Performing Lab: [facility] [address] [address] WBC 8.1 10*3/uL 5.0-10.0 RBC 4.75 10*6/uL [...] Facil ity February 22, 2021 01:15 PM [place]-TOBACCO QUIT 5 TO < 15 YRS [facility] Tobacco Use History This section includes a history of the smoking, or tobacco-related health factors, that were collected on or before the date of the Encounter. The data comes from the [place] facility where the Encounter took place. Date/Time Smoking Status/Tobacco Use Comment F accris February 22, 2021 01:15 PM [place]-TOBACCO QUIT 5 TO < 15 YRS [facility] Encounter Notes: All associated encounter notes This section contains the clinical notes associated to the Encounter. Date/Time Encounter Note(s) Provider Source May 22, 2025 12:17 PM GASTROENTEROLOGY ADMINISTRATIVE NOTE: LOCAL TITLE: ENDOSCOPY PROCEDURE RECOMMENDATIONS STANDARD TITLE: GASTROENTEROLOGY ADMINISTRATIVE NOTE DATE OF NOTE: MAY 22, 2025@12:17 ENTRY DATE: MAY 22, 2025@12:17:10 AUTHOR: PRIMO HODGE COSIGNER: URGENCY: STATUS: COMPLETED per audit reviewer protocol: Consult has been reviewed and I recommend proceeding with colonoscopy. Procedure advised to be done with moderate sedation. *Clinically desired date of procedure: within 16 weeks Please advise to HOLD: NO meds to hold 2 day split dose GoLitely prep ordered /es/ PRIMO HODGE UAT TESTER SALES ASSOCIATE CASHIER Signed: 05/22/2025 12:17 PRIMO HODGE[facility]
--- OUTSIDE RECORDS SUMMARY | 2025-05-26 01:37 | XMS_ITS | Encounter Summary ---
Author Name [facility] [place] [facility] [place] Address [address] [place] [address] Care Team Providers Care Slot Floor Attendant Name Role Phone GILBERTO PERALES Primary Care [...] PART A Jun 23, 2016 PART A [id number] ER[place] HALL PATIENT MEDICARE (WNR) MEDICARE (M) PART B Jun 23, 2016 PART B [id number] ERWIN HALL PATIENT MEDICARE (WNR) MEDICARE (M) PART A Jun 23, 2016 PART A [id number] [phone] ERWIN HALL PATIENT MEDICARE (WNR) MEDICARE (M) PART B Jun 23, 2016 PART B [id number] [phone] ERWIN HALL PATIENT MEDICARE PART D (WNR) MEDICARE (M) PART D Jun 23, 2016 PART D [id number] ERWIN HALL PATIENT MEDICARE PART D (WNR) MEDICARE (M) PART D Jun 23, 2016 PART D [id number] ERWIN HALL PATIENT [employer] [place] [employer] PL[place] G PLAN G Jun 23, 2016 PLAN G [id number] ERWIN HALL PATIENT [employer] [place] [employer] PLAN G PLANG Jun 23, 2016 PLANG [id number] ERWIN HALL PATIENT Selected Encounter This section includes the information on record at [place] for the Encounter. Date/Time Encounter Type Encounter Description Reason Pro vider Source May 26, 2025 05:37 AM Outpatient Encounter PRIMARY CARE/MEDICINE IHE Encounter Template Text not used by [...] - Chemistry Order MICROALBUMIN/CREAT RATIO URINE SP [facility] May 21, 2025 12:00 AM Laboratory - Chemistry Order DRUG SCREEN EXPANDED IN-HOUSE URINE SP ONCE [facility] May 21, 2025 11:41 AM Procedure Order CP COLON A SYMPTOMATIC CP COLON ASYMPTOMATIC Proc Sailmaker's Choice [facility] Lab Results: +/- 30 days of [...] 21, 2025 11:44 AM [facility] GLYCOHEMOGLOBIN BLOOD Specimen Type: BLOOD Comment: Prediabetes: 5.7%-6.4% Diabetes: >= 6.5% [facility] guidelines for A1c interpretation: Glycemic control targets are based on Shared Decision Making between clinicians and patients. Criteria used to establish an A1c target recommendation can be found at https://www.sd. ov/qualityandpat ientsafety/ and include the use of [...] and 9.27. Ref: https://ngsp.org /CAPdata.asp. The in-house [employer] D-100 analyzer has a historical CV <= 2%. Contact the laboratory for further performance characteristics of this assay. Ordering Provider: GILBERTO PERALES Report Released Date/Time: May 21, 2025 11:41 AM Reporting Lab: [place] [phone] Performing Lab: [place] [phone] GLYCOHEMOGLOBIN 5.3 4.4-5.6 May 21, 2025 11:44 AM [facility] LIPID PROFILE PLASMA Specimen Type: PLASMA No comment entered. Ordering Provider: GILBERTO PERALES Report Released Date/Time: May 21, 2025 11:41 AM Reporting Lab: [address] [address] Performing Lab: [address] [address] CHOLESTEROL 139 mg/dL 0-199 TRIGLYCERIDE 96 mg/dL 0-149 HDL CHOLESTEROL 53 mg/dL 40-69 DIRECT LDL CHOL. 73 mg/dL 0-100 May 21, 2025 11:44 AM [facility] TSH P LASMA Specimen Type: PLASMA No comment entered. Ordering Provider: GILBERTO PERALES Report Released Date/Time: May 21, 2025 11:41 AM Reporting Lab: [address] [address] Performing Lab: [address] [address] TSH 0.8987 m[IU]/mL 0.3500-4.9400 May 21, 2025 11:44 AM [facility] 25-OH VITAMIN D SERUM Specime n [...] May 21, 2025 11:41 AM Reporting Lab: [address] [address] Performing Lab: [place] [phone] 25-OH VITAMIN D 47.4 ng/mL 20.0-50.0 May 21, 2025 11:44 AM [facility] FOLATE PLASMA Specimen Type: PLASMA Comment: Vitamin B12 test may not yield results when protein level of sample is too elevated. Ordering Provider: GILBERTO PERALES Report Released Date/Time: May 21, 2025 11:41 AM Reporting Lab: [address] [address] Performing Lab: [address] [address] FOLATE 16.8 ng/mL 7.0-31.4 May 21, 2025 11:44 AM [facility] B12 VITAMIN PLASMA Specimen Type: PLASMA Comment: Vitamin B12 test may not yield results when protein level of sample is too elevated. Ordering Provider: GILBERTO PERALES Report Released Date/Time: May 21, 2025 11:41 AM Reporting Lab: [address] [address] Performing Lab: [address] [address] B12 VITAMIN 632 pg/mL 213-816 May 21, 2025 11:44 AM [facility] CBC/PLT BLOOD Specimen Type: BLOOD No comment entered. Ordering Provider: GILBERTO PERALES Report Released Date/Time: May 21, 2025 11:41 AM Reporting Lab: [facility] [address] [facility] [address] Performing Lab: [facility] [address] [facility] [address] WBC 8.1 10*3/uL 5.0-10.0 RBC 4.75 10*6/uL [...] Facil ity May 21, 2025 11:30 AM [place]-TOBACCO NEVER U SED CIGARETTES [facility] Tobacco Use History This section includes a history of the smoking, or tobacco-related health factors, that were collected on or before the date of the Encounter. The data comes from the [place] facility where the Encounter took place. Date/Time Smoking Status/Tobacco Use Comment F acility May 21, 2025 11:30 AM [place]-TOBACCO SCREEN FOLLOW-UP [facility] May 21, 2025 11:30 AM VA-TOBACCO USE ADVICE [facility] May 21, 2025 11:30 AM VA-TOBACCO USE ELIGIBILITY WORKER NO [facility] May 21, 2025 11:30 AM VA-TOBACCO USE MED NO [facility] May 21, 2025 11:30 AM VA-TOBACCO USE MIGDALIA E DAYS CIGARS/PIPES [facility] May 21, 2025 11:30 AM VA-TOBACCO USE MIGDALIA E DAYS OTHER TYPE [facility] Sep 03, 2024 11:00 AM VA-TOBACCO DOESNT USE WI 30 MIN WAKEUP [facility] Sep 03, 2024 11:00 AM VA-TOBACCO USE 30 YEARS OR MORE [facility] Sep 03, 2024 11:00 AM VA-TOBACCO USE ADVICE [facility] Sep 03, 2024 11:00 AM VA-TOBACCO USE ELIGIBILITY WORKER NO [facility] Sep 03, 2024 11:00 AM VA-TOBACCO USE MED NO [facility] Sep 03, 2024 11:00 AM VA-TOBACCO USER SOME DAYS [facility] May 18, 2022 08:30 AM VA-TOBACCO DOESNT USE WI 30 MIN WAKEUP [facility] May 18, 2022 08:30 AM VA-TOBACCO USE 30 YEARS OR MORE [facility] May 18, 2022 08:30 AM VA-TOBACCO USE ADVICE [facility] May 18, 2022 08:30 AM VA-TOBACCO USE ELIGIBILITY WORKER NO [facility] May 18, 2022 08:30 AM VA-TOBACCO USE MED NO [facility] May 18, 2022 08:30 AM VA-TOBACCO USER EVERY DAY [facility] Jul 02, 2020 10:00 AM VA-TOBACCO DOESNT USE WI 30 MIN WAKEUP [facility] Jul 02, 2020 10:00 AM VA-TOBACCO USE 30 YEARS OR MORE [facility] Jul 02, 2020 10:00 AM VA-TOBACCO USE ADVICE [facility] Jul 02, 2020 10:00 AM VA-TOBACCO USE ELIGIBILITY WORKER NO [facility] Jul 02, 2020 10:00 AM VA-TOBACCO USE MED NO [facility] Jul 02, 2020 10:00 AM VA-TOBACCO USER SOME DAYS [facility] Nov 23, 2018 11:13 AM VA-TOBACCO DOESNT USE WI 30 MIN WAKEUP [facility] Nov 23, 2018 11:13 AM VA-TOBACCO USE 30 YEARS OR MORE [facility] Nov 23, 2018 11:13 AM VA-TOBACCO USE ADVICE [facility] Nov 23, 2018 11:13 AM VA-TOBACCO USE ELIGIBILITY WORKER NO [facility] Nov 23, 2018 11:13 AM VA-TOBACCO USE MED NO [facility] Nov 23, 2018 11:13 AM VA-TOBACCO USER SOME DAYS [facility] Aug 29, 2017 09:43 AM V9 LIFETIME NON-USER OF TOBACCO [facility] Oct 20, 2016 09:13 AM V9 LIFETIME NON-USER OF TOBACCO [facility] Oct 28, 2015 09:04 AM V9 LIFETIME NON-USER OF TOBACCO [facility] Sep 24, 2014 10:16 AM V9 QUIT TOBACCO >1 2 MO & <7 YRS AGO [facility] Sep 24, 2014 10:16 AM V9 TOBACCO OFFERED [facility] Sep 13, 2013 10:18 AM TOBACCO OFFERRED P T MEDS (PROVIDER) [facility] Sep 13, 2013 10:18 AM V9 CURRENT TOBACCO USER [facility] Sep 13, 2013 10:18 AM V9 TOBACCO OFFERED [facility] Jul 12, 2012 05:32 PM V9 CURRENT TOBACCO USER [facility] Jul 12, 2012 05:32 PM V9 QUIT TOBACCO >1 2 MO & <7 YRS AGO [facility] Jul 12, 2012 05:32 PM V9 TOBACCO OFFERED [facility] Jul 04, 2011 09:53 AM TOBACCO OFFERRED P T MEDS (PROVIDER) [facility] Jul 04, 2011 09:53 AM V9 CURRENT TOBACCO USER [facility] Jul 04, 2011 09:53 AM V9 TOBACCO OFFERED [facility] May 24, 2010 08:09 AM TOBACCO OFFERRED P T MEDS (PROVIDER) [facility] May 24, 2010 08:09 AM V9 CURRENT TOBACCO USER [facility] May 24, 2010 08:09 AM V9 TOBACCO OFFERED [facility] May 22, 2009 01:20 PM TOBACCO OFFERRED P T MEDS (PROVIDER) [facility] May 22, 2009 01:20 PM V9 CURRENT TOBACCO USER [facility] May 22, 2009 01:20 PM V9 TOBACCO OFFERED [facility] Encounter Notes: All associated encounter notes This section contains the clinical notes associated to the Encounter. Date/Time Encounter Note(s) Provider Source May 26, 2025 05:37 AM PRIMARY CARE LETTE RS: LOCAL TITLE: PC LETTER TEST RESULTS STANDARD TITLE: PRIMARY CARE LETTERS DATE OF NOTE: MAY 26, 2025@05:37 ENTRY DATE: MAY 26, 2025@05:37:15 AUTHOR: GILBERTO PERALES COSIGNER: URGENCY: STATUS: COMPLETED [facility] [address] [place] [address] Mr. ERWIN JONAS RAFAEL [address] [place], [place] [address] MAY 26, 2025 Dear Mr. ERWIN HALL Your Primary Care Provider has reviewed your recent tests, and wanted us to let you know that everything looked stable. A copy of your test results is attached below. There are no recommended changes in your medications or treatment plan at this time. Please call us if you have questions or problems. You can reach us at (toll free number) or [phone] (local number). If you are enrolled in [employer], and utilize those services, you may prefer to contact us by secure message. Thank you for your service to our Country. We are honored to be able to provide medical care to you. Recent labwork Collection DT Specimen Test Name Result Units Ref Range 05/21/2025 11:44 SERUM !! 25-OH VITAMIN D 47.4 ng/mL 20.0 - 50.0 05/21/2025 11:44 PLASMA!! CHOLESTEROL 139 mg/dL 0 - 199 !! TRIGLYCERIDE 96 mg/dL 0 - 149 !! HDL CHOLESTEROL 53 mg/dL 40 - 69 !! DIRECT LDL CHOL. 73 mg/dL 0 - 100 !! B12 VITAMIN 632 pg/mL 213 - 816 !! FOLATE 16.8 ng/mL 7.0 - 31.4 !! TSH 0.8987 mIU/mL 0.3500 - 4.9400 05/21/2025 11:44 BLOOD !! GLYCOHEMOGLOBIN 5.3 % 4.4 - 5.6 05/21/2025 11:44 BLOOD WBC 8.1 K/cmm 5.0 - 10.0 RBC 4.75 M/cmm 4.6 - 6.2 HGB 15.6 g/dL 14.0 - 18.0 HCT 46.6 % 42.0 - 52.0 MCV 98.1 H fL 80.0 - 94.0 MCH 32.8 H pg 27.0 - 31.0 MCHC 33.5 g/dL 32.0 - 36.0 RDW 12.1 % 11.0 - 16.0 PLT 123 L K/cmm 150 - 450 MPV 12.7 fL 9.0 - 13.1 NRBC 0.0 % 0.0 - 0.0 Sincerely, /es/ GILBERTO PERALES MD Patient Record Number [id number] GILBERTO PERALSE [facility]
--- OUTSIDE RECORDS SUMMARY | 2025-05-27 04:53 | XMS_ITS | Continuity of Care Document ---
Author Name [facility] Organization [facility] Care Team Providers Care Audio Video Repairer Name Role Phone [facility] Unavailable Unavailable Problems Combined list of problems from Department of Defense and [facility] facilities. It does not include entries that were removed or entered in error. Problem Status Onset Date Problem Type Date of Resolution Comments Source Adrenal adenoma Active Condition [place] [facility] N Benign essential hypertension Active Condition [place] [facility] Benign prostatic hyperplasia Active Condition [place] [facility] Cervical radiculopathy Active Condition [place] [facility] Coronary atherosclerosis Active Condition [place] Erectile dysfunction Active Condition [place] [facility] Gastroesophageal reflux disease Active Condition [place] [facility] Gastroesophageal reflux disease Active Condition [place] [facility] History of colonoscopy Active Condition Jun 15, 2022 Entered By: VIGNESH BROWN Comment: 05/2022 - repeat 3 years (04/2025) [facility] N Hyperlipidemia Active Condition [place] [facility] Neck pain Active Condition [place] [facility] Overactive bladder [facility] Peripheral vascular disease Active Condition [place] [facility] Type 2 diabetes mellitus Active Condition [place] [facility] Muscle spasm of thoracic back Inactive Condition 07/07/2021 [place] [facility] Sensorineural Hearing Loss, Bilateral Inactive Condition 07/07/2021 [place] [facility] Diagnosis: ICD-10-CM I10 Essential (primary) hypertension Active Diagnosis [facility] N Diagnosis: ICD-10-CM M54.2 Cervicalgia Active Diagnosis [place] [facility] N Diagnosis: ICD-10-CM M54.12 Radiculopathy, cervical region Active Diagnosis [facility] N Diagnosis: ICD-10-CM Z71.89 Other specified counseling Active Diagnosis [facility] BRIAN[facility] N Diagnosis: ICD-10-CM R79.9 Abnormal finding of blood chemistry, unspecified Active Diagnosis [facility] Diagnosis: ICD-10-CM L82.1 Other seborrheic keratosis Active Diagnosis [facility] DEC[facility] Diagnosis: ICD-10-CM Z13.89 Encounter for screening for other disorder Active Diagnosis [facility] Diagnosis: ICD-10-CM N40.0 Benign prostatic hyperplasia without lower urinry tract symp Active Diagnosis [facility] Diagnosis: ICD-10-CM H25.813 Combined forms of age-related cataract, bilateral [facility] Diagnosis: ICD-10-CM Z71.9 Counseling, unspecified Active Diagnosis [facility] Medications Combined list of outpatient medications from Department of Defense and [facility] Affairs facilities.Medications provided include 1) outpatient medications from the last 15 months, and 2) patient-reported medications. Medication Details Route Status Patient Instructions Prescription Expires Prescription Number Last Dispense Date Ordering Provider Order Date Order Qty Source ALBUTEROL 100MCG/IPRA TROPIUM BR 20MCG/SPRAY INHALER,ORA L,4GM INHALE 1 PUFF BY MOUTH FOUR TIMES A DAY FOR BREATHIN G RESPIR ATORY (INHAL ATION) ACTIVE 05/22/2026 [id number] YANCY PERALES 2024 3 [place] [facility] ASPIRIN 81MG TAB,EC TAKE ONE TABLET BY MOUTH DAILY ORAL ACTIVE PEDRO BROWN 2008 [place] [facility] ATORVASTATI N CA 80MG TAB TAKE ONE TABLET BY MOUTH DAILY ORAL ACTIVE Tri JOHNS 2018 [place] [facility] FINASTERIDE 5MG TAB TAKE ONE TABLET BY MOUTH DAILY FOR PROSTATE ORAL SUSPEND ED 05/22/2026 [id number] 5 YANCY PERALES 2024 90 [place] [facility] FINASTERIDE 5MG TAB TAKE ONE TABLET BY MOUTH DAILY FOR PROSTATE ORAL DISCONT INUED 09/14/2025 [id number] 5 YANCY PERALES 2023 90 [place] FINASTERIDE 5MG TAB TAKE ONE TABLET BY MOUTH DAILY FOR PROSTATE ORAL DISCONT INUED 08/31/2024 [id number] YANCY PERALES TA 2022 90 [place] LISINOPRIL 20MG TAB TAKE ONE TABLET BY MOUTH DAILY ORAL ACTIVE MURIEL BROWN ON 2021 [place] [facility] METFORMIN HCL 500MG 24HR TAB,SA TAKE ONE TABLET BY MOUTH AFTER MEALS FOR BLOOD SUGAR ORAL SUSPEND ED 08/19/2025 [id number] 5 [facility] 270 [place] [facility] METFORMIN HCL 500MG 24HR TAB,SA TAKE ONE TABLET BY MOUTH AFTER MEALS FOR BLOOD SUGAR ORAL DISCONT INUED 07/15/2025 [id number] 5 YANCY PERALES 2024 270 [place] [facility] METFORMIN HCL 500MG 24HR TAB,SA TAKE ONE TABLET BY MOUTH AFTER MEALS FOR BLOOD SUGAR ORAL DISCONT INUED 09/16/2025 [id number] ANGELLAKIT TA 2023 90 [place] [facility] METOPROLOL TARTRATE 100MG TAB TAKE ONE TABLET BY MOUTH TWICE A DAY ORAL ACTIVE YANCY PERALES TA 2022 [place] [facility] MINERALS/MU LTIVITAMINS CAP/TAB TAKE BY MOUTH DAILY ORAL ACTIVE MURIEL BROWN ON 2020 [place] [facility] OMEPRAZOLE 20MG CAP,EC TAKE 2 CAPSULES BY MOUTH ONCE A DAY 30 MINUTES BEFORE A MEAL ORAL ACTIVE MURIEL BROWN ON 2021 [place] [facility] PEG-3350/EL ECTROLYTES PWDR MIX AND DRINK CONTENTS DIRECTED FOR BOWEL PREP -FILL JUG TO LINE WITH WATER. DRINK HALF AT 6PM THE NIGHT BEFORE PROCEDUR E. DRINK LAST HALF 4-6 HOURS PRIOR TO PROCEDUR E. NOTHING BY MOUTH AFTER PREP IS COMPLETE D. CALL PREP HOTLINE AT WITH QUESTION S. -FILL JUG TO LINE WITH WATER. DRINK HALF AT 6PM THE NIGHT BEFORE PROCEDUR E. DRINK LAST HALF 4-6 HOURS PRIOR TO PROCEDUR E. NOTHING BY MOUTH AFTER PREP IS COMPLETE D. CALL PREP HOTLINE AT WITH QUESTION S. ORAL ACTIVE 06/21/2025 [id number] MONSE,AND RUPERT M 2024 1 [place] [facility] SILDENAFIL CITRATE 100MG TAB TAKE ONE TABLET BY MOUTH DIRECTED FOR ERECTILE DYSFUNCT ION -DO NOT TAKE WITH ANY MEDICATI ON CONTAINI NG NITRATES (LIMIT: 6 DOSES/30 DAYS OR 18 DOSES/90 DAYS, NON-REPL ACEABLE MEDICATI ON) ORAL ACTIVE 05/22/2026 [id number] ANGELLAKIT TA 2024 18 [place] [facility] TADALAFIL 20MG TAB TAKE ONE TABLET BY [...] BEFORE SEX ON EMPTY STOMACH ORAL 09/03/2024 [id number] ANGELLAKIT TA 2022 12 [place] [facility] TAMSULOSIN HCL 0.4MG CAP TAKE ONE CAPSULE BY MOUTH EVERY EVENING FOR PROSTATE ORAL SUSPEND ED 05/22/2026 [id number] 5 KOUSA,KIT TA 2024 90 [place] [facility] TAMSULOSIN HCL 0.4MG CAP TAKE ONE CAPSULE BY MOUTH EVERY EVENING FOR PROSTATE ORAL DISCONT INUED 09/04/2025 [id number] 5 KOUSA,KIT TA 2023 90 [place] [facility] TRAMADOL HCL 50MG TAB TAKE ONE TABLET BY MOUTH TWICE A DAY NEEDED FOR PAIN ORAL ACTIVE 11/21/2025 [id number] 5 GIACOMOUSA,KIT TA 2024 60 [place] [facility] TRAMADOL HCL 50MG TAB TAKE ONE TABLET BY MOUTH TWICE A DAY NEEDED FOR PAIN ORAL DISCONT INUED 09/13/2025 [id number] 5 YANCY PERALES TA 2024 60 [place] [facility] Immunizations Combined list of available immunizations from the Department of Defense and Veterans Affairs facilities. Immunization Series Date Given Administered By Site Reaction Lot Number CVX Code Drug Back Joiner Status Comments Source TDAP 2024 JS TAMICA Edin LEFT DELTO ID [id number] 115 complet ed [facility] [place], Discussed risks vs benefits with and informed him to stay in lobby for approxima tely 30 mins for obs. No ASE's noted, and expressed understan ding. Provider notified. [place] [facility] INFLUENZA, HIGH-DOSE, TRIVALENT, PF 2023 JOJO MEJIA RRA E LEFT DELTO ID [id number] 135 complet ed [facility] [place] [facility] COVID-19 (MODERNA), MRNA, LNP-S, PF, 50 MCG/0.5 ML (AGES 12+ YEARS) 2023 JOJO MEJIA RRA E LEFT DELTO ID [id number] 312 complet ed [facility] [place] [facility] COVID-19 (PFIZER), MRNA, LNP-S, BIVALENT BOOSTER, PF, 30 MCG/0.3 ML DOSE 1 2022 CHEPE ODELL LEFT DELTO ID [id number] 300 complet ed [facility] [place], [place] [facility] INFLUENZA, HIGH-DOSE, QUADRIVALENT 3 2021 197 complet ed HISTORICA L INFORMATI ON - FROM OTHER REGISTRY, [place] [facility] INFLUENZA, UNSPECIFIED FORMULATION 2021 88 complet ed HISTORICA L INFORMATI ON - FROM PARENT'S RECALL, [place] [facility] COVID-19 (PFIZER), MRNA, LNP-S, PF, 30 MCG/0.3 ML DOSE, [place]-SUCROSE (AGES 12+ YEARS) 4 07/27/ 2022 217 complet ed PFR; [id number]; 2 [place] [facility] PNEUMOCOCCAL CONJUGATE PCV20, POLYSACCHARID E [id number] CONJUGATE, ADJUVANT, PF 2021 216 complet ed [place] [facility] [place] HEP B, ADULT 1 2020 43 complet ed [place] [facility] INFLU[facility], INJECTABLE, QUADRIVALENT, PRESERVATIVE FREE 2020 150 complet ed [place] [facility] COVID-19 (MODERNA), MRNA, LNP-S, PF, 100 MCG/0.5 ML DOSE 3 2020 207 complet ed [place] [facility] COVID-19 (MODERNA), MRNA, LNP-S, PF, 100 MCG/0.5 ML DOSE 2 2020 207 complet ed [place] [facility] COVID-19 (MODERNA), MRNA, LNP-S, PF, 100 MCG/0.5 ML DOSE 1 2020 207 complet ed [place] [facility] ZOSTER RECOMBINANT 2 2019 187 complet ed [place] [facility] [place] INFLUENZA, INJECTABLE, QUADRIVALENT, PRESERVATIVE FREE 2019 150 complet ed [place] [facility] ZOSTER RECOMBINANT 1 2019 187 complet ed [place] [facility] [place] INFLUENZA, INJECTABLE, QUADRIVALENT, PRESERVATIVE FREE 2018 150 complet ed [place] [facility] HEP A, ADULT 2018 52 complet ed [place] [facility] [place] HEP A, ADULT 2018 52 complet ed [place] [facility] INFLUENZA, SEASONAL, INJECTABLE 2017 141 complet ed [place] [facility] [place] INFLUENZA, HIGH DOSE SEASONAL 2 2017 135 complet ed HISTORICA L INFORMATI ON - FROM OTHER REGISTRY, [place] [facility] PNEUMOCOCCAL POLYSACCHARID E [id number] 2017 33 complet ed [place] [facility] [place] ZOSTER LIVE 2016 121 complet ed [place] [facility] INFLUENZA A & B (HISTORICAL) 2016 88 complet ed [place] [facility] INFLUENZA, HIGH DOSE SEASONAL 1 2016 135 complet ed HISTORICA L INFORMATI ON - FROM OTHER REGISTRY, [place] [facility] [id number] (HISTORICAL) 2016 133 complet ed [place] [facility] INFLUENZA A & B (HISTORICAL) 2015 88 complet ed [place] [facility] INFLUENZA A & B (HISTORICAL) 2013 88 complet ed [place] [facility] FLU,3 YRS (HISTORICAL) 2012 88 complet ed [place] [facility] FLU,3 YRS (HISTORICAL) 2011 88 complet ed [place] [facility] TETANUS TOXOID, UNSPECIFIED FORMULATION 2008 JANNA MCKENZIE 112 complet ed [place] [facility] Results Combined list of recent chemistry, hematology and other laboratory results from Department of Defense and Veterans Affairs, ranging from 15 months to all on record, depending upon the facility. Order Name Results Value Reference Range Date Interpretation Specimen Comments Source GLYCOHEMO GLOBIN HEMOGLOBIN A1C/HEMOGLO BIN.TOTAL IN BLOOD BY HPLC 5.3 4.4 - 5.6 05/21 Specimen Type: BLOOD Comment: Prediabetes : 5.7%-6.4% Diabetes: >= 6.5% [facility] guidelines for A1c interpretat ion: Glycemic control targets are based on Shared Decision Making between clinicians and patients. Criteria used to establish an A1c target recommendat ion can be found at https://www .va.gov/samara lityandpati entsafety/ and include the use of [...] 9.27. Ref: https://ngs p.org/CAPda ta.asp. The in-house [employer] D-100 analyzer has a historical CV <= 2%. Contact the laboratory for further performance characteris tics of this assay. Ordering Provider: GILBERTO PERALES Report Released Date/Time: May 21, 2025 11:41 AM Reporting Lab: [place] [phone] Performing Lab: [address] TSH THYROTROPIN [UNITS/VOLU ME] IN SERUM OR PLASMA 0.8987 m[IU]/ mL 0.3500 - 4.9400 05/21 Specimen Type: PLASMA No comment entered. Ordering Provider: GILBERTO PERALES Report Released Date/Time: May 21, 2025 11:41 AM Reporting Lab: [place] [phone] Performing Lab: [address] LIPID PROFILE CHOLESTEROL [MASS/VOLUM E] IN SERUM OR PLASMA 139 mg/dL 0 - 199 05/21 Specimen Type: PLASMA No comment entered. Ordering Provider: GILBERTO PERALES Report Released Date/Time: May 21, 2025 11:41 AM Reporting Lab: [place] [phone] Performing Lab: [place] [id number] [place] [address] LIPID PROFILE TRIGLYCERID E [MASS/VOLUM E] IN SERUM OR PLASMA 96 mg/dL 0 - 149 05/21 Specimen Type: PLASMA No comment entered. Ordering Provider: GILBERTO PERALES Report Released Date/Time: May 21, 2025 11:41 AM Reporting Lab: [place] [phone] Performing Lab: [address] LIPID PROFILE CHOLESTEROL IN HDL [MASS/VOLUM E] IN SERUM OR PLASMA 53 mg/dL 40 - 69 05/21 Specimen Type: PLASMA No comment entered. Ordering Provider: GILBERTO PERALES Report Released Date/Time: May 21, 2025 11:41 AM Reporting Lab: [address] [address] Performing Lab: [address] [address] [facility] LIPID PROFILE CHOLESTEROL IN LDL [MASS/VOLUM E] IN SERUM OR PLASMA BY DIRECT ASSAY 73 mg/dL 0 - 100 05/21 Specimen Type: PLASMA No comment entered. Ordering Provider: GILBERTO PERALES Report Released Date/Time: May 21, 2025 11:41 AM Reporting Lab: [address] [address] Performing Lab: [address] [address] [facility] 25-OH VITAMIN D 25-HYDROXYV ITAMIN D3 [MASS/VOLUM E] IN SERUM OR PLASMA 47.4 ng/mL 20.0 - 50.0 05/21 Specimen Type: SERUM Comment: The National Institutes [...] May 21, 2025 11:41 AM Reporting Lab: [address] [address] Performing Lab: [address] [address] [facility] B12 VITAMIN COBALAMIN (VITAMIN B12) [MASS/VOLUM E] IN SERUM OR PLASMA 632 pg/mL 213 - 816 05/21 Specimen Type: PLASMA Comment: Vitamin B12 test may not yield results when protein level of sample is too elevated. Ordering Provider: GILBERTO PERALES Report Released Date/Time: May 21, 2025 11:41 AM Reporting Lab: [address] [address] Performing Lab: [address] [address] [facility] FOLATE FOLATE [MASS/VOLUM E] IN SERUM OR PLASMA 16.8 ng/mL 7.0 - 31.4 05/21 Specimen Type: PLASMA Comment: Vitamin B12 test may not yield results when protein level of sample is too elevated. Ordering Provider: GILBERTO PERALES Report Released Date/Time: May 21, 2025 11:41 AM Reporting Lab: [place] [phone] Performing Lab: [address] CBC/PLT LEUKOCYTES [#/VOLUME] IN BLOOD BY AUTOMATED COUNT 8.1 10*3/u L 5.0 - 10.0 05/21 Specimen Type: BLOOD No comment entered. Ordering Provider: GILBERTO PERALES Report Released Date/Time: May 21, 2025 11:41 AM Reporting Lab: [place] [address] Performing Lab: [address] CBC/PLT ERYTHROCYTE S [#/VOLUME] IN BLOOD BY AUTOMATED COUNT 4.75 10*6/u L 4.6 - 6.2 05/21 Specimen Type: BLOOD No comment entered. Ordering Provider: GILBERTO PERALES Report Released Date/Time: May 21, 2025 11:41 AM Reporting Lab: [place] [phone] Performing Lab: [address] CBC/PLT HEMOGLOBIN [MASS/VOLUM E] IN BLOOD 15.6 g/dL 14.0 - 18.0 05/21 Specimen Type: BLOOD No comment entered. Ordering Provider: GILBERTO PERALES Report Released Date/Time: May 21, 2025 11:41 AM Reporting Lab: [place] [phone] Performing Lab: [place] [phone] [place] [address] CBC/PLT HEMATOCRIT [VOLUME FRACTION] OF BLOOD BY AUTOMATED COUNT 46.6 42.0 - 52.0 05/21 Specimen Type: BLOOD No comment entered. Ordering Provider: GILBERTO PERALES Report Released Date/Time: May 21, 2025 11:41 AM Reporting Lab: [place] [address] Performing Lab: [place] [phone] CBC/PLT MCV [ENTITIC VOLUME] BY AUTOMATED COUNT 98.1 fL 80.0 - 94.0 05/21 H Specimen Type: BLOOD No comment entered. Ordering Provider: GILBERTO PERALES Report Released Date/Time: May 21, 2025 11:41 AM Reporting Lab: [address] Performing Lab: [address] CBC/PLT MCH [ENTITIC MASS] BY AUTOMATED COUNT 32.8 pg 27.0 - 31.0 05/21 H Specimen Type: BLOOD No comment entered. Ordering Provider: GILBERTO PERALES Report Released Date/Time: May 21, 2025 11:41 AM Reporting Lab: [place] [phone] Performing Lab: [address] CBC/PLT MCHC [MASS/VOLUM E] BY AUTOMATED COUNT 33.5 g/dL 32.0 - 36.0 05/21 Specimen Type: BLOOD No comment entered. Ordering Provider: GILBERTO PERALES Report Released Date/Time: May 21, 2025 11:41 AM Reporting Lab: [place] [address] Performing Lab: [place] [phone] CBC/PLT PLATELETS [#/VOLUME] IN BLOOD 123 10*3/u L 150 - 450 05/21 L Specimen Type: BLOOD No comment entered. Ordering Provider: GILBERTO PERALES Report Released Date/Time: May 21, 2025 11:41 AM Reporting Lab: [address] [address] Performing Lab: [place] [phone] [place] [address] CBC/PLT PLATELET MEAN VOLUME [ENTITIC VOLUME] IN BLOOD 12.7 fL 9.0 - 13.1 05/21 Specimen Type: BLOOD No comment entered. Ordering Provider: GILBERTO PERALES Report Released Date/Time: May 21, 2025 11:41 AM Reporting Lab: [place] [phone] Performing Lab: [place] [phone] CBC/PLT ERYTHROCYTE DISTRIBUTIO N WIDTH [ENTITIC VOLUME] BY AUTOMATED COUNT 12.1 11.0 - 16.0 05/21 Specimen Type: BLOOD No comment entered. Ordering Provider: GILBERTO PERALES Report Released Date/Time: May 21, 2025 11:41 AM Reporting Lab: [place] [phone] Performing Lab: [place] [phone] CBC/PLT NUCLEATED ERYTHROCYTE S/100 ERYTHROCYTE S IN BLOOD 0.0 0.0 - 0.0 05/21 Specimen Type: BLOOD No comment entered. Ordering Provider: GILBERTO PERALES Report Released Date/Time: May 21, 2025 11:41 AM Reporting Lab: [place] [phone] Performing Lab: [place] [phone] DRUG SCREEN EXPANDED IN-HOUSE TETRAHYDROC ANNABINOL [PRESENCE] IN URINE NEG Cutoff < 50 [...] Feb 03, 2025 10:54 AM Reporting Lab: [address] [address] Performing Lab: [address] [address] [facility] DRUG SCREEN EXPANDED IN-HOUSE AMPHETAMINE S [PRESENCE] IN URINE NEG Cutoff < 1000 [...] Feb 03, 2025 10:54 AM Reporting Lab: [address] [address] Performing Lab: [address] [address] [facility] DRUG SCREEN EXPANDED IN-HOUSE BARBITURATE S [PRESENCE] IN URINE BY SCREEN METHOD NEG [...] Feb 03, 2025 10:54 AM Reporting Lab: [address] [address] Performing Lab: [address] [address] [facility] DRUG SCREEN EXPANDED IN-HOUSE BENZODIAZEP PRATEEK [PRESENCE] IN URINE BY SCREEN METHOD NEG [...] Feb 03, 2025 10:54 AM Reporting Lab: [address] [address] Performing Lab: [address] [address] [facility] DRUG SCREEN EXPANDED IN-HOUSE BENZOYLECGO NINE [PRESENCE] IN URINE NEG Cutoff < 300 [...] Feb 03, 2025 10:54 AM Reporting Lab: [address] [address] Performing Lab: [address] [address] [facility] DRUG SCREEN EXPANDED IN-HOUSE OPIATES [PRESENCE] [...] Feb 03, 2025 10:54 AM Reporting Lab: [address] [address] Performing Lab: [address] [address] [facility] DRUG SCREEN EXPANDED IN-HOUSE METHADONE [PRESENCE] [...] Feb 03, 2025 10:54 AM Reporting Lab: [address] [address] Performing Lab: [address] [address] [facility] DRUG SCREEN EXPANDED IN-HOUSE OXYCODONE [PRESENCE] [...] Feb 03, 2025 10:54 AM Reporting Lab: [address] [address] Performing Lab: [address] [address] [facility] DRUG SCREEN EXPANDED IN-HOUSE BUPRENORPHI NE+NORBUPRE NORPHINE [PRESENCE] IN URINE NEG Cutoff < 5 [...] Feb 03, 2025 10:54 AM Reporting Lab: [address] [address] Performing Lab: [address] [address] [facility] DRUG SCREEN EXPANDED IN-HOUSE FENTANYL SCREEN [...] Feb 03, 2025 10:54 AM Reporting Lab: [address] [address] Performing Lab: [address] [address] [facility] DRUG SCREEN EXPANDED IN-HOUSE TETRAHYDROC ANNABINOL [PRESENCE] IN URINE POS Cutoff < 50 [...] Dec 17, 2024 04:05 PM Reporting Lab: [address] [address] Performing Lab: [address] [address] [facility] DRUG SCREEN EXPANDED IN-HOUSE AMPHETAMINE S [PRESENCE] IN URINE NEG Cutoff < 1000 [...] Dec 17, 2024 04:05 PM Reporting Lab: [address] [address] Performing Lab: [address] [address] [facility] DRUG SCREEN EXPANDED IN-HOUSE BARBITURATE S [PRESENCE] IN URINE BY SCREEN METHOD NEG [...] Dec 17, 2024 04:05 PM Reporting Lab: [address] [address] Performing Lab: [address] [address] [facility] DRUG SCREEN EXPANDED IN-HOUSE BENZODIAZEP PRATEEK [PRESENCE] IN URINE BY SCREEN METHOD NEG [...] Dec 17, 2024 04:05 PM Reporting Lab: [address] [address] Performing Lab: [address] [address] [facility] DRUG SCREEN EXPANDED IN-HOUSE BENZOYLECGO NINE [PRESENCE] IN URINE NEG Cutoff < 300 [...] Dec 17, 2024 04:05 PM Reporting Lab: [address] [address] Performing Lab: [address] [address] [facility] DRUG SCREEN EXPANDED IN-HOUSE OPIATES [PRESENCE] [...] Dec 17, 2024 04:05 PM Reporting Lab: [address] [address] Performing Lab: [address] [address] [facility] DRUG SCREEN EXPANDED IN-HOUSE METHADONE [PRESENCE] [...] Dec 17, 2024 04:05 PM Reporting Lab: [address] [address] Performing Lab: [place] [phone] [facility] DRUG SCREEN EXPANDED IN-HOUSE OXYCODONE [PRESENCE] [...] tics can affect test outcome. Ordering Provider: GILEBRTO PERALES Report Released Date/Time: Dec 17, 2024 04:05 PM Reporting Lab: [address] [address] Performing Lab: [address] [address] [facility] DRUG SCREEN EXPANDED IN-HOUSE BUPRENORPHI NE+NORBUPRE NORPHINE [PRESENCE] IN URINE NEG Cutoff < 5 [...] Dec 17, 2024 04:05 PM Reporting Lab: [address] [address] Performing Lab: [address] [address] [facility] DRUG SCREEN EXPANDED IN-HOUSE FENTANYL SCREEN [...] Dec 17, 2024 04:05 PM Reporting Lab: [address] [address] Performing Lab: [address] [address] [facility] PANEL 1 CREATININE [MASS/VOLUM E] IN SERUM OR PLASMA 0.81 mg/dL 0.72 [...] 04:05 PM Reporting Lab: [facility] [address] [facility] [address] Performing Lab: [facility] [address] [facility] [address] [facility] PANEL 1 UREA NITROGEN [MASS/VOLUM E] IN SERUM OR PLASMA 13 mg/dL 12/23 Specimen Type: PLASMA Comment: Estimated Glomerular [...] 04:05 PM Reporting Lab: [facility] [address] [facility] [address] Performing Lab: [facility] [address] [address] [facility] PANEL 1 GLUCOSE [MASS/VOLUM E] IN SERUM OR PLASMA 88 mg/dL 74 [...] 04:05 PM Reporting Lab: [facility] [address] [facility] [address] Performing Lab: [facility] [address] [facility] [address] [facility] PANEL 1 SODIUM [MOLES/VOLU ME] IN SERUM OR PLASMA 142 mmol/L 136 [...] 04:05 PM Reporting Lab: XIOMY [facility] [address] [address] Performing Lab: MICHELLEMundo [facility] [address] [address] [facility] PANEL 1 POTASSIUM [MOLES/VOLU ME] IN SERUM OR PLASMA 4.4 mmol/L 3.5 [...] 04:05 PM Reporting Lab: XIOM[facility] [address] [address] Performing Lab: [facility] [address] [address] [facility] PANEL 1 CHLORIDE [MOLES/VOLU ME] IN SERUM OR PLASMA 106 mmol/L 98 [...] 04:05 PM Reporting Lab: XI[facility] [address] [address] Performing Lab: [facility] [address] [address] [facility] PANEL 1 CARBON DIOXIDE, TOTAL [MOLES/VOLU ME] IN SERUM OR PLASMA 25 mmol/L - 12/23 Specimen Type: PLASMA Comment: Estimated Glomerular [...] 04:05 PM Reporting Lab: [facility] [address] [address] Performing Lab: [facility] [address] [address] [facility] PANEL 1 CALCIUM [MASS/VOLUM E] IN SERUM OR PLASMA 9.8 mg/dL 8.4 [...] 04:05 PM Reporting Lab: XI[facility] [address] [address] Performing Lab: XI[facility] [address] [address] [facility] PANEL 1 ANION GAP 3 IN [...] 04:05 PM Reporting Lab: [facility] [address] [address] Performing Lab: XI[facility] [address] [address] [facility] PANEL 1 GLOMERULAR FILTRATION RATE/1.73 SQ M.PREDICTED [VOLUME RATE/AREA] IN SERUM, PLASMA OR BLOOD BY CREATININE- BASED FORMULA (CKD-EPI 2020) >90 12/23 Specimen Type: [...] 04:05 PM Reporting Lab: XI[facility] [address] [address] Performing Lab: XIOMY [facility] [address] [address] [facility] Vital Signs Combined list of inpatient and outpatient Vital Signs from Department of Defense and Veterans Affairs, ranging from 12 months to all on record, depending upon the facility. Vital Sign Value Date Comments Source SYSTOLIC BLOOD PRESSURE 151 05/21/2025 10:54:42 [facility] DIASTOLIC BLOOD PRESSURE 84 05/21/2025 10:54:42 [facility] PULSE OXIMETRY 99 % 05/21/2025 10:54:42 L [facility] WEIGHT 199 05/21/2025 10:54:42 [place] [facility] BMI 27 kg/m2 05/21/2025 10:54:42 [place] [facility] PAIN 7 05/21/2025 10:54:42 [place] [facility] HEIGHT 72 05/21/2025 10:54:42 [place] [facility] TEMPERATURE 97.6 05/21/2025 10:54:42 BERENICE BRIANNE [facility] PULSE 66 05/21/2025 10:54:42 [place] [facility] RESPIRATION 16 05/21/2025 10:54:42 [facility]EN[facility] BRIANNE [facility] SYSTOLIC BLOOD PRESSURE 133 12/16/2024 10:47:00 [place] [facility] DIASTOLIC BLOOD PRESSURE 81 12/16/2024 10:47:00 [facility] P[facility] OXIMETRY 97 12/16/2024 10:47:00 L [facility] WEIGHT 205.0 12/16/2024 10:47:00 [place] [facility] BMI 27 kg/m2 12/16/2024 10:47:00 [place] [facility] PAIN 8 12/16/2024 10:47:00 [place] [facility] TEMPERATURE 98.4 12/16/2024 10:47:00 [facility]EREN[facility] BRIANNE [facility] PULSE 62 12/16/2024 10:47:00 [place] [facility] SYSTOLIC BLOOD PRESSURE 154 09/03/2024 10:18:31 [facility] [facility] DIASTOLIC BLOOD PRESSURE 88 09/03/2024 10:18:31 [facility] [facility] PULSE OXIMETRY 100 09/03/2024 10:18:31 L [facility] WEIGHT 209.8 09/03/2024 10:18:31 [place] [facility] BMI 28 kg/m2 09/03/2024 10:18:31 [place] [facility] PAIN 8 09/03/2024 10:18:31 [place] [facility] HEIGHT 73 09/03/2024 10:18:31 [facility] TEMPERATURE 97.8 09/03/2024 10:18:31 BERENICE DECKER [facility] PULSE 58 09/03/2024 10:18:31 [facility] Encounters Combined list of: 1) Encounters from Department of [facility] Affairs facilities going backup to the last 18 months, not all [place] inpatient encounters are included; 2) Encounters from the Department of [facility] facilities going backup to 280 months. 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 DAVIAN Basilio 12/28 [place] [facility] Outpatient Encounter [id number] 01/09 [place] [facility] Outpatient Encounter [id number] 02/11 [place] [facility] Outpatient Encounter [id number] 02/26 [place] [facility] Outpatient Encounter [id number] 02/27 [place] [facility] Outpatient Encounter [id number] 03/04 [place] Outpatient Encounter [id number] 04/18 [place] [facility] Outpatient Encounter [id number] 04/19 [place] [facility] Outpatient Encounter [id number] Diagnos is: ICD-10- CM 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 RADHA Atkinson 05/15 [place] [facility] OFFICE O/P EST MOD 30 MIN [id number] Diagnos is: ICD-10- CM 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 BREYNE L 05/29 [place] [facility] Outpatient Encounter [id number] 08/08 [place] Outpatient Encounter [id number] 08/30 [place] OFFICE O/P EST HI 40 MIN [id number] Diagnos is: ICD-10- CM N40.0 Benign prostat ic hyperpl denise without lower urinry tract symp KOUSA,DAVIAN A 09/03 [place] [facility] FEE [id number] Diagnos is: ICD-10- CM Z13.89 Encount er for screeni ng for other disorde r AMADO GANDARA L 09/03 [place] [facility] Outpatient Encounter [id number] Diagnos is: ICD-10- CM L82.1 Other seborrh eic keratos is LAST CHINCHILLA ISTOPHER Mundo 09/05 [place] Outpatient Encounter [id number] 09/05 [place] HC PRO PHONE CALL 5-10 MIN [id number] Diagnos is: ICD-10- CM R79.9 Abnorma l finding of blood chemistry tutor ry, unspeci fiEdin Coronado CELINA G 09/09 [place] [facility] HC PRO PHONE CALL 5-10 MIN [id number] Diagnos is: ICD-10- CM 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 Edin PalaciosA G 09/13 [place] [facility] Outpatient Encounter [id number] 09/13 [place] [facility] Outpatient Encounter [id number] 09/21 [place] [facility] Outpatient Encounter [id number] 11/26 [place] [facility] PH1 ASSMT&MGMT NQHP 5-10 [id number] Diagnos is: ICD-10- CM M54.2 Cervica Edin HinojosaA G 12/02 [place] [facility] OFF/OP CONSLTJ NEW/EST SF 20 [id number] Diagnos is: ICD-10- CM M54.2 Cervica CRISTINA Fnuez R 12/16 [place] Outpatient Encounter [id number] 12/17 [place] Outpatient Encounter [id number] 12/17 [place] [facility] Outpatient Encounter [id number] 12/19 [place] ASSMT&MGMT NQHP 5-10 [id number] Diagnos is: ICD-10- CM M54.12 Radicul opathy, cervica l region GOODMAN,Edin CELINA G 12/20 [place] [facility] PH1 ASSMT&MGMT NQHP 5-10 [id number] Diagnos is: ICD-10- CM M54.2 Cervica premaia BOY KUO 12/26 [place] [facility] Outpatient Encounter [id number] 12/27 [place] [facility] Outpatient Encounter [id number] 02/03 [place] Outpatient Encounter [id number] 02/17 [place] [facility] Outpatient Encounter [id number] 03/06 [place] [facility] Outpatient Encounter [id number] 03/10 [place] [facility] Outpatient Encounter [id number] 03/11 [place] Outpatient Encounter [id number] 03/12 [place] [facility] Outpatient Encounter [id number] 03/12 [place] [facility] Outpatient Encounter [id number] 04/21 [place] [facility] Outpatient Encounter [id number] 04/22 [place] [facility] Outpatient Encounter [id number] 04/25 [place] [facility] Outpatient Encounter [id number] 04/28 [place] Outpatient Encounter [id number] 04/29 [place] [facility] Outpatient Encounter [id number] 05/20 [place] Outpatient Encounter [id number] 05/21 [place] [facility] Outpatient Encounter [id number] 05/21 [place] [facility] OFFICE O/P EST MOD 30 MIN [id number] Diagnos is: ICD-10- CM I10 Essenti al (primar y) hyperte nsion DAVIAN PERALES A 05/21 [place] [facility] Outpatient Encounter [id number] 05/22 [place] Outpatient Encounter [id number] 05/26 [place] [facility] Social History Combined list of available smoking, tobacco, and other social history from Department of Defense and Veterans Affairs facilities. Social History Type Response Date Comment Sourc e Tobacco smoking status NHIS [place]-TOBACCO NEVER USED CIGARETTES 05/21/2025 [facility] History of tobacco use [place]-TOBACCO USE SOME DAYS OTHER TYPE 05/21/2025 [facility] History of tobacco use [place]-TOBACCO USER SOME DAYS 09/03/2024 [facility] History of tobacco use [place]-TOBACCO USER EVERY DAY 05/18/2022 [facility] History of tobacco use [place] FOR[facility] USER 02/22/20[facility] History of tobacco use [place]-TOBACCO USER SOME DAYS 07/02/2020 [facility] History of tobacco use [place]-TOBACCO USER SOME DAYS 11/23/2018 [facility] History of tobacco use V9 LIFETIME NON-USER OF TOBACCO 08/29/2017 [facility] History of tobacco use V9 LIFETIME NON-USER OF TOBACCO 10/20/2016 [facility] History of tobacco use V9 LIFETIME NON-USER OF TOBACCO 10/28/2015 [facility] History of tobacco use V9 QUIT TOBACCO >12 MO and <7 YRS AGO 09/24/2014 [facility] History of tobacco use V9 CURRENT TOBACCO USER 09/13/2013 [facility] History of tobacco use V9 CURRENT TOBACCO USER 07/12/2012 [facility] History of tobacco use V9 CURRENT TOBACCO USER 07/04/2011 [facility] History of tobacco use V9 CURRENT TOBACCO USER 05/24/2010 [facility] History of tobacco use V9 CURRENT TOBACCO USER 05/22/2009 [facility] Plan of Care List of future care activities from Department [facility] facilities. Additional future care activities may be listed in the Assessment and Plan section. Date/Time Care Activity Care Activity Detail Facili ty 05/21/2025 Laboratory - Customer Service Administrator ry Order DRUG SCREEN EXPANDED IN-HOUSE URINE SP ONCE [facility]
--- NOTE | 2025-05-27 09:55 | US_ITS ---
FINAL REPORT TECHNIQUE: Ultrasound images of the abdominal aorta were obtained. CLINICAL HISTORY: ASCVD FINDINGS: ULTRASOUND OF THE ABDOMINAL AORTA The aorta is within normal limits measuring up to 2.4 cm. The bifurcation is normal. IMPRESSION: No evidence of abdominal aortic aneurysm. Reviewed, Interpreted and Dictated by Cooper Durbin MD Transcribed by Gerri White Authenticated and [facility]
== END 2025-05-27 23:59 | disposition home or self-care (01) ==
LOC: RAD 09:53
PROVIDERS: PCP Family Medicine; Visit Provider Family Medicine
DX: I25.10 Atherosclerotic heart disease of native coronary artery without angina pectoris (principal)
CPT/HCPCS: 76770

== ENCOUNTER 2025-06-05 12:03 | Emergency (ER) | payer MEDICARE, OTHER, SELFPAY ==
--- OUTSIDE RECORDS SUMMARY | 2025-05-21 07:30 | XMS_ITS | Encounter Summary ---
Author Name [facility] [place] Organization [facility] [place] Address [address] [place] [address] Care Team Providers Care External Relations Manager Name Role Phone GILBERTO PERALES Primary [...] PART A Jun 23, 2016 PART A [id number] [phone] [place] PATIENT MEDICARE (WNR) MEDICARE (M) PART B Jun 23, 2016 PART B [id number] [place] PATIENT MEDICARE (WNR) MEDICARE (M) PART A Jun 23, 2016 PART A [id number] [place] PATIENT MEDICARE (WNR) MEDICARE (M) PART B Jun 23, 2016 PART B [id number] [place] PATIENT MEDICARE PART D (WNR) MEDICARE (M) PART D Jun 23, 2016 PART D [id number] [phone] [id number] [place] PATIENT MEDICARE PART D (WNR) MEDICARE (M) PART D Jun 23, 2016 PART D [id number] ER[place] H[place] PATIENT [employer] [place] [employer] PLAN G PLAN G Jun 23, 2016 PLAN G [id number] ERWIN H[place] PATIENT [employer] [place] [employer] PLAN G PLANG Jun 23, 2016 PLANG [id number] ERWIN HALL PATIENT Selected Encounter This section includes the information on record at [place] for the Encounter. Date/Time Encounter Type Encounter Description Reason Provider Source May 21, 2025 11:30 AM OFFICE O/P EST MOD 30 MIN PRIMARY CARE/MEDICINE ICD-10-CM I10 Essential (primary) hypertension GILBERTO PERALES Kevin Encounter Template Text not used by [place] Assessments - Encounter Diagnoses This section includes the primary and secondary diagnoses documented for the Encounter. Date/Time Primary/Secondary Diagnosis Diagnosis Name Provider Source May 21, 2025 12:11 PM PRIMARY Essential (primary) hypertension [facility] May 21, 2025 12:11 PM SECONDARY Athscl heart disease of [place] coronary artery w/o ang pctrs [facility] May 21, 2025 12:11 PM SECONDARY Benign prostatic hyperplasia with lower urinary tract symp [facility] May 21, 2025 12:11 PM SECONDARY Cervicalgia [facility] May 21, 2025 12:11 PM SECONDARY Encounter for immunization ALEX TAM [facility] May 21, 2025 12:11 PM SECONDARY Gastro-esophageal reflux disease without esophagitis [facility] May 21, 2025 12:11 PM SECONDARY Hyperlipidemia, unspecified [facility] May 21, 2025 12:11 PM SECONDARY Other male erectile dysfunction [facility] May 21, 2025 12:11 PM SECONDARY Type 2 diabetes mellitus with unspecified complications [facility] Plan of Treatment: Future Appointments (+ 6 [...] 20 appointments. The data comes from all [facility] [address]. Appointment Date/Time Appointment Type Appointme nt Facility Name Jul 24, 2025 08:45 AM AMBULATORY - MEDICINE [facility] Active, Pending, and Scheduled Orders This section includes a listing of several types of active, pending, and scheduled orders, including clinic medications orders, diagnostic test orders, procedure orders and consult orders; where the start date of the order is 45 days before the date of the Encounter or 45 days after the date of theEncounter. The data comes from all [facility] [address]. Test Date/Time Test Type Test Details Facility Name May 21, 2025 12:00 AM Laboratory - Chemistry Order MICROALBUMIN/CREAT RATIO URINE SP [facility] May 21, 2025 12:00 AM Laboratory - Chemistry Order DRUG SCREEN EXPANDED IN-HOUSE URINE SP ONCE [facility] May 21, 2025 11:41 AM Procedure Order CP COLON A SYMPTOMATIC CP COLON ASYMPTOMATIC Proc Optical Element Coater's Choice [facility] Lab Results: +/- 30 days of the encounter This section includes the Chemistry and Hematology Lab Results on record with [place] for the patient. Radiology Reports and Pathology Reports are provided separately, in subsequent sections. Lab Results This section contains the Chemistry/Hematology Results that were resulted 30 days before or 30 daysafter the date of the Encounter. Date/Time Source Result Type Result - Unit Interpretation Reference Range Specimen Type Comment May 21, 2025 11:44 AM [facility] GLYCOHEMOGLOBIN BLOOD Specimen Type: BLOOD Comment: Prediabetes: 5.7%-6.4% Diabetes: >= 6.5% [facility] guidelines for A1c interpretation: Glycemic control targets are based on Shared Decision Making between clinicians and patients. Criteria used to establish an A1c target recommendation can be found at https://www.ny.g ov/qualityandpat ientsafety/ and include the use of [...] and 9.27. Ref: https://ngsp.org /CAPdata.asp. The in-house [employer] D-100 analyzer has a historical CV <= 2%. Contact the laboratory for further performance characteristics of this assay. Ordering Provider: GILBERTO PERALES Report Released Date/Time: May 21, 2025 11:41 AM Reporting Lab: [place] [address] Performing Lab: [place] [address] GLYCOHEMOGLOBIN 5.3 4.4-5.6 May 21, 2025 11:44 AM [facility] TSH P LASMA Specimen Type: PLASMA No comment entered. Ordering Provider: GILBERTO PERALES Report Released Date/Time: May 21, 2025 11:41 AM Reporting Lab: [place] [address] Performing Lab: [place] [phone] TSH 0.8987 m[IU]/mL 0.3500-4.9400 May 21, 2025 11:44 AM [facility] 25-[place] VITAMIN D SERUM Specime [...] May 21, 2025 11:41 AM Reporting Lab: [place] [id number] Performing Lab: [place] [address] 25-[place] VITAMIN D 47.4 ng/mL 20.0-50.0 May 21, 2025 11:44 AM [facility] LIPID PROFILE PLASMA Specimen Type: PLASMA No comment entered. Ordering Provider: GILBERTO PERALES Report Released Date/Time: May 21, 2025 11:41 AM Reporting Lab: [address] [address] Performing Lab: [address] [address] CHOLESTEROL 139 mg/dL 0-199 TRIGLYCERIDE 96 mg/dL 0-149 HDL CHOLESTEROL 53 mg/dL 40-69 DIRECT LDL CHOL. 73 mg/dL 0-100 May 21, 2025 11:44 AM [facility] B12 VITAMIN PLASMA Specimen Type: PLASMA Comment: Vitamin B12 test may not yield results when protein level of sample is too elevated. Ordering Provider: GILBERTO PERALES Report Released Date/Time: May 21, 2025 11:41 AM Reporting Lab: [address] [address] Performing Lab: [place] [id number] B12 VITAMIN 632 pg/mL 213-816 May 21, 2025 11:44 AM [facility] FOLATE PLASMA Specimen Type: PLASMA Comment: Vitamin B12 test may not yield results when protein level of sample is too elevated. Ordering Provider: GILBERTO PERALES Report Released Date/Time: May 21, 2025 11:41 AM Reporting Lab: [address] [address] Performing Lab: [address] [address] FOLATE 16.8 ng/mL 7.0-31.4 May 21, 2025 11:44 AM [facility] CBC/PLT BLOOD Specimen Type: BLOOD No comment entered. Ordering Provider: GILBERTO PERALES Report Released Date/Time: May 21, 2025 11:41 AM Reporting Lab: [address] [address] Performing Lab: [address] [address] WBC 8.1 10*3/uL 5.0-10.0 RBC 4.75 10*6/uL [...] May 21, 2025 11:37 AM 132/69 mm[Hg] [facility] May 21, 2025 10:54 AM 97.6 F 66 /min 151/84 mm[Hg] 16 /min 99 % 7 72 in 199 lb 27 [facility] Immunizations: All administered on the encounter date This section contains immunizations associated to the Encounter. Immunization Series Date Issued Administered By Site Reaction Lot Number CVX Code Drug Senior Business Objects Developer Comment(s) Source TDAP May 21, 2025 ALEX TAM LEFT DELTO ID [id number] SANOFI PASTEUR ADMINISTERE D AT [place], Discussed risks vs benefits with and informed him to stay in lobby for approximate ly 30 mins for obs. No ASE's noted, and expressed understandi ng. Provider notified. [facility] Social History: Smoking Status (Most current) and [...] Date/Time Current Smoking Status Comment Facil ity May 21, 2025 11:30 AM [place]-TOBACCO NEVER U SED CIGARETTES [facility] Tobacco Use History This section includes a history of the smoking, or tobacco-related health factors, that were collected on or before the date of the Encounter. The data comes from the [place] facility where the Encounter took place. Date/Time Smoking Status/Tobacco Use Comment F acility May 21, 2025 11:30 AM [place]-TOBACCO SCREEN FOLLOW-UP [facility] May 21, 2025 11:30 AM VA-TOBACCO USE ADVICE [facility] May 21, 2025 11:30 AM VA-TOBACCO USE MANAGER HOSPITALITY NO [facility] May 21, 2025 11:30 AM VA-TOBACCO USE MED NO [facility] May 21, 2025 11:30 AM VA-TOBACCO USE MIGDALIA E DAYS CIGARS/PIPES [facility] May 21, 2025 11:30 AM VA-TOBACCO USE MIGDALIA E DAYS OTHER TYPE [facility] Sep 03, 2024 11:00 AM VA-TOBACCO DOESNT USE WI 30 MIN WAKEUP [facility] Sep 03, 2024 11:00 AM VA-TOBACCO USE 30 YEARS OR MORE [facility] Sep 03, 2024 11:00 AM VA-TOBACCO USE ADVICE [facility] Sep 03, 2024 11:00 AM VA-TOBACCO USE MANAGER HOSPITALITY NO [facility] Sep 03, 2024 11:00 AM VA-TOBACCO USE MED NO [facility] Sep 03, 2024 11:00 AM VA-TOBACCO USER SOME DAYS [facility] May 18, 2022 08:30 AM VA-TOBACCO DOESNT USE WI 30 MIN WAKEUP [facility] May 18, 2022 08:30 AM VA-TOBACCO USE 30 YEARS OR MORE [facility] May 18, 2022 08:30 AM VA-TOBACCO USE ADVICE [facility] May 18, 2022 08:30 AM VA-TOBACCO USE MANAGER HOSPITALITY NO [facility] May 18, 2022 08:30 AM VA-TOBACCO USE MED NO [facility] May 18, 2022 08:30 AM VA-TOBACCO USER EVERY DAY [facility] Jul 02, 2020 10:00 AM VA-TOBACCO DOESNT USE WI 30 MIN WAKEUP [facility] Jul 02, 2020 10:00 AM VA-TOBACCO USE 30 YEARS OR MORE [facility] Jul 02, 2020 10:00 AM VA-TOBACCO USE ADVICE [facility] Jul 02, 2020 10:00 AM VA-TOBACCO USE MANAGER HOSPITALITY NO [facility] Jul 02, 2020 10:00 AM VA-TOBACCO USE MED NO [facility] Jul 02, 2020 10:00 AM VA-TOBACCO USER SOME DAYS [facility] Nov 23, 2018 11:13 AM VA-TOBACCO DOESNT USE WI 30 MIN WAKEUP [facility] Nov 23, 2018 11:13 AM VA-TOBACCO USE 30 YEARS OR MORE [facility] Nov 23, 2018 11:13 AM VA-TOBACCO USE ADVICE [facility] Nov 23, 2018 11:13 AM VA-TOBACCO USE MANAGER HOSPITALITY NO [facility] Nov 23, 2018 11:13 AM VA-TOBACCO USE MED NO [facility] Nov 23, 2018 11:13 AM VA-TOBACCO USER SOME DAYS [facility] Aug 29, 2017 09:43 AM V9 LIFETIME NON-USER OF TOBACCO [facility] Oct 20, 2016 09:13 AM V9 LIFETIME NON-USER OF TOBACCO [facility] Oct 28, 2015 09:04 AM V9 LIFETIME NON-USER OF TOBACCO [facility] Sep 24, 2014 10:16 AM V9 QUIT TOBACCO >1 2 MO & <7 YRS AGO [facility] Sep 24, 2014 10:16 AM V9 TOBACCO OFFERED [facility] Sep 13, 2013 10:18 AM TOBACCO OFFERRED P T MEDS (PROVIDER) [facility] Sep 13, 2013 10:18 AM V9 CURRENT TOBACCO USER [facility] Sep 13, 2013 10:18 AM V9 TOBACCO OFFERED [facility] Jul 12, 2012 05:32 PM V9 CURRENT TOBACCO USER [facility] Jul 12, 2012 05:32 PM V9 QUIT TOBACCO >1 2 MO & <7 YRS AGO [facility] Jul 12, 2012 05:32 PM V9 TOBACCO OFFERED [facility] Jul 04, 2011 09:53 AM TOBACCO OFFERRED P T MEDS (PROVIDER) [facility] Jul 04, 2011 09:53 AM V9 CURRENT TOBACCO USER [facility] Jul 04, 2011 09:53 AM V9 TOBACCO OFFERED [facility] May 24, 2010 08:09 AM TOBACCO OFFERRED P T MEDS (PROVIDER) [facility] May 24, 2010 08:09 AM V9 CURRENT TOBACCO USER [facility] May 24, 2010 08:09 AM V9 TOBACCO OFFERED [facility] May 22, 2009 01:20 PM TOBACCO OFFERRED P T MEDS (PROVIDER) [facility] May 22, 2009 01:20 PM V9 CURRENT TOBACCO USER [facility] May 22, 2009 01:20 PM V9 TOBACCO OFFERED [facility] Encounter Notes: All associated encounter notes This section contains the clinical notes associated to the Encounter. Date/Time Encounter Note(s) Provider Source May 21, 2025 11:54 AM ACCOUNTING OF DISC LOSURES NOTE: LOCAL TITLE: STATE PRESCRIPTION DRUG MONITORING PROGRAM STANDARD TITLE: ACCOUNTING OF DISCLOSURES NOTE DATE OF NOTE: MAY 21, 2025@11:54:42 ENTRY DATE: MAY 21, 2025@11:54:42 AUTHOR: GILBERTO PERALES EXP COSIGNER: URGENCY: STATUS: COMPLETED This PDMP query was submitted by Gilberto Perales MD. The clinical justification for this PDMP query is to review controlled substances prescribed outside of the [place], and any additional information that may become available, as an important component of standard clinical care, and in accordance with [facility] policy. Patient information was shared with the PDMP [place]. No prescription(s) for controlled substances outside the [place] were found in the last 90 days. /anitha/ GILBERTO PERALES MD Signed: 05/21/2025 11:54 GILBERTO PERALES [facility] May 21, 2025 11:12 AM PRIMARY CARE NOTE: LOCAL TITLE: PC PROGRESS NOTE STANDARD TITLE: PRIMARY CARE NOTE DATE OF NOTE: MAY 21, 2025@11:12 ENTRY DATE: MAY 21, 2025@11:12:52 AUTHOR: GILBERTO PERALES EXP COSIGNER: URGENCY: STATUS: COMPLETED ID: 74 year old MALE Chief Complaint: annual PCP visit for ongoing management of active/chronic medical problems PC-Nurse's note is reviewed. NON-VA Provider- PCP- Dr Pedro Rich, [facility] NON-VA Pharmacy- [facility] HPI/PROBLEM LIST: Patient is a 74 year old MALE here today fo rhis annual PCP visit for treatment of active/chronic medical problems, and F/U test results. Patient denies any recent Hospitalizations, ER visits or surgeries in last 90 days. HEALTH CARE MAINTENANCE: .SCREENING- - LDCT Screening for Lung Cancer: neg;03/06/2025, repeat in 12 months. - AAA Screening : neg;09/26/2014 - Screening for colon cancer: 05/2022 - repeat 3 years (04/2025)- order today (05/21/2025) - PSA:0.469 04/17/23 ng/mL - Screening for HIV: NONREACTIVE 07/16/12 - Screening for HCV: NEGATIVE 05/29/18 . IM - Immunizations ADMINISTERED COVID-19 (MODERNA), MRNA, LNP-S,* 3 06/23/2021 [facility] COVID-19 (MODERNA), MRNA, LNP-S,* 2 12/01/2020 [facility] COVID-19 (MODERNA), MRNA, LNP-S,* 1 10/30/2020 [facility] COVID-19 (MODERNA), MRNA, LNP-S,* 09/03/2024 [facility]* COVID-19 (PFIZER), MRNA, LNP-S, * 1 11/21/2022 [facility]* COVID-19 (PFIZER), MRNA, LNP-S, * 4 05/18/2022 [facility]* HEP A, ADULT 05/23/2019 [facility]* HEP A, ADULT 11/23/2018 [facility]* HEP B, ADULT 1 07/20/2021 [facility]* INFLUENZA, HIGH-DOSE, TRIVALENT,* 09/03/2024 [facility]* [id number] (HISTORICAL) 11/08/2016 [facility]* PNEUMOCOCCAL CONJUGATE PCV20, PO* 05/18/2022 [facility]* PNEUMOCOCCAL POLYSACCHARIDE PPV23 05/28/2018 [facility]* TDAP 05/21/2025 [facility]* TETANUS TOXOID, UNSPECIFIED FORM* 05/22/2009 [facility]* ZOSTER LIVE 08/29/2017 [facility]* ZOSTER RECOMBINANT 2 10/09/2020 [facility]* ZOSTER RECOMBINANT 1 07/02/2020 [facility]* REFUSED ======= COVID-19 (MODERNA), MRNA, LNP-S,* 05/21/2025 [facility]* <I> HEP B, UNSPECIFIED FORMULATION 05/21/2025 [facility]* <I> HEP B, UNSPECIFIED FORMULATION 09/03/2024 [facility]* <I> RSV, BIVALENT, PROTEIN SUBUNIT R* 05/21/2025 [facility]* <I> TDAP 09/03/2024 [facility]* <I> ST - Skin Tests No data available: Collection DT Specimen Test Name Result Units Ref Range 08/29/2017 11:31 SERUM SHEPPARD/TOT (TO [id number] NEG SIM - HEP B IMM HISTORY ADMINISTERED HEP B, ADULT 1 07/20/2021 [facility]* REFUSED ======= HEP B, UNSPECIFIED FORMULATION 05/21/2025 [facility]* <I> HEP B, UNSPECIFIED FORMULATION 09/03/2024 [facility]* <I> Active problems - Computerized Problem List is the source for the followin. Neck pain 2. Cervical radiculopathy 3. Gastroesophageal reflux disease 4. History of colonoscopy 05/2022 - repeat 3 years (04/2025) 5. Adrenal adenoma 6. Overactive bladder 7. Peripheral vascular disease 8. Hyperlipidemia 9. Benign prostatic hyperplasia 10. Benign essential hypertension 11. Gastroesophageal reflux disease 12. Coronary atherosclerosis List of active problems are reviewed with patient and updated. SURGICAL HISTORY: 08/22/2019 LAPAROSCOPIC VENTRAL INCISIONAL (COMPLETED) HERNIA REPAIR WITH [facility] FAMILY HISTORY Father: , CAD, 78 Mother: , lymphoma at age 92 uncle: atrial flutter Siblings: 3 brothers and 1 sister - living; brother, CVD. hildren: 2 healthy son and a daughter. 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 MARITAL STATUS - Living situation: Lives alone in [place]. in 2019 - lost of 48 years. Social: Son in [facility], daughter in [place]. 3 grandaughters, 1 step grandson, 2 step great grandsons. Golfs, gardens, mows. Active in [employer] Tobacco: Quit 2012 - pk/yr. smoked ppd since age 16 wuit [...] TAKE ONE TABLET BY MOUTH DAILY FOR ACTIVE (S) PROSTATE 2) METFORMIN HCL 500MG 24HR SA TAB TAKE ONE TABLET BY MOUTH ACTIVE AFTER MEALS Indication: FOR BLOOD SUGAR 3) TAMSULOSIN HCL 0.4MG CAP TAKE ONE CAPSULE BY MOUTH EVERY ACTIVE EVENING Indication: FOR PROSTATE 4) TRAMADOL HCL 50MG TAB TAKE ONE TABLET BY MOUTH TWICE A DAY ACTIVE NEEDED Indication: FOR PAIN Active Non-VA Medications Status 1) Non-VA ASPIRIN 81MG EC TAB 81MG MOUTH DAILY ACTIVE 2) Non-VA ATORVASTATIN CALCIUM 80MG TAB 80MG MOUTH DAILY ACTIVE 3) Non-VA LISINOPRIL TAB 20MG 20MG MOUTH DAILY ACTIVE 4) Non-VA METOPROLOL TARTRATE 100MG TAB 50MG MOUTH TWICE A DAY ACTIVE Indication: FOR BLOOD PRESSURE 5) Non-VA MINERALS/MULTIVITAMINS CAP/TAB MOUTH DAILY ACTIVE 6) Non-VA OMEPRAZOLE 20MG EC CAP 40MG MOUTH ONCE A DAY 30 ACTIVE MINUTES BEFORE A MEAL 10 Total Medications ALLERGIES: Patient has answered NKA PHYSICAL EXAM: VITAL SIGNS Measurement DT TEMP PULSE RESP BP HT WT F(C) IN(CM) LB(KG)[BMI] ---- ----- ---- -- ------ 05/21/2025 10:54 97.6(36.4) 66 16 151/84 72.0(183) 199(90.3)[27] Measurement DT CVP POx CG CMH20(MMHG) (L/MIN)(%) IN(CM) ------ 05/21/2025 10:54 99 Measurement DT Pain ---- 05/21/2025 10:54 7 MOBILITY: ambulating WITHOUT assistive device. General: Well-developed , well-nourished MALE in no acute distress. HEENT: Atraumatic, Normocephalic, no icterus. Nose is patent. Moist mucous membranes. No oral lesions. Neck- Supple, could not appreciate JVD, carotid bruit,thyromegaly, or lymphadenopathy. Heart: RRR, Normal S1 and S2, no S4, no M/G/R. Lungs: scattered B/L wheezing. no rales, no rhonchi Abdomen: Nontender, nondistended, normal bowel sounds Extremities: No edema. Pulses are palpable. Musculoskeletal: No joint swelling, erythema or warmth. Neurologic: Alert and oriented times 3, no new focal neurological deficits. Skin: Warm and dry, no new lesions. PSYCH: Appropriate mood and behavior. Interacting appropriately. IMAGES: No recent studies. LABS: 09/03/2024 12:45 BLOOD !! GLYCOHEMOGLOBIN 6.5 H % 4.4 - 6.4 04/17/2023 14:01 BLOOD !! GLYCOHEMOGLOBIN 5.6 % 4.4 - 6.4 05/18/2022 09:43 BLOOD !! GLYCOHEMOGLOBIN 5.7 % 4.4 - 6.4 07/20/2021 14:06 BLOOD !! GLYCOHEMOGLOBIN 5.6 % 4.4 - 6.4 09/03/2024 12:45 PLASMA!! CHOLESTEROL 131 mg/dL 0 - 199 09/03/2024 12:45 PLASMA!! TRIGLYCERIDE 91 mg/dL 0 - 149 09/03/2024 12:45 PLASMA!! HDL CHOLESTEROL 46 mg/dL 40 - 69 09/03/2024 12:45 PLASMA!! DIRECT LDL CHOL. 75 mg/dL 0 - 100 PANEL 2 [place]. date TOT PRO ALBUMIN SGOT SGPT Z ALK PHZ DIRECTZ TOTAL 09/03/24 12:45 7.3 4.3 28 24 60 0.8 Vitamin D: Collection DT Spec VITAMIN 09/03/2024 12:45 SERUM 38.1 TSH: 0.9531 mIU/mL (09/03/2024 12:45) 09/10/2024 12:45 PLASMA!! B12 VITAMIN 415 pg/mL 213 - 816 09/10/2024 12:45 PLASMA!! FOLATE 18.7 ng/mL 7.0 - 31.4 URINALYSIS [place]. date Z SPECIFZ URINE Z URINE Z URINE Z URINE Z URINE Z URINE 09/03/24 13:05 1.018 Negativ Yellow Clear 6.5 Negativ Negativ URINALYSIS [place]. date Z URINE Z URINE Z URINE Z URINE Z [place]. 09/03/24 13:05 Negativ Negativ Negativ Normal Negativ 09/03/2024 12:45 BLOOD WBC 7.0 K/cmm 5.0 - 10.0 09/03/2024 12:45 BLOOD RBC 5.00 M/cmm 4.6 - 6.2 09/03/2024 12:45 BLOOD HGB 16.7 g/dL 14.0 - 18.0 09/03/2024 12:45 BLOOD HCT 50.3 % 42.0 - 52.0 09/03/2024 12:45 BLOOD MCV 100.6 H fL 80.0 - 94.0 09/03/2024 12:45 BLOOD MCH 33.4 H pg 27.0 - 31.0 09/03/2024 12:45 BLOOD MCHC 33.2 g/dL 32.0 - 36.0 09/03/2024 12:45 BLOOD PLT 115 L K/cmm 150 - 450 09/03/2024 12:45 BLOOD MPV 12.9 fL 9.0 - 13.1 09/03/2024 12:45 BLOOD RDW 12.1 % 11.0 - 16.0 09/03/2024 12:45 BLOOD NRBC 0.0 % 0.0 - 0.0 12/23/2024 12:13 PLASMA!! CREATININE 0.81 mg/dL 0.72 - 1.25 12/23/2024 12:13 PLASMA!! UREA NITROGEN 13 mg/dL 9 - 25 12/23/2024 12:13 PLASMA!! eGFR (CKD-EPI) >90 SEE EVAL 12/23/2024 12:13 PLASMA!! GLUCOSE 88 mg/dL 74 - 100 12/23/2024 12:13 PLASMA!! SODIUM 142 mmol/L 136 - 145 12/23/2024 12:13 PLASMA!! POTASSIUM 4.4 mmol/L 3.5 - 5.1 12/23/2024 12:13 PLASMA!! CHLORIDE 106 mmol/L 98 - 107 12/23/2024 12:13 PLASMA!! CO2 25 mmol/L 22 - 29 12/23/2024 12:13 PLASMA!! CALCIUM 9.8 mg/dL 8.4 - 10.2 12/23/2024 12:13 PLASMA!! ANION GAP 11.0 mEq/L 3 - ASSESSMENT AND PLAN: - Hypertension- controlled. Continue: Non-VA LISINOPRIL TAB 20MG 20MG MOUTH DAILY Non-VA METOPROLOL TARTRATE 100MG TAB by MOUTH TWICE A DAY - Hyperlpidemia- controlled per 09/03/2024 lipid panel. Continue: Is taking:Non-VA ATORVASTATIN CALCIUM 80MG TAB 80MG MOUTH DAILY. Denies side effects. low fat and low cholesterol diet encouraged. Monitor FLP and LFTs. - DM II - low grade . A1c 6.5 H (09/03/2024). Continue Metformin SA 24Hours 500 mg po dialy. Order A1c and nephropathy panel. Continue F/U by optometry for yearly diabetic eye exam. - Coronary atherosclerosis- Stable. No complaints. Continue: Non-VA ASPIRIN 81MG EC TAB 81MG MOUTH DAILY Non-VA ATORVASTATIN CALCIUM 80MG TAB 80MG MOUTH DAILY NON-VA Metoprolol Tartarate 100 mg po bid Still smokes 2 cigars/week, and has [place] every night. - Gastroesophageal reflux disease- Controlled. Denies dysphagia, weight loss or melena. Continue:Non-VA OMEPRAZOLE 20MG EC CAP 40MG MOUTH ONCE A DAY. Denies side effects. Anti-reflux measures: Raise the head of the bed to 45 degrees. Avoid smoking, ETOH, excess coffee, tea or other caffeinated beverages. Avoid Spicy and sour food. Avoid eating before bed by at least 2 hours. . - Neck pain/- moderate degree of central canal stenosis ( C-spine MRI WO 01/06/2023) - had [facility] PT 01/2023 that did not hurt . Pt c/o moderate to sever neck pain going to his bilateral shoulders and down his T-spine between his shoulder blades . Taking advil 400 mg po bid helps some asking to resume Tramadol. Cr 0.81 (12/23/2024). Resmue Tramadol alternate with advil 200 mg po bid PRN . PDMP is reviewed. USD ordered. 12/16/2024- neurosurgery: Assessment: The patient is a 74 year old MALE with neck pain, but without evidence of radiculopathy or myelopathy. moderate degree of central canal stenosis but without evidence of radiculopathy or myelopathy there would be no indication for any surgery at this time D/cb from clinic - Skin lesion- upper midsternal area skin lesion- 09/05/2024- telederm- benign. - BPH- nocturea improved after Tamsulosin 0.4 mg po at bedtime daily was added to his :FINASTERIDE 5MG TAB TAKE ONE TABLET BY MOUTH DAILY FOR PROSTATE. Has been dizzy standing lately taking the Tamsulosin daytime. Instructed to take it as RX'd. - ED- Quit taking th etadalafil - did not help. Would like to try the Sildanafil- ordered to be mailed. - Left hydrocele- left testicle feels larger than the right an dthe patient is concerned about possible cancer- Denies any other symptoms. 09/06/2025- scrotal U/S - showed:Large chronic appearing left hydrocele. Small left epididymal head cyst. No intratesticular mass detected. - Wheezing by exam/- smoker (cigar) - start Combivent respimat - ordered to be mailed. Not ready yet to set a plan to stop smoking. Medication Reconciliation: Reviewed and reconciled medication list with patient and/or caregiver: _x__ No discrepancies were found, ___ Discrepancies were corrected or sent to the [...] presented in this note. -LABWORK: Today's labs: ( x)FASTING ( )NON-FASTING: See orders ( ) NO LABS WITH THIS VISIT ( ) RETURN FOR LABS: -CONSULTS ENTERED FROM TODAYS VISIT: None -CLERICAL ORDERS: RNA APPOINTMENT: SCHEDULE THE FOLLOWING: RECALL:04/23/2026 ( ) Fasting labs on RTC ( ) Non-fasting labs on RTC: To be determined ( ) No labs on RTC Follow up: 11 months and PRN The /caregiver voiced understanding of topics covered/discussed in today's visit. All questions were answered, and the patient/caregiver voiced understanding and agreement. I spent 38 min today reviewing last visit notes, recent [...] __ Placed consult SYSTEM GENERATED CLINICAL REMINDERS: Follow Up Colonoscopy: Colonoscopy is due based on information available to this reminder. Colonoscopy consult has been ordered. See orders tab for details. /anitha/ GILBERTO PERALES MD Signed: 05/21/2025 12:13 GILBERTO PERALES [facility] May 21, 2025 10:54 AM PRIMARY CARE LONG BULLOCK NOTE: LOCAL TITLE: uShip Tech/senior ui ux developer Note STANDARD TITLE: PRIMARY CARE NURSING NOTE DATE OF NOTE: MAY 21, 2025@10:54 ENTRY DATE: MAY 21, 2025@10:54:33 AUTHOR: ALEX TAM COSIGNER: URGENCY: STATUS: COMPLETED The patient was given a list of his current medications, instructed to review and discuss any changes or problems with their provider. Patient advised to carry a list of current medications and any allergies with them in the event of emergency situations. Yes - /Caregiver verbalized understanding of topics discussed and education provided COVID-19 Immunization: Refused Moderna Monovalent COVID-19 vaccine Immunization: COVID-19 (MODERNA), MRNA, LNP-S, PF, 50 MCG/0.5 ML (AGES 12+ YEARS) Refusal Reason: PATIENT DECISION Patient refuses all immunization(s) in the COVID-19 group Date Documented: 05/21/25 11:09 Homelessness/Food Insecurity Screen: In the past 2 months, have you been living in stable housing that you own, rent, or stay in as part of a household? Yes - Living in stable housing. Are you worried or concerned that in the next 2 months you may NOT have stable housing that you own, rent, or stay in as part of a household? No - Not worried about housing near future The reports the following: Within the past 12 months, you worried whether your food would run out before you got money to buy more. Never true Within the past 12 months, the food you bought just didn't last and you didn't have money to get more. Never true Sexual Orientation: The patient thinks of their sexual orientation as: Straight or Heterosexual Hepatitis B Immunization: The patient declines to receive the recommended dose of Hepatitis B vaccine. Immunization: HEP B, UNSPECIFIED FORMULATION Refusal Reason: PATIENT DECISION Patient refuses all immunization(s) in the HepB group Date Documented: 05/21/25 11:10 Tdap Immunization: See orders Administered: TDAP Date Administered: May 21, 2025 11:10 Senior Business Objects Developer: SANOFI PASTEUR Lot: [id number] Exp Date: March 22, 2026 [facility]: [phone] Admin Route/Site: INTRAMUSCULAR/LEFT DELTOID Dosage: 0.5mL Vaccine Information Statement(s): TDAP (TETANUS, DIPHTHERIA, PERTUSSIS) VACCINE VIS Nov 22, 2024 (TUNISIAN) Order By: Gilberto Perales Administered By: Alex Tam Comment: Discussed risks vs benefits with and informed him to stay in lobby for approximately 30 mins for obs. No ASE's noted, and expressed understanding. Provider notified. The TETANUS/DIPHTHERIA/PERTUSSIS (TDAP) Vaccine Information Statement (VIS) was reviewed with the patient/caregiver which lists the benefits and risks of the vaccine and the risks of not receiving the Tdap vaccine. The patient/caregiver denied any prior severe reaction to this vaccine or its components or a severe allergic reaction, such as anaphylaxis, to any vaccine or any injectable therapy. The patient/caregiver gave verbal consent to receive the vaccine. RSV Immunization: Respiratory Syncytial Virus (RSV) Vaccine: Refused [employer] (Abrysvo, RSVpreF vaccine). Immunization: RSV, BIVALENT, PROTEIN SUBUNIT RSVPREF, DILUENT RECONSTITUTED, 0.5 ML, PF Refusal Reason: PATIENT DECISION Patient refuses all immunization(s) in the RSV group Date Documented: 05/21/25 11:11 Alcohol Use Screen (AUDIT-C): Alcohol Screen: SCREEN FOR ALCOHOL (AUDIT-C) An alcohol screening test (AUDIT-C) was negative (score=2). 1. How often did you have a drink containing alcohol in the past year? Consider a drink to be a 12 ounce can or bottle of regular beer, 8 ounces of malt liquor, a 5 ounce glass of table wine, or a 1.5 ounce shot of liquor (like scotch, gin, or vodka). Two to four times a month 2. How many drinks containing alcohol did you have on a typical day when you were drinking in the past year? One or two drinks 3. How often did you have six or more drinks on one occasion in the past year? Never Depression Screening: Perform PHQ-2 A PHQ-2 screen was performed. The score was 0 which is a negative screen for depression. Over the past two weeks, how often have you been bothered by the following problems? 1. Little interest or pleasure in doing things Not at all 2. Feeling down, depressed, or hopeless Not at all Suicide Screen: C-SSRS Screening Mono Suicide Severity Rating Scale (C-SSRS) screener 1. [...] required due to responses to other questions. Tobacco Use Screening: The patient has never smoked cigarettes. The patient uses other type(s) of tobacco some days. Other Tobacco Type(s) used: Cigars/pipes/small cigars Patient was advised to stop smoking and/or using other tobacco products. Advised patient that a combination of behavioral counseling and FDA-approved cessation medications is the most effective way to ensure their success in stopping to smoke and/or using other tobacco products. The patient was not interested in additional information about behavioral counseling and other support strategies discussed. Informed patient that medications can help with cravings and withdrawal symptoms, and they greatly increase the chances of successfully stopping your tobacco use. The patient was not interested in a prescription for tobacco cessation medications. /anitha/ ALEX TAM Licensed Practical Nurse Signed: 05/21/2025 11:12 ALEX TAM [facility]
--- OUTSIDE RECORDS SUMMARY | 2025-05-30 06:09 | XMS_ITS | Continuity of Care Document ---
Author Name [facility] Organization [facility] Care Team Providers Care Pizza Baker Name Role Phone [facility] Unavailable Unavailable Problems Combined list of problems from Department of Defense and [facility] facilities. It does not include entries that were removed or entered in error. Problem Status Onset Date Problem Type Date of Resolution Comments Source Adrenal adenoma Active Condition [place] [facility] N Benign essential hypertension Active Condition [place] [facility] Benign prostatic hyperplasia Active Condition [place] [facility] Cervical radiculopathy Active Condition [place] [facility] Coronary atherosclerosis Active Condition [place] [facility] Erectile dysfunction Active Condition [place] [facility] Gastroesophageal reflux disease Active Condition [place] [facility] Gastroesophageal reflux disease Active Condition [place] [facility] History of colonoscopy Active Condition Jun 15, 2022 Entered By: VIGNESH BROWN Comment: 05/2022 - repeat 3 years (04/2025) [facility] N Hyperlipidemia Active Condition [place] [facility] Neck pain Active Condition [place] [facility] Over[facility] bladder [facility] Peripheral vascular disease Active Condition [place] [facility] Type 2 diabetes mellitus Active Condition [place] [facility] Muscle spasm of thoracic back Inactive Condition 07/07/2021 [place] [facility] Sensorineural Hearing Loss, Bilateral Inactive Condition 07/07/2021 [place] [facility] Diagnosis: ICD-10-CM I10 Essential (primary) hypertension Active Diagnosis [facility] N Diagnosis: ICD-10-CM M54.2 Cervicalgia Active Diagnosis [place] [facility] N Diagnosis: ICD-10-CM M54.12 Radiculopathy, cervical region Active Diagnosis [facility] N Diagnosis: ICD-10-CM Z71.89 Other specified counseling Active Diagnosis [facility] N Diagnosis: ICD-10-CM R79.9 Abnormal finding of blood chemistry, unspecified Active Diagnosis [facility] Diagnosis: ICD-10-CM L82.1 Other seborrheic keratosis Active Diagnosis [facility] Diagnosis: ICD-10-CM Z13.89 Encounter for screening for other disorder Active Diagnosis [facility] Diagnosis: ICD-10-CM N40.0 Benign prostatic hyperplasia without lower urinry tract symp Active Diagnosis [facility] Diagnosis: ICD-10-CM H25.813 Combined forms of age-related cataract, bilateral [facility] Diagnosis: ICD-10-CM Z71.9 Counseling, unspecified Active Diagnosis [facility] Medications Combined list of outpatient medications from Department of Defense and [facility] Affairs facilities.Medications provided include 1) outpatient medications from the last 15 months, and 2) patient-reported medications. Medication Details Route Status Patient Instructions Prescription Expires Prescription Number Last Dispense Date Ordering Provider Order Date Order Qty Source ALBUTEROL 100MCG/IPRA TROPIUM BR 20MCG/SPRAY INHALER,ORA L,4GM INHALE 1 PUFF BY MOUTH FOUR TIMES A DAY FOR BREATHIN G RESPIR ATORY (INHAL ATION) ACTIVE 05/22/2026 [id number] YANCY PERALES 2024 3 [place] [facility] ASPIRIN 81MG TAB,EC TAKE ONE TABLET BY MOUTH DAILY ORAL ACTIVE PEDRO BROWN 2008 [place] [facility] ATORVASTATI N CA 80MG TAB TAKE ONE TABLET BY MOUTH DAILY ORAL ACTIVE Tri JOHNS 2018 [place] [facility] FINASTERIDE 5MG TAB TAKE ONE TABLET BY MOUTH DAILY FOR PROSTATE ORAL SUSPEND ED 05/22/2026 [id number] 5 YANCY PERALES 2024 90 [place] [facility] FINASTERIDE 5MG TAB TAKE ONE TABLET BY MOUTH DAILY FOR PROSTATE ORAL DISCONT INUED 09/14/2025 [id number] 5 YANCY PERALES 2023 90 [place] [facility] FINASTERIDE 5MG TAB TAKE ONE TABLET BY MOUTH DAILY FOR PROSTATE ORAL DISCONT INUED 08/31/2024 [id number] YANCY PERALES TA 2022 90 [place] [facility] LISINOPRIL 20MG TAB TAKE ONE TABLET BY MOUTH DAILY ORAL ACTIVE MURIEL BROWN ON 2021 [place] [facility] METFORMIN HCL 500MG 24HR TAB,SA TAKE ONE TABLET BY MOUTH AFTER MEALS FOR BLOOD SUGAR ORAL SUSPEND ED 08/19/2025 [id number] [facility] 2024 270 [place] [facility] METFORMIN HCL 500MG 24HR TAB,SA TAKE ONE TABLET BY MOUTH AFTER MEALS FOR BLOOD SUGAR ORAL DISCONT INUED 07/15/2025 [id number] 5 YANCY PERALES 2024 270 [place] [facility] METFORMIN HCL 500MG 24HR TAB,SA TAKE ONE TABLET BY MOUTH AFTER MEALS FOR BLOOD SUGAR ORAL DISCONT INUED 09/16/2025 [id number] ANGELLAKIT TA 2023 90 [place] [facility] METOPROLOL TARTRATE 100MG TAB TAKE ONE TABLET BY MOUTH TWICE A DAY ORAL ACTIVE YANCY PERALES TA 2022 [place] [facility] MINERALS/MU LTIVITAMINS CAP/TAB TAKE BY MOUTH DAILY ORAL ACTIVE MURIEL BROWN ON 2020 [place] [facility] OMEPRAZOLE 20MG CAP,EC TAKE 2 CAPSULES BY MOUTH ONCE A DAY 30 MINUTES BEFORE A MEAL ORAL ACTIVE MURIEL BROWN ON 2021 [place] [facility] PEG-3350/EL ECTROLYTES PWDR MIX AND DRINK CONTENTS [...] AT WITH QUESTION S. ORAL ACTIVE 06/21/2025 [id number] MONSE,AND RUPERT M 2024 1 [place] [facility] SILDENAFIL CITRATE 100MG TAB TAKE ONE TABLET BY MOUTH DIRECTED FOR ERECTILE DYSFUNCT ION -DO NOT TAKE WITH ANY MEDICATI ON CONTAINI NG NITRATES (LIMIT: 6 DOSES/30 DAYS OR 18 DOSES/90 DAYS, NON-REPL ACEABLE MEDICATI ON) ORAL ACTIVE 05/22/2026 [id number] 5 ANGELLAKIT TA 2024 18 [place] [facility] [place] TADALAFIL 20MG TAB TAKE ONE TABLET [...] BEFORE SEX ON EMPTY STOMACH ORAL 09/03/2024 [id number] 4 ANGELLAKIT TA 2022 12 [place] [facility] TAMSULOSIN HCL 0.4MG CAP TAKE ONE CAPSULE BY MOUTH EVERY EVENING FOR PROSTATE ORAL SUSPEND ED 05/22/2026 [id number] 5 ANGELLAKIT TA 2024 90 [place] [facility] [place] TAMSULOSIN HCL 0.4MG CAP TAKE ONE CAPSULE BY MOUTH EVERY EVENING FOR PROSTATE ORAL DISCONT INUED 09/04/2025 [id number] GIACOMOUSA,KIT TA 2023 90 [place] [facility] TRAMADOL HCL 50MG TAB TAKE ONE TABLET BY MOUTH TWICE A DAY NEEDED FOR PAIN ORAL SUSPEND ED 11/21/2025 [id number] 5 ANGELLAKIT TA 2024 60 [place] [facility] TRAMADOL HCL 50MG TAB TAKE ONE TABLET BY MOUTH TWICE A DAY NEEDED FOR PAIN ORAL DISCONT INUED 09/13/2025 [id number] YANCY PERALES TA 2024 60 [place] [facility] Immunizations Combined list of available immunizations from the Department of Defense and Veterans Affairs facilities. Immunization Series Date Given Administered By Site Reaction Lot Number CVX Code Drug Clinical Operations Leader Status Comments Source TDAP 2024 ALEX TAM LEFT DELTO ID [id number] 115 complet ed [place], Discussed risks vs benefits with and informed him to stay in lobby for approxima tely 30 mins for obs. No ASE's noted, and expressed understan ding. Provider notified. [place] [facility] INFLUENZA, HIGH-DOSE, TRIVALENT, PF 2023 JOJO MEJIA RRA E LEFT DELTO ID [id number] 135 complet ed [place] [facility] COVID-19 (MODERNA), MRNA, LNP-S, PF, 50 MCG/0.5 ML (AGES 12+ YEARS) 2023 JOJO MEJIA RRA E LEFT DELTO ID [id number] 312 complet ed [place], [place] [facility] COVID-19 (PFIZER), MRNA, LNP-S, BIVALENT BOOSTER, PF, 30 MCG/0.3 ML DOSE 1 2022 CHEPE ODELL LEFT DELTO ID [id number] 300 complet ed [place], [place] [facility] INFLUENZA, HIGH-DOSE, QUADRIVALENT 3 2021 197 complet ed HISTORICA L INFORMATI ON - FROM OTHER REGISTRY, [place] [facility] INFLUENZA, UNSPECIFIED FORMULATION 2021 88 complet ed HISTORICA L INFORMATI ON - FROM PARENT'S RECALL, [place] [facility] COVID-19 (PFIZER), MRNA, LNP-S, PF, 30 MCG/0.3 ML DOSE, [place]-SUCROSE (AGES 12+ YEARS) 4 2021 217 complet ed PFR; [id number]; 2 [place] [facility] PNEUMOCOCCAL CONJUGATE PCV20, POLYSACCHARID E [id number] CONJUGATE, ADJUVANT, PF 2021 216 complet ed [place] [facility] HEP B, ADULT 1 2020 43 complet ed [place] [facility] [place] INFLUENZA, INJECTABLE, QUADRIVALENT, PRESERVATIVE FREE 2020 150 complet ed [place] [facility] COVID-19 (MODERNA), MRNA, LNP-S, PF, 100 MCG/0.5 ML DOSE 3 2020 207 complet ed [place] [facility] COVID-19 (MODERNA), MRNA, LNP-S, PF, 100 MCG/0.5 ML DOSE 2 2020 207 complet ed [place] [facility] COVID-19 (MODERNA), MRNA, LNP-S, PF, 100 MCG/0.5 ML DOSE 1 2020 207 complet ed [place] [facility] [place] ZOSTER RECOMBINANT 2 2019 187 complet ed [place] [facility] [place] INFLUENZA, INJECTABLE, QUADRIVALENT, PRESERVATIVE FREE 2019 150 complet ed [place] [facility] [place] ZOSTER RECOMBINANT 1 2019 187 complet ed [place] [facility] [place] INFLUENZA, INJECTABLE, QUADRIVALENT, PRESERVATIVE FREE 2018 150 complet ed [place] [facility] HEP A, ADULT 2018 52 complet ed [place] [facility] [place] HEP A, ADULT 2018 52 complet ed [place] [facility] [place] INFLUENZA, SEASONAL, INJECTABLE 2017 141 complet ed [place] [facility] INFLUENZA, HIGH DOSE SEASONAL 2 2017 135 complet ed HISTORICA L INFORMATI ON - FROM OTHER REGISTRY, [place] [facility] PNEUMOCOCCAL POLYSACCHARID E [id number] 2017 33 complet ed [place] [facility] ZOSTER LIVE 2016 121 complet ed [place] [facility] INFLUENZA A & B (HISTORICAL) 2016 88 complet ed [place] [facility] INFLUENZA, HIGH DOSE SEASONAL 1 2016 135 complet ed HISTORICA L INFORMATI ON - FROM OTHER REGISTRY, [place] [facility] [id number] (HISTORICAL) 2016 133 complet ed [place] [facility] INFLUENZA A & B (HISTORICAL) 2015 88 complet ed [place] [facility] INFLUENZA A & B (HISTORICAL) 2013 88 complet ed [place] [facility] FLU,3 YRS (HISTORICAL) 2012 88 complet ed [place] [facility] FLU,3 YRS (HISTORICAL) 2011 88 complet ed [place] [facility] TETANUS TOXOID, UNSPECIFIED FORMULATION 2008 JANNA MCKENZIE 112 complet ed [place] [facility] Results Combined list of recent chemistry, [...] Comment: Prediabetes : 5.7%-6.4% Diabetes: >= 6.5% [facility] guidelines for A1c interpretat ion: Glycemic [...] 9.27. Ref: https://ngs p.org/CAPda ta.asp. The in-house Fluency D-100 analyzer has a historical CV <= 2%. Contact the laboratory for further performance characteris tics of this assay. Ordering Provider: GILBERTO PERALES Report Released Date/Time: May 21, 2025 11:41 AM Reporting Lab: [place] [phone] Performing Lab: [address] TSH THYROTROPIN [UNITS/VOLU ME] IN SERUM OR PLASMA 0.8987 m[IU]/ mL 0.3500 - 4.9400 05/21 Specimen Type: PLASMA No comment entered. Ordering Provider: GILBERTO PERALES Report Released Date/Time: May 21, 2025 11:41 AM Reporting Lab: [place] [phone] Performing Lab: [address] LIPID PROFILE CHOLESTEROL [MASS/VOLUM E] IN SERUM OR PLASMA 139 mg/dL 0 - 199 05/21 Specimen Type: PLASMA No comment entered. Ordering Provider: GILBERTO PERALES Report Released Date/Time: May 21, 2025 11:41 AM Reporting Lab: [place] [phone] Performing Lab: [place] [phone] [place] [address] LIPID PROFILE TRIGLYCERID E [MASS/VOLUM E] IN SERUM OR PLASMA 96 mg/dL 0 - 149 05/21 Specimen Type: PLASMA No comment entered. Ordering Provider: GILBERTO PERALES Report Released Date/Time: May 21, 2025 11:41 AM Reporting Lab: [place] [phone] Performing Lab: [address] LIPID PROFILE CHOLESTEROL IN HDL [MASS/VOLUM E] IN SERUM OR PLASMA 53 mg/dL 40 - 69 05/21 Specimen Type: PLASMA No comment entered. Ordering Provider: GILBERTO PERALES Report Released Date/Time: May 21, 2025 11:41 AM Reporting Lab: [address] [address] Performing Lab: [address] [address] [facility] LIPID PROFILE CHOLESTEROL IN LDL [MASS/VOLUM E] IN SERUM OR PLASMA BY DIRECT ASSAY 73 mg/dL 0 - 100 05/21 Specimen Type: PLASMA No comment entered. Ordering Provider: GILBERTO PERALES Report Released Date/Time: May 21, 2025 11:41 AM Reporting Lab: [address] [address] Performing Lab: [address] [address] [facility] 25-OH VITAMIN D 25-HYDROXYV ITAMIN D3 [...] May 21, 2025 11:41 AM Reporting Lab: [address] [address] Performing Lab: [place] [phone] [facility] B12 VITAMIN COBALAMIN (VITAMIN B12) [MASS/VOLUM E] IN SERUM OR PLASMA 632 pg/mL 213 - 816 05/21 Specimen Type: PLASMA Comment: Vitamin B12 test may not yield results when protein level of sample is too elevated. Ordering Provider: GILBERTO PERALES Report Released Date/Time: May 21, 2025 11:41 AM Reporting Lab: [address] [address] Performing Lab: [address] [address] [facility] FOLATE FOLATE [MASS/VOLUM E] IN SERUM OR PLASMA 16.8 ng/mL 7.0 - 31.4 05/21 Specimen Type: PLASMA Comment: Vitamin B12 test may not yield results when protein level of sample is too elevated. Ordering Provider: GILBERTO PERALES Report Released Date/Time: May 21, 2025 11:41 AM Reporting Lab: [place] [phone] Performing Lab: [address] CBC/PLT LEUKOCYTES [#/VOLUME] IN BLOOD BY AUTOMATED COUNT 8.1 10*3/u L 5.0 - 10.0 05/21 Specimen Type: BLOOD No comment entered. Ordering Provider: GILBERTO PERALES Report Released Date/Time: May 21, 2025 11:41 AM Reporting Lab: [place] [address] Performing Lab: [address] CBC/PLT ERYTHROCYTE S [#/VOLUME] IN BLOOD BY AUTOMATED COUNT 4.75 10*6/u L 4.6 - 6.2 05/21 Specimen Type: BLOOD No comment entered. Ordering Provider: GILBERTO PERALES Report Released Date/Time: May 21, 2025 11:41 AM Reporting Lab: [place] [phone] Performing Lab: [place] [address] [place] [address] CBC/PLT HEMOGLOBIN [MASS/VOLUM E] IN BLOOD 15.6 g/dL 14.0 - 18.0 05/21 Specimen Type: BLOOD No comment entered. Ordering Provider: GILBERTO PERALES Report Released Date/Time: May 21, 2025 11:41 AM Reporting Lab: [place] [phone] Performing Lab: [place] [phone] [place] [address] CBC/PLT HEMATOCRIT [VOLUME FRACTION] OF BLOOD BY AUTOMATED COUNT 46.6 42.0 - 52.0 05/21 Specimen Type: BLOOD No comment entered. Ordering Provider: GILBERTO PERALES Report Released Date/Time: May 21, 2025 11:41 AM Reporting Lab: [place] [address] Performing Lab: [place] [phone] CBC/PLT MCV [ENTITIC VOLUME] BY AUTOMATED COUNT 98.1 fL 80.0 - 94.0 05/21 H Specimen Type: BLOOD No comment entered. Ordering Provider: GILBERTO PERALES Report Released Date/Time: May 21, 2025 11:41 AM Reporting Lab: [address] Performing Lab: [address] CBC/PLT MCH [ENTITIC MASS] BY AUTOMATED COUNT 32.8 pg 27.0 - 31.0 05/21 H Specimen Type: BLOOD No comment entered. Ordering Provider: GILBERTO PERALES Report Released Date/Time: May 21, 2025 11:41 AM Reporting Lab: [place] [phone] Performing Lab: [address] CBC/PLT MCHC [MASS/VOLUM E] BY AUTOMATED COUNT 33.5 g/dL 32.0 - 36.0 05/21 Specimen Type: BLOOD No comment entered. Ordering Provider: GILBERTO PERALES Report Released Date/Time: May 21, 2025 11:41 AM Reporting Lab: [place] [phone] Performing Lab: [place] [phone] CBC/PLT PLATELETS [#/VOLUME] IN BLOOD 123 10*3/u L 150 - 450 05/21 L Specimen Type: BLOOD No comment entered. Ordering Provider: GILBERTO PERALES Report Released Date/Time: May 21, 2025 11:41 AM Reporting Lab: [place] [phone] Performing Lab: [place] [phone] CBC/PLT PLATELET MEAN VOLUME [ENTITIC VOLUME] IN BLOOD 12.7 fL 9.0 - 13.1 05/21 Specimen Type: BLOOD No comment entered. Ordering Provider: GILBERTO PERALES Report Released Date/Time: May 21, 2025 11:41 AM Reporting Lab: [place] [phone] Performing Lab: [place] [phone] CBC/PLT ERYTHROCYTE DISTRIBUTIO N WIDTH [ENTITIC VOLUME] BY AUTOMATED COUNT 12.1 11.0 - 16.0 05/21 Specimen Type: BLOOD No comment entered. Ordering Provider: GILBERTO PERALES Report Released Date/Time: May 21, 2025 11:41 AM Reporting Lab: [place] [phone] Performing Lab: [place] [phone] CBC/PLT NUCLEATED ERYTHROCYTE S/100 ERYTHROCYTE S IN BLOOD 0.0 0.0 - 0.0 05/21 Specimen Type: BLOOD No comment entered. Ordering Provider: GILBERTO PERALES Report Released Date/Time: May 21, 2025 11:41 AM Reporting Lab: [place] [phone] Performing Lab: [address] DRUG SCREEN EXPANDED IN-HOUSE TETRAHYDROC ANNABINOL [...] Feb 03, 2025 10:54 AM Reporting Lab: [address] [address] Performing Lab: [address] [address] [facility] DRUG SCREEN EXPANDED IN-HOUSE AMPHETAMINE S [...] Feb 03, 2025 10:54 AM Reporting Lab: [address] [phone] Performing Lab: [address] [address] [facility] DRUG SCREEN EXPANDED IN-HOUSE BARBITURATE S [...] Feb 03, 2025 10:54 AM Reporting Lab: [address] [address] Performing Lab: [address] [address] [facility] DRUG SCREEN EXPANDED IN-HOUSE BENZODIAZEP PRATEEK [...] Feb 03, 2025 10:54 AM Reporting Lab: [address] [address] Performing Lab: [address] [address] [facility] DRUG SCREEN EXPANDED IN-HOUSE BENZOYLECGO NINE [...] Feb 03, 2025 10:54 AM Reporting Lab: [address] [address] Performing Lab: [address] [address] [facility] DRUG SCREEN EXPANDED IN-HOUSE OPIATES [...] Feb 03, 2025 10:54 AM Reporting Lab: [address] [address] Performing Lab: [address] [address] [facility] DRUG SCREEN EXPANDED IN-HOUSE METHADONE [...] Feb 03, 2025 10:54 AM Reporting Lab: [address] [address] Performing Lab: [address] [address] [facility] DRUG SCREEN EXPANDED IN-HOUSE OXYCODONE [...] Feb 03, 2025 10:54 AM Reporting Lab: [address] [address] Performing Lab: [address] [address] [facility] DRUG SCREEN EXPANDED IN-HOUSE BUPRENORPHI NE+NORBUPRE [...] Feb 03, 2025 10:54 AM Reporting Lab: [address] [address] Performing Lab: [address] [address] [facility] DRUG SCREEN EXPANDED IN-HOUSE FENTANYL [...] Feb 03, 2025 10:54 AM Reporting Lab: [address] [address] Performing Lab: [address] [address] [facility] DRUG SCREEN EXPANDED IN-HOUSE TETRAHYDROC ANNABINOL [...] Dec 17, 2024 04:05 PM Reporting Lab: [address] [address] Performing Lab: [address] [address] [facility] DRUG SCREEN EXPANDED IN-HOUSE AMPHETAMINE S [...] Dec 17, 2024 04:05 PM Reporting Lab: [address] [address] Performing Lab: [address] [address] [facility] DRUG SCREEN EXPANDED IN-HOUSE BARBITURATE S [...] Dec 17, 2024 04:05 PM Reporting Lab: [address] [address] Performing Lab: [address] [address] [facility] DRUG SCREEN EXPANDED IN-HOUSE BENZODIAZEP PRATEEK [...] Dec 17, 2024 04:05 PM Reporting Lab: [address] [address] Performing Lab: [address] [address] [facility] DRUG SCREEN EXPANDED IN-HOUSE BENZOYLECGO NINE [...] Dec 17, 2024 04:05 PM Reporting Lab: [address] [address] Performing Lab: [address] [address] [facility] DRUG SCREEN EXPANDED IN-HOUSE OPIATES [...] Dec 17, 2024 04:05 PM Reporting Lab: [address] [address] Performing Lab: [address] [address] [facility] DRUG SCREEN EXPANDED IN-HOUSE METHADONE [...] Dec 17, 2024 04:05 PM Reporting Lab: [address] [address] Performing Lab: [address] [address] [facility] DRUG SCREEN EXPANDED IN-HOUSE OXYCODONE [...] Dec 17, 2024 04:05 PM Reporting Lab: [address] [address] Performing Lab: [address] [address] [facility] DRUG SCREEN EXPANDED IN-HOUSE BUPRENORPHI NE+NORBUPRE [...] Dec 17, 2024 04:05 PM Reporting Lab: [address] [address] Performing Lab: [address] [address] [facility] DRUG SCREEN EXPANDED IN-HOUSE FENTANYL [...] Dec 17, 2024 04:05 PM Reporting Lab: [address] [address] Performing Lab: [address] [address] [facility] PANEL 1 CREATININE [MASS/VOLUM E] IN [...] 04:05 PM Reporting Lab: [facility] [address] [facility] [address] Performing Lab: [facility] [address] [facility] [address] [facility] PANEL 1 UREA NITROGEN [MASS/VOLUM E] IN SERUM OR PLASMA 13 mg/dL 9 [...] 04:05 PM Reporting Lab: [facility] [place] [facility] [address] [address] Performing Lab: [facility] [address] [address] [facility] PANEL 1 GLUCOSE [MASS/VOLUM E] IN [...] 04:05 PM Reporting Lab: [facility] [place] [facility] [address] [address] Performing Lab: [facility] [address] [address] [facility] PANEL 1 SODIUM [MOLES/VOLU ME] IN [...] 04:05 PM Reporting Lab: [facility] [place] [facility] [address] [address] Performing Lab: [facility] [address] [address] [facility] PANEL 1 POTASSIUM [MOLES/VOLU ME] IN [...] 04:05 PM Reporting Lab: [facility] [address] [address] Performing Lab: [facility] [address] [address] [facility] PANEL 1 CHLORIDE [MOLES/VOLU ME] IN [...] 04:05 PM Reporting Lab: [facility] [place] [facility] [address] [address] Performing Lab: [facility] [address] [address] [facility] PANEL 1 CARBON DIOXIDE, TOTAL [MOLES/VOLU ME] IN SERUM OR PLASMA 25 mmol/L 12/23 [...] 04:05 PM Reporting Lab: [facility] [place] [facility] [address] [address] Performing Lab: [facility] [address] [address] [facility] PANEL 1 CALCIUM [MASS/VOLUM E] IN [...] 04:05 PM Reporting Lab: [facility] [place] [facility] [address] [address] Performing Lab: [facility] [address] [address] [facility] PANEL 1 ANION GAP 3 [...] 04:05 PM Reporting Lab: [facility] [address] [address] Performing Lab: [facility] [address] [address] [facility] PANEL 1 GLOMERULAR FILTRATION RATE/1.73 [...] 17, 2024 04:05 PM Reporting Lab: [facility] [address] [address] Performing Lab: [facility] [address] [address] [facility] Vital Signs Combined list of inpatient and outpatient Vital Signs from [employer] Defense and [employer] Affairs, ranging from 12 months to all on record, depending upon the facility. Vital Sign Value Date Comments Source SYSTOLIC BLOOD PRESSURE 151 05/21/2025 10:54:42 [facility] DIASTOLIC BLOOD PRESSURE 84 05/21/2025 10:54:42 [facility] PULSE OXIMETRY 99 % 05/21/2025 10:54:42 [facility] WEIGHT 199 05/21/2025 10:54:42 [facility] BMI 27 kg/m2 05/21/2025 10:54:42 [facility] PAIN 7 05/21/2025 10:54:42 [facility] HEIGHT 72 05/21/2025 10:54:42 [facility] TEMPERATURE 97.6 05/21/2025 10[facility]54:42 [facility] [facility] PULSE 66 05/21/2025 10:54:42 [place] [facility] RESPIRATION 16 05/21/2025 10:54:42 [facility] [facility] SYSTOLIC BLOOD PRESSURE 133 12/16/2024 10:47:00 [place] [facility] DIASTOLIC BLOOD PRESSURE 81 12/16/2024 10:47:00 [place] [facility] PULSE OXIMETRY 97 12/16/2024 10:47:00 L [place] [facility] WEIGHT 205.0 12/16/2024 10:47:00 [place] [facility] BMI 27 kg/m2 12/16/2024 10:47:00 [place] [facility] PAIN 8 12/16/2024 10:47:00 [place] [facility] TEMPERATURE 98.4 12/16/2024 10:47:00 [facility] N[facility] PULSE 62 12/16/2024 10:47:00 [place] [facility] SYSTOLIC BLOOD PRESSURE 154 09/03/2024 10:18:31 [place] [facility] DIASTOLIC BLOOD PRESSURE 88 09/03/2024 10:18:31 [place] [facility] PULSE OXIMETRY 100 09/03/2024 10:18:31 [place] [facility] WEIGHT 209.8 09/03/2024 10:18:31 [place] [facility] BMI 28 kg/m2 09/03/2024 10:18:31 [place] [facility] PAIN 8 09/03/2024 10:18:31 [place] [facility] HEIGHT 73 09/03/2024 10:18:31 [facility] TEMPERATURE 97.8 09/03/2024 10:18:31 [facility] DECK[facility] PULSE 58 09/03/2024 10:18:31 [facility] Encounters Combined list of: 1) Encounters from Department of [facility] facilities going backup to the last 18 months, not all [place] inpatient encounters are included; 2) Encounters from the Department of [facility] facilities going backup to 280 months. Location Location Details Encounter Type Encounter Number Reason For Visit Attending Provider ADM Date DC Date Status Disposition Source [facility] Outpatient Encounter [id number] ME MERRICK ALICEA 12/18 [place] [facility] Outpatient Encounter [id number] 12/26 [place] [facility] HC PRO PHONE CALL 11-20 MIN [id number] Diagnos is: ICD-10- CM Z71.9 Site Physician ing, unspeci DAVIAN Basilio 12/28 [place] [facility] Outpatient Encounter [id number] 01/09 [place] [facility] Outpatient Encounter [id number] 02/11 [place] [facility] Outpatient Encounter [id number] 02/26 [place] [facility] Outpatient Encounter [id number] 02/27 [place] [facility] Outpatient Encounter [id number] 03/04 [place] Outpatient Encounter [id number] 04/18 [place] [facility] Outpatient Encounter [id number] 04/19 [place] [facility] Outpatient Encounter [id number] Diagnos is: ICD-10- CM Z71.89 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 RADHA Atkinson 05/15 [place] [facility] OFFICE O/P EST MOD 30 MIN [id number] Diagnos is: ICD-10- CM 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 BREYNE L 05/29 [place] [facility] Outpatient Encounter [id number] 08/08 [place] Outpatient Encounter [id number] 08/30 [place] OFFICE O/P EST HI 40 MIN [id number] Diagnos is: ICD-10- CM N40.0 Benign prostat ic hyperpl denise without lower urinry tract symp KOUSA,DAVIAN A 09/03 [place] [facility] FEE [id number] Diagnos is: ICD-10- CM Z13.89 Encount er for screeni ng for other disorde AMADO Gonzalez 09/03 [place] [facility] Outpatient Encounter [id number] Diagnos is: ICD-10- CM L82.1 Other seborrh eic keratos is LAST CHINCHILLA 09/05 [place] Outpatient Encounter [id number] 09/05 [place] HC PRO PHONE CALL 5-10 MIN [id number] Diagnos is: ICD-10- CM R79.9 Abnorma l finding of blood atmospheric chemist ry, unspeci fiEdin Coronado CELINA G 09/09 [place] [facility] HC PRO PHONE CALL 5-10 MIN [id number] Diagnos is: ICD-10- CM Z71.89 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 Edin PalaciosA G 09/13 [place] [facility] Outpatient Encounter [id number] 09/13 [place] [facility] Outpatient Encounter [id number] 09/21 [place] [facility] Outpatient Encounter [id number] 11/26 [place] PH1 ASSMT&MGMT NQHP 5-10 [id number] Diagnos is: ICD-10- CM M54.2 Cervica Edin HinojosaA G 12/02 [place] [facility] OFF/OP CONSLTJ NEW/EST SF 20 [id number] Diagnos is: ICD-10- CM M54.2 Cervica CRISTINA Funez R 12/16 [place] Outpatient Encounter [id number] 12/17 [place] Outpatient Encounter [id number] 12/17 [place] [facility] Outpatient Encounter [id number] 12/19 [place] ASSMT&MGMT NQHP 5-10 [id number] Diagnos is: ICD-10- CM M54.12 Radicul opathy, cervica l region GOODMAN,L CELINA G 12/20 [place] [facility] PH1 ASSMT&MGMT NQHP 5-10 [id number] Diagnos is: ICD-10- CM M54.2 Cervica premaia BOY KUO 12/26 [place] [facility] Outpatient Encounter [id number] 12/27 [place] [facility] Outpatient Encounter [id number] 02/03 [place] Outpatient Encounter [id number] 02/17 [place] Outpatient Encounter [id number] 03/06 [place] [facility] Outpatient Encounter [id number] 03/10 [place] [facility] Outpatient Encounter [id number] 03/11 [place] Outpatient Encounter [id number] 03/12 [place] [facility] Outpatient Encounter [id number] 03/12 [place] [facility] Outpatient Encounter [id number] 04/21 [place] [facility] Outpatient Encounter [id number] 04/22 [place] Outpatient Encounter [id number] 04/25 [place] [facility] Outpatient Encounter [id number] 04/28 [place] Outpatient Encounter [id number] 04/29 [place] [facility] Outpatient Encounter [id number] 05/20 [place] Outpatient Encounter [id number] 05/21 [place] [facility] Outpatient Encounter [id number] 05/21 [place] [facility] OFFICE O/P EST MOD 30 MIN [id number] Diagnos is: ICD-10- CM I10 Essenti al (primar y) hyperte nsion DAVIAN PERALES A 05/21 [place] [facility] Outpatient Encounter [id number] 05/22 [place] Outpatient Encounter [id number] 05/26 [place] [facility] Social History Combined list of available smoking, tobacco, and other social history from Department of Defense and Veterans Affairs facilities. Social History Type Response Date Comment Sourc e Tobacco smoking status NHIS [place]-TOBAC[place] NEVER USED CIGARETTES 05/21/2025 [facility] History of tobacco use TX-TOBACCO USE SOME DAYS OTHER TYPE 05/21/2025 [facility] History of tobacco use VA-TOBACCO USER SOME DAYS 09/03/2024 [facility] History of tobacco use TX-TOBACCO USER EVERY DAY 05/18/2022 [facility] History of tobacco use TX-TOBACCO FORMER USER 02/22/2021 [facility] History of tobacco use TX-TOBACCO USER SOME DAYS 07/02/2020 [facility] History of tobacco use TX-TOBACCO USER SOME DAYS 11/23/2018 [facility] History of tobacco use V9 LIFETIME NON-USER OF TOBACCO 08/29/2017 [facility] History of tobacco use V9 LIFETIME NON-USER OF TOBACCO 10/20/2016 [facility] History of tobacco use V9 LIFETIME NON-USER OF TOBACCO 10/28/2015 [facility] History of tobacco use V9 QUIT TOBACCO >12 MO and <7 YRS AGO 09/24/2014 [facility] History of tobacco use V9 CURRENT TOBACCO USER 09/13/2013 [facility] History of tobacco use V9 CURRENT TOBACCO USER 07/12/2012 [facility] History of tobacco use V9 CURRENT TOBACCO USER 07/04/2011 [facility] History of tobacco use V9 CURRENT TOBACCO USER 05/24/2010 [facility] History of tobacco use V9 CURRENT TOBACCO USER 05/22/2009 [facility] Plan of Care List of future care activities from Department of [facility] facilities. Additional future care activities may be listed in the Assessment and Plan section. Date/Time Care Activity Care Activity Detail Facili ty 07/24/2025 AMBULATORY - MEDICINE AMBULATORY - MEDICI [facility]
[2025-06-05] VITALS (11 sets, daily range): BP systolic 126–189; BP diastolic 80–101; PULSE 51–64; RESP 16–18; TEMP 36.6–36.8; O2SAT 95–99; BMI 26.4
--- OUTSIDE RECORDS SUMMARY | 2025-06-05 12:14 | XMS_ITS | Continuity of Care Document ---
Author Organization [facility]. If a dditional information is needed, contact Health Information Management at [phone] Address [address] [place] [address] Phone Care Team Providers Care Sous Chef Kitchen Manager Name Role Phone Unavailable Unavailable Unavailable Unavailable Unavailable Unavailable Unavailable Unavailable Unavailable Unavailable Unavailable Unavailable Problems Hypertensive disorder Onset:04-Dec-2022 Iftikhar Jackson PA-C Status:Acute Nausea Onset:04-Dec-2022 Iftikhar aJckson PA-C Status:Acute Functional Status Functional finding 03-Dec-2022 Functional finding 03-Dec-2022 Functional finding 03-Dec-2022 Allergies and Adverse Reactions No Known Allergies(Allergy) Onset: 03-Dec-2022 Medications ondansetron 4 MG Disintegrat ing Oral Tablet;4 MG ORAL Q6H Start:04-Dec-2022 Comments:4 mg PO Q6H
--- NOTE | 2025-06-05 12:24 | ECG_ITS ---
APPROVED REPORT Exam: Resting ECG HR:57 bpm ECG Measurements Heart Rate 57 AXES CA 167 P 67 QRSd 83 QRS 43 QT 414 T 71 QTc 409 Conclusion SINUS BRADYCARDIA MODERATE ST DEPRESSION [0.05+ mV ST DEPRESSION] ABNORMAL ECG UNCONFIRMED REPORT Electronically signed by : BELL BRUMFIELD, 06/06/2025 00:36:31
--- NOTE | 2025-06-05 12:31 | XR_ITS ---
FINAL REPORT CLINICAL HISTORY: DIZZINESS COMPARISON: 11/10/2022 FINDINGS: A portable view of the chest was obtained. Cardiac and mediastinal silhouettes are within normal limits. The lungs are clear. There is no pleural effusion or pneumothorax. IMPRESSION: No acute process on this portable exam. Reviewed, Interpreted and Dictated by Arely Montiel MD Transcribed by Brianna Rodriguez Authenticated and [facility]
[2025-06-05 12:37] LABS: Hematocrit 43.5 % (42.0-52.0); Hemoglobin 15.2 g/dL (14.1-18.0); Immature Granulocytes % 1.1 %; Mean Corpuscular HGB Conc 34.9 g/dL (31.8-35.4); Mean Corpuscular Hemoglobin 33.5 pg (27.0-31.2); Mean Corpuscular Volume 95.8 fl (80-94); Nucleated Red Blood Cells % 0 %; Platelet Count 113 K/mm3 (142-424); Red Blood Count 4.54 M/mm3 (4.60-6.20); Red Cell Distribution Width-SD 41.6 fL; White Blood Count 7.4 K/mm3 (4.8-10.8)
[2025-06-05 12:43] LABS: Alanine Aminotransferase 22 U/L (12-78); Albumin Level 4.2 g/dl (3.5-5.0); Albumin/Globulin Ratio 1.8 (1.1-1.8); Alkaline Phosphatase 63 U/L (38-126); Anion Gap 8.1 mEq/L (5-15); Aspartate Amino Transferase 34 U/L (17-59); Bilirubin,Total 0.9 mg/dl (0.2-1.3); Blood Urea Nitrogen 16 mg/dl (9-20); Calcium 9.1 mg/dl (8.4-10.2); Carbon Dioxide 27 mmol/L (22.0-30.0); Chloride 105 mmol/L (98-107); Creatinine Clearance Estimated 84 mL/min (50-200); Creatinine,Serum 0.80 mg/dl (0.66-1.25); Estimated Glomerular Filt Rate 95 ml/min (>60); GFR (African American) 115 ML/MIN (>60); Globulin 2.3 g/dL (1.3-3.2); Glucose 103 mg/dl (74-100); Magnesium 1.7 mg/dl (1.6-2.3); Potassium 4.1 mmoL/L (3.5-5.1); Sodium 136 mmol/L (136-145); Total Protein,Serum 6.5 g/dl (6.3-8.2)
[2025-06-05 12:57] LABS: Troponin I < 0.01 ng/ml (0.00-0.034)
[2025-06-05 12:59] LABS: T4 (Thyroxine) 9.2 ug/dl (5.53-11.0)
[2025-06-05 13:13] LABS: Thyroid Stimulating Hormone 1.18 uIU/mL (0.465-4.68)
--- NOTE | 2025-06-05 13:31 | HMH.EDGENADL ---
Discharge Plan Disposition Patient Disposition: Home, Self-Care Prescriptions Prescriptions: No Action metoprolol tartrate 50 mg tablet 50 mg PO BID Patient Comments: TAKE 1 TABLET BY MOUTH TWICE DAILY omeprazole 40 mg capsule,delayed release(DR/EC) 40 mg PO DAILY finasteride 5 mg tablet 5 mg PO DAILY lisinopril 20 mg tablet 20 mg PO DAILY multivitamin 1 EACH tablet 1 each PO DAILY atorvastatin 80 MG tablet 80 mg PO HS aspirin 81 MG tablet,delayed release (DR/EC) 81 mg PO DAILY Referrals Follow up/Referrals: Zachary Vasquez MD [Primary Care Provider, Medical] - See instructions Activity Restrictions/Add. Instructions Additional Instructions/Restrictions: No evidence of an acute neurovascular or cardiovascular emergency today. You did have persistent orthostatic abnormalities on your vital signs with your blood pressure dropping 30-40 points upon standing. However without any ongoing symptoms I am okay with you going home please make sure that you adequately hydrate yourself and be careful from going from lying to sitting to standing. You may follow-up with your primary care doctor or windows security analyst if this continues. Return with any significant worsening of your symptoms or other concerns. Clinical Impressions Clinical Impression: Orthostatic hypotension, Light headedness Print Language Print Language: Moldovan Discharge ED Provider: Mili Ye General Adult HPI General Chief complaint: Dizziness Stated complaint: dizziness, cant walk Time Seen by Provider: 06/05/25 13:21 Mode of Arrival: Wheelchair Source of Information: Patient Description of Symptoms (Recalled from ER Triage Doc. by RN): pt reports dizziness during ambulation. has been happening for a while but has dignificantly worsened today. was playing golf and couldnt walk to get a putter. History of Present Illness HPI narrative: Patient is a 74-year-old male presents today with lightheadedness or dizziness. States that it is positional anytime that he stands up he has symptoms and gets better until he sits down. Once he is sitting down he is completely asymptomatic. Denies any changes in vision coordination weakness numbness etc. Recently had some blood pressure medications changed went up on his lisinopril with Dr. Vasquez. Denies any nausea vomiting diarrhea chest pain shortness of breath fevers chills or any other symptoms. Related Data Home Medications ?Medication ?Instructions ?Recorded ?Confirmed aspirin 81 mg tablet,delayed 81 mg PO DAILY Heart disease 11/15/17 05/15/25 release atorvastatin 80 mg tablet 80 mg PO HS High cholesterol 11/15/17 05/15/25 multivitamin 1 each PO DAILY Supplement 11/15/17 05/15/25 finasteride 5 mg tablet 5 mg PO DAILY HAIR LOSS 07/16/19 05/15/25 omeprazole 40 mg capsule,delayed 40 mg PO DAILY Reflux/Acid reflux 07/16/19 05/15/25 release lisinopril 20 mg tablet 20 mg PO DAILY High blood pressure 12/27/21 05/15/25 metoprolol tartrate 50 mg tablet 50 mg PO BID 02/07/23 05/15/25 Allergies Allergy/AdvReac Type Severity Reaction Status Date / Time No Known Allergies Allergy Verified 05/15/25 09:34 [facility] Disclaimer: The information contained in this section may have been updated after the patient was seen, as this information can be updated by other users. Social History Smoking Status: Never smoker second hand exposure: Yes alcohol intake: never counseling provided: provider counseling substance use type: denies use current occupational status: other Travel in the last 8 weeks?: None housing: house caffeine: Yes Have you lived/traveled outside US in past 30 days?: No Contact w/someone who lives/traveled outside US past 30 days?: No Exposure to someone with infectious disease in past 14 days?: No Do you have a fever (greater than 100.4 F or 38 C)?: No Have you tested positive for COVID-19?: No Exposed to someone with COVID-19 in past 14 days?: No Do you have a sore throat?: No Do you have a cough?: No Do you have any weakness?: No Do you have any diarrhea?: No Are you experiencing any unusual bleeding?: No Do you have any muscle aches/pain?: No Do you have any abdominal pain?: No Are you experiencing loss of taste or smell?: No Other Medical History Have you received the Flu Vaccine for this season: Yes Have you received the Pneumonia Vaccine: Yes ROS Obtained: Yes All systems reviewed & no additional complaints except as documented Physical Exam General General appearance: alert and in no apparent distress Respiratory Respiratory exam: Present normal lung sounds bilaterally Cardiovascular Cardiovascular exam: Present regular rate; Absent normal rhythm Neurological Exam Neurological exam: Present alert, oriented X3, CN II-XII intact, normal gait and other (Normal finger-nose idai-xm-rjjb and gait); Absent motor sensory deficit Medical Decision Making Medical Records Screening: Per USPSTF and CDC recommendations, given the prevalence of disease in our region, it is our hospital?s policy to screen for HIV and viral Hepatitis for all patients aged 18 and over and those with ongoing risk factors. Guy Inquiry Pt receiving controlled substance: No Vital Signs: 06/05/25 12:17 06/05/25 12:38 06/05/25 13:00 Temperature 98.2 F Temperature Source Oral Pulse Rate 57 L 56 L Pulse Rate [Right] 60 Respiratory Rate 16 Blood Pressure 164/86 H 164/83 H Blood Pressure [Orthostatic Lying Right Arm] Blood Pressure [Orthostatic Sitting Right Arm] Blood Pressure [Orthostatic Standing Right Arm] Blood Pressure [Right Arm] 157/88 H Blood Pressure Mean [Right Arm] 111 02 Sat by Pulse Oximetry 99 97 95 Oxygen Delivery Method Room Air 06/05/25 13:25 06/05/25 13:54 06/05/25 13:55 Temperature Temperature Source Pulse Rate 64 51 L 53 L Pulse Rate [Right] Respiratory Rate Blood Pressure 126/80 154/80 H Blood Pressure [Orthostatic Lying Right Arm] Blood Pressure [Orthostatic Sitting Right Arm] Blood Pressure [Orthostatic Standing Right Arm] Blood Pressure [Right Arm] Blood Pressure Mean [Right Arm] 02 Sat by Pulse Oximetry 96 98 98 Oxygen Delivery Method 06/05/25 14:00 06/05/25 14:32 06/05/25 14:47 Temperature Temperature Source Pulse Rate 55 L 57 L 56 L Pulse Rate [Right] Respiratory Rate Blood Pressure 151/82 H 189/101 H 168/81 H Blood Pressure [Orthostatic Lying Right Arm] Blood Pressure [Orthostatic Sitting Right Arm] Blood Pressure [Orthostatic Standing Right Arm] Blood Pressure [Right Arm] Blood Pressure Mean [Right Arm] 02 Sat by Pulse Oximetry 98 99 99 Oxygen Delivery Method 06/05/25 15:14 Temperature Temperature Source Pulse Rate Pulse Rate [Right] Respiratory Rate Blood Pressure Blood Pressure [Orthostatic Lying Right Arm] 188/85 H Blood Pressure [Orthostatic Sitting Right Arm] 183/93 H Blood Pressure [Orthostatic Standing Right Arm] 150/87 H Blood Pressure [Right Arm] Blood Pressure Mean [Right Arm] 02 Sat by Pulse Oximetry Oxygen Delivery Method Lab Data Lab results reviewed: Yes I reviewed the patient's lab results. Lab Results 06/05/25 12:20: WBC 7.4, RBC 4.54 L, Hgb 15.2, Hct 43.5, MCV 95.8 H, MCH 33.5 H, MCHC 34.9, RDW 12.0, Plt Count 113 L, MPV 11.7 H, Neut % (Auto) 71.4, Lymph % (Auto) 16.4, [place] % (Auto) 9.7 H, Eos % (Auto) 1.1, Baso % (Auto) 0.3, Neut # (Auto) 5.3, Lymph # (Auto) 1.2, [place] # (Auto) 0.7, Eos # (Auto) 0.1, Baso # (Auto) 0.0, Sodium 136, Potassium 4.1, Chloride 105, Carbon Dioxide 27, Anion Gap 8.1, BUN 16, Creatinine 0.80, Estimated Creat Clear 84, Estimated GFR 95, Est GFR ( Amer) 115, Glucose 103 H, Calcium 9.1, Magnesium 1.7, Total Bilirubin 0.9, AST 34, ALT 22, Alkaline Phosphatase 63, Troponin I < 0.01, Total Protein 6.5, Albumin 4.2, Globulin 2.3, Albumin/Globulin Ratio 1.8, TSH 1.18, Thyroxine (T4) 9.2, HCV Ab [place] w/Rflx PCR Qn Negative, HIV Ag/Ab Combo Qual Negative 06/05/25 14:14: Urine Color Yellow, Urine Appearance Clear, Urine pH 7.0, Ur Specific [place] 1.010, Urine Protein Negative, Urine Glucose (UA) Negative, Urine Ketones Negative, Urine Blood Negative, Urine Nitrate Negative, Urine Bilirubin Negative, Urine Urobilinogen 0.2, Ur Leukocyte Esterase Trace 06/05/25 12:20 06/05/25 12:20 Orders (Tests/Meds): ED MEDICATIONS Discontinued Medications Generic Name Dose Route Start Last Admin Trade Name Freq PRN Reason Stop Dose Admin Lactated Ringer's 1,000 mls @ 999 mls/hr 06/05/25 13:30 06/05/25 13:54 Lactated Ringer's 1000 Ml Bag IV 06/05/25 14:30 999 mls/hr .Q1H1M LISSETTE Administration ORDERS Category Date Time Status XR chest portable Stat Exams 06/05/25 12:31 Completed Complete Blood Count Auto Diff Stat Lab 06/05/25 12:20 Completed Comprehensive Metabolic Panel Stat Lab 06/05/25 12:20 Completed HIV Combo Stat Lab 06/05/25 12:20 Completed Hepatitis C Ab Qual. W/ RFX Stat Lab 06/05/25 12:20 Completed Magnesium Stat Lab 06/05/25 12:20 Completed T4 (Thyroxine) Stat Lab 06/05/25 12:20 Completed Thyroid Stimulating Hormone Stat Lab 06/05/25 12:20 Completed Troponin I Q3H Lab 06/05/25 15:45 Ordered Troponin I Q3H Lab 06/05/25 18:45 Ordered Troponin I Stat Lab 06/05/25 12:20 Completed UA [Urinalysis and Microscopic] Stat Lab 06/05/25 14:14 Results Medical Decision Narrative: 74-year-old with above history and physical within normal neurologic exam and a GCS of 15 specifically a normal posterior circulation exam with gait finger-nose [id number] etc. No indication for CT imaging with this presentation. I did perform orthostatic vital signs in the room that the patient stand up and his blood pressure went from 160 systolic to systolic of 120 which is significant. Patient's been describing symptomatic changes only upon standing and is asymptomatic at sitting. This not consistent with posterior circulation or central causes. IV fluids will be administered basic blood work will be administered and EKG will be performed. EKG was performed I personally interpreted shows a ventricular rate of 57 normal sinus rhythm sinus bradycardia and normal axis no conduction abnormalities or significant arrhythmia. Reassessment 3:21 PM after patient's IV fluids he feels much better I stood him up walked him around he has a completely normal neurologic exam on serial examinations he is walking without any difficulty no symptoms upon standing however he is still persistently abnormal with objective measurements of his blood pressure still dropping 30-40 points upon standing. However he is no longer symptomatic. I am okay with him going home aggressively hydrating himself and being careful going from lying to sitting to standing. I do not suspect any alternative pathology at the moment for his symptoms. He has been vies about his primary care doctor or windows security analyst or to return to the emergency department with any recurrence of his symptoms. This is not consistent with a neurovascular or cardiovascular emergency at the moment. Critical Care Critical Care Time Critical Care Time: No
[2025-06-05] MEDS: LACTATED RINGERS 1000ML 1,000 ML 999 ML IV (13:54)
[2025-06-05 14:15] LABS: Hepatitis C Ab Qual. W/ RFX NEGATIVE (Negative)
[2025-06-05 14:19] LABS: Microscopic, Urine URINE MICROSCOPIC (MICROSCOPIC)
[2025-06-05 14:27] LABS: Bilirubin,Urine Negative (Negative); Color,Urine YELLOW (Yellow); Glucose,Urine (UA) Negative (Negative); Ketones,Urine Negative (Negative); Leukocyte Esterase,Urine TRACE (Negative); PH,Urine 7.0 (5.0-8.5); Protein,Urine Negative (Negative); Specific Gravity, Urine 1.010 (1.005-1.030); Urobilinogen,Urine 0.2 EU/dl (0.2)
--- NOTE | 2025-06-05 15:18 | PC.NURSE ---
DR LAMBERT AT BEDSIDE TO UPDATE PT
== END 2025-06-05 15:30 | disposition home or self-care (01) ==
PROVIDERS: Emergency Provider Student in an Organized Health Care Education/Training Program; PCP Family Medicine
DX: I95.1 Orthostatic hypotension (principal); R00.1 Bradycardia, unspecified; R42 Dizziness and giddiness
CPT/HCPCS: 71045; 80053; 81001; 83735; 84436; 84443; 84484; 85025; 86803; 87389; 93005; 96360; 99284; J7120

== ENCOUNTER 2025-06-27 11:17 | Outpatient (CLI) | payer MEDICARE, OTHER, SELFPAY | END 2025-06-27 23:59 | disposition home or self-care (01) | LOC: RT 11:18 | PROVIDERS: PCP Family Medicine; Visit Provider Family Medicine | DX: I49.1 Atrial premature depolarization (principal); I49.3 Ventricular premature depolarization; I35.8 Other nonrheumatic aortic valve disorders; R55 Syncope and collapse | CPT/HCPCS: 93225; 93227 ==

== ENCOUNTER 2025-07-31 12:06 | Outpatient (CLI) | payer MEDICARE, OTHER, SELFPAY ==
--- NOTE | 2025-07-31 | CA_ITS ---
APPROVED REPORT Exam: Pharmacologic Technologist: Aminata Edwards Ht: 6 ft 1 in Wt: 190 lbs BSA: 2.11 m2 HR: 95 bpm BP: 170/86 mmHg Rhythm: SR Medical History Cardiac Risk Factors: HTN, Hyperlipidemia Stress Test Details HR Resting HR: 95 bpm Max Heart Rate (APMHR): 146.524642 bpm Target HR (85% APMHR): 124.982049 bpm Recovery HR: 67 bpm BP Resting BP: 170.0/86.0 mmHg Recovery BP: 161.0/79.0 mmHg ECG Resting ECG: SR Stress ECG Conclusion During lexiscan pt experinced hypotension and chest tightness. PACs noted. .5mm downsloping ST segment depression. Nondiagnostic ECG/lexiscan. Electronically signed by : Yaneth Avery MD 08/04/2025 02:01:39
[2025-07-31] MEDS: SODIUM CHLORIDE 0.9% 10ML SYR (RAD ONLY) 10 ML IV ×2 (12:35→13:40)
[2025-07-31 13:20] VITALS: BP 170/86; PULSE 95; RESP 14
--- NOTE | 2025-07-31 13:27 | PC.NURSE ---
Patient presented for GXT Myoview and reports dizziness with ambulation. After explaining to patient about treadmill stress test, patient decided he should do Lexiscan Myoview for his safety, to protect himself from falls.
[2025-07-31] MEDS: ISOTOPE MYOVIEW (PER STUDY) 1 DOSE IV (15:07)
--- NOTE | 2025-07-31 15:17 | NM_ITS ---
APPROVED REPORT Exam: Nuclear Stress Test Indication: cad, htn, hyperlipidemia, fm hx, sob, palpitations, dizziness Patient Location: Outpatient Stress Tech: Aminata VALENCIA Tech:Renetta PhillipADDIE RT(R)(N) Ht: 6 ft 1 in Wt: 192 lbs HR: 67 bpm BP: 170/86 mmHg BSA: 2.11 m2 TID: 1.22 BMI: 25.3 History: cad, htn, hyperlipidemia, fm hx, sob, palpitations, dizziness Procedure: Patient received 0.4 mg of intravenous Lexiscan, resting heart rate 67 bpm, resting blood pressure 170/86 mmHg, with Lexiscan maximum heart rate achieved was 94 bpm which is % of the maximum predicted heart rate and blood pressure was 105/65 mmHg. With Lexiscan, patient denied any complaint of chest pain. Cardiac Stress and Resting SPECT Images: Cardiac Stress and Resting SPECT images were obtained using technetium 99m Myoview 30.6 mCi stress and 9.65 mCi at rest. Resting and stress imaging in supine and prone positions demonstrated medium sized, moderate, fixed perfusion defect in the basal to mid inferior LV newberry. There is increase in transient ischemic dilatation ratio (TID 1.22), which may be suggestive of possible multivessel disease or balanced ischemia. Gated imaging demonstrates normal global LV systolic function. LVEF is calculated at 63%. Conclusion: Medium sized, moderate, fixed perfusion defect in the basal to mid inferior LV newberry. There is increase in transient ischemic dilatation ratio (TID 1.22), which may be suggestive of possible multivessel disease or balanced ischemia. Gated imaging demonstrates normal global LV systolic function. LVEF is calculated at 63%. Electronically signed by : Yaneth Avery MD 08/04/2025 01:57:22
== END 2025-07-31 23:59 | disposition home or self-care (01) ==
LOC: RAD 12:07
PROVIDERS: PCP Family Medicine; Visit Provider Nurse Practitioner Family
DX: I49.1 Atrial premature depolarization (principal); I25.10 Atherosclerotic heart disease of native coronary artery without angina pectoris; I10 Essential (primary) hypertension; E78.5 Hyperlipidemia, unspecified; R94.39 Abnormal result of other cardiovascular function study; R94.31 Abnormal electrocardiogram [ECG] [EKG]
CPT/HCPCS: 78452; 93017; 93018; A9502; J2785

== ENCOUNTER 2025-08-26 08:10 | Day surgery (SDC) | payer MEDICARE, OTHER, SELFPAY ==
[2025-08-26] VITALS (14 sets, daily range): BP systolic 140–181; BP diastolic 81–100; PULSE 53–66; RESP 15–20; TEMP 36.2; O2SAT 93–100; BMI 24.7
--- NOTE | 2025-08-26 07:09 | IR_ITS ---
APPROVED REPORT Patient Location: Outpatient PROCEDURES Left heart catheterization Left ventriculogram Selective coronary angiogram Drug-eluting stent deployment to the proximal mid dominant right coronary INDICATION Coronary artery disease, Angina pectoris, Abnormal Myoview Informed consent was obtained prior to the procedure. COMPLICATIONS NONE Estimated Blood Loss: LESS THAN 10 ML TECHNIQUE One percent lidocaine used to anesthetize the right anterior aspect of the wrist. The right radial artery was accessed via the Seldinger technique. A 6 Nigerien sheath was placed in the right radial artery. 2.5 mg of Verapamil, 800 mcg of nitroglycerin, 1mg Lidocaine and 5000 U Heparin were given through the arterial sheath. The JL3 catheter was also used to perform left heart catheterization, left ventriculogram and selective coronary angiogram. At the end of the diagnostic angiogram therapeutic heparin was administered giving a therapeutic ACT and the guide catheter was placed in the right coronary followed by BMW wire placed distally. A 3.5 x 38 mm Jorge frontier stent was deployed at 16 mitali reducing the severe stenosis to 0%. TELLO-3 flow was present before and after the procedure. At the end the procedure the apparatus was removed the sheath was removed and hemostasis was achieved using TR banding patient was transferred to the postop porting in stable condition ANGIOGRAPHIC RESULTS The left main artery Normal The left anterior descending artery Has proximal 20 and 30% stenoses with mid vessel 20 and 30% stenosis. The circumflex artery Gives rise to a large ramus intermedius which has mid vessel 40 and 50% stenoses. The circumflex artery is codominant and gives rise to 2 obtuse marginal arteries. The first obtuse marginal artery is medium in size and has 40% proximal and mid vessel stenoses. The second obtuse marginal artery is slightly larger and also has mid vessel 40% stenosis The right coronary artery Is a codominant vessel and has proximal 50% followed by mid vessel 60 to 70% tandem stenoses. The posterior descending artery has a mid vessel 40% stenosis The ARCE ventriculogram reveals Normal 65% The left ventricular end-diastolic pressure 15 mmHg IMPRESSION Coronary artery disease as described above Successful stenting of the proximal to mid right coronary artery moderate to severe disease reduced to 0% with 1 drug-eluting stent Normal ejection fraction Normal LVEDP PLAN 1. Dual antiplatelet therapy 2. Cardiac rehabilitation 3. LDL less than 55 to be achieved with high intensity statin 4. Risk factor modification Electronically signed by : Frederick Walsh MD 08/26/2025 10:22:59
[2025-08-26 08:38] LABS: Hematocrit 47.9 % (42.0-52.0); Hemoglobin 16.1 g/dL (14.1-18.0); Immature Granulocytes % 0.8 %; Mean Corpuscular HGB Conc 33.6 g/dL (31.8-35.4); Mean Corpuscular Hemoglobin 33.1 pg (27.0-31.2); Mean Corpuscular Volume 98.4 fl (80-94); Nucleated Red Blood Cells % 0 %; Platelet Count 124 K/mm3 (142-424); Red Blood Count 4.87 M/mm3 (4.60-6.20); Red Cell Distribution Width-SD 43.4 fL; White Blood Count 8.3 K/mm3 (4.8-10.8)
[2025-08-26 08:54] LABS: Chloride 102 mmol/L (98-107); Sodium 140 mmol/L (136-145)
[2025-08-26 08:55] LABS: Potassium 4.2 mmoL/L (3.5-5.1)
[2025-08-26 08:57] LABS: Blood Urea Nitrogen 12 mg/dl (9-20); Creatinine Clearance Estimated 78 mL/min (50-200); Creatinine,Serum 0.80 mg/dl (0.66-1.25); Estimated Glomerular Filt Rate 94 ml/min (>60); GFR (African American) 114 ML/MIN (>60)
[2025-08-26 08:58] LABS: Anion Gap 15.2 mEq/L (5-15); Calcium 8.9 mg/dl (8.4-10.2); Carbon Dioxide 27 mmol/L (22.0-30.0); Glucose 96 mg/dl (74-100)
[2025-08-26] MEDS: HEPARIN 1,000 UNITS/ML 10ML VIAL (CATH LAB) 5000 UNIT IV (09:46)
[2025-08-26] MEDS: NITROGLYCERIN 800MCG/8ML SYR (CATH LAB) 800 MCG IA (09:46)
[2025-08-26] MEDS: HEPARIN 1,000 UNITS/500ML NS (CATH LAB) 3000 UNIT IV (09:46)
[2025-08-26] MEDS: 0.9 % SODIUM CHLORIDE 500 ML 25 ML IV (09:46)
[2025-08-26] MEDS: LIDOCAINE 1% 10ML MDV 10 ML IJ (09:46)
[2025-08-26] MEDS: VERAPAMIL 2.5MG/ML 2ML VIAL 2.5 MG IV (09:47)
[2025-08-26] MEDS: FENTANYL 100MCG/2ML VIAL 50 MCG IV (10:18)
[2025-08-26] MEDS: MIDAZOLAM HCL 1MG/ML 5ML VIAL 1 MG IV (10:18)
[2025-08-26] MEDS: IOPAMIDOL-370 (76%);100ML BOTTLE 70 ML IV (11:35)
[2025-08-26 12:07] LABS: CATHL Activated Clotting Time > 400 SEC (74-125)
== END 2025-08-26 14:45 | disposition home or self-care (01) ==
PROVIDERS: PCP Family Medicine; Visit Provider Internal Medicine
PROC: 4A023N7 Measurement of Cardiac Sampling and Pressure, Left Heart, Percutaneous Approach (ICD-10-PCS; CPT 93452; principal; 2025-08-26 08:45)
DX: I25.119 Atherosclerotic heart disease of native coronary artery with unspecified angina pectoris (principal); Z79.82 Long term (current) use of aspirin; Z79.84 Long term (current) use of oral hypoglycemic drugs; Z79.899 Other long term (current) drug therapy; Z82.49 Family history of ischemic heart disease and other diseases of the circulatory system; I10 Essential (primary) hypertension; E78.5 Hyperlipidemia, unspecified; K76.0 Fatty (change of) liver, not elsewhere classified; Z87.891 Personal history of nicotine dependence
CPT/HCPCS: 92928; 93452; 80048; 85025; 85347; 99152; C1725; C1760; C1769; C1874; C9600; J1200; J1644; J2003; J3010; J7040; Q9967

== ENCOUNTER 2025-08-29 13:33 | Outpatient (CLI) | payer MEDICARE, OTHER, SELFPAY ==
--- OUTSIDE RECORDS SUMMARY | 2024-10-18 11:15 | XMS_ITS ---
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 Role Phone Mili Vasquez Primary Care Provider Cullen Steinberg Unavailable [phone] Allergies No Known Allergies Results Component Value Reference Range Notes Influenza Screen (in house) Reviewed date:10/18/2024 05:33:23 PM Interpretation:Negative Performing Lab: Notes/Report: Negative results Neg Covid test (in house) Reviewed date:10/18/2024 05:32:59 PM Interpretation:Negative Performing Lab: Notes/Report: Negative Result: Neg REASON FOR VISIT Fever, Shakes, Congestion Medications Medication SIG (Take, Route, Frequency, Duration) Notes Start Date End Date Status Promethazine-DM 6.25-15 MG/5ML 5 ml as needed Orally every 6 hrs 10/18/2024 Active dexAMETHasone 2 MG 1 tablet Orally ever y 12 hrs; Duration: 5 day(s) 10/18/2024 Active Lisinopril 20 MG 1/2 tab orally once a day Active Metoprolol Tartrate 25 MG 1/2 tab orally 2 times a day Active Atorvastatin Calcium 80 MG 1 tab(s) oral ly once a day Active Multiple Vitamin - 1 cap(s) orally once a day Active Zithromax Z-Andrés 250 MG as directed Orall y once daily; Duration: 5 day(s) 10/18/2024 Active Flomax 0.4 MG 1 cap(s) orally once a day; Duration: 30 day(s) Active Aspirin Adult Low Dose 81 MG 1 tab(s) or ally once a day Active Myrbetriq 50 MG 1 tab(s) orally once a day Active Omeprazole 20 MG 1 cap(s) orally once a day Active Vital Signs Blood pressure systolic 120 mm Hg 10/18/20 24 Blood pressure diastolic 62 mm Hg 024 Heart Rate 49 /min 10/18/2024 Height 73 in 10/18/2024 Weight 207.6 lbs 10/18/2024 BMI 27.39 kg/m2 10/18/2024 Encounters Encounter Location Date Provider Diagnosis [facility] [address] [facility] [address] [facility] [address] [place], [place] [id number] 10/18/2024 Cullen Steinberg Bronchitis J40 Assessments Encounter Date Diagnosis (ICD Code) Assessment Notes Treatment Notes Treatment Clinical Notes Section Notes 10/18/2024 Bronchitis (ICD-10 - J40) Plan Of Treatment Medication Medication Name Sig Start Date Stop Date Notes Promethazine-DM 6.25-15 MG/5ML 5 ml as n eeded Orally every 6 hrs 10/18/2024 dexAMETHasone 2 MG 1 tablet Orally ever y 12 hrs; Duration: 5 day(s) 10/18/2024 Zithromax Z-Andrés 250 MG as directed Orall y once daily; Duration: 5 day(s) 10/18/2024 Next Appt Details Follow Up: prn, Reason: Provider Name:Mili Waller er, 09/29/2025 11:00:00 AM, [address] [facility] [address] [facility], [address], [place], [id number], Progress Notes * ERWIN HALLDOB: [birth year] (75 yo M)Acc No.[id number]:10/18/2024 Progress Notes Patient: ERWIN KIMBALL Provider: Kath Steinberg M.D. :1950 A ge:74 Y S ex:Male Date:10/18/2024 Address:[facility] [place] Pcp:Mili Vasquez Subjective: * Chief Complaints: * 1 . Fever, Shakes, Congestion. * HPI: E NT/respiratory: 74 year old male presents with c/o sore throat. c/o cough. c/o nasal congestion w atery eyes, runny nose weakness. Pt sts his symptoms started on Monday and sts he called in here one day this week, but sts his symptoms have gotten somewhat better since calling here. c/o Fever P t sts he has been running fevers and has been shaky. c/o Short of Breath. * ROS: D ERMATOLOGY: no R rhonda. n o H keaton. G ASTROENTEROLOGY: no N ausea. n o V omiting. U ROLOGY: no D ifficulty urinating. n o B lood in urine. * Medical History: M ild heart attack-2012, High cholestrol, GERD, Over active bladder, Broken rib left side, Small hiatal hernia, Fatty liver, DDD, Mild osteoporosis, 10/20/16 BP=153 Aczn=349 HDL=36 LDL=72. * Surgical History: V asectomy , hemorrhoid surgery 2006, heart cath for nonSTEMI 2012. * Hospitalization/Major Diagno stic Procedure: H -[place] mild heart attack 2012. * Family History: F ather: 78 yrs, heart failure. M other: 91 yrs, lymphoma. 3 brother(s) , 1 sister(s) . 1 son(s) , 1 daughter(s) . . * Social History: C URRENT TOBACCO USE: Yes S moking Status: P atient does smoke, p acks per day:?0, S moking preference: c igars. C affeine: no. Home smoke detector use: yes. Alcohol: Yes, Type: whiskey daily , Frequency: ,Years: , Determination:. * Medications: T aking Atorvastatin Calcium 80 MG Tablet 1 tab(s) orally once a day , Taking Metoprolol Tartrate 25 MG Tablet 1/2 tab orally 2 times a day , Taking Lisinopril 20 MG Tablet 1/2 tab orally once a day , Taking Omeprazole 20 MG Capsule Delayed Release 1 cap(s) orally once a day , Taking Myrbetriq 50 MG Tablet Extended Release 24 Hour 1 tab(s) orally once a day , Taking Aspirin Adult Low Dose 81 MG Tablet Delayed Release 1 tab(s) orally once a day , Taking Multiple Vitamin - Capsule 1 cap(s) orally once a day , Taking Flomax 0.4 MG Capsule 1 cap(s) orally once a day , Discontinued Benzonatate 200 MG Capsule 1 capsule Orally Three times a day , Discontinued Albuterol Sulfate HFA 108 (90 Base) MCG/ACT Aerosol Solution 1 puff as needed Inhalation every 4 hrs, prn , Medication List reviewed and reconciled with the patient * Allergies: N .K.D.A. Objective: * Vitals: W t:207.6, Temp:98.6, BP:120/62, HR:49, Nurse:[facility], Ht: 73, BMI:27.39. * Examination: E NT/Respiratory: General Appearance: N AD. E yes: P ERRLA, sclera clear. O ral cavity : erythema without exudate on pharynx. N oswaldo : n o cervical lymphadenopathy. H eart : R RR, normal S1 S2. L ungs: c lear to auscultation bilaterally. Assessment: * Assessment: 1. Kath lara - J (Primary) Plan: * Treatment: Value Reference Range r esults Neg * Julianne Rascon 10/18/2024 4:03:0 7 PM > , Provider reviewed results while patient in office.Cullen Steinberg 10/18/2024 5:33:19 PM > ?LAB: Covid test (in house) (Collection Date & Time - 10/18/2024)?Negative* Value Reference Range R esult: Neg * Julianne Rascon 10/18/2024 4:02:4 9 PM > , Provider reviewed results while patient in office.Cullen Steinberg 10/18/2024 5:32:54 PM > * Procedure Codes: 8 7804 Flu Test- Nasal Swab, Modifiers: QW , 79515 COVID TEST IN HOUSE, Modifiers: QW * Follow Up: p rn * Images: Billing Information: * Visit Code: 33093 Office Visit, Est Pt., Level 3. * Procedure Codes: 26685 Flu Test- Nasal Swab. Modifiers: QW 77020 COVID TEST IN HOUSE. Modifiers: QW * Electronic signature of Chrissy Steinberg MD on 08/29/2025 at 01:41 PM EST Sign off status: Pending * Provider: Kath Steinberg M.D. Date: 12/19/2023 Generated for Sylvie machado/Masoud/eTjustensmitting on: 1 10/29/2024 01:41 PM EST History and Physical Notes * HPI (History of Present Illness) Category Sub-Category Detail Notes Category Not es ENT/respiratory sore throat Short of Breath cough Fever Pt sts he has been r unning fevers and has been shaky nasal congestion watery eyes, runny n ose weakness. Pt sts his symptoms started on Monday and sts he called in here one day this week, but sts his symptoms have gotten somewhat better since calling here Examination Category Sub-Category Detail Notes Category Not es ENT/Respiratory Oral cavity : erythema without exudate on pharynx Neck : no cervical lymphade nopathy Heart : RRR, normal S1 S2 Lungs: clear to auscultatio n bilaterally General Appearance: NAD Eyes: PERRLA, sclera clear
--- OUTSIDE RECORDS SUMMARY | 2025-05-16 05:30 | XMS_ITS ---
Author Organization [facility] Address [address] [facility] [address] [place] [id number] Care Team Providers Care Technical Illustrations Map Inker Name Role Phone Mili Vasquez Primary Care Provider Allergies No Known Allergies Results Component Value Reference Range Notes CBC Venipuncture (in house) Reviewed date:05/22/2025 05:35:56 PM Interpretation:Normal Performing Lab: Notes/Report: Normal wbc 7.2 3.5 - 10 lymph 15.7% 15 - 50 mid 4.9% 2 - 15 gran 79.4% 35 - 80 rbc 4.62 3.5 - 5.5 hgb 15.1 11.5 - 16.5 hct 44.9 35 - 55 mcv 97.1 75 - 100 mch 32.8 25 - 35 mchc 33.7 31 - 38 platlet 121 100 - 400 Glycohemoglobin A1c (in hous e) Reviewed date:05/22/2025 05:35:56 PM Interpretation:5.4 Normal Performing Lab: Notes/Report: 5.4 Normal glycohemoglobin 5.4% 5 - 6.5 % P-Comprehensive Metabolic Pa nidia (CMP) Reviewed date:05/22/2025 05:35:56 PM Interpretation:Normal Performing Lab: Notes/Report: Test performed by [facility] [address] [place] [address] , [address], [place] [address] Kevin Stone MD, Cardiothoracic Physiotherapist CLIA: [id number] Sodium 143 135-145 mmol/L Potassium 4.5 3.5-5.3 mmol/L Chloride 106 97-108 mmol/L CO2 27 20-32 mmol/L Glucose 109 65-99 mg/dL BUN 16 8-23 mg/dL Creatinine 0.82 0.70-1.30 mg/dL Calcium 9.6 8.6-10.4 mg/dL eGFR by Creatinine 92 >59 mL/min/1.73m2 Protein 6.3 6.0-8.3 g/dL Albumin 4.2 3.5-5.3 g/dL Alkaline Phosphatase 66 40-129 IU/L ALT (SGPT) 23 <5-55 IU/L AST (SGOT) 23 <5-46 IU/L Bilirubin, Total 0.7 <0.2-1.2 mg/dL A/G Ratio 2.0 1.1-2.5 P-Sed Rate (ESR) Reviewed date:05/22/2025 05:35:56 PM Interpretation:Normal Performing Lab: Notes/Report: Test performed by [facility] [address] [place] [address] Dr[facility], [place] [address] Kevin Stone MD, Cardiothoracic Physiotherapist CLIA: [id number] Erythrocyte Sedimentation Ra te (ESR), Automated 3 <21 mm/hr P-Lipid Panel Reviewed date:05/22/2025 05:35:56 PM Interpretation:Normal Performing Lab: Notes/Report: Test performed by [facility] [address] [place] [address] , [facility], [place] [address] Kevin Stone MD, Cardiothoracic Physiotherapist CLIA: [id number] Cholesterol 131 <200 mg/dL Triglycerides 95 <150 mg/dL HDL Cholesterol 49 >39 mg/dL Cholesterol / HDL Ratio 2.67 0.00-4.99 Ratio Non-HDL Cholesterol 82 <130 mg/dL LDL Cholesterol (Calculation) 63 <130 mg/dL LDL Cholesterol Levels* Less than 100 mg/dL Optimal 100 to 129 mg/dL Near Optimal/ Above Optimal 130 to 159 mg/dL Borderline High 160 to 189 mg/dL High 190 mg/dL and above Very High * Categories as recommended by the 2004 ATPIII guidelines LDL/HDL Ratio 1.3 <3.3 Ratio LDL Cholesterol Patient History Test Date: 05/16/2025 LDL Results: 63 Units: mg/dL % Change: - Echocardiogram Reviewed date:05/30/2025 12:26:15 PM Interpretation:Abnormal- see 05/30/25 f/u OV Performing Lab: Notes/Report: Abnormal- see 05/30/25 f/u OV Carotid Duplex Reviewed date:05/22/2025 05:35:56 PM Interpretation:less than 50% stenosis bilaterally Performing Lab: Notes/Report: less than 50% stenosis bilaterally Ultrasound : Aorta Reviewed date:05/30/2025 12:26:23 PM Interpretation:Negative, see 05/30/2025 OV Performing Lab: Notes/Report: Negative, see 05/30/2025 OV Result Negative REASON FOR VISIT annual check up w/labs, Needs labs with PSA, low dose chest CT, AAA screening, & colon cancer screening Medications Medication SIG (Take, Route, Frequency, Duration) Notes Start Date End Date Status Meloxicam 15 MG 1 tablet Orally Once a day; Duration: 30 days 05/16/2025 Active Flomax 0.4 MG 1 cap(s) orally once a day; Duration: 30 day(s) Active Lisinopril 20 MG 1/2 tab orally once a day Active Omeprazole 20 MG 1 cap(s) orally once a day Active Myrbetriq 50 MG 1 tab(s) orally once a day Active Aspirin Adult Low Dose 81 MG 1 tab(s) orally once a day Active Multiple Vitamin - 1 cap(s) orally once a day Active Atorvastatin Calcium 80 MG 1 tab(s) oral ly once a day Active Metoprolol Tartrate 25 MG 1/2 tab orally 2 times a day Active Tadalafil 20 MG 1 tablet as needed O rally Once a day Active Finasteride 5 MG 1 tablet Orally Once a day Active Problems Problem Type SNOMED Code ICD Code Onset Dates Problem Status W/U Status Risk Notes Problem Atherosclerotic heart disease of [place] coronary artery without angina pectoris ([id number]) 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) Active confirmed Problem Chronic pain (94145012) Other chronic pain (G89.29) Active confirmed Problem Aortic valve sclerosis (60069194) Aortic valve sclerosis (I35.8) Active confirmed Problem Occlusion and stenosis of multiple and bilateral cerebral arteries (313013488) Carotid stenosis, bilateral (I65.23) Active confirmed Vital Signs Blood pressure systolic 170 mm Hg 05/16/20 25 Blood pressure diastolic 90 mm Hg 025 Heart Rate 58 /min 05/16/2025 Height 73 in 05/16/2025 Weight 198.6 lbs 05/16/2025 BMI 26.2 kg/m2 05/16/2025 Encounters Encounter Location Date Provider Diagnosis [facility] [address] [facility] [address] [place], [place] [id number] 05/16/2025 Mili Vasquez 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 ; Dorsalgia, unspecified M54.9 ; Other chronic pain G89.29 ; Aortic valve sclerosis I35.8 ; Carotid stenosis, bilateral I65.23 ; Tobacco use Z72.0 and BMI 26.0-26.9,adult Z68.26 Assessments Encounter Date Diagnosis (ICD Code) Assessment Notes Treatment Notes Treatment Clinical Notes Section Notes 05/16/2025 Arteriosclerotic cardiovascular disease (ASCVD) (ICD-10 - I25.10) 05/16/2025 Dorsalgia, unspecified (ICD-10 - M54.9) 05/16/2025 Other chronic pain (ICD-10 - G89.29) 05/16/2025 Aortic valve sclerosis (ICD-10 - I35.8) 05/16/2025 Carotid stenosis, bilateral (ICD-10 - I65.23) 05/16/2025 Tobacco use (ICD-10 - Z72.0) 05/16/2025 BMI 26.0-26.9,adult (ICD-10 - Z68.26) Plan Of Treatment Medication Medication Name Sig Start Date Stop Date Notes Meloxicam 15 MG 1 tablet Orally Once a day; Duration: 30 days 05/16/2025 Next Appt Details Follow Up: 2 Weeks, Reason: Provider Name:Mili Waller er, 09/29/2025 11:00:00 AM, [address], [address], [place], [id number], Progress Notes * ERWIN HALLDOB: [birth year] (75 yo M)Acc No.[id number]:05/16/2025 Progress Notes Patient: ERWIN KIMBALL Provider: Mili Vasquez M.D. :1950 A ge:74 Y S ex:Male Date:05/16/2025 Address:[address] [place] [address] MASHA Narayan Hilario [id number] Subjective: * Chief Complaints: * 1 . Annual check up w/labs. 2. Needs labs with PSA, low dose chest CT, AAA screening, & colon cancer screening. * HPI: C ardiology: The patient is here today for a check up on Hypertension. Pt states he is doing good and denies any new concerns. Pt states he is still having some upper back pain and weakness in his legs. Pt states [facility] and was given Tramadol. Pt states it caused him to be dizzy so he stopped it. Pt states he has a visit with the [facility] next week. Pt is fasting. Denies : Chest Pain. D enies : Short of Breath. D enies : Dizziness. D enies : Palpitations. * ROS: D ERMATOLOGY: no R rhonda. n o H keaton. G ASTROENTEROLOGY: no N ausea. n o V omiting. n o D iarrhea.? U ROLOGY: no D ifficulty urinating. n o B lood in urine. * Medical History: M ild heart attack-2013, High cholestrol, GERD, Over active bladder, Broken rib left side, Small hiatal hernia, Fatty liver, DDD, Mild osteoporosis, 10/20/16 GP=542 Yxgp=673 HDL=36 LDL=72. * Surgical History: V asectomy , hemorrhoid surgery 2006, heart cath for nonSTEMI 2012. * Hospitalization/Major Diagno stic Procedure: H -AR mild heart attack 2012. * Family History: [...] ,Years: , Determination:. * Medications: T aking Tadalafil 20 MG Tablet 1 tablet as needed Orally Once a day , Taking Finasteride 5 MG Tablet 1 tablet Orally Once a day , Taking Atorvastatin Calcium 80 MG Tablet 1 tab(s) [...] cap(s) orally once a day , Discontinued Zithromax Z-Andrés 250 MG Tablet as directed Orally once daily , Discontinued dexAMETHasone 2 MG Tablet 1 tablet Orally every 12 hrs , Discontinued Promethazine-DM 6.25-15 MG/5ML Syrup 5 ml as needed Orally every 6 hrs , Medication List reviewed and reconciled with the patient * Allergies: N .K.D.A. Objective: * Vitals: W t: 198.6, Temp: 98.0, BP: 170/90, HR: 58, Nurse: DERICK, Ht: 73, Repeat BP: 146/80, BMI:26.2. * Examination: G eneral Examination: General Appearance: N AD. H EENT: u nremarkable.?Oral cavity: n o lesions, mucosa moist and WNL, no erythema. N oswaldo: s upple, no lymphadenopathy. C hest: n ormal shape and expansion. H eart: R SR. L ungs: c lear to auscultation. N eurologic Exam: I ntact, gait normal. S kin: n ormal, no rash.?Peripheral pulses: n ormal (2+) bilaterally. E xtremities: 1 + leg edema. ? Assessment: * Assessment: 1. A rteriosclerotic cardiovascular disease (ASCVD) - I25.10 (Primary) 2 . D orsalgia, unspecified - M54.9 3 . O ther chronic pain - G89.29 ?4. A ortic valve sclerosis - I35.8 5 . C arotid stenosis, bilateral - I65.23 6 . T obacco use - Z72.0 7 . B [place] 26.0-26.9,adult - Z68.26 Plan: * Treatment: Value Reference Range A /G Ratio 2.0 1.1-2.5 - * A lbumin 4.2 3.5-5.3 - g/dL * A lkaline Phosphatase 66 40-129 - IU/L * A LT (SGPT) 23 <5-55 - IU/L * A ST (SGOT) 23 <5-46 - IU/L * B ilirubin, Total 0.7 <0.2-1.2 - mg/dL * B UN 16 8-23 - mg/dL * C alcium 9.6 8.6-10.4 - mg/dL * C hloride 106 97-108 - mmol/L * C O2 27 20-32 - mmol/L * C reatinine 0.82 0.70-1.30 - mg/dL * G lucose 109 H 65-99 - mg/dL * P otassium 4.5 3.5-5.3 - mmol/L * S odium 143 135-145 - mmol/L * P rotein 6.3 6.0-8.3 - g/dL * e GFR by Creatinine 92 >59 - mL/min/1.73m2 * Stephanie Wayne 05/22/2025 05 :35:35 PM EDT > Patient informed of normal results. ?LAB: P-Sed Rate (ESR) (Collection Date & Time - 05/16/2025 10:37 AM)?Normal * Value Reference Range E rythrocyte Sedimentation Rate (ESR), Automated 3 <21 - mm/hr * ClimaxStephanie watkins Edin 05/22/2025 05 :35:35 PM EDT > Patient informed of normal results. ?LAB: P-Lipid Panel (Collection Date & Time - 05/16/2025 10:37 AM)?Normal* Value Reference Range C holesterol / HDL Ratio 2.67 0.00-4.99 - Ratio * C holesterol 131 <200 - mg/dL * H DL Cholesterol 49 >39 - mg/dL * L DL Cholesterol (Calculation) 63 <130 - mg/d L * L DL/HDL Ratio 1.3 <3.3 - Ratio * N on-HDL Cholesterol 82 <130 - mg/dL * T riglycerides 95 <150 - mg/dL * Elizabeth Wayneniangelina Jesus 05/22/2025 05 :35:35 PM EDT > Patient informed of normal results. ?LAB: CBC Venipuncture (in house) (Collection Date & Time - 05/16/2025)? Normal* Value Reference Range w bc 7.2 3.5 - 10 * l ymph 15.7% 15 - 50 * m id 4.9% 2 - 15 * g ran 79.4% 35 - 80 * r bc 4.62 3.5 - 5.5 * h gb 15.1 11.5 - 16.5 * h ct 44.9 35 - 55 * m cv 97.1 75 - 100 * m ch 32.8 25 - 35 * m chc 33.7 31 - 38 * p latlet 121 100 - 400 * Stephanie Wayne 05/16/2025 11 :37:37 AM EDT > Stephanie Wayne 05/22/2025 05:35:35 PM EDT > Patient informed of normal results. ?LAB: Glycohemoglobin A1c (in house) (Collection Date & Time - 05/16/2025)? 5.4 Normal* Value Reference Range g lycohemoglobin 5.4% 5 - 6.5 % * Stephanie Wayne 05/16/2025 12 :11:30 PM EDT > Stephanie Wayne 05/22/2025 05:35:35 PM EDT > Patient informed of normal results. ?Imaging: Ultrasound : Aorta (Performed Date - 05/27/2025)?Negative, see 05/30/2025 OV* Value Reference Range R esult Negative * Chacha Alcira 05/23/2025 11:38 :33 AM EDT > no auth required; CPT code 75236; faxed to [facility] Scheduling 2.?Dorsalgia, unspecified? Start Meloxicam Tablet, 15 MG, 1 tablet, Orally, Once a day, 30 days, 30, Refills 2.??3.?Aortic valve sclerosis?Imaging: Echocardiogram (Performed Date - 05/21/2025)?Abnormal- see 05/30/25 f/u OV* Alcira Burnham 05/16/2025 11:3 0:36 AM EDT > no auth required; CPT code 77172; faxed to [facility] Scheduling 4.?Carotid stenosis, bilateral?Imaging: Carotid Duplex (Performed Date - 05/21/2025)?less than 50% stenosis bilaterally* Alcira Burnham 05/16/2025 11:3 0:59 AM EDT > no auth required; CPT code 52059; faxed to [facility] Scheduling Stephanie Wayne 05/22/2025 05:35:35 PM EDT > Patient informed of normal results. * Procedure Codes: G 2211 Complex e/[place], [address] GLYCATED HEMOGLOBIN TEST, Modifiers: QW , 97286 CBC WITH AUTO DIFF, 3044F HG A1C LEVEL LT 7.0%, G8420 BMI<30 AND >=22 CALC & DOCU, G8753 MOST RECENT SYSTOLIC BP >= 140MM HG, G8754 MOST RECENT DIASTOLIC BP < 90MM HG * Follow Up: 2 Weeks * Images: Billing Information: * Visit Code: 85885 Office Visit, Est Pt., Level 4. * Procedure Codes: G2211 Complex e/[place]. [address] GLYCATED HEMOGLOBIN TEST. Modifiers: QW 69795 CBC WITH AUTO DIFF. 3044F HG A1C LEVEL LT 7.0%. G8420 BMI<30 AND >=22 CALC & DOCU. G8753 MOST RECENT SYSTOLIC BP >= 140MM HG. G8754 MOST RECENT DIASTOLIC BP < 90MM HG. * Electronic signature of Mili Vasquez MD on 08/29/2025 at 01:42 PM EST Sign off status: Pending * Provider: Mili Vasquez M.D. Date: 0 05/16/2025 Generated for Sylvie machado/[place]/eTransmitting on: 10/29/2024 01:42 PM EST History and Physical Notes * HPI (History of Present Illness) Category Sub-Category Detail Notes Category Not es Cardiology Short of Breath Chest Pain Palpitations Dizziness Examination Category Sub-Category Detail Notes Category Not es General Examination HEENT: unremarkable Heart: RSR Lungs: clear to auscultatio n Extremities: 1+ leg edema General Appearance: NAD Skin: normal, no rash Neurologic Exam: Intact, gait normal Neck: supple, no lymphaden opathy Oral cavity: no lesions, mucosa m oist and WNL, no erythema Peripheral pulses: normal (2+) bilatera lly Chest: normal shape and exp ansion
--- OUTSIDE RECORDS SUMMARY | 2025-05-30 06:30 | XMS_ITS ---
[facility] [address] [place] [id number] Care Team Providers Care Color Depositing Machine Tender Name Role Phone Mili Vasquez Primary Care Provider Allergies No Known Allergies REASON FOR VISIT 2 week follow up- see abnormal ECHO and negative abdominal US results Medications Medication SIG (Take, Route, Frequency, Duration) Notes Start Date End Date Status Myrbetriq 50 MG 1 tab(s) orally once a day Active Aspirin Adult Low Dose 81 MG 1 tab(s) orally once a day Active Multiple Vitamin - 1 cap(s) orally once a day Active Flomax 0.4 MG 1 cap(s) orally once a day; Duration: 30 day(s) Active Meloxicam 15 MG 1 tablet Orally Once a day; Duration: 30 days 05/16/2025 Not-Takin g Finasteride 5 MG 1 tablet Orally Once a day Active Atorvastatin Calcium 80 MG 1 tab(s) orally once a day Active Metoprolol Tartrate 25 MG 1 orally 2 times a day Active Omeprazole 20 MG 1 cap(s) orally once a day Active Tadalafil 20 MG 1 tablet as needed Orally Once a day Active traMADol HCl 50 MG 1 tablet as needed Orally Once a day Active Lisinopril 20 MG 1 orally twice a day Active Vital Signs Blood pressure systolic 182 mm Hg 05/30/20 25 Blood pressure diastolic 100 mm Hg 025 Heart Rate 56 /min 05/30/2025 Height 73 in 05/30/2025 Weight 197.0 lbs 05/30/2025 BMI 25.99 kg/m2 05/30/2025 Encounters Encounter Location Date Provider Diagnosis [facility] [address] [facility] [address] [place] [id number] 05/30/2025 Mili Vasquez Essential hypertensi on I10 ; 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 ; Aortic valve sclerosis I35.8 and BMI 25.0-25.9,adult Z68.25 Assessments Encounter Date Diagnosis (ICD Code) Assessment Notes Treatment Notes Treatment Clinical Notes Section Notes 05/30/2025 Essential hypertension (ICD-10 - I10) 05/30/2025 Arteriosclerotic cardiovascular disease (ASCVD) (ICD-10 - I25.10) 05/30/2025 Aortic valve sclerosis (ICD-10 - I35.8) 05/30/2025 BMI 25.0-25.9,adult (ICD-10 - Z68.25) Plan Of Treatment Medication Medication Name Sig Start Date Stop Date Notes Lisinopril 20 MG 1 orally twice a day Next Appt Details Provider Name:Mili Waller er, 09/29/2025 11:00:00 AM, [address] [facility] [address] [facility], [address], [place], [id number], Progress Notes * ERWIN HALLDOB: [birth year] (75 yo M)Acc No.[id number]:05/30/2025 Progress Notes Patient: ERWIN KIMBALL Provider: Mili Vasquez M.D. :1950 A ge:74 Y S ex:Male Date:05/30/2025 Address:[facility] [id number] Subjective: * Chief Complaints: * 1 . 2 week follow up- see abnormal ECHO and negative abdominal US results. * HPI: C ardiology: The patient is here for a follow up on Echo and carotid duplex. See pt docs. Pt states he is having some dizziness and fatigue. Pt is fasting. 74 year old male presents with c/o Dizziness. c/o Fatigue. Denies : Chest Pain. D enies : Short of Breath. D enies : Palpitations. * ROS: D [...] hernia, Fatty liver, DDD, Mild osteoporosis, 10/20/16 OD=264 Fyce=761 HDL=36 LDL=72. * Surgical History: V asectomy , hemorrhoid surgery 2006, heart cath for nonSTEMI 2012. * Hospitalization/Major Diagno stic Procedure: [facility]. * Family History: [...] ,Years: , Determination:. * Medications: T aking traMADol HCl 50 MG Tablet 1 tablet as needed Orally Once a day , Taking Tadalafil 20 MG Tablet 1 tablet as needed Orally Once a day , Taking Finasteride 5 MG Tablet 1 tablet Orally Once a day , Taking Atorvastatin Calcium 80 MG Tablet 1 tab(s) orally once a day , Taking Metoprolol Tartrate 25 MG Tablet 1 orally 2 times a day , Taking Lisinopril 20 MG Tablet 1 orally once a day , Taking Omeprazole [...] 1 cap(s) orally once a day , Not-Taking Meloxicam 15 MG Tablet 1 tablet Orally Once a day , Medication List reviewed and reconciled with the patient * Allergies: N .K.D.A. Objective: * Vitals: W t: 197.0, Temp: 98.1, BP: 182/100, HR: 56, O2 Sat: 97% on RA, Nurse: DERICK, Ht: 73, Repeat BP: 174/92, BMI:25.99. * Examination: G eneral Examination: General Appearance: N AD. H EENT: u nremarkable.?Oral cavity: n o lesions, mucosa moist and WNL, no erythema. N oswaldo: s upple, no lymphadenopathy. C hest: n ormal shape and expansion. H eart: R SR. L ungs: c lear to auscultation. N eurologic Exam: I ntact, gait normal. S kin: n ormal, no rash.?Peripheral pulses: n ormal . E xtremities: 1 + leg edema. ? Assessment: * Assessment: 1. E ssential hypertension - I10 (Primary) 2 . A rteriosclerotic cardiovascular disease (ASCVD) - I25.10 3 . A ortic valve sclerosis - I35.8 ?4. B PA 25.0-25.9,adult - Z68.25 Plan: * Treatment: * Procedure Codes: G 2211 Complex e/m visit add on, G8420 BMI<30 AND >=22 CALC & DOCU, G8950 PREHTN/HTN BP DOC INDCD F/U DOC, G8753 MOST RECENT SYSTOLIC BP >= 140MM HG, G8754 MOST RECENT DIASTOLIC BP < 90MM HG * Images: Billing Information: * Visit Code: 28709 Office Visit, Est Pt., Level 3. * Procedure Codes: G2211 Complex e/m visit add on. G8420 BMI<30 AND >=22 CALC & DOCU. G8950 PREHTN/HTN BP DOC INDCD F/U DOC. G8753 MOST RECENT SYSTOLIC BP >= 140MM HG. G8754 MOST RECENT DIASTOLIC BP < 90MM HG. * Electronic signature of Mili Vasquez MD on 08/29/2025 at 01:42 PM EST Sign off status: Pending * Provider: Mili Vasquez M.D. Date: 0 05/30/2025 Generated for Racheli carter/[place]/eTransmitting on: 1 10/29/2024 01:42 PM EST History and Physical Notes * HPI (History of Present Illness) Category Sub-Category Detail Notes Category Not es Cardiology Short of Breath Chest Pain Palpitations Dizziness Fatigue Examination Category Sub-Category Detail Notes Category Not es General Examination HEENT: unremarkable Heart: RSR Lungs: clear to auscultatio n Extremities: 1+ leg edema General Appearance: NAD Skin: normal, no rash Neurologic Exam: Intact, gait normal Neck: supple, no lymphaden opathy Oral cavity: no lesions, mucosa m oist and WNL, no erythema Peripheral pulses: normal Chest: normal shape and exp ansion
--- OUTSIDE RECORDS SUMMARY | 2025-06-10 06:30 | XMS_ITS ---
[facility] Address [address] [place] [id number] Care Team Providers Care Market Manager Name Role Phone Mili Vasquez Primary Care Provider Mattie Harvey Unavailable [phone] Allergies No Known Allergies REASON FOR VISIT bowel issues Medications Medication SIG (Take, Route, Frequency, Duration) Notes Start Date End Date Status Flomax 0.4 MG 1 cap(s) orally once a day; Duration: 30 day(s) Active Multiple Vitamin - 1 cap(s) orally once a day Active Meloxicam 15 MG 1 tablet Orally Once a day; Duration: 30 days 05/16/2025 Not-Takin g Lisinopril 20 MG 1 orally twice a day Active Aspirin Adult Low Dose 81 MG 1 tab(s) orally once a day Active Atorvastatin Calcium 80 MG 1 tab(s) orally once a day Active Finasteride 5 MG 1 tablet Orally Once a day Active Omeprazole 20 MG 1 cap(s) orally once a day Active Metoprolol Tartrate 25 MG 1 orally 2 times a day Active Myrbetriq 50 MG 1 tab(s) orally once a day Not-Taking Tadalafil 20 MG 1 tablet as needed Orally Once a day Active traMADol HCl 50 MG 1 tablet as needed Orally Once a day Active metFORMIN HCl ER 500 MG 1 tablet with ev ening meal Orally Once a day Active Problems Problem Type SNOMED Code ICD Code Onset Dates Problem Status W/U Status Risk Notes Problem Acute constipation (357822284) Acute constipation (K59.00) Active confirmed Vital Signs Blood pressure systolic 160 mm Hg 06/10/20 25 Blood pressure diastolic 90 mm Hg 025 Heart Rate 56 /min 06/10/2025 Height 73 in 06/10/2025 Weight 193.4 lbs 06/10/2025 BMI 25.51 kg/m2 06/10/2025 Encounters Encounter Location Date Provider Diagnosis Akbar [address] [facility] [address] [facility] [address] [place] [id number] 06/10/2025 Mattie Harvey Acute constipation K59.00 Assessments Encounter Date Diagnosis (ICD Code) Assessment Notes Treatment Notes Treatment Clinical Notes Section Notes 06/10/2025 Acute constipation (ICD-10 - K59.00) to continue with Miralax bid until bowels move; put into prune juice; dulcolax supp daily prn; MG++ citrated if this does not work in a couple of days; excellent water intake; bland diet until resolved Plan Of Treatment Treatment Notes Assessment Notes Acute constipation to continue with Osbaldo alax bid until bowels move; put into prune juice; dulcolax supp daily prn; MG++ citrated if this does not work in a couple of days; excellent water intake; bland diet until resolved Next Appt Details Follow Up: prn, Reason: Provider Name:Mili Waller er, 09/29/2025 11:00:00 AM, [address] [facility] [address] [facility], [address], [place], [id number], Progress Notes * ERWIN HALLDOB: [birth year] (75 yo M)Acc No.[id number]:06/10/2025 Progress Notes Patient: ERWIN KIMBALL Provider: JUSTIN Antonio :1950 A ge:74 Y S ex:Male Date:06/10/2025 Address:[address] [place], [place] [address] [place], [id number] Pcp:Mili Vasquez Subjective: * Chief Complaints: * 1 . Bowel issues. * HPI: [facility]i astroenterology: pt states that he played golf 06/05/2025 after which he became light headed and went to the ER for evaluation as per the following notes: 06/05/2025 [facility] ER visit notes: HPI narrative: Patient is a 74-year-old male presents today with lightheadedness or dizziness. States that it is positional anytime that he stands up he has symptoms and gets better until he sits down. Once he is sitting down he is completely asymptomatic. Denies any changes in vision coordination weakness numbness etc. Recently had some blood pressure medications changed went up on his lisinopril with Dr. Vasquez. Denies any nausea vomiting diarrhea chest pain shortness of breath fevers chills or any other symptoms. Medical Decision Narrative: 74-year-old with above history and physical within normal neurologic exam and a GCS of 15 specifically a normal posterior circulation exam with gait finger-nose cucs-hs-adrd etc. No indication for CT imaging with this presentation. I did perform orthostatic vital signs in the room that the patient stand up and his blood pressure went from 160 systolic to systolic of 120 which is significant. Patient's been describing symptomatic changes only upon standing and is asymptomatic at sitting. This not consistent with posterior circulation or central causes. IV fluids will be administered basic blood work will be administered and EKG will be performed. EKG was performed I personally interpreted shows a ventricular rate of 57 normal sinus rhythm sinus bradycardia and normal axis no conduction abnormalities or significant arrhythmia. Reassessment 3:21 PM after patient's IV fluids he feels much better I stood him up walked him around he has a completely normal neurologic exam on serial examinations he is walking without any difficulty no symptoms upon standing however he is still persistently abnormal with objective measurements of his blood pressure still dropping 30-40 points upon standing. However he is no longer symptomatic. I am okay with him going home aggressively hydrating himself and being careful going from lying to sitting to standing. I do not suspect any alternative pathology at the moment for his symptoms. He has been vies about his primary care doctor or phys asst or to return to the emergency department with any recurrence of his symptoms. This is not consistent with a neurovascular or cardiovascular emergency at the moment. 06/05/25 12:20: WBC 7.4, RBC 4.54 L, Hgb 15.2, Hct 43.5, MCV 95.8 H, MCH 33.5 H, MCHC 34.9, RDW 12.0, Plt Count 113 L, MPV 11.7 H, Neut % (Auto) 71.4, Lymph % (Auto) 16.4, [place] % (Auto) 9.7 H, Eos % (Auto) 1.1, Baso % (Auto) 0.3, Neut # (Auto) 5.3, Lymph # (Auto) 1.2, [place] # (Auto) 0.7, Eos # (Auto) 0.1, Baso # (Auto) 0.0, Sodium 136, Potassium 4.1, Chloride 105, Carbon Dioxide 27, Anion Gap 8.1, BUN 16, Creatinine 0.80, Estimated Creat Clear 84, Estimated GFR 95, Est GFR ( Amer) 115, Glucose 103 H, Calcium 9.1, Magnesium 1.7, Total Bilirubin 0.9, AST 34, ALT 22, Alkaline Phosphatase 63, Troponin I < 0.01, Total Protein 6.5, Albumin 4.2, Globulin 2.3, Albumin/Globulin Ratio 1.8, TSH 1.18, Thyroxine (T4) 9.2, HCV Ab [place] w/Rflx PCR Qn Negative, HIV Ag/Ab Combo Qual Negative 06/05/25 14:14: Urine Color Yellow, Urine Appearance Clear, Urine pH 7.0, Ur Specific [place] 1.010, Urine Protein Negative, Urine Glucose (UA) Negative, Urine Ketones Negative, Urine Blood Negative, Urine Nitrate Negative, Urine Bilirubin Negative, Urine Urobilinogen 0.2, Ur Leukocyte Esterase Trace. 74 year old male presents with c/o Constipation. c/o constipation T he pt states he has not had a bowel movement in the past 4-5 days. since dehydrated after playing golf. Pt states he has tried MiraLax and suppositories without any success.? Denies : Dysphagia. D enies : Abdominal Pain. D enies : Acid Reflux. D enies : Heartburn. D enies : Nausea. D enies : Vomiting. D enies : Fever. D enies : Abdominal Distension. D enies : Blood in Stool. * ROS: C ARDIOLOGY: no C hest pain. n o S hortness of breath. ? D ERMATOLOGY: no R rhonda. n o H keaton. U ROLOGY: no D ifficulty urinating. n o B lood in urine. * Medical History: M ild heart attack-2013, High cholestrol, GERD, Over active bladder, Broken rib left side, Small hiatal hernia, Fatty liver, DDD, Mild osteoporosis, 10/20/16 EJ=190 Hiiy=316 HDL=36 LDL=72. * Surgical History: V asectomy , hemorrhoid surgery 2006, heart cath for nonSTEMI 2012. * Hospitalization/Major Diagno stic Procedure: H -IA mild heart attack 2012. * Family History: [...] ,Years: , Determination:. * Medications: T aking metFORMIN HCl ER 500 MG Tablet Extended Release 24 Hour 1 tablet with evening meal Orally Once a day , Taking traMADol HCl 50 MG Tablet 1 tablet [...] orally 2 times a day , Taking Omeprazole 20 MG Capsule Delayed Release 1 cap(s) orally once a day , Taking Aspirin Adult Low Dose 81 MG Tablet Delayed Release 1 tab(s) orally once a day , Taking Multiple Vitamin - Capsule 1 cap(s) orally once a day , Taking Flomax 0.4 MG Capsule 1 cap(s) orally once a day , Taking Lisinopril 20 MG Tablet 1 orally twice a day , Not-Taking Myrbetriq 50 MG Tablet Extended Release 24 Hour 1 tab(s) orally once a day , Not-Taking Meloxicam 15 MG Tablet 1 tablet Orally Once a day , Medication List reviewed and reconciled with the patient * Allergies: N .K.D.A. Objective: * Vitals: W t: 193.4, Temp: 97.8, BP: 160/90, HR: 56, Nurse: DERICK, Ht: 73, BMI:25.51. * Examination: G eneral Examination: General Appearance: N AD, appears healthy, alert, pleasant; gaitan. H eart: R RR. L ungs: C TAB A&P. A bdomen: b owel sounds present, soft and nontender, no organomegaly or masses. E xtremities: n o leg edema. Assessment: * Assessment: 1. A rachell constipation - K59.00 (Primary) Plan: * Treatment: * Procedure Codes: G 2211 Complex e/m visit add on * Follow Up: p rn * Images: Billing Information: * Visit Code: 84749 Office Visit, Est Pt., Level 3. * Procedure Codes: G2211 Complex e/m visit add on. * Electronic signature of Kristen Harvey APRN on 08/29/2025 at 01:42 PM EST Sign off status: Pending * Provider: JUSTIN Antonio Date: 0 06/10/2025 Generated for Sylvie machado/Masoud/eTransmitting on: 10/29/2024 01:42 PM EST History and Physical Notes * HPI (History of Present Illness) Category Sub-Category Detail Notes Category Not es Gastroenterology Fever Vomiting Abdominal Pain Blood in Stool Nausea Abdominal Distension Heartburn Dysphagia Acid Reflux Constipation constipation The pt states he has not had a bowel movement in the past 4-5 days. since dehydrated after playing golf. Pt states he has tried MiraLax and suppositories without any success Examination Category Sub-Category Detail Notes Category Not es General Examination Heart: RRR Lungs: CTAB A&P Abdomen: bowel sounds present , soft and nontender, no organomegaly or masses Extremities: no leg edema General Appearance: NAD, appears healthy , alert, pleasant; gaitan
--- OUTSIDE RECORDS SUMMARY | 2025-06-26 10:15 | XMS_ITS ---
[facility] Address [address] [place] [id number] Care Team Providers Care Sephora Operations Consultant Name Role Phone Mili Vasquez Primary Care Provider Allergies No Known Allergies Reason For Referral Reason dizziness, near sync ope Diagnosis 1 Dizziness (R42) [facility] Referring Provider First Name Mili Diamond Referring Provider Last Name Pedro Referring Provider Speciality Family Pra ctice Referred Provider Yaneth Avery Referred Provider Specialty Cardiovascul ar Disease General Notes Alcira Burnham 2024 09:39:29 AM > faxed to [facility] CardiologyChacha Brynn 06/30/2025 11:04:02 AM > 07/21/2025 at 10:00am Referral Priority Routine REASON FOR VISIT 4 week f/u, Needs order for Cologuard/Colonoscopy Medications Medication SIG (Take, Route, Frequency, Duration) Notes Start Date End Date Status Omeprazole 20 MG 1 cap(s) orally once a day Active Metoprolol Tartrate 25 MG 1 orally 2 times a day Active Atorvastatin Calcium 80 MG 1 tab(s) orally once a day Active Finasteride 5 MG 1 tablet Orally Once a day Active Tadalafil 20 MG 1 tablet as needed Orally Once a day Active Lisinopril 20 MG 1 orally twice a day Active metFORMIN HCl ER 500 MG 1 tablet with ev ening meal Orally Once a day Active traMADol HCl 50 MG 1 tablet as needed Orally Once a day Active Meloxicam 15 MG 1 tablet Orally Once a day; Duration: 30 days 05/16/2025 Not-Takin g Myrbetriq 50 MG 1 tab(s) orally once a day Not-Taking Flomax 0.4 MG 1 cap(s) orally once a day; Duration: 30 day(s) Active Multiple Vitamin - 1 cap(s) orally once a day Active Aspirin Adult Low Dose 81 MG 1 tab(s) orally once a day Active Vital Signs Blood pressure systolic 140 mm Hg 06/26/20 25 Blood pressure diastolic 72 mm Hg 025 Heart Rate 61 /min 06/26/2025 Height 73 in 06/26/2025 Weight 195.8 lbs 06/26/2025 BMI 25.83 kg/m2 06/26/2025 Encounters Encounter Location Date Provider Diagnosis [facility] [address] [facility] [address] [facility] [address] [place] [id number] 06/26/2025 Mili Vasquez Dizziness R42 ; Near syncope R55 and Aortic valve sclerosis I35.8 Assessments Encounter Date Diagnosis (ICD Code) Assessment Notes Treatment Notes Treatment Clinical Notes Section Notes 06/26/2025 Dizziness (ICD-10 - R42) 06/26/2025 Near syncope (ICD-10 - R55) 06/26/2025 Aortic valve sclerosis (ICD-10 - I35.8) Plan Of Treatment Pending Test Test Name Order Date Holter Monitor- 48 hour 06/26/2025 Referrals Referral Date Details 06/26/2025 06/26/2025, dizzines s, near syncope, Yanethlauren Pritchettaboul Next Appt Details Follow Up: 2 Weeks, Reason: Provider Name:Mili Waller er, 09/29/2025 11:00:00 AM, [address] [facility] [address] [facility], [address], [place], [id number], Progress Notes * ERWIN HALLDOB: [birth year] (75 yo M)Acc No.[id number]:06/26/2025 Progress Notes Patient: ERWIN KIMBALL Provider: Mili Vasquez M.D. :1950 A ge:74 Y S ex:Male Date:06/26/2025 Address:[address] [place] [address] [address], [id number] Subjective: * Chief Complaints: * 1 . 4 week f/u. 2. Needs order for Cologuard/Colonoscopy. * HPI: C ardiology: The patient is here today for a check-up on Hypertension. Pt states his BP is still fluctuating a lot. Pt states he is still having dizziness when he stands too fast. Pt states he was in the ER on 06/05/25 (see note) due to dehydration and orthostatic hypotension. Past echocardiogram is reviewed. Also has evaluations at the [facility]. 74 year old male presents with c/o Dizziness s ensation of imbalance. Denies : Chest Pain. D enies : [...] hernia, Fatty liver, DDD, Mild osteoporosis, 10/20/16 JF=775 Fcpy=203 HDL=36 LDL=72. * Surgical History: V asectomy , hemorrhoid surgery 2006, heart cath for nonSTEMI 2012. * Hospitalization/Major Diagno stic Procedure: [place] -[place] mild heart attack 2012. * Family History: [...] N .K.D.A. Objective: * Vitals: W t: 195.8, Temp: 98.2, BP: 140/72, HR: 61, Nurse: DERICK, Ht: 73, Repeat BP: 132/70, BMI:25.83. * Examination: G eneral Examination: General Appearance: N AD. H EENT: u nremarkable.?Oral cavity: n o lesions, mucosa moist and WNL, no erythema. N oswaldo: s upple, no lymphadenopathy. C hest: n ormal shape and expansion. H eart: R SR, aortic murmur. L ungs: c lear to auscultation. N eurologic Exam: I ntact, gait normal. S kin: n ormal, no rash. P eripheral pulses: n ormal . E xtremities: 1 + leg edema. Assessment: * Assessment: 1. D izziness - R42 (Primary) 2 . N ear syncope - R55 3 .?Aortic valve sclerosis - I35.8 Plan: * Treatment: 2. N ear syncope I maging: Holter Monitor- 48 hour 3. A ortic valve sclerosis I maging: Holter Monitor- 48 hour * Procedure Codes: G 2211 Complex e/m visit add on * Follow Up: 2 Weeks * Images: Billing Information: * Visit Code: 44386 Office Visit, Est Pt., Level 4. * Procedure Codes: G2211 Complex e/m visit add on. * Electronic signature of Mili Vasquez MD on 08/29/2025 at 01:42 PM EST Sign off status: Pending * Provider: Mili Vasquez M.D. Date: 0 06/26/2025 Generated for Sylvie machado/Masoud/Jordana on: 1 10/29/2024 01:42 PM EST History and Physical Notes * HPI (History of Present Illness) Category Sub-Category Detail Notes Category Not es Cardiology Short of Breath Chest Pain Palpitations Dizziness sensation of imbalan ce Examination Category Sub-Category Detail Notes Category Not es General Examination HEENT: unremarkable Heart: RSR, aortic murmur Lungs: clear to auscultatio n Extremities: 1+ leg edema General Appearance: NAD Skin: normal, no rash Neurologic Exam: Intact, gait normal Neck: supple, no lymphaden opathy Oral cavity: no lesions, mucosa m oist and WNL, no erythema Peripheral pulses: normal Chest: normal shape and exp ansion Consultation Request Notes Referral Date Referring Provider Referred Provider Not es 06/26/2025 Mili Vasquez Yaz dizziness, near syncope
--- OUTSIDE RECORDS SUMMARY | 2025-07-28 06:00 | XMS_ITS ---
Author [facility] Address [address] [place] [id number] Care Team Providers [facility] Partner Name Role Phone Mili Vasquez Primary Care Provider [phone] Allergies No Known Allergies REASON FOR VISIT 2 Week Follow Up Medications Medication SIG (Take, Route, Frequency, Duration) Notes Start Date End Date Status Finasteride 5 MG 1 tablet Orally Once a day Active traMADol HCl 50 MG 1 tablet as needed Orally Once a day Active Metoprolol Tartrate 100 MG 1/2 tablet orally 2 times a day Active Atorvastatin Calcium 80 MG 1 tab(s) orally once a day Active Omeprazole 20 MG 1 cap(s) orally once a day Active Lisinopril 20 MG 1 orally twice a day Active metFORMIN HCl ER 500 MG 1 tablet with ev ening meal Orally Once a day Active Myrbetriq 50 MG 1 tab(s) orally once a day Not-Taking Tadalafil 20 MG 1 tablet as needed Orally Once a day Not-Taking Meloxicam 15 MG 1 tablet Orally Once a day; Duration: 30 days 05/16/2025 Not-Takin g Multiple Vitamin - 1 cap(s) orally once a day Active Flomax 0.4 MG 1 cap(s) orally once a day; Duration: 30 day(s) Active Aspirin Adult Low Dose 81 MG 1 tab(s) orally once a day Active Vital Signs Blood pressure systolic 170 mm Hg 07/28/20 25 Blood pressure diastolic 82 mm Hg 025 Heart Rate 56 /min 07/28/2025 Height 73 in 07/28/2025 Weight 192.2 lbs 07/28/2025 BMI 25.35 kg/m2 07/28/2025 Encounters Encounter Location Date Provider Diagnosis [facility] [address] [facility] [address] [place] [phone] 07/28/2025 Mili Vasquez 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 ; Aortic valve sclerosis I35.8 ; Carotid stenosis, bilateral I65.23 ; Dizziness R42 and Essential hypertension I10 Assessments Encounter Date Diagnosis (ICD Code) Assessment Notes Treatment Notes Treatment Clinical Notes Section Notes 07/28/2025 Arteriosclerotic cardiovascular disease (ASCVD) (ICD-10 - I25.10) continue RX 07/28/2025 Aortic valve sclerosis (ICD-10 - I35.8) 07/28/2025 Carotid stenosis, bilateral (ICD-10 - I65.23) 07/28/2025 Dizziness (ICD-10 - R42) 07/28/2025 Essential hypertension (ICD-10 - I10) Plan Of Treatment Treatment Notes Assessment Notes Arteriosclerotic cardiovascular disease (ASCVD) continue RX Next Appt Details Follow Up: 2 Months, Reason: Provider Name:Mili Waller er, 09/29/2025 11:00:00 AM, [address] [facility], [address], [place], [id number], Progress Notes * ERWIN HALLDOB: [birth year] (75 yo M)Acc No.[id number]:07/28/2025 Patient: ERWIN KIMBALL Provider: Mili Vasquez M.D. :1950 A ge:75 Y S ex:Male Date:07/28/2025 Address:[facility] [id number] Subjective: * Chief Complaints: * 1 . 2 Week Follow Up. * HPI: C ardiology: The pt is here today for a follow-up on Hypertension and Near syncope. Pt states he did see Cardiology (Joana Travis) and had a 48 hour Holter. See pt docs. Pt states he is scheduled for a nuclear stress test. Pt states he had a colonoscopy at the [place] on 10/02/25. Pt states he is to have a repeat colonoscopy in 6 mo - 1 year. due to polyps. 75 year old male presents with c/o Short of Breath w ith exertion. c/o Dizziness s ensation of imbalance. c/o Palpitations o ccasionally.? Denies : Chest Pain. * ROS: C ONSTITUTIONAL: Positive for A nother physician seen since last visit? Yes Change in medication since last visit? No, Are you taking antibiotics?, No Are you taking steroids? No. D ERMATOLOGY: no R rhonda. n o H keaton. G ASTROENTEROLOGY: no N ausea. n o V omiting. n o D iarrhea.? U ROLOGY: no D ifficulty urinating. n o B lood in urine. * Medical History: M ild heart attack-2012, High cholestrol, GERD, Over active bladder, Broken rib left side, Small hiatal hernia, Fatty liver, DDD, Mild osteoporosis, 10/20/16 LC=157 Haqk=910 HDL=36 LDL=72. * Surgical History: V asectomy , hemorrhoid surgery 2006, heart cath for nonSTEMI 2012. * Hospitalization/Major Diagno stic Procedure: [place] -[place] mild heart attack 2012. * Family History: [...] once a day , Taking Metoprolol Tartrate 100 MG Tablet 1/2 tablet orally 2 times a day , Taking [...] 1 orally twice a day , Not-Taking Tadalafil 20 MG Tablet 1 tablet as needed Orally Once a day , Not-Taking Myrbetriq 50 MG Tablet Extended Release 24 Hour 1 tab(s) orally once a day , Not-Taking Meloxicam 15 MG Tablet 1 tablet Orally Once a day , Medication List reviewed and reconciled with the patient * Allergies: N .K.D.A. Objective: * Vitals: W t: 192.2, Temp: 98.2, BP: 170/82, HR: 56, O2 Sat: 100% on RA, Nurse: DERICK, Ht: 73, Repeat BP: 154/80, BMI:25.35. * Examination: G eneral Examination: General Appearance: [...] disease (ASCVD) - I25.10 (Primary) 2 . A ortic valve sclerosis - I35.8 3 . C arotid stenosis, bilateral - I65.23 ? 4 . D izziness - R42 5 . E ssential hypertension - I10 ? Plan: * Treatment: * Procedure Codes: G 2211 Complex e/m visit add on * Follow Up: 2 Months * Images: Billing Information: * Visit Code: 74411 Office Visit, Est Pt., Level 3. * Procedure Codes: G2211 Complex e/m visit add on. * Electronic signature of Mili Vasquez MD on 08/29/2025 at 01:42 PM EST Sign off status: Pending * Provider: Mili Vasquez M.D. Date: Generated for Sylvie machado/Masoud/eTransmitting on: 10/29/2024 01:42 PM EST History and Physical Notes * HPI (History of Present Illness) Category Sub-Category Detail Notes Category Not es Cardiology Short of Breath with exertion Chest Pain Palpitations occasionally Dizziness sensation of imbalan ce Examination Category [...]
--- OUTSIDE RECORDS SUMMARY | 2025-08-29 13:42 | XMS_ITS | Patient Health Record ---
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 Role Phone Mili Vasquez Primary Care Provider Idris Cullen Unavailable [phone] Mattie Harvey Unavailable [phone] Allergies No Known Allergies Results Component Value Reference Range Notes Influenza Screen (in house) Reviewed date:10/18/2024 05:33:23 PM Interpretation:Negative Performing Lab: Notes/Report: Negative results Neg Covid test (in house) Reviewed date:10/18/2024 05:32:59 PM Interpretation:Negative Performing Lab: Notes/Report: Negative Result: Neg CBC Venipuncture (in house) Reviewed date:05/22/2025 05:35:56 [...] Interpretation:Normal Performing Lab: Notes/Report: Test performed by [facility] [employer] [address] [place] [address] , [address], [place] [address] Kevin Stone MD, Auto Refinisher CLIA: [id number] Sodium 143 135-145 mmol/L Potassium 4.5 3.5-5.3 [...] Interpretation:Normal Performing Lab: Notes/Report: Test performed by [facility] [employer] [address] [place] [address] , [address], [place] [address] Kevin Stone MD, Auto Refinisher CLIA: [id number] Erythrocyte Sedimentation Ra te (ESR), Automated 3 <21 mm/hr P-Lipid Panel Reviewed date:05/22/2025 05:35:56 PM Interpretation:Normal Performing Lab: Notes/Report: Test performed by [facility] [employer] [address] [place] [address] , [address], [place] [address] Kevin Stone MD, Auto Refinisher CLIA: [id number] Cholesterol 131 <200 mg/dL Triglycerides 95 <150 [...] Notes/Report: Negative, see 05/30/2025 OV Result Negative Reason For Referral Reason dizziness, near sync ope Diagnosis 1 Dizziness (R42) Referral Organization [facility] Referring Provider First Name Mili Diamond Referring Provider Last Name Pedro Referring Provider Speciality Family Pra ctice Referred Provider Yaneth Avery Referred Provider Specialty Cardiovascul ar Disease General Notes Alcira Burnham 2024 09:39:29 AM > faxed to [facility] Cardiology, Alcira Burnham 06/30/2025 11:04:02 AM > 07/21/2025 at 10:00am Referral Priority Routine Medications Medication SIG (Take, Route, Frequency, Duration) Notes Start Date End Date Status Metoprolol Tartrate 100 MG 1/2 tablet orally 2 times a day Active Atorvastatin Calcium 80 MG 1 tab(s) orally once a day Active Aspirin Adult Low Dose 81 MG 1 tab(s) orally once a day Active Omeprazole 20 MG 1 cap(s) orally once a day Active Multiple Vitamin - 1 cap(s) orally once a day Active Lisinopril 20 MG 1 orally twice a day Active Flomax 0.4 MG 1 cap(s) orally once a day; Duration: 30 day(s) Active metFORMIN HCl ER 500 MG 1 tablet with ev ening meal Orally Once a day Active Myrbetriq 50 MG 1 tab(s) orally once a day Not-Taking Tadalafil 20 MG 1 tablet as needed Orally Once a day Not-Taking Finasteride 5 MG 1 tablet Orally Once a day Active traMADol HCl 50 MG 1 tablet as needed Orally Once a day Active Meloxicam 15 MG 1 tablet Orally Once a day; Duration: 30 days 05/16/2025 Not-Takin g Immunizations Vaccine Route Administration Date Status Comme nts Prevnar (PCV20) Unknown 05/18/2022 Administered Fluzone High Dose (65yr and older) IM Intramuscular 08/08/2017 Administered Fluzone High Dose (65yr and older) IM Intramuscular 08/17/2018 Administered Fluzone High Dose (65yr and older) IM Intramuscular 08/15/2022 Administered COVID 19 Moderna Unknown 10/30/2020 Administered COVID 19 Moderna Unknown 12/01/2020 Administered COVID 19 Moderna Unknown 06/23/2021 Administered Problems Problem Type SNOMED Code ICD Code Onset Dates Problem Status W/U Status Risk Notes Problem Essential hypertension (26207633) Essential hypertension (I10) Active confirmed Problem Acute constipation (319189141) Acute constipation (K59.00) Active confirmed Problem Chronic pain (81023066) Other chronic pain (G89.29) Active confirmed Problem Atherosclerotic heart disease of [place] coronary artery without angina pectoris (195358649761002) 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) Active confirmed Problem Occlusion and stenosis of multiple and bilateral cerebral arteries (002581603) Carotid stenosis, bilateral (I65.23) Active confirmed Problem Aortic valve sclerosis (74179223) Aortic valve sclerosis (I35.8) Active confirmed Vital Signs Heart Rate 56 /min 07/28/2025 Blood pressure diastolic 82 mm Hg 07/28/2025 Height 73 in 07/28/2025 Blood pressure systolic 170 mm Hg 07/28/2025 Weight 192.2 lbs 07/28/2025 BMI 25.35 kg/m2 07/28/2025 Encounters Encounter Location Date Provider Diagnosis [facility] [address] [id number] 10/18/2024 Cullen Barron Bronchitis J40 [facility] [address] [facility] [address] [place] [id number] 05/16/2025 Mili Vasquez 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 ; Dorsalgia, unspecified M54.9 ; Other chronic pain G89.29 ; Aortic valve sclerosis I35.8 ; Carotid stenosis, bilateral I65.23 ; Tobacco use Z72.0 and BMI 26.0-26.9,adult Z68.26 [facility] [address] [facility] [address] [id number] 05/30/2025 Mili Vasquez Essential hypertensi on I10 ; 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 ; Aortic valve sclerosis I35.8 and BMI 25.0-25.9,adult Z68.25 [facility] [address] [facility] [address], [place] [id number] 06/10/2025 Mattie Harvey Acute constipation K59.00 [facility] [address] [facility] [address], [place] [id number] 06/26/2025 Mili Vasquez Dizziness R42 ; Near syncope R55 and Aortic valve sclerosis I35.8 [facility] [address] [facility] [address] [id number] 07/28/2025 Mili Vasquez 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 ; Aortic valve sclerosis I35.8 ; Carotid stenosis, bilateral I65.23 ; Dizziness R42 and Essential hypertension I10 [facility]ilar[facility] [address] [facility] [address] [place] [id number] 05/27/2025 Mili Vasquez [facility] [address] [facility] [address] [place] [id number] 06/17/2025 Mili Vasquez Assessments Encounter Date Diagnosis (ICD Code) Assessment Notes Treatment Notes Treatment Clinical Notes Section Notes 10/18/2024 Bronchitis (ICD-10 - J40) 05/16/2025 Dorsalgia, unspecified (ICD-10 - M54.9) 05/16/2025 Arteriosclerotic cardiovascular disease (ASCVD) (ICD-10 - I25.10) 05/30/2025 Essential hypertension (ICD-10 - I10) 05/30/2025 Arteriosclerotic cardiovascular disease (ASCVD) (ICD-10 - I25.10) 06/10/2025 Acute constipation (ICD-10 - K59.00) to continue with Miralax bid until bowels move; put into prune juice; dulcolax supp daily prn; MG++ citrated if this does not work in a couple of days; excellent water intake; bland diet until resolved 06/26/2025 Dizziness (ICD-10 - R42) 06/26/2025 Near syncope (ICD-10 - R55) 07/28/2025 Arteriosclerotic cardiovascular disease (ASCVD) (ICD-10 - I25.10) continue RX 07/28/2025 Aortic valve sclerosis (ICD-10 - I35.8) 07/28/2025 Carotid stenosis, bilateral (ICD-10 - I65.23) 05/30/2025 Aortic valve sclerosis (ICD-10 - I35.8) 06/26/2025 Aortic valve sclerosis (ICD-10 - I35.8) 05/16/2025 Other chronic pain (ICD-10 - G89.29) 05/30/2025 BMI 25.0-25.9,adult (ICD-10 - Z68.25) 07/28/2025 Dizziness (ICD-10 - R42) 05/16/2025 Aortic valve sclerosis (ICD-10 - I35.8) 07/28/2025 Essential hypertension (ICD-10 - I10) 05/16/2025 Carotid stenosis, bilateral (ICD-10 - I65.23) 05/16/2025 Tobacco use (ICD-10 - Z72.0) 05/16/2025 BMI 26.0-26.9,adult (ICD-10 - Z68.26) Plan Of Treatment Pending Test Test Name Order Date Holter Monitor- 48 hour 06/26/2025 Next Appt Details Provider Name:Mili Diamond Sridhar er, 09/29/2025 11:00:00 AM, [address], [address], [place], [place], [id number], Insurance Providers Payer Name Payer Address Payer Phone Subscriber Number Group Number Insured Name Patient Relationship to Insured Coverage Start Date Coverage End Date MEDICARE PART B [address] [address] [place] [id number] ERWIN HALL Self - [place] [address] [id number] ERWIN HALL Self - patient is the insured Medical (General) History Medical History History ICD Code mild heart attack-2012 high cholestrol GERD over active bladder broken rib left side small hiatal hernia fatty liver DDD mild osteoporosis 10/20/16 BJ=909 Ylbe=956 HDL=36 LDL=72 Surgical History Surgery Date(Month/Year) Vasectomy hemorrhoid surgery 2006 heart cath for nonSTEMI 2012 Hospitalization History Reason Date(Month/Year) [facility] mild heart attack 2012
--- OUTSIDE RECORDS SUMMARY | 2025-08-29 13:43 | XMS_ITS ---
Author Organization Unknown ENCOUNTERS Encounter Performer Location Date Diagnosis Diagnosis Status Emergency [place] [address] [place] [address] [id number] TIFFANI Pre Admit Mili [place] [address] [place] [id number] Emergency [facility] (ED) [place] [address] [place] [address] [id number] [facility] [address] [place] [id number] TIFFANI Emergency Dean Vanegas [place] [address] [place] [address] [id number] TIFFANI *Note: Encounters from your own facility or health system may be excluded. Allergies, Adverse Reactions, Alerts Allergen Type Severity Identification Date Medications Name Date Quantity Days Supplied GPI Number
[2025-08-29 14:02] LABS: Hematocrit 44.7 % (42.0-52.0); Hemoglobin 15.0 g/dL (14.1-18.0); Immature Granulocytes % 1.1 %; Mean Corpuscular HGB Conc 33.6 g/dL (31.8-35.4); Mean Corpuscular Hemoglobin 32.8 pg (27.0-31.2); Mean Corpuscular Volume 97.8 fl (80-94); Nucleated Red Blood Cells % 0 %; Platelet Count 126 K/mm3 (142-424); Red Blood Count 4.57 M/mm3 (4.60-6.20); Red Cell Distribution Width-SD 43.7 fL; White Blood Count 7.1 K/mm3 (4.8-10.8)
[2025-08-29 14:32] LABS: Chloride 106 mmol/L (98-107)
[2025-08-29 14:33] LABS: Potassium 4.6 mmoL/L (3.5-5.1); Sodium 140 mmol/L (136-145)
[2025-08-29 14:35] LABS: Blood Urea Nitrogen 12 mg/dl (9-20); Creatinine,Serum 0.80 mg/dl (0.66-1.25); Estimated Glomerular Filt Rate 94 ml/min (>60); GFR (African American) 114 ML/MIN (>60)
[2025-08-29 14:36] LABS: Anion Gap 11.6 mEq/L (5-15); Calcium 8.6 mg/dl (8.4-10.2); Carbon Dioxide 27 mmol/L (22.0-30.0); Glucose 90 mg/dl (74-100)
== END 2025-08-29 23:59 | disposition home or self-care (01) ==
LOC: LAB 13:34
PROVIDERS: PCP Family Medicine; Visit Provider Internal Medicine
DX: I25.10 Atherosclerotic heart disease of native coronary artery without angina pectoris (principal)
CPT/HCPCS: 36415; 80048; 85025

== ENCOUNTER → 2025-09-02 12:21 | Outpatient (RCR) | payer MEDICARE, OTHER, SELFPAY | LOC: CR 12:21 | PROVIDERS: PCP Family Medicine; Visit Provider Internal Medicine | DX: Z48.812 Encounter for surgical aftercare following surgery on the circulatory system (principal); Z98.61 Coronary angioplasty status | CPT/HCPCS: 93798 ==